=== PATIENT | male | born 1995 | race Caucasian/White ===

== ENCOUNTER 2020-06-24 20:15 | Inpatient (IN) | payer MEDICARE, MEDICAID, SELFPAY ==
[2020-06-24 20:15] VITALS: BP 133/91; PULSE 88; RESP 16; TEMP 36.6; O2SAT 98; BMI 28.1
--- NOTE | 2020-06-24 20:23 | ED_ITS ---
HPI - Psych General: Chief Complaint: Psychiatric Symptoms Stated Complaint: MHE Time Seen by Provider: 06/24/20 20:15 Source: patient and EMS Mode of arrival: EMS Limitations: no limitations History of Present Illness: HPI Narrative: 25-year-old male who is here by EMS stating he has had violent outbursts and difficulty controlling his emotions. He states he has been depressed as well. He states he has had previous suicidal thoughts and thoughts of harming other people but has no active thoughts at this time. He denies any previous treatments does not take any medicines. MD complaint: suicidal ideation and feels depressed Associated symptoms: Reports depression Review of Systems Const: Denies: fever(s), chills, body aches or change in appetite Eyes: Denies: blurry vision or eye discomfort ENMT: Denies: throat pain or dental pain Card: Denies: chest pain Resp: Denies: dyspnea GI: Denies: abdominal pain, nausea, vomiting or diarrhea : Denies: dysuria Musc: Denies: neck pain or back pain Skin/Breast: Denies: rash Neuro: Denies: headache(s) Psych: Reports: depression and irritability Reyes/Lymph: Denies: easy bruising All/Imm: Denies: urticaria Physical Exam Const: COMMON NORMALS: no acute distress, patient oriented x3 and healthy appearing HENMT: COMMON NORMALS: normocephalic and atraumatic HEAD & SCALP: normocephalic and atraumatic Eye: COMMON NORMALS: Equal, round and reactive pupils present and EOMs intact bilaterally PUPIL: Yes Equal, round and reactive pupils present Neck/C-Spine: COMMON NORMALS: full ROM and supple Chest: COMMONS NORMALS: normal inspection of the chest and normal palpation of entire chest wall Resp: COMMON NORMALS: normal respiratory effort, No retractions, No use of accessory muscles and clear to auscultation bilaterally AUSCULTATION: clear to auscultation bilaterally Cardio: COMMON NORMALS: regular rate, regular rhythm and No murmurs present (Cardio) RATE: regular rate RHYTHM: regular rhythm GI: COMMON NORMALS: Normal to inspection, nondistended, normoactive bowel sounds present, Soft to palpation, non-tender and no masses PALPATION: Yes Soft to palpation Extremity: COMMON NORMALS: normal to inspection and full ROM Neuro: COMMON NORMALS: patient oriented x3, moves all extremities and no focal motor deficits Psych: COMMON NORMALS: mental status grossly normal, Normal thought process present and cooperative THOUGHT PROCESS: Normal thought process present Skin: COMMON NORMALS: no rashes or lesions noted and no wounds GENERAL SKIN EXAM: no rashes or lesions noted MDM - Psych MDM Narrative: Medical decision making narrative: Srinivasa presents here with depression along with anger issues. Patient is voluntarily wanting to be admitted as he has had suicidal ideations in the past. I spoke to Dr. Bruno and will admit. Patient is medically cleared. Lab Data: Labs: Lab Results 06/24/20 06/24/20 06/24/20 Range/Units 20:39 20:42 20:42 WBC 7.2 (4.0-10.0) 10^3/ uL RBC 4.93 (4.1-5.3) 10^6/u L Hgb 15.2 (11.7-16.6) g/dL Hct 48.4 (42.0-52.0) % MCV 98.2 H (80-94) fL MCH 30.8 (28.0-34.0) pg MCHC 31.4 (30.0-36.0) g/dL RDW 12.7 (12.1-15.1) % Plt Count 335 (130-400) 10^3/c mm MPV 9.2 (7.4-10.4) fL Neut % (Auto) 57.0 % Lymph % (Auto) 32.2 % Island % (Auto) 8.8 % Eos % (Auto) 0.6 % Baso % (Auto) 1.1 % Neut # (Auto) 4.08 (1.8-7.7) 10^3/u L Lymph # (Auto) 2.3 (0.8-4.8) 10^3/u L Island # (Auto) 0.6 (0.2-0.9) 10^3/u L Eos # (Auto) 0.0 (0.0-0.8) 10^3/u L Baso # (Auto) 0.1 (0.0-0.1) 10^3/u L Nucleated RBC % (a uto) 0 % Nucleated RBCs # 0.0 /100WBC Sodium 141 (136-145) mmol/L Potassium 4.4 (3.5-5.1) mmol/L Chloride 103 (98-107) mmol/L Carbon Dioxide 28 (22-29) mmol/L Anion Gap 14.4 (5-19) BUN 6 (6-20) mg/dL Creatinine 0.8 (0.7-1.2) mg/dL GFR Calculation 116.9 (90-130) mL/min Glucose 98 (65-115) mg/dL Calculated Osmolal ity 288 (285-295) mOsm/k g Calcium 10.2 (8.5-10.5) mg/dL Total Bilirubin 0.4 (0.15-1.2) mg/dL AST 18 (0-40) U/L ALT 18 (0-41) U/L Alkaline Phosphata se 60 (40-130) IU/L Total Protein 7.8 (6.6-8.7) g/dL Albumin 5.1 (3.5-5.2) g/dL Globulin 2.7 (1.3-4.6) g/dL Salicylates < 0.3 L (3-10) mg/dL Urine Opiates Scre en Positive H (Negative) ng/mL Acetaminophen < 5.0 L (10-30) ug/mL Ur Barbiturates Sc reen Negative (Negative) ng/mL Ur Phencyclidine S crn Negative (Negative) ng/mL Ur Amphetamines Sc reen Negative (Negative) ng/mL U Benzodiazepines Scrn Negative (Negative) ng/mL Urine Cocaine Scre en Negative (Negative) ng/mL U Marijuana (THC) Screen Positive H (Negative) ng/mL Ethyl Alcohol < 10 (0-10) mg/dL Discharge Plan Discharge Patient Disposition: Admitted As Inpatient Admit Provider: Octavio Bruno Clinical Impression: Excessive anger Depression Qualifiers: Depression Type: unspecified Qualified Code(s): F32.9 - Major depressive disorder, single episode, unspecified Condition: Stable Coding Level of Care Code ED Geriatric Personal Care Aide for Panchito Fwannalisa Exam Comprehensive
[2020-06-24 20:48] VITALS: RESP 16
[2020-06-24 20:52] LABS: Basophils # 0.1 10^3/uL (0.0-0.1); Basophils % 1.1 %; Eosinophils % 0.6 %; Hematocrit 48.4 % (42.0-52.0); Hemoglobin 15.2 g/dL (11.7-16.6); Lymphocytes # 2.3 10^3/uL (0.8-4.8); Lymphocytes % 32.2 %; Mean Corpuscular HGB Conc 31.4 g/dL (30.0-36.0); Mean Corpuscular Hemoglobin 30.8 pg (28.0-34.0); Mean Corpuscular Volume 98.2 fL (80-94); Mean Platelet Volume 9.2 fL (7.4-10.4); Monocytes # 0.6 10^3/uL (0.2-0.9); Monocytes % 8.8 %; Neutrophils # 4.08 10^3/uL (1.8-7.7); Nucleated Red Blood Cells % 0 %; Platelet Count 335 10^3/cmm (130-400); Red Blood Count 4.93 10^6/uL (4.1-5.3); Red Cell Distribution Width 12.7 % (12.1-15.1); White Blood Count 7.2 10^3/uL (4.0-10.0)
[2020-06-24 20:57] LABS: Amphetamines Screen Urine Negative (Negative); Barbiturates Screen Urine Negative (Negative); Benzodiazepines Screen Urine Negative (Negative); Cocaine Screen Urine Negative (Negative); Opiate Screen Urine Positive (Negative); PCP Screen Urine Negative (Negative); THC Screen Urine Positive (Negative)
[2020-06-24 21:05] LABS: Alanine Aminotransferase 18 U/L (0-41); Albumin Level 5.1 g/dL (3.5-5.2); Alkaline Phosphatase 60 IU/L (40-130); Anion Gap 14.4 (5-19); Aspartate Amino Transferase 18 U/L (0-40); Blood Urea Nitrogen 6 mg/dL (6-20); Calcium 10.2 mg/dL (8.5-10.5); Carbon Dioxide 28 mmol/L (22-29); Chloride 103 mmol/L (98-107); Globulin 2.7 g/dL (1.3-4.6); Glomerular Filtration Rate 116.9 mL/min (90-130); Glucose 98 mg/dL (65-115); Osmolality Calculated 288 mOsm/kg (285-295); Potassium 4.4 mmol/L (3.5-5.1); Sodium 141 mmol/L (136-145); Total Bilirubin 0.4 mg/dL (0.15-1.2); Total Protein 7.8 g/dL (6.6-8.7)
[2020-06-24 21:11] LABS: Acetaminophen < 5.0 ug/mL (10-30); Alcohol Level < 10 mg/dL (0-10); Salicylate < 0.3 mg/dL (3-10)
[2020-06-24 21:31] VITALS: BP 126/85; PULSE 76; RESP 15; O2SAT 99
[2020-06-24 22:07] VITALS: BP 133/87; PULSE 71; RESP 18; TEMP 37.1; O2SAT 96
[2020-06-24] MEDS: hyDROXYzine 25 mg Capsule 50 MG PO (22:13)
[2020-06-24] MEDS: trazodone 50 mg Tablet PO (22:14)
--- NOTE | 2020-06-24 23:49 | PC.NURSE ---
pt given prn vistaril and trazodone per request.
[2020-06-25 06:00] VITALS: BP 124/72; PULSE 78; RESP 14; TEMP 36.7; O2SAT 98
[2020-06-25] MEDS: nicotine 2 mg Gum BUCCAL ×3 (13:12→20:00)
[2020-06-25 14:00] VITALS: BP 120/75; PULSE 69; RESP 20; TEMP 36.4; O2SAT 99
--- NOTE | 2020-06-25 14:57 | P.HP_ITS ---
Providers/Chief Complaint Admitting Physician: Octavio Bruno MD Chief Complaint: MHE HPI NPU History of Present Illness Srinivasa Greene is a 25 year old male Srinivasa today having presented to the emergency room yesterday evening at the behest of his fianc?, he reports. EMS brought him in reporting that he has had violent outbursts and difficulty controlling his emotions. He had been reporting depression and previous suicidal thoughts as well as thoughts of harming other people, denying active thoughts at the time of admission, but not being on medication and having previous treatment, endorsing some concern about if things get worse he might act on something towards himself and he wanted to get treatment before that happened. He was admitted to the neuropsychiatric unit for definitive treatment of those issues. He presents today reporting that he has significant problems with controlling his anger and emotions, and that his fianc? has gotten fed up. He reports that it has gotten so bad that he has gun charges because he might grab a gun and be irrational. He reports he is very impulsive, and he does not think about things until sometimes it can be too late. He reports that he has never tried to kill himself but that he does have a history of anger and impulsive behavior. He reports that he started smoking cigarettes when he was about 13. He smoked somewhere between a half pack and a pack a day now. He drinks alcohol sometimes. He reports having marijuana occasionally. He reports that he does not use cocaine or opiates, but he has had issues with methamphetamines, but denies recent methamphetamine use maybe for a couple months he reports. His drug screen was positive for marijuana and opiates. He reports that he has been pretty depressed and anxious recently. He is frustrated because he gets mad and then he almost gets mad when he gets mad, so it gets out of control he reports. He reports he has a court date on Monday and though he wants to be discharged, he knows that he needs help and he just reports needing to be out of the hospital before then. We discussed the risks, benefits, and alternatives of initiating Clonidine for his impulsivity and Lamictal for his aggression, and we discussed the risks, benefits, and alternatives of these medications including the risk of Howell-Dashawn syndrome usually with increasing doses of Lamictal, and he understood and agreed to proceed as is documented in this note. PSYCHIATRIC HISTORY: He denies inpatient hospitalization before this one, and denies significant treatment before now, though he does endorse that he was treated by someone in the past for attention deficit hyperactivity disorder, and outpatient records suggest that he was seen at [facility] for similar complaints. That evaluation is included below in part, which concluded with a diagnosis of bipolar disorder and intermittent explosive disorder. He reports that the document referenced was a reasonable and accurate depiction of what was going on at that time. He also had an evaluation by a psychiatrist which demonstrated a past history of Lamictal being utilized effectively, and in that document, there is a diagnosis of bipolar disorder as well as cannabis abuse. He identified that being accurate as well. SUBSTANCE ABUSE HISTORY: As above. FAMILY HISTORY: He endorses mental health on mother?s side, addiction on dad?s side and reports that his dad committed suicide in 2017. DEVELOPMENTAL HISTORY: He denies issues with his mother?s or delivery of him. He met all developmental milestones on time. He does report that once he went to school, he did need speech therapy and special education services. PSYCHOSOCIAL HISTORY: He endorses that he is the only child of his parents, who were off and on together until his father . He endorses his mother had an older daughter prior to her relationship with his father and that his father had in the neighborhood of six total children. He reports his childhood was pretty good. He denies emotional, physical, or sexual abuse. 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 He reports that he is a heterosexual with his longest relationship being three years. He denies ever being , but he reports that he is engaged. He denies having biological children, ever being in the , or having any mormonism belief system. He reports his longest employment was at a [email or web address]. 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 He reports he currently lives in a trailer with his mother and sometimes lives with his girlfriend. LEGAL HISTORY: He says he has been in intermediate about four or five times. MEDICAL HISTORY: He denies any significant medical issues though he does struggle at times with his weight. In the papers it shows history of hypertension and asthma. Meds NPU Home Medications Medication Instructions Recorded Confirmed Last Taken Type clonidine HCl 0.1 mg PO DAILY 30 Days #60 tab 06/27/20 Unknown Rx hydroxyzine pamoate 50 mg PO Q6H PRN 30 Days #120 cap 06/27/20 Unknown Rx lamotrigine 25 mg PO DAILY 18 Days #39 tab 06/27/20 Unknown Rx lamotrigine 100 mg PO DAILY #30 tab 06/27/20 Unknown Rx trazodone 50 mg PO BEDTIME PRN 30 Days #30 06/27/20 Unknown Rx tab Allergies Allergy/AdvReac Type Severity Reaction Status Date / Time Sulfa (Sulfonamide Allergy Unknown Verified 06/24/20 21:16 Antibiotics) PFSH NPU PFSH: Medical History (Updated 06/28/20 @ 00:00 by ) Excessive anger Social History Smoking and tobacco status: current every day smoker Mental Status Exam 2 MSE Comments: This is an overweight, white male, with adequate dress, grooming, and eye contact with slightly dysmorphic facies. No abnormal movements except for psychomotor retardation. Cooperative with exam in mild distress. Speech was decreased rate and volume and dysarthric. Mood described as depressed and anxious; affect congruent. Thought process, organized. Thought content: patient denied any suicidal or homicidal ideation, there were no delusions reported or noted, patient denied any auditory or visual hallucinations. Attention, concentration, and memory appear intact but were not formally tested. He is alert and oriented times three. Insight and judgment are limited. Impulse control limited and intellectual ability appears limited. Vitals/I&O/Wt Last Vital Signs Temp 97.8 F 06/25/20 22:00 Pulse 68 06/25/20 22:00 Resp 19 H 06/25/20 22:00 BP 123/78 06/25/20 22:00 Pulse Ox 99 06/25/20 22:00 Weight last 48 hrs Weight 83.915 kg Data NPU : 06/24/20 20:42 06/24/20 20:42 A&P Assessment and plan (1) Intermittent explosive disorder: This is a 25 year old, white male, with history of bipolar disorder diagnosis, intermittent explosive diagnosis, as well as cannabis abuse, who presents with continued issues with impulsivity and intermittent aggression at a level inconsistent with the stimulus for the response, who presents open to restarting some medications at this time. Continue current medication except: Start Clonidine 0.1 mg po qhs with a likely plan to increase, and Lamictal 25 mg po qam with a plan to discharge on a titration schedule after discussion of risks, benefits, and alternatives including Howell-Dashawn syndrome, but he understood and agreed to proceed as documented in this note. Recommend sober living treatment at the highest level of care to which the patient is willing to commit. Encourage individual, group, and milieu therapy. Continue q-15 minute checks for safety. Status: Acute (2) Depression: Status: Acute Qualifiers: Depression Type: unspecified Qualified Code(s): F32.9 - Major depressive disorder, single episode, unspecified Involuntary Hold Information 96 Hour Hold: 96 Hour Involuntary Admission: No Attestations NPU Medical Necessity Statement*: Inpatient hospitalization is medically necessary, and the clinically appropriate intervention at this time. He will be in the hospital for over two midnights. We will initiate medications and make changes as indicated. Likely length of stay two to four days. Coding Level of Care Code Acute [facility] for Panchito Manzano Diagnoses Intermittent explosive disorder F63.81 Depression F32.9 Depression Type: unspecified
[2020-06-25] MEDS: lamoTRIgine 25 mg Tablet PO (17:15)
[2020-06-25 21:25] VITALS: BP 123/78
[2020-06-25] MEDS: cloNIDine 0.1 mg Tablet PO (21:25)
[2020-06-25] MEDS: hyDROXYzine 25 mg Capsule 50 MG PO (21:26)
[2020-06-25] MEDS: trazodone 50 mg Tablet PO (21:26)
--- NOTE | 2020-06-25 21:26 | PC.NURSE ---
PRN VISTARIL & TRAZODONE PT REQUESTING SLEEP AID AND ANXIETY MEDICATION. ADMINISTERED TRAZODONE 50 MG PO & VISTARIL 50 MG PO. WILL MONITOR FOR MEDICATION EFFECTIVENESS.
[2020-06-25 22:00] VITALS: BP 123/78; PULSE 68; RESP 19; TEMP 36.6; O2SAT 99
[2020-06-26 06:00] VITALS: BP 120/71; PULSE 83; RESP 15; TEMP 36.8; O2SAT 96
[2020-06-26] MEDS: lamoTRIgine 25 mg Tablet PO (08:04)
--- NOTE | 2020-06-26 11:04 | PM.NPN ---
Subjective NPU Subjective: Interval history: Srinivasa presents today eager for discharge and reporting that he is feeling better, but mostly feeling cooped up. He reports he is just not an inside person, that every day he goes outside and tries to work his energy out, and that it is hard to be in the hospital. We continued to agree that we would try to have him out of the hospital by Monday evening or so, because he has a significant court case he wants to manage on Monday. He states he would not have come in if he thought he would miss that, because he really wants to get back to work and he is fearful that if he misses that, that the felony charges might have more merit somehow. We discussed the risks, benefits, and alternatives of making an increase to the Clonidine and reviewed the Lamictal again including Howell-Dashawn syndrome given that most of the titration of medication will happen after discharge, and he understood and agreed to proceed as is documented in this note. He reports he is eating alright and sleeping fine. Mental Status Exam MSE Comments: This is an overweight, white male, with adequate dress, grooming, and eye contact with slightly dysmorphic facies. No abnormal movements except for psychomotor retardation. Cooperative with exam in mild distress. Speech was decreased rate and volume and dysarthric. Mood described as better; affect congruent. Thought process, organized. Thought content: patient denied any suicidal or homicidal ideation, there were no delusions reported or noted, patient denied any auditory or visual hallucinations. Attention, concentration, and memory appear intact but were not formally tested. He is alert and oriented times three. Insight and judgment are limited. Impulse control limited and intellectual ability appears limited. Vitals/I&O/Wt Last Vital Signs Temp 97.6 F 06/26/20 21:54 Pulse 62 06/26/20 21:54 Resp 18 06/26/20 21:54 BP 99/62 06/26/20 21:54 Pulse Ox 98 06/26/20 21:54 Data NPU : 06/24/20 20:42 06/24/20 20:42 A&P Assessment and plan (1) Intermittent explosive disorder: This is a 25 year old, white male, with history of bipolar disorder diagnosis, intermittent explosive diagnosis, as well as cannabis abuse, who presents with continued issues with impulsivity and intermittent aggression at a level inconsistent with the stimulus for the response, who presents open to restarting some medications at this time. Continue current medication except: increase Clonidine 0.1 mg po bid Recommend sober living treatment at the highest level of care to which the patient is willing to commit. Encourage individual, group, and milieu therapy. Continue q-15 minute checks for safety. Status: Acute (2) Depression: Status: Acute Qualifiers: Depression Type: unspecified Qualified Code(s): F32.9 - Major depressive disorder, single episode, unspecified Involuntary Hold Information 96 Hour Hold: 96 Hour Involuntary Admission: No Attestations NPU Medical Necessity Statement*: Inpatient hospitalization is medically necessary, and the clinically appropriate intervention at this time. We will initiate medications and make changes as indicated. Likely length of stay 1-3 days. Coding Level of Care Code Acute [facility] [employer] [facility] for [facility] Fwd Diagnoses Intermittent explosive disorder F63.81 Depression F32.9 Depression Type: unspecified
[2020-06-26] MEDS: nicotine 2 mg Gum BUCCAL ×3 (11:40→19:44)
[2020-06-26 14:00] VITALS: BP 131/76; PULSE 77; RESP 18; TEMP 36.7; O2SAT 100
--- NOTE | 2020-06-26 14:17 | PC.RESP ---
Smoking Cessation information sent to patient.
[2020-06-26] MEDS: cloNIDine 0.1 mg Tablet PO (16:59)
--- NOTE | 2020-06-26 18:30 | PC.NURSE ---
wHEN HE IS DISCHARGED THIS PATIENT NEEDS TO USE LOGISTIC CARE.
[2020-06-26] MEDS: hyDROXYzine 25 mg Capsule 50 MG PO (20:30)
[2020-06-26] MEDS: trazodone 50 mg Tablet PO (20:30)
--- NOTE | 2020-06-26 20:51 | PC.NURSE ---
PRN VISTARIL & TRAZODONE PT REQUESTING SLEEP AID AND ANXIETY MEDICATION. ADMINISTERED TRAZODONE 50 MG PO & VISTARIL 50 MG PO. WILL MONITOR FOR MEDICATION EFFECTIVENESS.
[2020-06-26 21:54] VITALS: BP 99/62; PULSE 62; RESP 18; TEMP 36.4; O2SAT 98
[2020-06-27 06:00] VITALS: BP 106/71; PULSE 83; RESP 20; TEMP 36.4; O2SAT 99
[2020-06-27] MEDS: lamoTRIgine 25 mg Tablet PO (09:03)
[2020-06-27] MEDS: nicotine 2 mg Gum BUCCAL ×2 (09:03→12:10)
--- NOTE | 2020-06-27 11:10 | P.DS_ITS ---
Diagnoses at Discharge Discharge Diagnosis (1) Intermittent explosive disorder: Status: Acute (2) Depression: Status: Acute Qualifiers: Depression Type: unspecified Qualified Code(s): F32.9 - Major depressive disorder, single episode, unspecified Reason for Visit Reason for Visit: MHE Brief History: History of Present Illness Srinivasa Greene is a 25 year old male Srinivasa today having presented to the emergency room yesterday evening at the behest of his fianc?, he reports. EMS brought him in reporting that he has had violent outbursts and difficulty controlling his emotions. He had been reporting depression and previous suicidal thoughts as well as thoughts of harming other people, denying active thoughts at the time of admission, but not being on medication and having previous treatment, endorsing some concern about if things get worse he might act on something towards himself and he wanted to get treatment before that happened. He was admitted to the neuropsychiatric unit for definitive treatment of those issues. He presents today reporting that he has significant problems with controlling his anger and emotions, and that his fianc? has gotten fed up. He reports that it has gotten so bad that he has gun charges because he might grab a gun and be irrational. He reports he is very impulsive, and he does not think about things until sometimes it can be too late. He reports that he has never tried to kill himself but that he does have a history of anger and impulsive behavior. He reports that he started smoking cigarettes when he was about 13. He smoked somewhere between a half pack and a pack a day now. He drinks alcohol sometimes. He reports having marijuana occasionally. He reports that he does not use cocaine or opiates, but he has had issues with methamphetamines, but denies recent methamphetamine use maybe for a couple months he reports. His drug screen was positive for marijuana and opiates. He reports that he has been pretty depressed and anxious recently. He is frustrated because he gets mad and then he almost gets mad when he gets mad, so it gets out of control he reports. He reports he has a court date on Monday and though he wants to be discharged, he knows that he needs help and he just reports needing to be out of the hospital before then. We discussed the risks, benefits, and alternatives of initiating Clonidine for his impulsivity and Lamictal for his aggression, and we discussed the risks, benefits, and alternatives of these medications including the risk of Howell-Dashawn syndrome usually with increasing doses of Lamictal, and he understood and agreed to proceed as is documented in this note. PSYCHIATRIC HISTORY: He denies inpatient hospitalization before this one, and denies significant treatment before now, though he does endorse that he was treated by someone in the past for attention deficit hyperactivity disorder, and outpatient records suggest that he was seen at [facility] for similar complaints. That evaluation is included below in part, which concluded with a diagnosis of bipolar disorder and intermittent explosive disorder. He reports that the document referenced was a reasonable and accurate depiction of what was going on at that time. He also had an evaluation by a psychiatrist which demonstrated a past history of Lamictal being utilized effectively, and in that document, there is a diagnosis of bipolar disorder as well as cannabis abuse. He identified that being accurate as well. SUBSTANCE ABUSE HISTORY: As above. FAMILY HISTORY: He endorses mental health on mother?s side, addiction on dad?s side and reports that his dad committed suicide in 2017. DEVELOPMENTAL HISTORY: He denies issues with his mother?s or delivery of him. He met all developmental milestones on time. He does report that once he went to school, he did need speech therapy and special education services. PSYCHOSOCIAL HISTORY: He endorses that he is the only child of his parents, who were off and on together until his father . He endorses his mother had an older daughter prior to her relationship with his father and that his father had in the neighborhood of six total children. He reports his childhood was pretty good. He denies emotional, physical, or sexual abuse. 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 He reports that he is a heterosexual with his longest relationship being three years. He denies ever being , but he reports that he is engaged. He denies having biological children, ever being in the , or having any yazidism belief system. He reports his longest employment was at a [employer]. 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 He reports he currently lives in a trailer with his mother and sometimes lives with his girlfriend. LEGAL HISTORY: He says he has been in care home about four or five times. MEDICAL HISTORY: He denies any significant medical issues though he does struggle at times with his weight. In the papers it shows history of hypertension and asthma. Involuntary Hold Information 96 Hour Hold: 96 Hour Involuntary Admission: No Mental Status Exam MSE Comments: This is an overweight, white male, with adequate dress, grooming, and eye contact with slightly dysmorphic facies. No abnormal movements except for psychomotor retardation. Cooperative with exam in mild distress. Speech was decreased rate and volume and dysarthric. Mood described as pretty good; affect congruent. Thought process, organized. Thought content: patient denied any suicidal or homicidal ideation, there were no delusions reported or noted, patient denied any auditory or visual hallucinations. Attention, concentration, and memory appear intact but were not formally tested. He is alert and oriented times three. Insight and judgment are improving. Impulse control improving, and intellectual ability appears limited. Discharge Data Vitals: Last Vital Signs Temp 97.6 F 06/27/20 11:44 Pulse 83 06/27/20 11:44 Resp 20 H 06/27/20 11:44 BP 106/71 06/27/20 11:44 Pulse Ox 99 06/27/20 11:44 Discharge Plan Discharge Patient Disposition: Home Condition: Stable Prescriptions: New trazodone 50 mg Tablet 50 mg PO BEDTIME PRN (Reason: Sleep) 30 Days Qty: 30 RF: 1 lamotrigine 25 mg Tablet 25 mg PO DAILY 18 Days Qty: 39 RF: 0 clonidine HCl 0.1 mg Tablet 0.1 mg PO DAILY 30 Days Qty: 60 RF: 1 hydroxyzine pamoate 25 mg Capsule 50 mg PO Q6H PRN (Reason: Anxiety) 30 Days Qty: 120 RF: 1 lamotrigine 100 mg tablet 100 mg PO DAILY Qty: 30 RF: 1 Discharge Orders: Discharge Order (Routine); Ordered 06/27/20 Ordered By: Octavio Bruno Referrals: [facility] [Outside] (Follow up for a walk in assessment after discharge. This can be done Monday-Monday from 7:30am-2:00pm. Once done you will be linked to appropriate services.) [facility] [Outside] (Resource for substance abuse treatment, they offer both inpatient and outpatient services.) Discharge Diet: Regular Discharge Activity: Resume usual activity Discharge Date/Time: 06/27/20 13:07 Discharge Attestations NPU Time Spent in Discharge Care*: less than 30 min Specific Discharge Activities: Specific discharge activities: educating patient, discussing with case resolution specialist/social workers/dc planners, documenting/other paperwork and evaluating patient/reviewing data Coding Level of Care Code Acute Pediatric Psychologist for g Fwd Diagnoses Intermittent explosive disorder F63.81 Depression F32.9 Depression Type: unspecified
[2020-06-27 11:44] VITALS: BP 106/71; PULSE 83; RESP 20; TEMP 36.4; O2SAT 99
[2020-06-27] MEDS: cloNIDine 0.1 mg Tablet PO (13:02)
== END 2020-06-27 13:07 | disposition home or self-care (01) | DRG 883 ==
LOC: ER 20:43 → NP 21:20
PROVIDERS: Emergency Medicine; Admitting Provider Psychiatry & Neurology Psychiatry; Visit Provider Psychiatry & Neurology Psychiatry
DX: F63.81 Intermittent explosive disorder (principal); F32.9 Major depressive disorder, single episode, unspecified; F17.210 Nicotine dependence, cigarettes, uncomplicated
CPT/HCPCS: 12345; 36415; 80053; 80306; 80307; 85025; 99284

== ENCOUNTER 2021-04-26 20:12 | Inpatient (IN) | payer MEDICARE, MEDICAID, SELFPAY ==
[2021-04-26 20:14] VITALS: BP 144/98; PULSE 110; RESP 18; TEMP 36.7; O2SAT 98; BMI 25.1
[2021-04-26 20:35] LABS: Add Urine Microscopic? NO; Charge for UA Resulting for Rev
[2021-04-26 20:36] LABS: Bilirubin Urine Neg (Negative); Blood Urine Neg (Negative); Glucose Urine UA Norm (Normal); Ketones Urine Negative (Negative); Leukocyte Esterase Urine Negative (Negative); Nitrate Urine Negative (Negative); Protein Urine Neg (Negative); Specific Gravity, Urine 1.005 (1.005-1.030); Urine Appearance Clear (CLEAR); Urine Color Yellow (Yellow); Urobilinogen Urine Norm (Negative); pH Urine 7 (5-7)
[2021-04-26 20:46] LABS: Amphetamines Screen Urine Positive (Negative); Barbiturates Screen Urine Negative (Negative); Benzodiazepines Screen Urine Negative (Negative); Cocaine Screen Urine Negative (Negative); Opiate Screen Urine Positive (Negative); PCP Screen Urine Negative (Negative); THC Screen Urine Negative (Negative)
--- NOTE | 2021-04-26 21:02 | W.ED.PSYCH ---
HPI - Psych General: Chief Complaint: Psychiatric Symptoms Stated Complaint: si and meth use Time Seen by Provider: 04/26/21 20:14 Source: patient Mode of arrival: EMS Limitations: altered mental status History of Present Illness: HPI Narrative: Patient is a 26-year-old male who was brought in by EMS with complaint of suicidal ideation. Patient admits to using methamphetamines and opiates. It is difficult to understand the patient most likely due to intoxication and the fact that his speech is rapid and unclear. But from what I can gather the patient was in an argument with his girlfriend and she reported him to his boss that he had been abusing Xanax. The patient states that he was using the Xanax to help him calm down from using methamphetamines. Because of this his boss fired him today which made him even more upset. He states that he got home and his mother had been searching his room and found methamphetamines in his room. This upset him even more and he was enraged and said he was tired of it all and wanted to kill himself. They called the police and he also admitted to them that he was suicidal. He was therefore brought in for evaluation. He states that he has used methamphetamines, opiates, and acid . complaint: suicidal ideation History of same: No Relieving factors: none Exacerbating factors: drug use Context: recent drug abuse Associated psychiatric symptoms: suicidal ideation, racing thoughts and delusions Associated symptoms: Reports delusions, suicidal ideation and racing thoughts Treatments prior to arrival: none If self harm: admits thoughts of self harm and has plan Details of plan: he states that he can jump off a bridge or drive his car into a wall Review of Systems General: Reports: 10 or more systems reviewed and unremarkable except in HPI and below Psych: Reports: suicidal ideation [facility] ED PFSH: Medical History (Reviewed 04/26/21 @ 21:51 by Moose Pelletier MD, [facility] [place]) Excessive anger Social History (Reviewed 04/26/21 @ 21:51 by Moose Pelletier MD, [facility] [place]) Smoking and tobacco status: current every day smoker Physical Exam Const: COMMON NORMALS: no acute distress, average body habitus, patient oriented x3, no limitations, healthy appearing, alert and well nourished HENMT: COMMON NORMALS: normocephalic, atraumatic and moist oral mucous membranes HEAD & SCALP: normocephalic and atraumatic Neck/C-Spine: COMMON NORMALS: no meningeal signs and no JVD Resp: COMMON NORMALS: normal respiratory effort, No retractions, No use of accessory muscles, clear to auscultation bilaterally and percussion normal AUSCULTATION: clear to auscultation bilaterally PERCUSSION: percussion normal Cardio: COMMON NORMALS: no JVD, regular rate, regular rhythm, S1 normal heart sound present, S2 normal heart sound present, No gallops present (Cardio), No clicks present (Cardio), No murmurs present (Cardio), No rub (Cardio) and Peripheral pulses 2+ throughout RATE: regular rate RHYTHM: regular rhythm HEART SOUNDS: S1 normal heart sound present and S2 normal heart sound present PERIPHERAL PULSES: Peripheral pulses 2+ throughout GI: COMMON NORMALS: Normal to inspection, nondistended, normoactive bowel sounds present, Soft to palpation, non-tender, No hepatosplenomegaly present, no masses and no bruits PALPATION: Yes Soft to palpation and Yes No hepatosplenomegaly present Extremity: COMMON NORMALS: normal to inspection, full ROM, capillary refill normal, no calf tenderness and no pedal edema Neuro: COMMON NORMALS: patient oriented x3 SENSORIUM/ORIENTATION: Yes alert MENINGEAL SIGNS: Yes no meningeal signs Psych: APPEARANCE: Yes disheveled ATTITUDE: Yes paranoid and Yes agitated ACTIVITY/MOTOR BEHAVIOR: Yes psychomotor agitation SPEECH: Yes excessive and Yes rapid MOOD & AFFECT: Yes irritable and Yes Labile affect present THOUGHT PROCESS: disorganized THOUGHT CONTENT: Yes Suicidality present and Yes delusions Delusional thought content details: paranoid Skin: COMMON NORMALS: no rashes or lesions noted, no wounds, turgor normal, no jaundice, no petechiae and no mottling GENERAL SKIN EXAM: no rashes or lesions noted and turgor normal Course Consultations: Consultation #1: Discussed the patient with Dr. Bruno, psychiatrist and he kindly accepted the patient to his service. Time: 21:37 Vital Signs: Vital signs: Vital Signs Temperature 98.0 F 04/26/21 20:14 Pulse Rate 110 H 04/26/21 20:14 Respiratory Rate 18 04/26/21 20:14 Blood Pressure 144/98 04/26/21 20:14 Pulse Oximetry 98 04/26/21 20:14 MDM - Psych MDM Narrative: Medical decision making narrative: 26-year-old male who was brought into the emergency department with suicidal ideation. The patient seems to have lots of social issues going on, admits to substance abuse, and admits to having suicidal thoughts. He also has quite a bit of paranoia. He is medically cleared and admitted to the neuropsychiatric unit for further evaluation and management. Medical Records: Attestation: I reviewed the patient's medical records. Lab Data: Attestation: I reviewed the patient's lab results. Labs: Lab Results 04/26/21 04/26/21 04/26/21 Range/Units 20:25 20:25 20:46 WBC 11.1 H (4.0-10.0) 10^3/ uL RBC 4.86 (4.1-5.3) 10^6/u L Hgb 15.1 (11.7-16.6) g/dL Hct 45.3 (42.0-52.0) % MCV 93.2 (80-94) fL MCH 31.1 (28.0-34.0) pg MCHC 33.3 (30.0-36.0) g/dL RDW 12.7 (12.1-15.1) % Plt Count 379 (130-400) 10^3/c mm MPV 8.6 (7.4-10.4) fL Neut % (Auto) 74.9 % Lymph % (Auto) 15.8 % [place] % (Auto) 7.9 % Eos % (Auto) 0.4 % Baso % (Auto) 0.7 % Neut # (Auto) 8.30 H (1.8-7.7) 10^3/u L Lymph # (Auto) 1.8 (0.8-4.8) 10^3/u L [place] # (Auto) 0.9 (0.2-0.9) 10^3/u L Eos # (Auto) 0.0 (0.0-0.8) 10^3/u L Baso # (Auto) 0.1 (0.0-0.1) 10^3/u L Nucleated RBC % (a uto) 0 % Nucleated RBCs # 0.0 /100WBC Sodium (136-145) mmol/L Potassium (3.5-5.1) mmol/L Chloride (98-107) mmol/L Carbon Dioxide (22-29) mmol/L Anion Gap (5-19) BUN (6-20) mg/dL Creatinine (0.7-1.2) mg/dL GFR Calculation (90-130) mL/min Glucose (65-115) mg/dL Calculated Osmolal ity (285-295) mOsm/k g Calcium (8.5-10.5) mg/dL Total Bilirubin (0.15-1.2) mg/dL AST (0-40) U/L ALT (0-41) U/L Alkaline Phosphata se (40-130) IU/L Total Protein (6.6-8.7) g/dL Albumin (3.5-5.2) g/dL Globulin (1.3-4.6) g/dL Urine Color Yellow (Yellow) Urine Appearance Clear (CLEAR) Urine pH 7 (5-7) Ur Specific Gravit y 1.005 (1.005-1.030) Urine Protein Neg (Negative) Urine Glucose (UA) Norm (Normal) Urine Ketones Negative (Negative) Urine Blood Neg (Negative) Urine Nitrate Negative (Negative) Urine Bilirubin Neg (Negative) Urine Urobilinogen Norm (Negative) mg/dL Ur Leukocyte Cathy ase Negative (Negative) Salicylates (3-10) mg/dL Urine Opiates Scre en Positive H (Negative) ng/mL Acetaminophen (10-30) ug/mL Ur Barbiturates Sc reen Negative (Negative) ng/mL Ur Phencyclidine S crn Negative (Negative) ng/mL Ur Amphetamines Sc reen Positive H (Negative) ng/mL U Benzodiazepines Scrn Negative (Negative) ng/mL Urine Cocaine Scre en Negative (Negative) ng/mL U Marijuana (THC) Screen Negative (Negative) ng/mL Ethyl Alcohol (0-10) mg/dL 04/26/21 Range/Units 20:46 WBC (4.0-10.0) 10^3/ uL RBC (4.1-5.3) 10^6/u L Hgb (11.7-16.6) g/dL Hct (42.0-52.0) % MCV (80-94) fL MCH (28.0-34.0) pg MCHC (30.0-36.0) g/dL RDW (12.1-15.1) % Plt Count (130-400) 10^3/c mm MPV (7.4-10.4) fL Neut % (Auto) % Lymph % (Auto) % [place] % (Auto) % Eos % (Auto) % Baso % (Auto) % Neut # (Auto) (1.8-7.7) 10^3/u L Lymph # (Auto) (0.8-4.8) 10^3/u L [place] # (Auto) (0.2-0.9) 10^3/u L Eos # (Auto) (0.0-0.8) 10^3/u L Baso # (Auto) (0.0-0.1) 10^3/u L Nucleated RBC % (a uto) % Nucleated RBCs # /100WBC Sodium 140 (136-145) mmol/L Potassium 3.9 (3.5-5.1) mmol/L Chloride 100 (98-107) mmol/L Carbon Dioxide 29 (22-29) mmol/L Anion Gap 14.9 (5-19) BUN 12 (6-20) mg/dL Creatinine 0.8 (0.7-1.2) mg/dL GFR Calculation 116.0 (90-130) mL/min Glucose 90 (65-115) mg/dL Calculated Osmolal ity 289 (285-295) mOsm/k g Calcium 9.9 (8.5-10.5) mg/dL Total Bilirubin 0.5 (0.15-1.2) mg/dL AST 25 (0-40) U/L ALT 24 (0-41) U/L Alkaline Phosphata se 81 (40-130) IU/L Total Protein 7.2 (6.6-8.7) g/dL Albumin 5.0 (3.5-5.2) g/dL Globulin 2.2 (1.3-4.6) g/dL Urine Color (Yellow) Urine Appearance (CLEAR) Urine pH (5-7) Ur Specific Gravit y (1.005-1.030) Urine Protein (Negative) Urine Glucose (UA) (Normal) Urine Ketones (Negative) Urine Blood (Negative) Urine Nitrate (Negative) Urine Bilirubin (Negative) Urine Urobilinogen (Negative) mg/dL Ur Leukocyte Cathy ase (Negative) Salicylates < 0.3 L (3-10) mg/dL Urine Opiates Scre en (Negative) ng/mL Acetaminophen < 5.0 L (10-30) ug/mL Ur Barbiturates Sc reen (Negative) ng/mL Ur Phencyclidine S crn (Negative) ng/mL Ur Amphetamines Sc reen (Negative) ng/mL U Benzodiazepines Scrn (Negative) ng/mL Urine Cocaine Scre en (Negative) ng/mL U Marijuana (THC) Screen (Negative) ng/mL Ethyl Alcohol < 10 (0-10) mg/dL Discharge Plan Discharge Patient Disposition: Admitted As Inpatient Clinical Impression: Suicidal ideation, Polysubstance abuse Drug-induced psychotic disorder Qualifiers: Complication of substance-induced condition: with delusions Qualified Code(s): F19.950 - Other psychoactive substance use, unspecified with psychoactive substance-induced psychotic disorder with delusions Condition: Stable Coding Level of Care Code ED Photographic Equipment Inspector for Panchito Manzano
[2021-04-26] MEDS: OLANZapine 10 mg TABLET PO (21:06)
[2021-04-26 21:08] LABS: Basophils # 0.1 10^3/uL (0.0-0.1); Basophils % 0.7 %; Eosinophils % 0.4 %; Hematocrit 45.3 % (42.0-52.0); Hemoglobin 15.1 g/dL (11.7-16.6); Lymphocytes # 1.8 10^3/uL (0.8-4.8); Lymphocytes % 15.8 %; Mean Corpuscular HGB Conc 33.3 g/dL (30.0-36.0); Mean Corpuscular Hemoglobin 31.1 pg (28.0-34.0); Mean Corpuscular Volume 93.2 fL (80-94); Mean Platelet Volume 8.6 fL (7.4-10.4); Monocytes # 0.9 10^3/uL (0.2-0.9); Monocytes % 7.9 %; Neutrophils % 74.9 %; Nucleated Red Blood Cells % 0 %; Platelet Count 379 10^3/cmm (130-400); Red Blood Count 4.86 10^6/uL (4.1-5.3); Red Cell Distribution Width 12.7 % (12.1-15.1); White Blood Count 11.1 10^3/uL (4.0-10.0)
[2021-04-26 21:22] LABS: Acetaminophen < 5.0 ug/mL (10-30); Alanine Aminotransferase 24 U/L (0-41); Alcohol Level < 10 mg/dL (0-10); Alkaline Phosphatase 81 IU/L (40-130); Anion Gap 14.9 (5-19); Aspartate Amino Transferase 25 U/L (0-40); Blood Urea Nitrogen 12 mg/dL (6-20); Calcium 9.9 mg/dL (8.5-10.5); Carbon Dioxide 29 mmol/L (22-29); Chloride 100 mmol/L (98-107); Globulin 2.2 g/dL (1.3-4.6); Glucose 90 mg/dL (65-115); Osmolality Calculated 289 mOsm/kg (285-295); Potassium 3.9 mmol/L (3.5-5.1); Salicylate < 0.3 mg/dL (3-10); Sodium 140 mmol/L (136-145); Total Bilirubin 0.5 mg/dL (0.15-1.2); Total Protein 7.2 g/dL (6.6-8.7)
[2021-04-26 22:02] VITALS: BP 114/64; PULSE 88; RESP 15; O2SAT 99
[2021-04-26 22:22] VITALS: BP 121/80; PULSE 91; RESP 21; TEMP 37.2; O2SAT 97
[2021-04-26 22:29] VITALS: BP 114/64; PULSE 88; RESP 15; O2SAT 99
[2021-04-27 06:00] VITALS: BP 95/64; PULSE 74; RESP 19; TEMP 36.9; O2SAT 99
--- NOTE | 2021-04-27 06:26 | P.HP_ITS ---
Providers/Chief Complaint Admitting Physician: Octavio Bruno MD Chief Complaint: si and meth use HPI NPU History of Present Illness Srinivasa Greene is a 26 year old male who presented to the emergency department with the following report: Chief Complaint: Psychiatric Symptoms Stated Complaint: si and meth use Time Seen by Provider: 04/26/21 20:14 Source: patient Mode of arrival: EMS Limitations: altered mental status History of Present Illness: HPI Narrative: Patient is a 26-year-old male who was brought in by EMS with complaint of suicidal ideation. Patient admits to using methamphetamines and opiates. It is difficult to understand the patient most likely due to intoxication and the fact that his speech is rapid and unclear. But from what I can gather the patient was in an argument with his girlfriend and she reported him to his boss that he had been abusing Xanax. The patient states that he was using the Xanax to help him calm down from using methamphetamines. Because of this his boss fired him today which made him even more upset. He states that he got home and his mother had been searching his room and found methamphetamines in his room. This upset him even more and he was enraged and said he was tired of it all and wanted to kill himself. They called the police and he also admitted to them that he was suicidal. He was therefore brought in for evaluation. He states that he has used methamphetamines, opiates, and acid . complaint: suicidal ideation History of same: No Relieving factors: none Exacerbating factors: drug use Context: recent drug abuse Associated psychiatric symptoms: suicidal ideation, racing thoughts and delusions Associated symptoms: Reports delusions, suicidal ideation and racing thoughts Treatments prior to arrival: none If self harm: admits thoughts of self harm and has plan Details of plan: he states that he can jump off a bridge or drive his car into a wall. He was admitted to the neuropsychiatric unit for definitive treatment of those issues. He presents today reporting that this is his third psychiatric hospitalization the first 1 was with this engineering technical writer in May last year. He denies having follow-up with [facility] but reports he tried really hard to connect with them calling from time to time but with Covid he never got connected and ultimately ran out of his medication. He reports that he had a bad run of days. He reports he had had an argument with his fianc?e and she threw the rain out in the mud he then went to work and his boss asked him about why he had not been there the past week and he admitted to her that he got arrested and she fired him after his shift and then later he was pulled over by the sustainability analyst and got his first DWI. He reports he smokes a half a pack cigarettes a day, denies alcohol marijuana or any other illicit drugs that he has struggled with methamphetamine and reports he relapsed. He began discussing plans for treatment but he reports that the first thing he needs to do is get discharge because currently he is homeless with his girlfriend and now she stuck sleeping in the car alone. We discussed him getting into treatment with his mother and significant other wanting him to get help, but he was focused on getting out as soon as he can. We discussed restarting his medication and the risk-benefit and alternatives of that and he understood and agreed to proceed as is documented in this note. He denied substantive changes since the last hospitalization so an excerpt of his last evaluation is included below. He displayed limited insight into the impact of his use on his psychosocial circumstances. Per his 06/15/2020 [facility] inpatient evaluation: History of Present Illness Srinivasa Greene is a 25 year old male Srinivasa today having presented to the emergency room yesterday evening at the behest of his fianc?, he reports. EMS brought him in reporting that he has had violent outbursts and difficulty controlling his emotions. He had been reporting depression and previous suicidal thoughts as well as thoughts of harming other people, denying active thoughts at the time of admission, but not being on medication and having previous treatment, endorsing some concern about if things get worse he might act on something towards himself and he wanted to get treatment before that happened. He was admitted to the neuropsychiatric unit for definitive treatment of those issues. He presents today reporting that he has significant problems with controlling his anger and emotions, and that his fianc? has gotten fed up. He reports that it has gotten so bad that he has gun charges because he might grab a gun and be irrational. He reports he is very impulsive, and he does not think about things until sometimes it can be too late. He reports that he has never tried to kill himself but that he does have a history of anger and impulsive behavior. He reports that he started smoking cigarettes when he was about 13. He smoked somewhere between a half pack and a pack a day now. He drinks alcohol sometimes. He reports having marijuana occasionally. He reports that he does not use cocaine or opiates, but he has had issues with methamphetamines, but denies recent methamphetamine use maybe for a couple months he reports. His drug screen was positive for marijuana and opiates. He reports that he has been pretty depressed and anxious recently. He is frustrated because he gets mad and then he almost gets mad when he gets mad, so it gets out of control he reports. He reports he has a court date on Monday and though he wants to be discharged, he knows that he needs help and he just reports needing to be out of the hospital before then. We discussed the risks, benefits, and alternatives of initiating Clonidine for his impulsivity and Lamictal for his aggression, and we discussed the risks, benefits, and alternatives of these medications including the risk of Howell-Dashawn syndrome usually with increasing doses of Lamictal, and he understood and agreed to proceed as is documented in this note. PSYCHIATRIC HISTORY: He denies inpatient hospitalization before this one, and denies significant treatment before now, though he does endorse that he was treated by someone in the past for attention deficit hyperactivity disorder, and outpatient records suggest that he was seen at [facility] for similar complaints. That evaluation is included below in part, which concluded with a diagnosis of bipolar disorder and intermittent explosive disorder. He reports that the document referenced was a reasonable and accurate depiction of what was going on at that time. He also had an evaluation by a psychiatrist which demonstrated a past history of Lamictal being utilized effectively, and in that document, there is a diagnosis of bipolar disorder as well as cannabis abuse. He identified that being accurate as well. SUBSTANCE ABUSE HISTORY: As above. FAMILY HISTORY: He endorses mental health on mother?s side, addiction on dad?s side and reports that his dad committed suicide in 2017. DEVELOPMENTAL HISTORY: He denies issues with his mother?s or delivery of him. He met all developmental milestones on time. He does report that once he went to school, he did need speech therapy and special education services. PSYCHOSOCIAL HISTORY: He endorses that he is the only child of his parents, who were off and on together until his father . He endorses his mother had an older daughter prior to her relationship with his father and that his father had in the neighborhood of six total children. He reports his childhood was pretty good. He denies emotional, physical, or sexual abuse. 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 He reports that he is a heterosexual with his longest relationship being three years. He denies ever being , but he reports that he is engaged. He denies having biological children, ever being in the , or having any pentecostalism belief system. He reports his longest employment was at a [employer]. 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 He reports he currently lives in a trailer w ith his mother and sometimes lives with his girlfriend. LEGAL HISTORY: He says he has been in longterm about four or five times. MEDICAL HISTORY: He denies any significant medical issues though he does struggle at times with his weight. In the papers it shows history of hypertension and asthma. Meds NPU Home Medications Medication Instructions Recorded Confirmed Last Taken Type trazodone 50 mg PO BEDTIME PRN 30 Days #30 06/27/20 04/26/21 Unknown Rx tab Allergies Allergy/AdvReac Type Severity Reaction Status Date / Time Sulfa (Sulfonamide Allergy Unknown Verified 06/24/20 21:16 Antibiotics) PFS NPU PFSH: Medical History Excessive anger Social History Smoking and tobacco status: current every day smoker Mental Status Exam MSE Comments: This is a well-nourished, well-developed, white male, with scrubs on with adequate, grooming, and eye contact with slightly dysmorphic facies. No abnormal movements except for psychomotor agitation, mild. Cooperative with exam in mild distress. Speech was decreased rate and volume and dysarthric. Mood described as better; affect anxious. Thought process, organized. Thought content: patient denied any suicidal or homicidal ideation, there were no delusions reported or noted, patient denied any auditory or visual hallucinations. Attention, concentration, and memory appear intact but were not formally tested. He is alert and oriented times three. Insight and judgment are limited. Impulse control impaired, and intellectual ability appears limited. Vitals/I&O/Wt Last Vital Signs Temp 98.5 F 04/27/21 06:00 Pulse 74 04/27/21 06:00 Resp 19 H 04/27/21 06:00 BP 95/64 04/27/21 06:00 Pulse Ox 99 04/27/21 06:00 Weight last 48 hrs Weight 79.379 kg Data NPU : 04/26/21 20:46 04/26/21 20:46 A&P Assessment and plan (1) Suicidal ideation: Status: Acute (2) Polysubstance abuse: Status: Acute (3) Borderline intellectual functioning: Status: Acute (4) Cluster B personality disorder: Status: Acute (5) Intermittent explosive disorder: Status: Acute (6) Depression: Status: Acute Qualifiers: Depression Type: unspecified Qualified Code(s): F32.9 - Major depressive disorder, single episode, unspecified (7) Drug-induced psychotic disorder: Status: Acute Qualifiers: Complication of substance-induced condition: with delusions Qualified Code(s): F19.950 - Other psychoactive substance use, unspecified with psychoactive substance-induced psychotic disorder with delusions Additional A&P Information This is a 26-year-old white male with a long history of impulse control disorders, intellectual disability and addiction who presents with active addiction, off of his medication with recent erratic behavior at work and home. 1. Continue current medication. We will restart wellbutrin in the morning. And consider other medications as well as safety for discharge. 2. Continue every 15 minute checks for safety. 3. Encourage individual, group and milieu therapies. 4. Encourage sober living treatment after discharge at the highest level of care to which he is willing to commit. Involuntary Hold Information 96 Hour Hold: 96 Hour Involuntary Admission: No Attestations NPU Medical Necessity Statement*: Inpatient hospitalization is medically necessary and the clinically appropriate intervention at this time. We will monitor medications and make changes as indicated. Patient will be in the hospital for over two midnights. Likely length of stay 2-4 days. 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
[2021-04-27] MEDS: nicotine 21 mg Patch 1 PATCH TRANSDERMA (13:15)
[2021-04-27 13:20] VITALS: BP 118/79; PULSE 87; RESP 17; TEMP 36.8; O2SAT 97
[2021-04-27 20:11] VITALS: BP 116/75; PULSE 105; RESP 16; TEMP 37; O2SAT 96
[2021-04-28 06:00] VITALS: BP 106/72; PULSE 72; RESP 18; TEMP 36.3; O2SAT 99
[2021-04-28] MEDS: nicotine 21 mg Patch 1 PATCH TRANSDERMA (09:53)
[2021-04-28 10:56] VITALS: BP 106/72; PULSE 72; RESP 18; TEMP 36.3; O2SAT 99
--- NOTE | 2021-04-28 12:56 | PM.NDC ---
Diagnoses at Discharge Discharge Diagnosis (1) Suicidal ideation: Status: Resolved (2) Polysubstance abuse: Status: Acute (3) Borderline intellectual functioning: Status: Acute (4) Cluster B personality disorder: Status: Acute (5) Intermittent explosive disorder: Status: Acute (6) Depression: Status: Acute Qualifiers: Depression Type: unspecified Qualified Code(s): F32.9 - Major depressive disorder, single episode, unspecified (7) Drug-induced psychotic disorder: Status: Acute Qualifiers: Complication of substance-induced condition: with delusions Qualified Code(s): F19.950 - Other psychoactive substance use, unspecified with psychoactive substance-induced psychotic disorder with delusions Reason for Visit Reason for Visit: si and meth use Brief History: History of Present Illness Srinivasa Greene is a 26 year old male who presented to the emergency department with the following report: Chief Complaint: Psychiatric Symptoms Stated Complaint: si and meth use Time Seen by Provider: 04/26/21 20:14 Source: patient Mode of arrival: EMS Limitations: altered mental status History of Present Illness: HPI Narrative: Patient is a 26-year-old male who was brought in by EMS with complaint of suicidal ideation. Patient admits to using methamphetamines and opiates. It is difficult to understand the patient most likely due to intoxication and the fact that his speech is rapid and unclear. But from what I can gather the patient was in an argument with his girlfriend and she reported him to his boss that he had been abusing Xanax. The patient states that he was using the Xanax to help him calm down from using methamphetamines. Because of this his boss fired him today which made him even more upset. He states that he got home and his mother had been searching his room and found methamphetamines in his room. This upset him even more and he was enraged and said he was tired of it all and wanted to kill himself. They called the police and he also admitted to them that he was suicidal. He was therefore brought in for evaluation. He states that he has used methamphetamines, opiates, and acid . MD complaint: suicidal ideation History of same: No Relieving factors: none Exacerbating factors: drug use Context: recent drug abuse Associated psychiatric symptoms: suicidal ideation, racing thoughts and delusions Associated symptoms: Reports delusions, suicidal ideation and racing thoughts Treatments prior to arrival: none If self harm: admits thoughts of self harm and has plan Details of plan: he states that he can jump off a bridge or drive his car into a wall. He was admitted to the neuropsychiatric unit for definitive treatment of those issues. He presents today reporting that this is his third psychiatric hospitalization the first 1 was with this copywriter in May last year. He denies having follow-up with [facility] but reports he tried really hard to connect with them calling from time to time but with Covid he never got connected and ultimately ran out of his medication. He reports that he had a bad run of days. He reports he had had an argument with his fianc?e and she threw the rain out in the mud he then went to work and his boss asked him about why he had not been there the past week and he admitted to her that he got arrested and she fired him after his shift and then later he was pulled over by the real estate agent and got his first DWI. He reports he smokes a half a pack cigarettes a day, denies alcohol marijuana or any other illicit drugs that he has struggled with methamphetamine and reports he relapsed. He began discussing plans for treatment but he reports that the first thing he needs to do is get discharge because currently he is homeless with his girlfriend and now she stuck sleeping in the car alone. We discussed him getting into treatment with his mother and significant other wanting him to get help, but he was focused on getting out as soon as he can. We discussed restarting his medication and the risk-benefit and alternatives of that and he understood and agreed to proceed as is documented in this note. He denied substantive changes since the last hospitalization so an excerpt of his last evaluation is included below. He displayed limited insight into the impact of his use on his psychosocial circumstances. Per his 06/15/[address] [facility] inpatient evaluation: History of Present Illness Srinivasa Greene is a 25 year old male Srinivasa today having presented to the emergency room yesterday evening at the behest of his fianc?, he reports. EMS brought him in reporting that he has had violent outbursts and difficulty controlling his emotions. He had been reporting depression and previous suicidal thoughts as well as thoughts of harming other people, denying active thoughts at the time of admission, but not being on medication and having previous treatment, endorsing some concern about if things get worse he might act on something towards himself and he wanted to get treatment before that happened. He was admitted to the neuropsychiatric unit for definitive treatment of those issues. He presents today reporting that he has significant problems with controlling his anger and emotions, and that his fianc? has gotten fed up. He reports that it has gotten so bad that he has gun charges because he might grab a gun and be irrational. He reports he is very impulsive, and he does not think about things until sometimes it can be too late. He reports that he has never tried to kill himself but that he does have a history of anger and impulsive behavior. He reports that he started smoking cigarettes when he was about 13. He smoked somewhere between a half pack and a pack a day now. He drinks alcohol sometimes. He reports having marijuana occasionally. He reports that he does not use cocaine or opiates, but he has had issues with methamphetamines, but denies recent methamphetamine use maybe for a couple months he reports. His drug screen was positive for marijuana and opiates. He reports that he has been pretty depressed and anxious recently. He is frustrated because he gets mad and then he almost gets mad when he gets mad, so it gets out of control he reports. He reports he has a court date on Monday and though he wants to be discharged, he knows that he needs help and he just reports needing to be out of the hospital before then. We discussed the risks, benefits, and alternatives of initiating Clonidine for his impulsivity and Lamictal for his aggression, and we discussed the risks, benefits, and alternatives of these medications including the risk of Howell-Dashawn syndrome usually with increasing doses of Lamictal, and he understood and agreed to proceed as is documented in this note. PSYCHIATRIC HISTORY: He denies inpatient hospitalization before this one, and denies significant treatment before now, though he does endorse that he was treated by someone in the past for attention deficit hyperactivity disorder, and outpatient records suggest that he was seen at [facility] for similar complaints. That evaluation is included below in part, which concluded with a diagnosis of bipolar disorder and intermittent explosive disorder. He reports that the document referenced was a reasonable and accurate depiction of what was going on at that time. He also had an evaluation by a psychiatrist which demonstrated a past history of Lamictal being utilized effectively, and in that document, there is a diagnosis of bipolar disorder as well as cannabis abuse. He identified that being accurate as well. SUBSTANCE ABUSE HISTORY: As above. FAMILY HISTORY: He endorses mental health on mother?s side, addiction on dad?s side and reports that his dad committed suicide in 2017. DEVELOPMENTAL HISTORY: He denies issues with his mother?s or delivery of him. He met all developmental milestones on time. He does report that once he went to school, he did need speech therapy and special education services. PSYCHOSOCIAL HISTORY: He endorses that he is the only child of his parents, who were off and on together until his father . He endorses his mother had an older daughter prior to her relationship with his father and that his father had in the neighborhood of six total children. He reports his childhood was pretty good. He denies emotional, physical, or sexual abuse. 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 He reports that he is a heterosexual with his longest relationship being three years. He denies ever being , but he reports that he is engaged. He denies having biological children, ever being in the , or having any mormon belief system. He reports his longest employment was at a [employer]. 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 He reports he currently lives in a trailer with his mother and sometimes lives with his girlfriend. LEGAL HISTORY: He says he has been in correction about four or five times. MEDICAL HISTORY: He denies any significant medical issues though he does struggle at times with his weight. In the papers it shows history of hypertension and asthma. Hospital Course Hospital Course Srinivasa presented to the emergency department with concerns about lethality, addiction and issues with anger management. He was admitted to the neuropsychiatric unit for definitive treatment of those issues. On the unit he slowly acclimated to the individual, group milieu therapies provided. We we discussed multiple possibilities for interventions but ultimately he finally decided that he wanted to go to his own physician and explore the possible treatments not wanting to stay in the hospital because he had a critical appointment with reports that he had to attend. Ultimately he only started trazodone to assist with sleep and he was able to contract for safety so he was discharged. During the hospitalization, patient had routine laboratory studies which were within normal limits except for few outliers. Additionally there was a general medical evaluation which was also within normal limits and revealed no new acute processes. Discharge Summary: At the time of discharge, he denied lethality or psychosis. Mood and anxiety were well managed. Patient endorsed a plan to avoid all drugs of abuse and follow-up with the aftercare recommendations of the treatment team. Patient was evaluated and deemed to be absent credible lethality, and had benefit from an inpatient hospitalization, but he was on a hold and did not want continued inpatient services reported a plan to follow-up outpatient, so was discharged. Involuntary Hold Information 96 Hour Hold: 96 Hour Involuntary Admission: No Mental Status Exam MSE Comments: This is a well-nourished, well-developed, white male, with scrubs on with adequate, grooming, and eye contact with slightly dysmorphic facies. No abnormal movements except for psychomotor agitation, mild. Cooperative with exam in no acute distress. Speech was more normal rate and volume and dysarthric. Mood described as better; affect brighter. Thought process, organized. Thought content: patient denied any suicidal or homicidal ideation, there were no delusions reported or noted, patient denied any auditory or visual hallucinations. Attention, concentration, and memory appear intact but were not formally tested. He is alert and oriented times three. Insight and judgment are limited. Impulse control improving, and intellectual ability appears limited. Discharge Data Vitals: Last Vital Signs Temp 97.4 F L 04/28/21 10:56 Pulse 72 04/28/21 10:56 Resp 18 04/28/21 10:56 BP 106/72 04/28/21 10:56 Pulse Ox 99 04/28/21 10:56 Discharge Plan Discharge Patient Disposition: Home Condition: Stable Prescriptions: Continued trazodone 50 mg Tablet 50 mg PO BEDTIME PRN (Reason: Sleep) 30 Days Qty: 30 RF: 1 Discharge Orders: Discharge Order (Routine); Ordered 04/28/21 Ordered By: Octavio Bruno Referrals: [facility] [Other] (Complete SUDS application provided and provide to [facility] staff. They will set you up with needed services.) Discharge Diet: Regular Discharge Activity: Resume usual activity Patient Instructions: Trazodone (By mouth), Opioid Safety Discharge Attestations NPU Time Spent in Discharge Care*: less than 30 min Specific Discharge Activities: Specific discharge activities: educating patient, discussing with case manager/social workers/dc planners, documenting/other paperwork and evaluating patient/reviewing data Coding Level of Care Code Acute Chg FW DC note Diagnoses Suicidal ideation R45.851 Polysubstance abuse F19.10 Borderline intellectual functioning R41.83 Cluster B personality disorder F60.89 Intermittent explosive disorder F63.81 Depression F32.9 Depression Type: unspecified Drug-induced psychotic disorder F19.950 Complication of substance-induced condition: with delusions
[2021-04-28 14:00] VITALS: BP 117/78; PULSE 80; RESP 18; TEMP 36; O2SAT 97
--- NOTE | 2021-04-28 16:34 | PC.RESP ---
Smoking Cessation information sent to patient.
== END 2021-04-28 16:58 | disposition home or self-care (01) | DRG 897 ==
LOC: ER 22:03 → NP 22:07
PROVIDERS: Admitting Provider Psychiatry & Neurology Psychiatry; Emergency Provider Family Medicine; Visit Provider Psychiatry & Neurology Psychiatry
DX: F15.250 Other stimulant dependence with stimulant-induced psychotic disorder with delusions (principal); R45.851 Suicidal ideations; F63.9 Impulse disorder, unspecified; R41.83 Borderline intellectual functioning; F60.89 Other specific personality disorders; F63.81 Intermittent explosive disorder; F17.210 Nicotine dependence, cigarettes, uncomplicated; F32.9 Major depressive disorder, single episode, unspecified; I10 Essential (primary) hypertension; J45.909 Unspecified asthma, uncomplicated; Z81.8 Family history of other mental and behavioral disorders
CPT/HCPCS: 80053; 80306; 80307; 81003; 85025; 99285

== ENCOUNTER 2021-10-13 09:17 | Emergency (ER) | payer MEDICARE, MEDICAID, SELFPAY ==
[2021-10-13 09:47] VITALS: BP 127/75; PULSE 100; RESP 20; TEMP 36.6; O2SAT 99; BMI 24.7
--- NOTE | 2021-10-13 10:10 | ED_ITS ---
Documented by User: DARON Juan 10/13/21 10:34 HPI - Anxiety General: Chief Complaint: Anxiety Stated Complaint: ANXIETY Time Seen by Provider: 10/13/21 09:53 Source: patient Mode of arrival: ambulatory Limitations: no limitations History of Present Illness: HPI narrative: Patient is a 26-year-old male with an extensive psychiatric history here for concerns of anxiety. Patient tells me he has suffered from anxiety for a very long time. Patient states he had a panic attack a few days ago while at work that made him want to get back on his anxiety medication. Patient states he was admitted to N[facility] earlier this year and discharged home with a medication for anxiety (does not remember name) that he states helped. Patient has a history of previous drug abuse. He tells me other than occasional marijuana use he has not used any other drugs in the last month. He is not suicidal or homicidal. He has an appointment at [facility] at the beginning of November for further evaluation. He states he is also on a cancellation list for a sooner appointment. complaint: anxiety Onset (ago): day(s) Quality: intermittent History of similar episodes: Yes Relieving factors: medication Associated symptoms: Reports no associated symptoms; Deny fever(s) or headache(s) Review of Systems Const: Denies: fever(s) Eyes: Denies: change in vision Skin/Breast: Denies: rash Neuro: Denies: headache(s) Psych: Reports: anxiety and panic attacks; Denies: hopelessness, loss of interest, paranoia, visual hallucinations, auditory hallucinations, suicidal ideation or homicidal ideation [facility] ED PFSH: Medical History (Updated 10/13/21 @ 10:21 by DARON Juan) Excessive anger Psychiatric care Social History Smoking and tobacco status: current every day smoker Physical Exam Const: COMMON NORMALS: no acute distress, average body habitus, patient o riented x3, no limitations and alert GENERAL APPEARANCE: cooperative Neuro: COMMON NORMALS: patient oriented x3 SENSORIUM/ORIENTATION: Yes alert Psych: COMMON NORMALS: mental status grossly normal, Normal thought process present, cooperative, normal affect, speech normal, activity/motor behavior normal, denies hallucinations, denies homicidal ideation and denies suicidal ideation APPEARANCE: Yes grossly normal ATTITUDE: Yes calm ACTIVITY/MOTOR BEHAVIOR: Yes appropriate eye contact SPEECH: Yes normal speech MOOD & AFFECT: Yes euthymic mood THOUGHT PROCESS: Normal thought process present THOUGHT CONTENT: Yes Normal thought content present ATTENTION/CONCENTRATION: Yes attention grossly intact and Yes concentration grossly intact MEMORY/COGNITION: Yes memory grossly intact INSIGHT: Fair insight present (Psych) JUDGEMENT: Fair judgement present (Psych) Course Vital Signs: Vital signs: Vital Signs Temperature 97.8 F 10/13/21 09:47 Pulse Rate 100 10/13/21 09:47 Respiratory Rate 20 H 10/13/21 09:47 Blood Pressure 127/75 10/13/21 09:47 Pulse Oximetry 99 10/13/21 09:47 MDM - Anxiety MDM Narrative: Medical decision making narrative: Patient here for concerns of anxiety. NPU visit documentation was reviewed and it looks like patient was placed on Vistaril for his anxiety. After speaking to patient again he confirms that this was the medication he was taking that was working well (pill pictures also reviewed/identified/confirmed). Patient is not suicidal or homicidal. At this time I think it is reasonable to place patient back on the Vistaril and recommend close follow-up with [facility]. Instructions to keep his current appo intment but continue to contact them for any sooner availability. Strict return to ED precautions given. Discharge Plan Discharge Patient Disposition: Home Clinical Impression: Anxiety Condition: Stable Prescriptions: New hydroxyzine pamoate 50 mg capsule 50 mg PO Q6H PRN (Reason: anxiety) Qty: 30 RF: 0 No Action trazodone 50 mg Tablet 50 mg PO BEDTIME PRN (Reason: Sleep) 30 Days Qty: 30 RF: 1 Discharge Orders: Discharge ED (Routine); Ordered 10/13/21 Ordered By: Fanny Mary Patient Instructions: Anxiety (ED) Activity Restrictions/Additional Instructions: As we discussed please keep your appointment at behavioral health care as scheduled for further evaluation. You may continue to contact them to see if they can move your appointment sooner. We will place you back on the Vistaril for anxiety as you stated you have had good results with this previously. As we discussed you need to return to the emergency department immediately or contact 911 for any thoughts of self-harm or harming others. Coding Level of Care Code ED Robotic Technician for Chg Fwd Exam Expanded Problem Focused Documented by User: Ward Juan DO 10/13/21 15:16 HPI - Anxiety General: Chief Complaint: Anxiety Stated Complaint: ANXIETY Time Seen by Provider: 10/13/21 09:53 PFSH ED PFSH: Medical History (Updated 10/13/21 @ 10:21 by DARON Juan) Excessive anger Psychiatric care Social History Smoking and tobacco status: current every day smoker Course Vital Signs: Vital signs: Vital Signs Temperature 97.8 F 10/13/21 09:47 Pulse Rate 100 10/13/21 09:47 Respiratory Rate 20 H 10/13/21 09:47 Blood Pressure 127/75 10/13/21 09:47 Pulse Oximetry 99 10/13/21 09:47 MDM - Anxiety MDM Narrative: Medical decision making narrative: Chart reviewed and patient discussed with midlevel. Agree with assessment and plan. Discharge Plan Discharge Patient Disposition: Home Clinical Impression: Anxiety Condition: Stable Prescriptions: New hydroxyzine pamoate 50 mg capsule 50 mg PO Q6H PRN (Reason: anxiety) Qty: 30 RF: 0 No Action trazodone 50 mg Tablet 50 mg PO BEDTIME PRN (Reason: Sleep) 30 Days Qty: 30 RF: 1 Discharge Orders: Discharge ED (Routine); Ordered 10/13/21 Ordered By: Fanny Mary Patient Instructions: Anxiety (ED) Activity Restrictions/Additional Instructions: As we discussed please keep your appointment at [facility] as scheduled for further evaluation. You may continue to contact them to see if they can move your appointment sooner. We will place you back on the Vistaril for anxiety as you stated you have had good results with this previously. As we discussed you need to return to the emergency department immediately or contact 911 for any thoughts of self-harm or harming others. Coding Level of Care Code ED Robotic Technician for Chg Fwd Exam Expanded Problem Focused
== END 2021-10-13 10:31 | disposition home or self-care (01) ==
PROVIDERS: Emergency Provider Physician Assistant
DX: F41.9 Anxiety disorder, unspecified (principal); F17.210 Nicotine dependence, cigarettes, uncomplicated
CPT/HCPCS: 99281

== ENCOUNTER 2021-11-08 12:53 | Inpatient (IN) | payer MEDICARE, MEDICAID, SELFPAY ==
[2021-11-08 12:58] VITALS: BP 125/73; PULSE 98; RESP 18; TEMP 36.6; O2SAT 98; BMI 22.8
[2021-11-08 13:10] VITALS: BP 125/73; PULSE 98; RESP 18; O2SAT 98
--- NOTE | 2021-11-08 13:26 | ED_ITS ---
HPI - General Adult General: Chief complaint: Psychiatric Symptoms Stated complaint: SI/HI Time Seen by Provider: 11/08/21 13:17 History of Present Illness: HPI narrative: HPI: [26]yo patient w/ hx of depression BIBA for suicidal ideation and homicidal ideation. On arrival, the patient is AAOx3 and cooperative with my evaluation. No focal complaints of chest pain, shortness of breath, palpitations, N/V, focal GI/ complaints. No complaints of hallucinations. Onset: acute Duration: ongoing Location: home Severity: severe Review of Systems Narrative: Constitutional: No fever, no chills. HEENT: No vision changes CV: No chest pain, no palpitations PULM: No productive cough, no dyspnea. GI: No abdominal pain, no N/V/D. : No dysuria MSKEL: No muscle pain SKIN: No new rashes, no lesions. NEURO: No headache, no focal weakness. HEME: No visible bruises PSYCH: Normal mood, +SI/HI PFSH ED PFSH: Medical History (Updated 11/08/21 @ 13:25 by Kelin Baker MD) Excessive anger Psychiatric care Social History Smoking and tobacco status: current every day smoker Physical Exam Narrative: EXAM NARRATIVE: Head: Atraumatic Eyes: PERRL, conjunctiva without injection, eyes tracking ENT: Mucous membrane moist NECK: Supple without lymphadenopathy LUNGS: LCTAB CV: RRR ABDOMEN: Soft, nontender EXTREMITY: Normal ROM SKIN: No rash or erythema NEURO: Awake and alert. No focal weakness PSYCH: Cooperative mood and affect. Course Vital Signs: Vital signs: Vital Signs Temperature 97.8 F 11/08/21 12:58 Pulse Rate 98 11/08/21 13:10 Respiratory Rate 18 11/08/21 13:10 Blood Pressure 125/73 11/08/21 13:10 Pulse Oximetry 98 11/08/21 13:10 MDM - General Adult MDM Narrative: Medical decision making narrative: [26]yo patient w/ hx of depression presenting for SI/HI. HDS, exam within normal limit Thoughts are linear and organized, and the patient has no AH/VH. Clinically the patient displays no overt toxidrome; they are well appearing, with low suspicion for toxic ingestion given history and exam. Symptoms unlikely 2/2 anemia, hypothyroidism, infection, or ICH. Workup: CBC, CMP, Lipase, salicylate/tylenol, UDS Lab findings: wnl, +marijuana/amphetamine/benzos [2:30pm] On reassessment, labs and workup wnl. Patient is hemodynamically stable with no acute medical complaints. Case discussed with psychiatric provider Dr. Bruno at [facility] psych inpatient with recommendation for admission Disposition: Psych Lab Data: Labs: Lab Results 11/08/21 11/08/21 11/08/21 13:03 13:03 13:03 WBC 5.6 10^3/uL 10^3/ uL (4.0-10.0) RBC 5.05 10^6/uL 10^6 /uL (4.1-5.3) Hgb 15.3 g/dL g/dL (11.7-16.6) Hct 46.6 % % (42.0-52.0) MCV 92.3 fl fl (80-94) MCH 30.3 pg pg (28.0-34.0) MCHC 32.8 g/dL g/dL (30.0-36.0) RDW 12.8 % % (12.1-15.1) Plt Count 349 10^3/cmm 10^3 /cmm (130-400) MPV 8.4 fL fL (7.4-10.4) Neut % (Auto) 54.5 % % Lymph % (Auto) 32.2 % % [place] % (Auto) 10.0 % % Eos % (Auto) 2.0 % % Baso % (Auto) 1.1 % % Neut # (Auto) 3.07 10^3/uL 10^3 /uL (1.8-7.7) Lymph # (Auto) 1.8 10^3/uL 10^3/ uL (0.8-4.8) [place] # (Auto) 0.6 10^3/uL 10^3/ uL (0.2-0.9) Eos # (Auto) 0.1 10^3/uL 10^3/ uL (0.0-0.8) Baso # (Auto) 0.1 10^3/uL 10^3/ uL (0.0-0.1) Nucleated RBC % (a uto) 0 % % Nucleated RBCs # 0.0 /100WBC /100W BC Sodium 138 mmol/L mmol/L (136-145) Potassium 4.1 mmol/L mmol/L (3.5-5.1) Chloride 100 mmol/L mmol/L (98-107) Carbon Dioxide 25 mmol/L mmol/L (22-29) Anion Gap 17.1 (5-19) BUN 8 mg/dL mg/dL (6-20) Creatinine 0.8 mg/dL mg/dL (0.7-1.2) GFR Calculation 116.0 mL/min mL/m in (90-130) Glucose 82 mg/dL mg/dL (65-115) Calculated Osmolal ity 283 mOsm/kg L mOs m/kg (285-295) Calcium 9.3 mg/dL mg/dL (8.5-10.5) Salicylates < 0.3 mg/dL L mg/ dL (3-10) Urine Opiates Scre en Negative ng/mL ng /mL (Negative) Acetaminophen < 5.0 ug/mL L ug/ mL (10-30) Ur Barbiturates Sc reen Negative ng/mL ng /mL (Negative) Ur Phencyclidine S crn Negative ng/mL ng /mL (Negative) Ur Amphetamines Sc reen Positive ng/mL H ng/mL (Negative) U Benzodiazepines Scrn Positive ng/mL H ng/mL (Negative) Urine Cocaine Scre en Negative ng/mL ng /mL (Negative) U Marijuana (THC) Screen Positive ng/mL H ng/mL (Negative) Discharge Plan Discharge Patient Disposition: Admitted As Inpatient Clinical Impression: Suicidal ideations, Homicidal ideation Condition: Stable Coding Level of Care Code ED Tobacco Dipper for Panchito Manzano
[2021-11-08 13:28] LABS: Basophils # 0.1 10^3/uL (0.0-0.1); Basophils % 1.1 %; Eosinophils # 0.1 10^3/uL (0.0-0.8); Hematocrit 46.6 % (42.0-52.0); Hemoglobin 15.3 g/dL (11.7-16.6); Lymphocytes # 1.8 10^3/uL (0.8-4.8); Lymphocytes % 32.2 %; Mean Corpuscular HGB Conc 32.8 g/dL (30.0-36.0); Mean Corpuscular Hemoglobin 30.3 pg (28.0-34.0); Mean Corpuscular Volume 92.3 fl (80-94); Mean Platelet Volume 8.4 fL (7.4-10.4); Monocytes # 0.6 10^3/uL (0.2-0.9); Neutrophils # 3.07 10^3/uL (1.8-7.7); Neutrophils % 54.5 %; Nucleated Red Blood Cells % 0 %; Platelet Count 349 10^3/cmm (130-400); Red Blood Count 5.05 10^6/uL (4.1-5.3); Red Cell Distribution Width 12.8 % (12.1-15.1); White Blood Count 5.6 10^3/uL (4.0-10.0)
[2021-11-08 13:46] LABS: Acetaminophen < 5.0 ug/mL (10-30); Anion Gap 17.1 (5-19); Blood Urea Nitrogen 8 mg/dL (6-20); Calcium 9.3 mg/dL (8.5-10.5); Carbon Dioxide 25 mmol/L (22-29); Chloride 100 mmol/L (98-107); Glucose 82 mg/dL (65-115); Osmolality Calculated 283 mOsm/kg (285-295); Potassium 4.1 mmol/L (3.5-5.1); Salicylate < 0.3 mg/dL (3-10); Sodium 138 mmol/L (136-145)
[2021-11-08 13:50] LABS: Amphetamines Screen Urine Positive (Negative); Barbiturates Screen Urine Negative (Negative); Benzodiazepines Screen Urine Positive (Negative); Cocaine Screen Urine Negative (Negative); Opiate Screen Urine Negative (Negative); PCP Screen Urine Negative (Negative); THC Screen Urine Positive (Negative)
--- NOTE | 2021-11-08 16:51 | PC.NURSE ---
PATIENT SLEEPING IN ROOM. FOOD AND DRINK GIVEN TO SITTER TO PROVIDE WHEN AWAKE.
--- NOTE | 2021-11-08 19:12 | PC.ADMIT ---
[address] [facility] Unit 5 Admission Note: The patient,Srinivasa Greene,26 y/o, was given written information regarding hospital policies, unit procedures and contact persons. Patient's smoking status: current every day smoker. Vital Signs - 8 hr 11/08/21 12:58 11/08/21 13:10 Temperature 97.8 F Pulse Rate 98 98 Respiratory Rate 18 18 Blood Pressure 125/73 125/73 Pulse Oximetry 98 98
--- NOTE | 2021-11-08 19:13 | PC.NURSE ---
Srinivasa, [26]yo patient w/ hx of depression BIBA for suicidal ideation and homicidal ideation. On arrival, the patient is AAOx3 and cooperative with my evaluation. No focal complaints of chest pain, shortness of breath, palpitations, N/V, focal GI/ complaints. No complaints of hallucinations. Upon arrival to NPU, Pt reports anxiety 5/10, depression 5/10, and denies any AVH. Pt denies any current SI/HI. Pt states he came in voluntarily for SI/HI. Pt states his roommate spent their rent money on heroin and he had HI towards him. Pt also stated that he was thinking about walking in front of a train. Pt reports he is Bipolar and has chemical depression. Pt reports he has been sober and off Meth for four months. Pt reports that he has attempted to overdose multiple times in the past. Pt positive for THC and AMP
[2021-11-08] MEDS: nicotine 2 mg Gum BUCCAL (20:23)
[2021-11-08] MEDS: trazodone 50 mg Tablet PO (21:26)
--- NOTE | 2021-11-08 21:30 | PC.NURSE ---
pt requested sleep med, trazodone 50mg po given.
[2021-11-08 21:37] VITALS: BP 134/94; PULSE 80; RESP 16; TEMP 36.9; O2SAT 94
--- NOTE | 2021-11-08 23:45 | PC.NURSE ---
pt resting quietly with both eyes closed.
[2021-11-09 06:07] VITALS: BP 99/64; PULSE 71; RESP 18; TEMP 36.7; O2SAT 97
[2021-11-09] MEDS: nicotine 2 mg Gum BUCCAL (12:56)
--- NOTE | 2021-11-09 13:21 | NPU.GN ---
[facility] Topic: Jorge Fong General Mood of Group:Srinivasa did not attend group today.
[2021-11-09 14:00] VITALS: BP 124/76; PULSE 76; RESP 18; TEMP 36.7; O2SAT 96
--- NOTE | 2021-11-09 14:17 | P.NPUHP_ITS ---
Providers/Chief Complaint Admitting Physician: Octavio Bruno MD Chief Complaint: SI/HI HPI NPU History of Present Illness Srinivasa Greene is a 26 year old male who presented to the emergency department the following report: Chief complaint: Psychiatric Symptoms Stated complaint: SI/HI Time Seen by Provider: 11/08/21 13:17 History of Present Illness: HPI narrative: HPI: [26]yo patient w/ hx of depression BIBA for suicidal ideation and homicidal ideation. On arrival, the patient is AAOx3 and cooperative with my evaluation. No focal complaints of chest pain, shortness of breath, palpitations, N/V, focal GI/ complaints. No complaints of hallucinations. Onset: acute Duration: ongoing Location: home Severity: severe. He was admitted to the neuropsychiatric unit for definitive treatment of those issues. He is known to this unit from previous hospitalizations. While in May 2020 and 1 in April of this year. He reports that he has outpatient services through [facility] and those notes can be seen in the system. He reports that he has been doing okay but was not taking his medication and evaluation of this identified that he had not picked that medication since April or May. He reports that he had been doing well as far as his addiction and recovery however reports that he relapsed just recently. He was very ambiguous about when and how the relapse occurred but reports that just recently he had taken some methamphetamine and had admitted to smoking marijuana from time to time. His UDS was positive for both those drugs as well as benzodiazepines. He reports he started having suicidal thinking as well as homicidal thoughts. He also endorsed that he started hearing some voices. He continues to struggle with his cognitive limitations and there was affidavits in the chart but he was not on a 96-hour hold. We discussed the risk benefits and alternatives may be restarting some of his medications and he understood and agreed proceed as is documented in this note. Per his 04/28/2021 [facility] inpatient psychiatric discharge summary: Discharge Diagnosis (1) Suicidal ideation: Status: Resolved (2) Polysubstance abuse: Status: Acute (3) Borderline intellectual functioning: Status: Acute (4) Cluster B personality disorder: Status: Acute (5) Intermittent explosive disorder: Status: Acute (6) Depression: Status: Acute Qualifiers: Depression Type: unspecified Qualified Code(s): F32.9 - Major depres sive disorder, single episode, unspecified (7) Drug-induced psychotic disorder: Status: Acute Qualifiers: Complication of substance-induced condition: with delusions Qualified Code(s): F19.950 - Other psychoactive substance use, unspecified with psychoactive substance-induced psychotic disorder with delusions Reason for Visit Reason for Visit: si and meth use Brief History: History of Present Illness Srinivasa Greene is a 26 year old male who presented to the emergency department with the following report: Chief Complaint: Psychiatric Symptoms Stated Complaint: si and meth use Time Seen by Provider: 04/26/21 20:14 Source: patient Mode of arrival: EMS Limitations: altered mental status History of Present Illness: HPI Narrative: Patient is a 26-year-old male who was brought in by EMS with complaint of suicidal ideation. Patient admits to using methamphetamines and opiates. It is difficult to understand the patient most likely due to intoxication and the fact that his speech is rapid and unclear. But from what I can gather the patient was in an argument with his girlfriend and she reported him to his boss that he had been abusing Xanax. The patient states that he was using the Xanax to help him calm down from using methamphetamines. Because of this his boss fired him today which made him even more upset. He states that he got home and his mother had been searching his room and found methamphetamines in his room. This upset him even more and he was enraged and said he was tired of it all and wanted to kill himself. They called the police and he also admitted to them that he was suicidal. He was therefore brought in for evaluation. He states that he has used methamphetamines, opiates, and acid . MD complaint: suicidal ideation History of same: No Relieving factors: none Exacerbating factors: drug use Context: recent drug abuse Associated psychiatric symptoms: suicidal ideation, racing thoughts and delusions Associated symptoms: Reports delusions, suicidal ideation and racing thoughts Treatments prior to arrival: none If self harm: admits thoughts of self harm and has plan Details of plan: he states that he can jump off a bridge or drive his car into a wall. He was admitted to the neuropsychiatric unit for definitive treatment of those issues. He presents today reporting that this is his third psychiatric hospitalization the first 1 was with this development writer in May last year. He denies having follow-up with [facility] but reports he tried really hard to connect with them calling from time to time but with Covid he never got connected and ultimately ran out of his medication. He reports that he had a bad run of days. He reports he had had an argument with his fianc?e and she threw the rain out in the mud he then went to work and his boss asked him about why he had not been there the past week and he admitted to her that he got arrested and she fired him after his shift and then later he was pulled over by the auctioneer tobacco and got his first DWI. He reports he smokes a half a pack cigarettes a day, denies alcohol marijuana or any other illicit drugs that he has struggled with methamphetamine and reports he relapsed. He began discussing plans for treatment but he reports that the first thing he needs to do is get discharge because currently he is homeless with his girlfriend and now she stuck sleeping in the car alone. We di scussed him getting into treatment with his mother and significant other wanting him to get help, but he was focused on getting out as soon as he can. We discussed restarting his medication and the risk-benefit and alternatives of that and he understood and agreed to proceed as is documented in this note. He denied substantive changes since the last hospitalization so an excerpt of his last evaluation is included below. He displayed limited insight into the impact of his use on his psychosocial circumstances. Per his 06/15/2020 [facility] inpatient evaluation: History of Present Illness Srinivasa Gerene is a 25 year old male Srinivasa today having presented to the emergency room yesterday evening at the behest of his fianc?, he reports. EMS brought him in reporting that he has had violent outbursts and difficulty controlling his emotions. He had been reporting depression and previous suicidal thoughts as well as thoughts of harming other people, denying active thoughts at the time of admission, but not being on medication and having previous treatment, endorsing some concern about if things get worse he might act on something towards himself and he wanted to get treatment before that happened. He was admitted to the neuropsychiatric unit for definitive treatment of those issues. He presents today reporting that he has significant problems with controlling his anger and emotions, and that his fianc? has gotten fed up. He reports that it has gotten so bad that he has gun charges because he might grab a gun and be irrational. He reports he is very impulsive, and he does not think about things until sometimes it can be too late. He reports that he has never tried to kill himself but that he does have a history of anger and impulsive behavior. He reports that he started smoking cigarettes when he was about 13. He smoked somewhere between a half pack and a pack a day now. He drinks alcohol sometimes. He reports having marijuana occasionally. He reports that he does not use cocaine or opiates, but he has had issues with methamphetamines, but denies recent methamphetamine use maybe for a couple months he reports. His drug screen was positive for marijuana and opiates. He reports that he has been pretty depressed and anxious recently. He is frustrated because he gets mad and then he almost gets mad when he gets mad, so it gets out of control he reports. He reports he has a court date on Monday and though he wants to be discharged, he knows that he needs help and he just reports needing to be out of the hospital before then. We discussed the risks, benefits, and alternatives of initiating Clonidine for his impulsivity and Lamictal for his aggression, and we discussed the risks, benefits, and alternatives of these medications including the risk of Howell-Dashawn syndrome usually with increasing doses of Lamictal, and he understood and agreed to proceed as is documented in this note. PSYCHIATRIC HISTORY: He denies inpatient hospitalization before this one, and denies significant treatment before now, though he does endorse that he was treated by someone in the past for attention deficit hyperactivity disorder, and outpatient records suggest that he was seen at [facility] for similar complaints. That evaluation is included below in part, which concluded with a diagnosis of bipolar disorder and intermittent explosive disorder. He reports that the document referenced was a reasonable and accurate depiction of what was going on at that time. He also had an evaluation by a psychiatrist which demonstrated a past history of Lamictal being utilized effectively, and in that document, there is a diagnosis of bipolar disorder as well as cannabis abuse. He identified that being accurate as well. SUBSTANCE ABUSE HISTORY: As above. FAMILY HISTORY: He endorses mental health on mother?s side, addiction on dad?s side and reports that his dad committed suicide in 2017. DEVELOPMENTAL HISTORY: He denies issues with his mother?s or delivery of him. He met all developmental milestones on time. He does report that once he went to school, he did need speech therapy and special education services. PSYCHOSOCIAL HISTORY: He endorses that he is the only child of his parents, who were off and on together until his father . He endorses his mother had an older daughter prior to her relationship with his father and that his father had in the neighborhood of six total children. He reports his childhood was pretty good. He denies emotional, physical, or sexual abuse. 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 He reports that he is a heterosexual with his longest relationship being three years. He denies ever being , but he reports that he is engaged. He denies having biolog ical children, ever being in the , or having any buddhism belief system. He reports his longest employment was at a [employer]. 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 He reports he currently lives in a trailer with his mother and sometimes lives with his girlfriend. LEGAL HISTORY: He says he has been in prison about four or five times. MEDICAL HISTORY: He denies any significant medical issues though he does struggle at times with his weight. In the papers it shows history of hypertension and asthma. Hospital Course Hospital Course Srinivasa presented to the emergency department with concerns about lethality, addiction and issues with anger management. He was admitted to the neuropsychiatric unit for definitive treatment of those issues. On the unit he slowly acclimated to the individual, group milieu therapies provided. We we discussed multiple possibilities for interventions but ultimately he finally decided that he wanted to go to his own physician and explore the possible treatments not wanting to stay in the hospital because he had a critical appointment with reports that he had to attend. Ultimately he only started trazodone to assist with sleep and he was able to contract for safety so he was discharged. During the hospitalization, patient had routine laboratory studies which were within normal limits except for few outliers. Additionally there was a general medical evaluation which was also within normal limits and revealed no new acute processes. Discharge Summary: At the time of discharge, he denied lethality or psychosis. Mood and anxiety were well managed. Patient endorsed a plan to avoid all drugs of abuse and follow-up with the aftercare recommendations of the treatment team. Patient was evaluated and deemed to be absent credible lethality, and had benefit from an inpatient hospitalization, but he was on a hold and did not want continued inpatient services reported a plan to follow-up outpatient, so was discharged. Meds NPU Home Medications Medication Instructions Recorded Confirmed Last Taken Type No Known Home Medications 11/08/21 11/08/21 Unknown History Allergies Allergy/AdvReac Type Severity Reaction Status Date / Time Sulfa (Sulfonamide Allergy Unknown Verified 11/08/21 13:41 Antibiotics) PFSH NPU PFSH: Medical History (Updated 11/08/21 @ 13:25 by Kelin Baker MD) Excessive anger Psychiatric care Social History Smoking and tobacco status: current every day smoker Mental Status Exam MSE Comments: This is a well-nourished, well-developed, white male, with scrubs on with adequate, grooming, and eye contact with slightly dysmorphic facies. No abnormal movements except for psychomotor agitation, mild. Cooperative with exam in no acute distress. Speech was decreased rate and volume and dysarthric. Mood described as angry; affect congruent. Thought process, organized. Thought content: patient denied any suicidal or homicidal ideation, there were no delusions reported or noted, patient denied any auditory or visual hallucinations. Attention, concentration, and memory appear intact but were not formally tested. He is alert and oriented times three. Insight and judgment are limited. Impulse control impaired, and intellectual ability appears limited versus impaired. Vitals/I&O/Wt Last Vital Signs Temp 98.1 F 11/09/21 14:00 Pulse 76 11/09/21 14:00 Resp 18 11/09/21 14:00 BP 124/76 11/09/21 14:00 Pulse Ox 96 11/09/21 14:00 Weight last 48 hrs Weight 76.43 kg Data NPU : 11/08/21 13:03 11/08/21 13:03 A&P Assessment and plan (1) Suicidal ideations: Status: Acute (2) Homicidal ideation: Status: Acute (3) Drug-induced psychotic disorder: Status: Acute Qualifiers: Complication of substance-induced condition: with delusions Qualified Code(s): F19.950 - Other psychoactive substance use, unspecified with psychoactive substance-induced psychotic disorder with delusions (4) Polysubstance abuse: Status: Acute (5) Borderline intellectual functioning: Status: Acute (6) Cluster B personality disorder: Status: Acute (7) Bipolar 1 disorder: Status: Acute (8) Impulse control disorder: Status: Acute (9) Intermittent explosive disorder: Status: Acute (10) Depression: Status: Acute Qualifiers: Depression Type: unspecified Qualified Code(s): F32.9 - Major depressive disorder, single episode, unspecified Additional A&P Information (1) Suicidal ideation: (2) Polysubstance abuse: (3) Borderline intellectual functioning: (4) Cluster B personality disorder: (5) Intermittent explosive disorder: (6) Depression: (7) Drug-induced psychotic disorder: Additional A&P Information This is a 26-year-old white male with a long history of impulse control disorders, intellectual disability and addiction who presents with active addiction, off of his medication with recent erratic behavior at work and home. 1. Continue current medication. We will restart wellbutrin in the morning. And consider other medications as well as safety for discharge. 2. Continue every 15 minute checks for safety. 3. Encourage individual, group and milieu therapies. 4. Encourage sober living treatment after discharge at the highest level of care to which he is willing to commit. Involuntary Hold Information 96 Hour Hold: 96 Hour Involuntary Admission: No Attestations U Medical Necessity Statement*: Inpatient hospitalization is medically necessary and the clinically appropriate intervention at this time. We will monitor medications and make changes as indicated. Patient will be in the hospital for over two midnights. Likely length of stay 2-4 days. Coding Level of Care Code Acute Solids Control Technician for [facility] Fwd Diagnoses Suicidal ideations R45.851 Homicidal ideation R45.850 Drug-induced psychotic disorder F19.950 Complication of substance-induced condition: with delusions Polysubstance abuse F19.10 Borderline intellectual functioning R41.83 Cluster B personality disorder F60.89 Bipolar 1 disorder F31.9 Impulse control disorder F63.9 Intermittent explosive disorder F63.81 Depression F32.9 Depression Type: unspecified
[2021-11-09] MEDS: OLANZapine 5 mg ODT PO (15:25)
--- NOTE | 2021-11-09 15:25 | PC.NURSE ---
Pt was on the phone and started screaming and pacing. Pt visibly shaking and turning red. Pt screaming about his girlfriend being a bitch and I'm going to intermediate because I'm missing court and that bitch won't let court know I am here. Staff was able to verbally redirect pt and staff informed pt that they would fax paperwork to the court informing them that pt was in the hospital. Pt also agreed to take medication for anxiety/agitation. Pt was given Zydis 5mg PO without complication.
[2021-11-09 19:52] VITALS: BP 129/90; PULSE 84; RESP 18; O2SAT 98
[2021-11-10 06:00] VITALS: BP 134/86; PULSE 78; RESP 15; O2SAT 97
[2021-11-10] MEDS: nicotine 2 mg Gum BUCCAL ×2 (10:57→15:13)
--- NOTE | 2021-11-10 11:35 | NPU.GN ---
[facility] Group Topic:Checkers General Mood of Group: Srinivasa did not attend group today. He was sleeping.
--- NOTE | 2021-11-10 15:27 | W.PM.NPUPNS ---
Subjective NPU Subjective: Interval history: Patient was slightly more engaged on the unit today. He reports he tolerated the initiation of Wellbutrin again without incident. He had no recommendation for why discontinued the medication after discharge last time after continuing the prescription for 1 refill. He reports that he is going to go back to Monday and did not need to have any clear commitment to drug and alcohol treatment began about ability to discharge. Reports that he felt better and not having negative thoughts that brought him to the hospital. We discussed in talking with the treatment team about any issues that might happen with his rent to be proactive. We discussed that Dr. Devine is coming tomorrow and he could discuss the possibility of discharge after treatment team. Mental Status Exam MSE Comments: This is a well-nourished, well-developed, white male, with scrubs on with adequate, grooming, and eye contact with slightly dysmorphic facies. No abnormal movements except for psychomotor agitation, mild. Cooperative with exam in no acute distress. Speech was decreased rate and volume and dysarthric. Mood described as better; affect less irritable. Thought process, mostly organized. Thought content: patient denied any suicidal or homicidal ideation, there were no delusions reported or noted, patient denied any auditory or visual hallucinations. Attention, concentration, and memory appear intact but were not formally tested. He is alert and oriented times three. Insight and judgment are limited. Impulse control impaired, and intellectual ability appears limited versus impaired. Vitals/I&O/Wt Last Vital Signs Temp 98.1 F 11/09/21 14:00 Pulse 78 11/10/21 06:00 Resp 15 11/10/21 06:00 BP 134/86 11/10/21 06:00 Pulse Ox 97 11/10/21 06:00 Data NPU : 11/08/21 13:03 11/08/21 13:03 A&P Additional A&P Information (1) Suicidal ideations: (2) Homicidal ideation: (3) Drug-induced psychotic disorder: (4) Polysubstance abuse: (5) Borderline intellectual functioning: (6) Cluster B personality disorder: (7) Bipolar 1 disorder: (8) Impulse control disorder: (9) Intermittent explosive disorder: (10) Depression: Additional A&P Information (1) Suicidal ideation: (2) Polysubstance abuse: (3) Borderline intellectual functioning: (4) Cluster B personality disorder: (5) Intermittent explosive disorder: (6) Depression: (7) Drug-induced psychotic disorder: Additional A&P Information This is a 26-year-old white male with a long history of impulse control disorders, intellectual disability and addiction who presents with active addiction, off of his medication with recent erratic behavior at work and home. 1. Continue current medication. Wellbutrin XL 150 mg started. And consider other medications as well as safety for discharge. 2. Continue every 15 minute checks for safety. 3. Encourage individual, group and milieu therapies. 4. Encourage sober living treatment after discharge at the highest level of care to which he is willing to commit. 5. Patient is not going to do any sober living treatment, discharge in the next 48 hours would be reasonable. Involuntary Hold Information 96 Hour Hold: 96 Hour Involuntary Admission: No Attestations NPU Medical Necessity Statement*: Inpatient hospitalization is medically necessary and the clinically appropriate intervention at this time. We will monitor medications and make changes as indicated. Likely length of stay 1-3 days. Coding Level of Care Code Acute Phonograph Cartridge Assembler for [facility]
[2021-11-10] MEDS: buPROPion XL (24 HR) 150 mg Tablet PO (15:57)
[2021-11-10 19:42] VITALS: BP 130/84; PULSE 85; RESP 18; O2SAT 98
[2021-11-10] MEDS: risperiDONE 1 mg Tablet PO (20:41)
[2021-11-10] MEDS: OLANZapine 5 mg ODT PO (20:41)
[2021-11-10] MEDS: trazodone 50 mg Tablet PO (20:41)
[2021-11-11 06:00] VITALS: BP 136/89; PULSE 90; RESP 18; O2SAT 98
[2021-11-11] MEDS: buPROPion XL (24 HR) 150 mg Tablet PO (08:42)
[2021-11-11] MEDS: nicotine 2 mg Gum BUCCAL ×4 (08:42→19:30)
--- NOTE | 2021-11-11 12:51 | PC.SOCIAL ---
IMM Update Discussed Medicare rights with patient, verbalized understanding. Provided patient with a copy and placed initialed, timed, dated copy in chart.
[2021-11-11 13:42] VITALS: BP 112/67; PULSE 93; RESP 17; TEMP 37.1; O2SAT 98
--- NOTE | 2021-11-11 14:42 | P.NPUPN_ITS ---
Subjective NPU Subjective: Interval history: He was quite anxious to talk to me but I was not able to talk with him until the mid afternoon. He is very anxious to go home. He says his fianc?e made him calm down because he was having thoughts of hurting himself. He denies having thoughts of hurting himself since he has been here. He is afraid that he is going to lose his job. He does admit that he continues to be depressed and not much is changed in the last 3 days. He has evidently been sleeping well. He is adamant that he will be safe when he goes home. When told initially that he would not be able to go home until at least tomorrow he said that he would stop taking his medication but then quickly recanted. Mental Status Exam MSE Comments: This is a well-nourished, well-developed, white male, with scrubs on with adequate, grooming, and eye contact with slightly dysmorphic facies. No abnormal movements except for mild psychomotor agitation. Cooperative with exam in no acute distress. Speech was normal rate and volume and mildly dysarthric. Mood described as better; affect less irritable. Thought process, mostly organized. Thought content: patient denied any suicidal or homicidal ideation, there were no delusions reported or noted, patient denied any auditory or visual hallucinations. Attention, concentration, and memory appear intact but were not formally tested. He is alert and oriented times three. Insight and judgment are limited. Impulse control impaired, and intellectual ability appears limited versus impaired. Cognition: Patient Appearance: Disheveled/Poor Hygiene Level of Consciousness: Alert and Appropriate Patient Cognition Impaired: Yes Ability to Follow Directions: Excellent Patient Orientation (long list): Person, Place, Time and Name Comprehension Ability: No Impairment Hallucination Type: None Delusion Description: Not Present Thought Process: Appropriate Affect: Affect Description: Appropriate Behavior: Patient Behavior: Appropriate Speech Pattern: Appropriate Vitals/I&O/Wt Last Vital Signs Temp 98.7 F 11/11/21 13:42 Pulse 93 11/11/21 13:42 Resp 17 11/11/21 13:42 BP 112/67 11/11/21 13:42 Pulse Ox 98 11/11/21 13:42 Data NPU : 11/08/21 13:03 11/08/21 13:03 A&P Assessment and plan (1) Suicidal ideations: Status: Acute (2) Homicidal ideation: Status: Acute (3) Drug-induced psychotic disorder: Status: Acute Qualifiers: Complication of substance-induced condition: with delusions Qualified Code(s): F19.950 - Other psychoactive substance use, unspecified with psychoactive substance-induced psychotic disorder with delusions (4) Polysubstance abuse: Status: Acute (5) Borderline intellectual functioning: Status: Acute (6) Cluster B personality disorder: Status: Acute (7) Bipolar 1 disorder: Status: Acute (8) Impulse control disorder: Status: Acute (9) Intermittent explosive disorder: Status: Acute (10) Depression: Status: Acute Qualifiers: Depression Type: unspecified Qualified Code(s): F32.9 - Major depressive disorder, single episode, unspecified Additional A&P Information (1) Suicidal ideations: (2) Homicidal ideation: (3) Drug-induced psychotic disorder: (4) Polysubstance abuse: (5) Borderline intellectual functioning: (6) Cluster B personality disorder: (7) Bipolar 1 disorder: (8) Impulse control disorder: (9) Intermittent explosive disorder: (10) Depression: Additional A&P Information (1) Suicidal ideation: (2) Polysubstance abuse: (3) Borderline intellectual functioning: (4) Cluster B personality disorder: (5) Intermittent explosive disorder: (6) Depression: (7) Drug-induced psychotic disorder: Additional A&P Information This is a 26-year-old white male with a long history of impulse control disorders, intellectual disability and addiction who presents with active addiction, off of his medication with recent erratic behavior at work and home. 1. Continue current medication. increase Wellbutrin XL 300 mg started. Continue risperidone 1 mg daily. 2. Continue every 15 minute checks for safety. 3. Encourage individual, group and milieu therapies. 4. Encourage sober living treatment after discharge at the highest level of care to which he is willing to commit. 5. Patient is not going to do any sober living treatment, discharge in the next 48 hours would be reasonable. Involuntary Hold Information 96 Hour Hold: 96 Hour Involuntary Admission: No Attestations NPU Medical Necessity Statement*: Inpatient hospitalization is medically necessary and the clinically appropriate intervention at this time. We will initiate medications and make changes as indicated. Coding Level of Care Code Acute Workgroup Leader for Chg Fwd Diagnoses Suicidal ideations R45.851 Homicidal ideation R45.850 Drug-induced psychotic disorder F19.950 Complication of substance-induced condition: with delusions Polysubstance abuse F19.10 Borderline intellectual functioning R41.83 Cluster B personality disorder F60.89 Bipolar 1 disorder F31.9 Impulse control disorder F63.9 Intermittent explosive disorder F63.81 Depression F32.9 Depression Type: unspecified
[2021-11-11 20:28] VITALS: BP 117/75; PULSE 75; RESP 16; O2SAT 100
[2021-11-11] MEDS: risperiDONE 1 mg Tablet PO (20:29)
[2021-11-11] MEDS: hyDROXYzine 25 mg Capsule 50 MG PO (20:36)
[2021-11-11] MEDS: trazodone 50 mg Tablet PO (20:37)
[2021-11-12 06:00] VITALS: BP 131/84; PULSE 85; RESP 18; O2SAT 98
--- NOTE | 2021-11-12 09:17 | P.NPUDS_ITS ---
Diagnoses at Discharge Discharge Diagnosis (1) Suicidal ideations: Status: Acute (2) Homicidal ideation: Status: Acute (3) Drug-induced psychotic disorder: Status: Acute Qualifiers: Complication of substance-induced condition: with delusions Qualified Code(s): F19.950 - Other psychoactive substance use, unspecified with psychoactive substance-induced psychotic disorder with delusions (4) Polysubstance abuse: Status: Acute (5) Borderline intellectual functioning: Status: Acute (6) Cluster B personality disorder: Status: Acute (7) Bipolar 1 disorder: Status: Acute (8) Impulse control disorder: Status: Acute (9) Intermittent explosive disorder: Status: Acute (10) Depression: Status: Acute Qualifiers: Depression Type: unspecified Qualified Code(s): F32.9 - Major depressive disorder, single episode, unspecified Reason for Visit Reason for Visit: SI/HI Brief History: History of Present Illness Srinivasa Greene is a 26 year old male who presented to the emergency department the following report: Chief complaint: Psychiatric Symptoms Stated complaint: SI/HI Time Seen by Provider: 11/08/21 13:17 History of Present Illness: HPI narrative: HPI: [26]yo patient w/ hx of depression BIBA for suicidal ideation and homicidal ideation. On arrival, the patient is AAOx3 and cooperative with my evaluation. No focal complaints of chest pain, shortness of breath, palpitations, N/V, focal GI/ complaints. No complaints of hallucinations. Onset: acute Duration: ongoing Location: home Severity: severe. He was admitted to the neuropsychiatric unit for definitive treatment of those issues. He is known to this unit from previous hospitalizations. While in May 2020 and 1 in April of this year. He reports that he has outpatient services through [facility] and those notes can be seen in the system. He reports that he has been doing okay but was not taking his medication and evaluation of this identified that he had not picked that medication since April or May. He reports that he had been doing well as far as his addiction and recovery however reports that he relapsed just recently. He was very ambiguous about when and how the relapse occurred but reports that just recently he had taken some methamphetamine and had admitted to smoking marijuana from time to time. His UDS was positive for both those drugs as well as benzodiazepines. He reports he started having suicidal thinking as well as homicidal thoughts. He also endorsed that he started hearing some voices. He continues to struggle with his cognitive limitations and there was affidavits in the chart but he was not on a 96-hour hold. We discussed the risk benefits and alternatives may be restarting some of his medications and he understood and agreed proceed as is documented in this note. Per his 04/28/2021 [facility] inpatient psychiatric discharge summary: Discharge Diagnosis (1) Suicidal ideation: Status: Resolved (2) Polysubstance abuse: Status: Acute (3) Borderline intellectual functioning: Status: Acute (4) Cluster B personality disorder: Status: Acute (5) Intermittent explosive disorder: Status: Acute (6) Depression: Status: Acute Qualifiers: Depression Type: unspecified Qualified Code(s): F32.9 - Major depressive disorder, single episode, unspecified (7) Drug-induced psychotic disorder: Status: Acute Qualifiers: Complication of substance-induced condition: with delusions Qualified Code(s): F19.950 - Other psychoactive substance use, unspecified with psychoactive substance-induced psychotic disorder with delusions Reason for Visit Reason for Visit: si and meth use Brief History: History of Present Illness Srinivasa Greene is a 26 year old male who presented to the emergency department with the following report: Chief Complaint: Psychiatric Symptoms Stated Complaint: si and meth use Time Seen by Provider: 04/26/21 20:14 Source: patient Mode of arrival: EMS Limitations: altered mental status History of Present Illness: HPI Narrative: Patient is a 26-year-old male who was brought in by EMS with complaint of suicidal ideation. Patient admits to using methamphetamines and opiates. It is difficult to understand the patient most likely due to intoxication and the fact that his speech is rapid and unclear. But from what I can gather the patient was in an argument with his girlfriend and she reported him to his boss that he had been abusing Xanax. The patient states that he was using the Xanax to help him calm down from using methamphetamines. Because of this his boss fired him today which made him even more upset. He states that he got home and his mother had been searching his room and found methamphetamines in his room. This upset him even more and he was enraged and said he was tired of it all and wanted to kill himself. They called the police and he also admitted to them that he was suicidal. He was therefore brought in for evaluation. He states that he has used methamphetamines, opiates, and acid . complaint: suicidal ideation History of same: No Relieving factors: none Exacerbating factors: drug use Context: recent drug abuse Associated psychiatric symptoms: suicidal ideation, racing thoughts and delusions Associated symptoms: Reports delusions, suicidal ideation and racing thoughts Treatments prior to arrival: none If self harm: admits thoughts of self harm and has plan Details of plan: he states that he can jump off a bridge or drive his car into a wall. He was admitted to the neuropsychiatric unit for definitive treatment of those issues. He presents today reporting that this is his third psychiatric hospitalization the first 1 was with this insurance writer in May last year. He denies having follow-up with [facility] but reports he tried really hard to connect with them calling from time to time but with Covid he never got connected and ultimately ran out of his medication. He reports that he had a bad run of days. 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 He reports he smokes a half a pack cigarettes a day, denies alcohol marijuana or any other illicit drugs that he has struggled with methamphetamine and reports he relapsed. He began discussing plans for treatment but he reports that the first thing he needs to do is get discharge because currently he is ho meless with his girlfriend and now she stuck sleeping in the car alone. We discussed him getting into treatment with his mother and significant other wanting him to get help, but he was focused on getting out as soon as he can. We discussed restarting his medication and the risk-benefit and alternatives of that and he understood and agreed to proceed as is documented in this note. He denied substantive changes since the last hospitalization so an excerpt of his last evaluation is included below. He displayed limited insight into the impact of his use on his psychosocial circumstances. Per his 06/15/2020 [facility] inpatient evaluation: History of Present Illness Srinivasa Greene is a 25 year old male Srinivasa today having presented to the emergency room yesterday evening at the behest of his fianc?, he reports. EMS brought him in reporting that he has had violent outbursts and difficulty controlling his emotions. He had been reporting depression and previous suicidal thoughts as well as thoughts of harming other people, denying active thoughts at the time of admission, but not being on medication and having previous treatment, endorsing some concern about if things get worse he might act on something towards himself and he wanted to get treatment before that happened. He was admitted to the neuropsychiatric unit for definitive treatment of those issues. He presents today reporting that he has significant problems with controlling his anger and emotions, and that his fianc? has gotten fed up. He reports that it has gotten so bad that he has gun charges because he might grab a gun and be irrational. He reports he is very impulsive, and he does not think about things until sometimes it can be too late. He reports that he has never tried to kill himself but that he does have a history of anger and impulsive behavior. He reports that he started smoking cigarettes when he was about 13. He smoked somewhere between a half pack and a pack a day now. He drinks alcohol sometimes. He reports having marijuana occasionally. He reports that he does not use cocaine or opiates, but he has had issues with methamphetamines, but denies recent methamphetamine use maybe for a couple months he reports. His drug screen was positive for marijuana and opiates. He reports that he has been pretty depressed and anxious recently. He is frustrated because he gets mad and then he almost gets mad when he gets mad, so it gets out of control he reports. He reports he has a court date on Monday and though he wants to be discharged, he knows that he needs help and he just reports needing to be out of the hospital before then. We discussed the risks, benefits, and alternatives of initiating Clonidine for his impulsivity and Lamictal for his aggression, and we discussed the risks, benefits, and alternatives of these medications including the risk of Howell-Dashawn syndrome usually with increasing doses of Lamictal, and he understood and agreed to proceed as is documented in this note. PSYCHIATRIC HISTORY: He denies inpatient hospitalization before this one, and denies significant treatment before now, though he does endorse that he was treated by someone in the past for attention deficit hyperactivity disorder, and outpatient records suggest that he was seen at [facility] for similar complaints. That evaluation is included below in part, which concluded with a diagnosis of bipolar disorder and intermittent explosive disorder. He reports that the document referenced was a reasonable and accurate depiction of what was going on at that time. He also had an evaluation by a psychiatrist which demonstrated a past history of Lamictal being utilized effectively, and in that document, there is a diagnosis of bipolar disorder as well as cannabis abuse. He identified that being accurate as well. SUBSTANCE ABUSE HISTORY: As above. FAMILY HISTORY: He endorses mental health on mother?s side, addiction on dad?s side and reports that his dad committed suicide in 2017. DEVELOPMENTAL HISTORY: He denies issues with his mother?s or delivery of him. He met all developmental milestones on time. He does report that once he went to school, he did need speech therapy and special education services. PSYCHOSOCIAL HISTORY: He endorses that he is the only child of his parents, who were off and on together until his father . He endorses his mother had an older daughter prior to her relationship with his father and that his father had in the neighborhood of six total children. He reports his childhood was pretty good. He denies emotional, physical, or sexual abuse. 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 He reports that he is a heterosexual with his longest relationship being three years. He denies ever being , but he reports that he is engaged. He denies having biological children, ever being in the , or having any rastafarian belief system. He reports his longest employment was at a [employer]. 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 He reports he currently lives in a trailer with his mother and sometimes lives with his girlfriend. LEGAL HISTORY: He says he has been in prison about four or five times. Hospital Course Hospital Course He slowly acclimated to the individual, group and milieu therapies provided. He was started on Wellbutrin and increased to 300 mg daily. He was also started on Risperdal 1 mg daily. He slept well. He tolerated these doses and showed steady improvement during his stay. He was able to contract for safety outside hospital prior to discharge. During the hospitalization, patient had routine laboratory studies which were within normal limits except for few outliers. Additionally there was a general medical evaluation which was also within normal limits and revealed no new acute processes. Discharge Summary: At the time of discharge, lethality was denied and psychosis was resolved. Mood and anxiety were well managed. Patient endorsed a plan to follow-up with the aftercare recommendations of the treatment team. Patient was evaluated and deemed to be absent credible lethality, and had achieved the maximum benefit from an inpatient hospitalization, so was discharged. Involuntary Hold Information 96 Hour Hold: 96 Hour Involuntary Admission: No Mental Status Exam MSE Comments: This is a well-nourished, well-developed, white male, with scrubs on with adequate, grooming, and eye contact with slightly dysmorphic facies. No abnormal movements. Psychomotor activity is normal. Cooperative with exam in no acute distress. Speech was normal rate and volume and mildly dysarthric. Mood described as better; affect less irritable. Thought process, mostly organized. Thought content: patient denied any suicidal or homicidal ideation, there were no delusions reported or noted, patient denied any auditory or visual hallucinations. Attention, concentration, and memory appear intact but were not formally tested. He is alert and oriented times three. Insight and judgment are limited. Impulse control impaired, and intellectual ability appears limited versus impaired. Cognition: Patient Appearance: Disheveled/Poor Hygiene Level of Consciousness: Alert and Appropriate Patient Cognition Impaired: Yes Ability to Follow Directions: Excellent Patient Orientation (long list): Person, Place, Time and Name Comprehension Ability: No Impairment Hallucination Type: None Delusion Description: Not Present Thought Process: Appropriate Affect: Affect Description: Appropriate Behavior: Patient Behavior: Appropriate Speech Pattern: Appropriate and Clear Discharge Data Vitals: Last Vital Signs Temp 98.7 F 11/11/21 13:42 Pulse 85 11/12/21 06:00 Resp 18 11/12/21 06:00 BP 131/84 11/12/21 06:00 Pulse Ox 98 11/12/21 06:00 Discharge Plan Discharge Patient Disposition: Home Condition: Stable Prescriptions: New risperidone 1 mg Tablet 1 mg PO BEDTIME 30 Days Qty: 30 RF: 0 bupropion HCl 150 mg Tablet Extended Release 24 Hr 300 mg PO DAILY 30 Days Qty: 60 RF: 0 No Action No Known Home Medications RF: 0 Discharge Orders: Discharge Order (Routine); Ordered 11/12/21 Ordered By: Robby Devine Referrals: Debra Whitfield [facility] [Therapist] - 11/16/21 9:00 am (Therapy appointment on 11/16/21 @ 9:00am. ) Laron Patino MD [Physician] - 12/06/21 1:45 am ([facility] with Dr. Patino on 12/06/21 @ 2:00pm with a 1:30pm check in. ) Discharge Diet: Regular Discharge Activity: Resume usual activity Patient Instructions: Opioid Safety Discharge Attestations NPU Time Spent in Discharge Care*: less than 30 min Specific Discharge Activities: Specific discharge activities: educating patient, discussing with case management rn/social workers/dc planners, documenting/other paperwork and evaluating patient/reviewing data Coding Level of Care Code Acute g FW DC note Diagnoses Suicidal ideations R45.851 Homicidal ideation R45.850 Drug-induced psychotic disorder F19.950 Complication of substance-induced condition: with delusions Polysubstance abuse F19.10 Borderline intellectual functioning R41.83 Cluster B personality disorder F60.89 Bipolar 1 disorder F31.9 Impulse control disorder F63.9 Intermittent explosive disorder F63.81 Depression F32.9 Depression Type: unspecified
[2021-11-12 09:21] VITALS: BP 131/84; PULSE 85; RESP 18; O2SAT 98
[2021-11-12] MEDS: buPROPion XL (24 HR) 150 mg Tablet 300 MG PO (09:39)
[2021-11-12] MEDS: nicotine 2 mg Gum BUCCAL (09:39)
== END 2021-11-12 11:30 | disposition home or self-care (01) | DRG 885 ==
LOC: ER 14:22 → NP 11-09 08:08
PROVIDERS: Admitting Provider Psychiatry & Neurology Psychiatry; Emergency Provider Emergency Medicine; Visit Provider Psychiatry & Neurology Psychiatry
DX: F31.9 Bipolar disorder, unspecified (principal); F19.250 Other psychoactive substance dependence with psychoactive substance-induced psychotic disorder with delusions; R45.851 Suicidal ideations; R45.850 Homicidal ideations; R41.83 Borderline intellectual functioning; F60.89 Other specific personality disorders; F63.9 Impulse disorder, unspecified; F63.81 Intermittent explosive disorder; F17.210 Nicotine dependence, cigarettes, uncomplicated; Z63.0 Problems in relationship with spouse or partner
CPT/HCPCS: 80048; 80306; 80307; 85025; 97150; 97165; 99285

== ENCOUNTER 2021-11-23 02:53 | Emergency (ER) | payer MEDICARE, MEDICAID, SELFPAY ==
[2021-11-23 02:57] VITALS: BP 146/90; PULSE 104; RESP 20; TEMP 36.6; O2SAT 95; BMI 25.8
--- NOTE | 2021-11-23 03:06 | XRR_ITS ---
PROCEDURE INFORMATION: Exam: XR Chest Exam date and time: 11/23/2021 3:06 AM Age: 26 years old Clinical indication: Pain; On breathing; Additional info: Cp TECHNIQUE: Imaging protocol: XR of the chest. Views: 2 views. COMPARISON: No relevant prior studies available. FINDINGS: Lungs: Unremarkable. No consolidation. Pleural spaces: Unremarkable. No pleural effusion. No pneumothorax. Heart/Mediastinum: Unremarkable. No cardiomegaly. Bones/joints: Unremarkable. XR/XR chest 2V* [id number] IMPRESSION: No acute findings.
--- NOTE | 2021-11-23 03:06 | ECG_ITS ---
[facility] Test Date: 2021-11-23 Pat Name: Srinivasa Greene Department: Room: Gender: Male Release Manager: : 1995 Requested By: Aniya Bang Order Number: [id number] Sally MD: Tony Burkett M.D. Measurements Intervals [place] Rate: 97 P: 81 PA: 111 QRS: 86 QRSD: 110 T: 33 QT: 329 QTc: 419 Interpretive Statements SINUS RHYTHM WITH SHORT PA INTERVAL No previous ECG available for comparison Electronically Signed On 11-23-2021 23:57:59 [employer] EXECUTIVE DIRECTOR by Tony Burkett M.D. [email or web address]
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
[2021-11-23] MEDS: ketorolac 30 mg/mL INJ IM (03:29)
[2021-11-23 03:57] VITALS: RESP 17
== END 2021-11-23 04:04 | disposition home or self-care (01) ==
PROVIDERS: Emergency Provider Emergency Medicine
DX: R07.9 Chest pain, unspecified (principal); F17.210 Nicotine dependence, cigarettes, uncomplicated
CPT/HCPCS: 71046; 93005; 96372; 99283; J1885

== ENCOUNTER → 2021-12-06 12:41 | Outpatient (BNVA) | payer MEDICARE, MEDICAID, SELFPAY | PROVIDERS: Visit Provider Psychiatry & Neurology Psychiatry | DX: F63.81 Intermittent explosive disorder (principal); R41.83 Borderline intellectual functioning; F19.10 Other psychoactive substance abuse, uncomplicated; F15.20 Other stimulant dependence, uncomplicated; F17.210 Nicotine dependence, cigarettes, uncomplicated; F60.3 Borderline personality disorder | CPT/HCPCS: 99204 ==

== ENCOUNTER → 2022-01-17 12:57 | Outpatient (BNVA) | payer MEDICARE, MEDICAID, OTHER, SELFPAY | PROVIDERS: PCP Family Medicine; Visit Provider Psychiatry & Neurology Psychiatry | DX: F60.3 Borderline personality disorder (principal); F63.81 Intermittent explosive disorder; F17.210 Nicotine dependence, cigarettes, uncomplicated; F15.20 Other stimulant dependence, uncomplicated; F19.950 Other psychoactive substance use, unspecified with psychoactive substance-induced psychotic disorder with delusions | CPT/HCPCS: 99214 ==

== ENCOUNTER 2022-02-15 01:25 | Emergency (ER) | payer MEDICARE, MEDICAID, SELFPAY ==
[2022-02-15 01:34] VITALS: BP 137/89; PULSE 100; RESP 18; TEMP 36.8; O2SAT 100; BMI 26.6
[2022-02-15 01:57] LABS: SARS Covid-2 Antigen Negative (Negative)
[2022-02-15 01:59] VITALS: O2SAT 98
--- NOTE | 2022-02-15 02:02 | ED_ITS ---
HPI - COVID General: Chief Complaint: COVID symptoms Stated Complaint: Fever-Covid exposure Time Seen by Provider: 02/15/22 01:52 Triage information: Has fever, cough or shortness of breath . Exposure to COVID + person last 14 days History of Present Illness: Patient is a 26-year-old male comes to the ED with fever and diarrhea. Patient significant other just tested positive for COVID-19 and she has similar symptoms. Patient symptoms of fever started yesterday. Today he started developing abdominal cramping and diarrhea. He has had multiple episodes of diarrhea today. He has no other symptoms. Denies any upper respiratory symptoms, cough, chest pain, shortness of breath, nausea/vomiting, dysuria or hematuria. COVID 19 common symptoms: positive fever(s) and diarrhea; negative chills, non- productive cough, productive cough, dyspnea, fatigue, headache(s), throat pain, nasal congestion, nausea or vomiting COVID 19 other sytmptoms: negative chest pain COVID Results: SARS-CoV-2 Antigen (Rapid) Negative (Negative) 02/15/22 01:34 02/15/22 Review of Systems Const: Reports: fever(s); Denies: chills or fatigue Eyes: Denies: change in vision or eye discomfort ENMT: Denies: throat pain, odynophagia, nasal discharge or nasal congestion Card: Denies: chest pain, palpitations, edema, swelling of feet/ankles, dyspnea on exertion or orthopnea Resp: Denies: dyspnea, productive cough or non-productive cough GI: Reports: diarrhea; Denies: abdominal pain, nausea, vomiting, constipation or hematochezia : Denies: flank pain, difficulty urinating, dysuria or hematuria Musc: Denies: neck pain, back pain or extremity swelling Skin/Breast: Denies: rash or new lesions Neuro: Denies: headache(s) PFSH ED PFSH: Medical History Excessive anger No pertinent family history Psychiatric care Social History Smoking and tobacco status: current every day smoker cigarettes Packs smoked per day: 0.5 Years cigarettes smoked: 14 and smokeless tobacco Smokeless tobacco user: snuff Smokeless tobacco details: 1 can/2 days Quit status (tobacco): has tried quititng Number of times tried to quit tobacco: 6 Second hand smoke exposure: Yes Physical Exam Const: COMMON NORMALS: no acute distress, patient oriented x3 and alert GENERAL APPEARANCE: cooperative and comfortable HENMT: COMMON NORMALS: normocephalic HEAD & SCALP: normocephalic MOUTH: Normal oral and palatal mucosa present THROAT: posterior oropharynx normal and uvula midline Neck/C-Spine: COMMON NORMALS: supple GENERAL: Yes normal visual inspection Resp: COMMON NORMALS: normal respiratory effort, No retractions, No use of accessory muscles and clear to auscultation bilaterally AUSCULTATION: clear to auscultation bilaterally Cardio: COMMON NORMALS: regular rate, regular rhythm, S1 normal heart sound pr esent, S2 normal heart sound present, No gallops present (Cardio), No clicks present (Cardio), No murmurs present (Cardio) and Peripheral pulses 2+ throughout RATE: regular rate RHYTHM: regular rhythm HEART SOUNDS: S1 normal heart sound present and S2 normal heart sound present PERIPHERAL PULSES: Peripheral pulses 2+ throughout GI: COMMON NORMALS: Normal to inspection, nondistended, normoactive bowel sounds present, Soft to palpation, non-tender and no masses PALPATION: Yes Soft to palpation : COMMON NORMALS: Yes no CVA tenderness BLADDER/KIDNEY EXAM: Yes no CVA tenderness Back/Pelvis: COMMON NORMALS: no CVA tenderness Extremity: COMMON NORMALS: normal to inspection Neuro: COMMON NORMALS: patient oriented x3 and moves all extremities SENSORIUM/ORIENTATION: Yes alert Skin: GENERAL SKIN EXAM: dry skin Course Vital Signs: Vital signs: Vital Signs Temperature 98.3 F 02/15/22 02:15 Pulse Rate 100 02/15/22 02:15 Respiratory Rate 18 02/15/22 02:15 Blood Pressure 135/81 02/15/22 02:15 Pulse Oximetry 98 02/15/22 02:15 MDM - COVID Medical Decision Making Patient is a 26-year-old male comes to the ED with fever and some diarrhea. Symptoms started yesterday. His significant other has similar symptoms and just tested positive for COVID-19. Denies any other symptoms such as shortness of breath, cough, nausea/vomiting. Patient appears in no acute distress or pain. Exam is benign. Vitals are stable. Rapid Covid was negative and influenza negative. Patient was stable for discharge home. He was diagnosed with viral syndrome and sent home with a prescription for dicyclomine for the abdominal cramping and diarrhea. He was told to follow-up with his PCP in the next 7 to 10 days reevaluation. Return to ED precautions given. Patient stood agree with plan. Lab Data Laboratory Results Influenza Type A Ag Negative (Negative) 02/15/22 02:00 Influenza Type B Ag Negative (Negative) 02/15/22 02:00 SARS-CoV-2 Ag (Rapid) Negative (Negative) 02/15/22 01:34 SARS-CoV-2 Antigen (Rapid) Negative (Negative) 02/15/22 01:34 02/15/22 Discharge Plan Discharge Patient Disposition: Home Clinical Impression: Viral syndrome Condition: Stable Prescriptions: New dicyclomine 20 mg tablet 20 mg PO TID PRN (Reason: abdominal cramping and diarrhea) Qty: 15 0RF No Action bupropion HCl [Wellbutrin XL] 300 mg tablet extended release 24 hr 300 mg PO QAM Qty: 30 2RF risperidone [Risperdal] 2 mg tablet 2 mg PO .HS Qty: 30 2RF naltrexone 50 mg tablet 50 mg PO DAILY Qty: 30 2RF Discharge Orders: Discharge ED (Routine); Ordered 02/15/22 Ordered By: Luis Antonio Andrade Referrals: Raj Burks MD [Primary Care Provider] - Discharge Diet: Regular Discharge Activity: Increase activity as tolerated Patient Instructions: Viral Syndrome (ED) Activity Restrictions/Additional Instructions: Follow-up with medical provider as directed in the next 7 to 10 days for reevaluation. Your COVID-19 test was negative and influenza test is pending. Call [facility] tomorrow morning to get influenza test results. Take medications as prescribed. Drink plenty of fluids and stay hydrated. Take [id number] Tylenol or Motrin per bottle instruction for fevers. Return to the ER or your medical provider if condition worsens. Please read and understand discharge instructions. Thank you for choosing [facility] for your healthcare needs today. Please realize this is an emergency room and that we are providing you with a medical screening exam and this may not be complete and all inclusive of all the testing and or work up that you may need to determine your ailment or severity of your illness. It is very important that you follow up as instructed or that you return to the Emergency Department should you have concerns or if your condition changes or worsens in any way. Coding Level of Care Code ED Civil Preparedness Officer for Panchito Manzano Exam Comprehensive
[2022-02-15 02:09] VITALS: BP 135/81; PULSE 100; RESP 18; TEMP 36.8; O2SAT 98
[2022-02-15 02:15] VITALS: BP 135/81; PULSE 100; RESP 18; TEMP 36.8; O2SAT 98
[2022-02-15 02:19] LABS: Influenza A by IFA Negative (Negative); Influenza B by IFA Negative (Negative)
== END 2022-02-15 02:16 | disposition home or self-care (01) ==
PROVIDERS: Emergency Medicine; Emergency Provider Physician Assistant; PCP Family Medicine
DX: B34.9 Viral infection, unspecified (principal); F17.210 Nicotine dependence, cigarettes, uncomplicated; Z20.822 Contact with and (suspected) exposure to COVID-19
CPT/HCPCS: 87426; 87804; 99282

== ENCOUNTER → 2022-02-25 13:55 | Outpatient (BNVA) | payer MEDICARE, MEDICAID, OTHER, SELFPAY | PROVIDERS: PCP Family Medicine; Visit Provider Psychiatry & Neurology Psychiatry | DX: F60.3 Borderline personality disorder (principal); F17.210 Nicotine dependence, cigarettes, uncomplicated; F15.20 Other stimulant dependence, uncomplicated; F19.950 Other psychoactive substance use, unspecified with psychoactive substance-induced psychotic disorder with delusions; F19.10 Other psychoactive substance abuse, uncomplicated; R41.83 Borderline intellectual functioning; F63.81 Intermittent explosive disorder | CPT/HCPCS: 99213 ==

== ENCOUNTER 2022-05-06 15:56 | Emergency (ER) | payer MEDICARE, MEDICAID, SELFPAY ==
[2022-05-06 16:00] VITALS: BP 137/89; PULSE 91; RESP 18; TEMP 37.2; O2SAT 98; BMI 24.3
--- NOTE | 2022-05-06 16:04 | ED_ITS ---
HPI - General Adult General: Chief complaint: General Medical Stated complaint: dehydration Time Seen by Provider: 05/06/22 16:00 History of Present Illness: 27-year-old male patient comes in today for complaints of dehydration. Patient reports that his car was broken down and he had worked last night so he had used some speed in order to push through the day to work on his car. Patient was able to get his car working had walked home then received a call from his girlfriend stating need to come over to her place. Patient then walked over to her place and by the time he got to her place he reported that his urine was really dark and he was not feeling well. Girlfriend then called the EMS and they brought him to the ER. Patient had 1 L of IV fluids in route to the ER with some improvement of symptoms. Patient responds appropriately to questions. Patient is alert. Patient denies any falls or injury. Associated symptoms: Deny chest pain, dyspnea, nausea or vomiting Review of Systems 2 General: Reports: 10 or more systems reviewed and unremarkable except in HPI and below Card: Denies: chest pain Resp: Denies: dyspnea GI: Denies: nausea or vomiting : Reports: oliguria (Dark urine) [facility] ED PFSH: Medical History Excessive anger No pertinent family history Psychiatric care Social History Smoking and tobacco status: current every day smoker cigarettes Packs smoked per day: 0.5 Years cigarettes smoked: 14 and smokeless tobacco Smokeless tobacco user: snuff Smokeless tobacco details: 1 can/2 days Quit status (tobacco): has tried quititng Number of times tried to quit tobacco: 6 Second hand smoke exposure: Yes Physical Exam Const: COMMON NORMALS: alert HENMT: COMMON NORMALS: TM's normal bilaterally and Normal external nose p resent HEAD & SCALP: normal to inspection NOSE: Normal external nose present TYMPANIC MEMBRANE: TM's normal bilaterally MOUTH: Abnormal oral and palatal mucosa present (Dry) Neck/C-Spine: COMMON NORMALS: full ROM Resp: COMMON NORMALS: normal respiratory effort Cardio: COMMON NORMALS: regular rate and regular rhythm RATE: regular rate RHYTHM: regular rhythm GI: COMMON NORMALS: non-tender : COMMON NORMALS: Yes no CVA tenderness BLADDER/KIDNEY EXAM: Yes no CVA tenderness Back/Pelvis: COMMON NORMALS: no CVA tenderness Extremity: COMMON NORMALS: normal to inspection Neuro: SENSORIUM/ORIENTATION: Yes alert Psych: MOOD & AFFECT: Yes anxious Skin: TRAUMA: other (Superficial scratch to the right forehead) Course Vital Signs: Vital signs: Vital Signs Temperature 98.9 F 05/06/22 16:00 Pulse Rate 91 05/06/22 16:00 Respiratory Rate 18 05/06/22 16:00 Blood Pressure 137/89 05/06/22 16:00 Pulse Oximetry 98 05/06/22 16:00 MDM - General Adult Medical Decision Making 27-year-old male patient comes in today with changes in urine and fatigue. Pat ient reports he had walked a lot outside and had been using methamphetamines. On exam lungs were clear to auscultation. Abdomen soft nontender. No CVA tenderness. Differential diagnosis includes dehydration, rhabdomyolysis, substance abuse. Patient was infused with 1 L of IV fluids and had much improvement after the first liter. Patient was given a second liter in the ER. For CPK was 1300 seconds CPK did show a decline after the second liter. Patient reports significant improvement in symptoms. Patient was able to hold down fluids. Feel the patient probably will do well as long as he can drink plenty of fluids and avoid further methamphetamines. Patient was given a dose of potassium due to his potassium level being 3.3. I explained to patient that he needs to avoid the methamphetamines and that he did have some cell breakdown due to the use of methamphetamines and dehydration. Patient reported understanding and agreed to plan. Lab Data : 05/06/22 16:10 05/06/22 16:10 Laboratory Results WBC 9.0 10^3/uL (4.0-10.0) 05/06/22 16:10 RBC 4.01 10^6/uL (4.1-5.3) L 05/06/22 16:10 Hgb 12.4 g/dL (11.7-16.6) 05/06/22 16:10 Hct 35.2 % (42.0-52.0) L 05/06/22 16:10 MCV 87.8 fl (80-94) 05/06/22 16:10 MCH 30.9 pg (28.0-34.0) 05/06/22 16:10 MCHC 35.2 g/dL (30.0-36.0) 05/06/22 16:10 RDW 12.0 % (12.1-15.1) L 05/06/22 16:10 Plt Count 306 10^3/cmm (130-400) 05/06/22 16:10 MPV 8.8 fL (7.4-10.4) 05/06/22 16:10 Neut % (Auto) 69.2 % 05/06/22 16:10 Lymph % (Auto) 21.1 % 05/06/22 16:10 Harvey % (Auto) 8.6 % 05/06/22 16:10 Eos % (Auto) 0.3 % 05/06/22 16:10 Baso % (Auto) 0.6 % 05/06/22 16:10 Neut # (Auto) 6.22 10^3/uL (1.8-7.7) 05/06/22 16:10 Lymph # (Auto) 1.9 10^3/uL (0.8-4.8) 05/06/22 16:10 Harvey # (Auto) 0.8 10^3/uL (0.2-0.9) 05/06/22 16:10 Eos # (Auto) 0.0 10^3/uL (0.0-0.8) 05/06/22 16:10 Baso # (Auto) 0.1 10^3/uL (0.0-0.1) 05/06/22 16:10 Nucleated RBC % (auto) 0 % 05/06/22 16:10 Nucleated RBCs # 0.0 /100WBC 05/06/22 16:10 Sodium 136 mmol/L (136-145) 05/06/22 16:10 Potassium 3.3 mmol/L (3.5-5.1) L 05/06/22 16:10 Chloride 99 mmol/L (98-107) 05/06/22 16:10 Carbon Dioxide 28 mmol/L (22-29) 05/06/22 16:10 Anion Gap 12.3 (5-19) 05/06/22 16:10 BUN 12 mg/dL (6-20) 05/06/22 16:10 Creatinine 1.1 mg/dL (0.7-1.2) 05/06/22 16:10 GFR Calculation 79.7 mL/min (90-130) L 05/06/22 16:10 Glucose 99 mg/dL (65-115) 05/06/22 16:10 Calculated Osmolality 282 mOsm/kg (285-295) L 05/06/22 16:10 Calcium 8.6 mg/dL (8.5-10.5) 05/06/22 16:10 Total Bilirubin 0.4 mg/dL (0.15-1.2) 05/06/22 16:10 AST 58 U/L (0-40) H 05/06/22 16:10 ALT 40 U/L (0-41) 05/06/22 16:10 Alkaline Phosphatase 70 IU/L (40-130) 05/06/22 16:10 Creatine Kinase 1287 U/L (39-308) H* 05/06/22 17:06 Total Protein 6.6 g/dL (6.6-8.7) 05/06/22 16:10 Albumin 4.2 g/dL (3.5-5.2) 05/06/22 16:10 Globulin 2.4 g/dL (1.3-4.6) 05/06/22 16:10 Urine Color Yellow (Yellow) 05/06/22 16:10 Urine Appearance Clear (CLEAR) 05/06/22 16:10 Urine pH 7 (5-7) 05/06/22 16:10 Ur Specific Ione 1.015 (1.005-1.030) 05/06/22 16:10 Urine Protein Neg (Negative) 05/06/22 16:10 Urine Glucose (UA) Norm (Normal) 05/06/22 16:10 Urine Ketones Negative (Negative) 05/06/22 16:10 Urine Blood Neg (Negative) 05/06/22 16:10 Urine Nitrate Negative (Negative) 05/06/22 16:10 Urine Bilirubin Neg (Negative) 05/06/22 16:10 Urine Urobilinogen 1 mg/dL (Negative) H 05/06/22 16:10 Ur Leukocyte Esterase Negative (Negative) 05/06/22 16:10 Discharge Plan Discharge Patient Disposition: Home Clinical Impression: Dehydration, Methamphetamine use disorder, severe Rhabdomyolysis Qualifiers: Rhabdomyolysis type: non-traumatic Qualified Code(s): M62.82 - Rhabdomyolysis Condition: Stable Prescriptions: No Action bupropion HCl [Wellbutrin XL] 300 mg tablet extended release 24 hr 300 mg PO QAM Qty: 30 2RF naltrexone 50 mg tablet 50 mg PO DAILY Qty: 30 2RF risperidone [Risperdal] 2 mg tablet 2 mg PO .HS Qty: 30 2RF dicyclomine 20 mg tablet 20 mg PO TID PRN (Reason: abdominal cramping and diarrhea) Qty: 15 0RF Discharge Orders: Discharge ED (Routine); Ordered 05/06/22 Ordered By: Mendel Cortes Referrals: Raj Burks MD [Primary Care Provider] - Discharge Diet: Usual diet Discharge Activity: Increase activity as tolerated Patient Instructions: Rhabdomyolysis (ED) Activity Restrictions/Additional Instructions: You need to keep drinking plenty of fluids. Avoid methamphetamines until urine has returned to normal color and you are well-hydrated. Return to ER for persistent nausea vomiting, muscle pain, or new concerns. Coding Level of Care Code ED Mid Level Developer for Panchito Fwannalisa Exam Comprehensive
[2022-05-06 16:16] LABS: Basophils # 0.1 10^3/uL (0.0-0.1); Basophils % 0.6 %; Eosinophils % 0.3 %; Hematocrit 35.2 % (42.0-52.0); Hemoglobin 12.4 g/dL (11.7-16.6); Lymphocytes # 1.9 10^3/uL (0.8-4.8); Lymphocytes % 21.1 %; Mean Corpuscular HGB Conc 35.2 g/dL (30.0-36.0); Mean Corpuscular Hemoglobin 30.9 pg (28.0-34.0); Mean Corpuscular Volume 87.8 fl (80-94); Mean Platelet Volume 8.8 fL (7.4-10.4); Monocytes # 0.8 10^3/uL (0.2-0.9); Monocytes % 8.6 %; Neutrophils # 6.22 10^3/uL (1.8-7.7); Neutrophils % 69.2 %; Nucleated Red Blood Cells % 0 %; Platelet Count 306 10^3/cmm (130-400); Red Blood Count 4.01 10^6/uL (4.1-5.3)
[2022-05-06] MEDS: sodium chloride 0.9% 1,000 ML 999 ML IV (16:21)
[2022-05-06 16:27] LABS: Add Urine Microscopic? NO; Charge for UA Resulting for Rev
[2022-05-06 16:36] LABS: Alanine Aminotransferase 40 U/L (0-41); Albumin Level 4.2 g/dL (3.5-5.2); Alkaline Phosphatase 70 IU/L (40-130); Anion Gap 12.3 (5-19); Aspartate Amino Transferase 58 U/L (0-40); Blood Urea Nitrogen 12 mg/dL (6-20); Calcium 8.6 mg/dL (8.5-10.5); Carbon Dioxide 28 mmol/L (22-29); Chloride 99 mmol/L (98-107); Globulin 2.4 g/dL (1.3-4.6); Glomerular Filtration Rate 79.7 mL/min (90-130); Glucose 99 mg/dL (65-115); Osmolality Calculated 282 mOsm/kg (285-295); Potassium 3.3 mmol/L (3.5-5.1); Sodium 136 mmol/L (136-145); Total Bilirubin 0.4 mg/dL (0.15-1.2); Total Protein 6.6 g/dL (6.6-8.7)
[2022-05-06 16:40] LABS: Creatine Phosphokinase 1317 U/L (39-308)
--- NOTE | 2022-05-06 16:40 | PC.NURSE ---
Critical lab, CK 1,317 reported to Obdulio Cortes NP. No new orders received.
[2022-05-06 16:46] LABS: Bilirubin Urine Neg (Negative); Blood Urine Neg (Negative); Glucose Urine UA Norm (Normal); Ketones Urine Negative (Negative); Leukocyte Esterase Urine Negative (Negative); Nitrate Urine Negative (Negative); Protein Urine Neg (Negative); Specific Gravity, Urine 1.015 (1.005-1.030); Urine Appearance Clear (CLEAR); Urine Color Yellow (Yellow); Urobilinogen Urine 1 mg/dL (Negative); pH Urine 7 (5-7)
[2022-05-06] MEDS: potassium chloride ER 20 mEq Tablet PO (16:49)
[2022-05-06 17:41] LABS: Creatine Phosphokinase 1287 U/L (39-308)
== END 2022-05-06 18:02 | disposition home or self-care (01) ==
PROVIDERS: Emergency Provider Nurse Practitioner Family; PCP Family Medicine
DX: E86.0 Dehydration (principal); M62.82 Rhabdomyolysis; F15.10 Other stimulant abuse, uncomplicated; F17.200 Nicotine dependence, unspecified, uncomplicated
CPT/HCPCS: 80053; 81003; 82550; 85025; 99283; J7030

== ENCOUNTER 2022-06-13 15:54 | Inpatient (IN) | payer MEDICARE, MEDICAID, SELFPAY ==
[2022-06-13 15:56] VITALS: BP 157/89; PULSE 96; RESP 16; TEMP 36.4; O2SAT 95; BMI 25.0
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
--- NOTE | 2022-06-13 16:34 | PC.PHAR ---
pt states he takes care of his own medications-pt states he stop taking naltrexone 50mg daily about 2 weeks ago states it was making him sick ext med history shows last filled 05/19/22 30ds
[2022-06-13 16:37] LABS: Basophils # 0.1 10^3/uL (0.0-0.1); Basophils % 0.6 %; Eosinophils # 0.1 10^3/uL (0.0-0.8); Eosinophils % 0.7 %; Hematocrit 43.9 % (42.0-52.0); Hemoglobin 14.9 g/dL (11.7-16.6); Lymphocytes # 1.7 10^3/uL (0.8-4.8); Lymphocytes % 16.8 %; Mean Corpuscular HGB Conc 33.9 g/dL (30.0-36.0); Mean Corpuscular Hemoglobin 30.5 pg (28.0-34.0); Mean Platelet Volume 8.9 fL (7.4-10.4); Monocytes # 0.7 10^3/uL (0.2-0.9); Monocytes % 6.9 %; Neutrophils # 7.51 10^3/uL (1.8-7.7); Neutrophils % 74.7 %; Nucleated Red Blood Cells % 0 %; Platelet Count 355 10^3/cmm (130-400); Red Blood Count 4.88 10^6/uL (4.1-5.3); Red Cell Distribution Width 12.3 % (12.1-15.1); White Blood Count 10.1 10^3/uL (4.0-10.0)
[2022-06-13 17:09] LABS: Alanine Aminotransferase 11 U/L (0-41); Alkaline Phosphatase 77 IU/L (40-130); Aspartate Amino Transferase 13 U/L (0-40); Blood Urea Nitrogen 13 mg/dL (6-20); Calcium 10.1 mg/dL (8.5-10.5); Carbon Dioxide 24 mmol/L (22-29); Chloride 104 mmol/L (98-107); Free T4 Free Thyroxine 1.45 ng/dL (0.82-1.77); Globulin 2.5 g/dL (1.3-4.6); Glomerular Filtration Rate 115.1 mL/min (90-130); Glucose 86 mg/dL (65-115); Lipase 12 U/L (13-60); Osmolality Calculated 291 mOsm/kg (285-295); Sodium 141 mmol/L (136-145); Thyroid Stimulating Hormone 0.87 uIU/mL (0.27-4.20); Total Bilirubin 0.5 mg/dL (0.15-1.2); Total Protein 7.5 g/dL (6.6-8.7)
[2022-06-13 17:15] LABS: Acetaminophen < 5.0 ug/mL (10-30); Salicylate < 0.3 mg/dL (3-10)
[2022-06-13 18:05] VITALS: BP 129/85; PULSE 78; RESP 22; TEMP 36.7; O2SAT 97
[2022-06-13] MEDS: nicotine 2 mg Gum BUCCAL (18:24)
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
[2022-06-13 19:59] LABS: Amphetamines Screen Urine Positive (Negative); Barbiturates Screen Urine Negative (Negative); Benzodiazepines Screen Urine Negative (Negative); Cocaine Screen Urine Negative (Negative); Opiate Screen Urine Negative (Negative); PCP Screen Urine Negative (Negative); THC Screen Urine Positive (Negative)
[2022-06-13 20:08] VITALS: BP 115/72; PULSE 74; RESP 17; O2SAT 98
[2022-06-14 05:39] VITALS: BP 102/71; PULSE 85; RESP 17; TEMP 36.6; O2SAT 98
[2022-06-14] MEDS: nicotine 2 mg Gum BUCCAL ×3 (09:08→20:00)
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
[2022-06-14 13:09] VITALS: BP 123/74; PULSE 77; RESP 17; TEMP 36.8; O2SAT 98
[2022-06-14] MEDS: nicotine 4 mg lozenge MUCOUS MEM ×2 (14:45→17:04)
[2022-06-14] MEDS: clotrimazole 1% cream 30 gm 1 APPLIC TOPICAL (17:07)
[2022-06-14 19:56] VITALS: BP 125/79; PULSE 86; RESP 18; TEMP 36.5; O2SAT 96
[2022-06-14] MEDS: risperiDONE 1 mg Tablet PO (20:00)
[2022-06-15 06:00] VITALS: BP 102/62; PULSE 64; RESP 18; TEMP 36.5; O2SAT 97
[2022-06-15] MEDS: duloxetine 30 mg Capsule PO (09:41)
[2022-06-15] MEDS: nicotine 2 mg Gum BUCCAL (09:41)
[2022-06-15] MEDS: LORazepam 2 mg/mL INJ 1 mL IM (11:00)
[2022-06-15] MEDS: haloperidol inj 5 mg/mL INJ 1 mL IM (11:00)
[2022-06-15] MEDS: diphenhydrAMINE 50 mg/mL SDV 1mL IM (11:01)
[2022-06-15] MEDS: clotrimazole 1% cream 30 gm 1 APPLIC TOPICAL ×2 (11:18→18:48)
--- NOTE | 2022-06-15 11:20 | PC.NURSE ---
1100 Pt became agitated in room and was hitting the wall with closed fists and banging forehead on window and wall. Nurse spoke with Pt and redirected pt and calmed him down. Pt agreed to take medication to help keep him calm.
--- NOTE | 2022-06-15 11:24 | PC.NURSE ---
1101 Administered 5mg Haldol IM in right deltoid, 2mg Ativan IM in right Deltoid, 50mg Benadryl IM in left arm.
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
[2022-06-15 14:00] VITALS: BP 106/66; PULSE 65; RESP 18; TEMP 36.7; O2SAT 98
[2022-06-15 19:54] VITALS: RESP 16
--- NOTE | 2022-06-15 20:57 | NUR.SHIFT ---
PT LYING IN BED UPON SHIFT ASSESSMENT. CALM AND COOPERATIVE. DENIES SI/HI/AVH/ANXIETY AND DEPRESSION AT THIS TIME. EXPIRATORY WHEEZES IN BILATERAL LOWER LOBES. PT OFFERED AND DECLINED BEVERAGE AND FOOD AT THIS TIME. PT VERBALIZES UNDERSTANDING TO COME TO NURSING STATION WITH CONCERNS OR NEEDS TO BE MET.
[2022-06-15] MEDS: risperiDONE 1 mg Tablet 1.5 MG PO (21:30)
[2022-06-16 06:00] VITALS: RESP 16
[2022-06-16] MEDS: duloxetine 30 mg Capsule PO (09:37)
[2022-06-16] MEDS: nicotine 2 mg Gum BUCCAL ×4 (09:37→20:07)
[2022-06-16] MEDS: clotrimazole 1% cream 30 gm 1 APPLIC TOPICAL ×2 (09:38→17:37)
--- NOTE | 2022-06-16 13:19 | P.NPUPN_ITS ---
Subjective NPU Subjective: Patient is 27y.o. with ADHD, depression,? methamphetamine abuse with a hx of psychotic symptoms and depressed mood admitted with suicidal ideation attempting to run [place] trucks on highway.? He reports resolving things with his ex girlfriend. He reports that he again became angry and required additional antipsychotics for treating his anger despite taking his risperidal 1.5mg at night. He reports no feelings of hopelessness. He continues to report being easily frustrated and reports frequent boredom and hyperactivity Mental Status Exam MSE Comments: This is a slender white male in hospital scrubs with poor hygiene and? grooming and adequate eye contact. No abnormal movements. Cooperative with exam in mild distress. He was hyperactive and hypermotoric with impaired attention span. Speech was normal rate and volume. Mood described as up and down , affect is intense and labile. Thought process, linear but superficial.? Thought content: patient showed evidence of suicidal thoughts did and did not endorse homicidal ideation, no delusions reported or noted, and did not appear to be attending to internal stimuli. Attention and concentration are poor and memory appeared reliable though none were formally tested. He is alert and oriented three times. Insight and judgment are impaired. Impulse control is impaired. Vitals/I&O/Wt Last Vital Signs Temp 97.6 F 06/16/22 15:44 Pulse 71 06/16/22 15:44 Resp 16 06/16/22 15:44 BP 99/60 06/16/22 15:44 Pulse Ox 98 06/16/22 15:44 Data NPU : 06/13/22 16:12 06/13/22 16:12 A&P Assessment and plan (1) Depression with suicidal ideation: Status: Acute (2) ADHD: Status: Acute (3) Nicotine dependence, cigarettes, uncomplicated: Status: Acute (4) Impulse control disorder: Status: Acute Plan This is a 27 year old white male with a history of bipolar disorder along with poor impulse control and methamphetamine abuse who was admitted on a 96 hour hold secondary to attempting to jump in front of 18 wheelers multiple times in a suicide attempt. 1. Encourage individual milieu and group therapy 2. , increase risperidone to 2mg at night to target agitation, possible bipolar disorder. 3.?cymbalta 30mg in am targeting depression. 4. Individual/milieu and group therapy Involuntary Hold Information 96 Hour Hold: 96 Hour Involuntary Admission: No Attestations NPU Medical Necessity Statement*: Inpatient hospitalization is medically necessary and the clinically appropriate intervention at this time with? likely continued hospitalization for 2-3 days.? 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
[2022-06-16 13:23] VITALS: BP 106/66; PULSE 65; RESP 16; TEMP 36.7; O2SAT 98
[2022-06-16 15:44] VITALS: BP 99/60; PULSE 71; RESP 16; TEMP 36.4; O2SAT 98
[2022-06-16 20:07] VITALS: BP 104/64; PULSE 81; RESP 15; TEMP 36.7; O2SAT 97
[2022-06-16] MEDS: risperiDONE 1 mg Tablet 2 MG PO (20:07)
[2022-06-17 06:00] VITALS: BP 115/67; PULSE 71; RESP 14; TEMP 36.4; O2SAT 97
[2022-06-17] MEDS: nicotine 2 mg Gum BUCCAL ×4 (08:31→19:27)
[2022-06-17] MEDS: duloxetine 30 mg Capsule PO (08:31)
[2022-06-17] MEDS: clotrimazole 1% cream 30 gm 1 APPLIC TOPICAL ×2 (08:32→17:26)
[2022-06-17 14:00] VITALS: BP 118/74; PULSE 67; RESP 17; TEMP 36.6; O2SAT 97
--- NOTE | 2022-06-17 15:39 | P.NPUPN_ITS ---
Subjective NPU Subjective: Patient is 27y.o. with ADHD, depression,? methamphetamine abuse with a hx of psychotic symptoms and depressed mood? admitted with suicidal ideation attempting to run [place] trucks [place].? Patient reports that he has been feeling better. He reports no side effects from his medications. He minimized the consequence of his methamphetamine use. He continues to require prn medications for managing agitation at night. required additional antipsychotics for treating his anger despite taking his risperidal 2mg at night.? He reports no feelings of suicidal ideation. ADHD symptoms remain p rominent on the unit but untreated. Mental Status Exam MSE Comments: This is a slender white male in hospital scrubs with improved hygiene and? grooming and adequate eye contact. No abnormal movements. Cooperative with exam in mild distress. He was hyperactive and hypermotoric with impaired attention span.? Speech was normal rate and volume. Mood described as better , affect is intense and labile. Thought process, linear but superficial.? Thought content: patient showed evidence of suicidal thoughts did and did not endorse homicidal ideation, no delusions reported or noted, and did not appear to be attending to internal stimuli. Attention and concentration are poor and memory appeared reliable though none were formally tested. He is alert and oriented three times. Insight and judgment are impaired. Impulse control is poor. Vitals/I&O/Wt Last Vital Signs Temp 98 F 06/17/22 14:00 Pulse 67 06/17/22 14:00 Resp 17 06/17/22 14:00 BP 118/74 06/17/22 14:00 Pulse Ox 97 06/17/22 14:00 Data NPU : 06/13/22 16:12 06/13/22 16:12 A&P Assessment and plan (1) ADHD: Status: Acute (2) Depression with suicidal ideation: Status: Acute (3) Borderline personality disorder: Status: Acute (4) Nicotine dependence, cigarettes, uncomplicated: Status: Acute (5) Methamphetamine use disorder, severe: Status: Acute (6) Drug-induced psychotic disorder: Status: Acute Qualifiers: Complication of substance-induced condition: with delusions Qualified Code(s): F19.950 - Other psychoactive substance use, unspecified with psychoactive substance-induced psychotic disorder with delusions (7) Polysubstance abuse: Status: Acute (8) Borderline intellectual functioning: Status: Acute (9) Cluster B personality disorder: Status: Acute (10) Bipolar 1 disorder: Status: Acute (11) Impulse control disorder: Status: Acute (12) Intermittent explosive disorder: Status: Acute (13) Depression: Status: Acute Qualifiers: Depression Type: unspecified Qualified Code(s): F32.9 - Major depressive disorder, single episode, unspecified Plan This is a 27 year old white male with a history of bipolar disorder along with poor impulse control and methamphetamine abuse who was admitted on a 96 hour hold secondary to attempting to jump in front of 18 wheelers multiple times in a suicide attempt. 1. Encourage individual milieu and group therapy 2. , increase risperidone to 2.5 mg at night to target agitation, possible bipolar disorder.? 3.?increase cymbalta 60mg in am targeting depression. Involuntary Hold Information 96 Hour Hold: 96 Hour Involuntary Admission: No Attestations NPU Medical Necessity Statement*: Inpatient hospitalization is medically necessary and the clinically appropriate intervention at this time with? likely continued hospitalization for 2-3 days.? 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 [employer] Patient Type Established History Problem Focused Exam Problem Focused Medical Decision Making Straight Forward Diagnoses ADHD F90.9 Depression with suicidal ideation F32.A; R45.851 Borderline personality disorder F60.3 Nicotine dependence, cigarettes, uncomplicated F17.210 Methamphetamine use disorder, severe F15.20 Drug-induced psychotic disorder F19.950 Complication of substance-induced condition: with delusions Polysubstance abuse F19.10 Borderline intellectual functioning R41.83 Cluster B personality disorder F60.89 Bipolar 1 disorder F31.9 Impulse control disorder F63.9 Intermittent explosive disorder F63.81 Depression F32.9 Depression Type: unspecified
[2022-06-17 20:27] VITALS: BP 130/83; PULSE 67; RESP 18; TEMP 36.5; O2SAT 100
[2022-06-17] MEDS: trazodone 50 mg Tablet PO (20:44)
[2022-06-17] MEDS: risperiDONE 1 mg Tablet 2.5 MG PO (20:44)
[2022-06-18 06:00] VITALS: BP 109/62; PULSE 65; RESP 18; TEMP 36.6; O2SAT 96
[2022-06-18] MEDS: duloxetine 30 mg Capsule 60 MG PO (08:26)
[2022-06-18] MEDS: nicotine 2 mg Gum BUCCAL ×6 (08:27→19:51)
[2022-06-18] MEDS: clotrimazole 1% cream 30 gm 1 APPLIC TOPICAL ×2 (08:27→17:54)
--- NOTE | 2022-06-18 13:14 | P.NPUPN_ITS ---
Subjective NPU Subjective: Patient is 27y.o. with ADHD, depression,? methamphetamine abuse with a hx of psychotic symptoms and depressed mood? admitted with suicidal ideation attempting to run [place] trucks [place] highway.? Patient reports that he has been less angry and indicates that he has not been able to talk to his girl friend but will go to live on streets when he is able to. He reports no suicidal ideation. He reports no thoughts of hurting his girlfriend but still reports having temper problems. He reports continued use of meth, despite adverse consequences and reports having problems with mood swings. No side effects reported from medications. ? Mental Status Exam MSE Comments: MSE Comments This is a slender white male in hospital scrubs with improved hygiene and? grooming and adequate eye contact. No abnormal involuntary motor movements. Cooperative with exam in mild distress. He was hyperactive and hypermotoric with impaired attention span.? Speech was normal rate and volume. Mood described as better , affect is intense and labile. Thought process, linear but superficial.? Thought content: patient showed no evidence of suicidal thoughts did and did not endorse homicidal ideation, no delusions reported or noted, and did not appear to be attending to internal stimuli. Attention and c oncentration are poor and memory was poor. He is alert and oriented three times. Insight and judgment are were guarded at best. Impulse control is poor.? Vitals/I&O/Wt Last Vital Signs Temp 98 F 06/18/22 14:00 Pulse 78 06/18/22 14:00 Resp 17 06/18/22 14:00 BP 137/75 06/18/22 14:00 Pulse Ox 99 06/18/22 14:00 Data NPU : 06/13/22 16:12 06/13/22 16:12 A&P Assessment and plan (1) ADHD: Status: Acute (2) Depression with suicidal ideation: Status: Acute (3) Methamphetamine use disorder, severe: Status: Acute (4) Drug-induced psychotic disorder: Status: Acute Qualifiers: Complication of substance-induced condition: with delusions Qualified Code(s): F19.950 - Other psychoactive substance use, unspecified with psychoactive substance-induced psychotic disorder with delusions (5) Borderline intellectual functioning: Status: Acute (6) Impulse control disorder: Status: Acute Plan This is a 27 year old white male with a history of bipolar disorder along with poor impulse control and methamphetamine abuse who was admitted on a 96 hour hold secondary to attempting to jump in front of 18 wheelers multiple times in a suicide attempt. 1. Encourage individual milieu and group therapy 2. Continue risperidone at 2.5 mg at night to target agitation, possible bipolar disorder.? 3.?Continue cymbalta 60mg in am targeting depression. Involuntary Hold Information 96 Hour Hold: 96 Hour Involuntary Admission: No Attestations NPU Medical Necessity Statement*: Inpatient hospitalization is medically necessary and the clinically appropriate intervention at this time with? likely continued hospitalization for 2-3 days.? 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
[2022-06-18 14:00] VITALS: BP 137/75; PULSE 78; RESP 17; TEMP 36.6; O2SAT 99
[2022-06-18] MEDS: risperiDONE 1 mg Tablet 2.5 MG PO (19:49)
[2022-06-18] MEDS: trazodone 50 mg Tablet PO (20:05)
[2022-06-18 22:00] VITALS: BP 123/84; PULSE 88; RESP 17; O2SAT 97
[2022-06-19 06:00] VITALS: BP 110/65; PULSE 57; RESP 16; TEMP 36.6; O2SAT 92; BMI 24.6
[2022-06-19] MEDS: nicotine 2 mg Gum BUCCAL ×6 (08:20→19:43)
[2022-06-19] MEDS: duloxetine 30 mg Capsule 60 MG PO (08:35)
[2022-06-19] MEDS: clotrimazole 1% cream 30 gm 1 APPLIC TOPICAL ×2 (08:37→17:19)
[2022-06-19] MEDS: ondansetron 4 MG Tablet PO (10:23)
[2022-06-19] MEDS: acetaminophen 325 mg Tablet 650 MG PO ×2 (13:30→19:43)
[2022-06-19 14:00] VITALS: BP 151/94; PULSE 95; RESP 17; TEMP 36.6; O2SAT 94
--- NOTE | 2022-06-19 14:21 | W.PM.NPUPNS ---
Subjective NPU Subjective: Patient is 27y.o. with ADHD, depression,? methamphetamine abuse with a hx of psychotic symptoms and depressed mood? admitted with suicidal ideation attempting to run into trucks on highway.? He reports that he has been less angry. He reports that he continues to have difficulty with falling asleep despite asking for trazodone. Patient reports having better control of his mood swings with risperidal. Patient reports no suicidal thoughts. He reports improved energy. He continues to minimize the effects of methamphetamine on his mood and anger. He continues to endorse boredom, difficulty staying on task, distractibility and poor frustration tolerance. Mental Status Exam MSE Comments: This is a slender white male in hospital scrubs with improved hygiene and? grooming and adequate eye contact. No abnormal involuntary motor movements. Cooperative with exam in mild distress. He was hyperactive and hypermotoric with impaired attention span.? Speech was normal rate, rhythm and prosody. Mood described as better , affect appeared brighter. Thought process was linear but superficial.? Thought content: patient showed no evidence of suicidal thoughts did and did not endorse homicidal ideation, no delusions reported or noted, and did not appear to be responding to internal stimuli. Attention and concentration are poor..? He is alert and oriented three times. Insight and judgment are were guarded at best. Impulse control is limited. ? Vitals/I&O/Wt Last Vital Signs Temp 98 F 06/19/22 14:00 Pulse 95 06/19/22 14:00 Resp 17 06/19/22 14:00 BP 151/94 06/19/22 14:00 Pulse Ox 94 06/19/22 14:00 Weight last 48 hrs Weight 73.482 kg Data NPU : 06/13/22 16:12 06/13/22 16:12 A&P Assessment and plan (1) Depression with suicidal ideation: Status: Acute (2) ADHD: Status: Acute (3) Methamphetamine use disorder, severe: Status: Acute (4) Drug-induced psychotic disorder: Status: Acute Qualifiers: Complication of substance-induced condition: with delusions Qualified Code(s): F19.950 - Other psychoactive substance use, unspecified with psychoactive substance-induced psychotic disorder with delusions (5) Impulse control disorder: Status: Acute Plan This is a 27 year old white male with a history of bipolar disorder along with poor impulse control and methamphetamine abuse who was admitted on a 96 hour hold secondary to attempting to jump in front of 18 wheelers multiple times in a suicide attempt. 1. Encourage individual milieu and group therapy 2. Continue? risperidone at 3 mg at night to target agitation, possible bipolar disorder.? 3.?Continue cymbalta 60mg in am targeting depression. 4 Trial of routine trazodone 100mg at night to target insomnia. Involuntary Hold Information 96 Hour Hold: 96 Hour Involuntary Admission: No Attestations NPU Medical Necessity Statement*: Inpatient hospitalization is medically necessary and the clinically appropriate intervention at this time with? likely continued hospitalization for 2-3 days.? Coding Level of Care Code Established Pt Acute Drapery Head Former for [facility]g Fwd Patient Type Established History Problem Focused Exam Problem Focused Medical Decision Making Straight Forward Diagnoses Depression with suicidal ideation F32.A; R45.851 ADHD F90.9 Methamphetamine use disorder, severe F15.20 Drug-induced psychotic disorder F19.950 Complication of substance-induced condition: with delusions Impulse control disorder F63.9
[2022-06-19] MEDS: risperiDONE 1 mg Tablet 3 MG PO (19:43)
[2022-06-19] MEDS: trazodone 100 mg Tablet PO (19:45)
[2022-06-19 20:39] VITALS: BP 126/77; PULSE 62; RESP 17; TEMP 36.4; O2SAT 98
[2022-06-20 06:00] VITALS: BP 111/64; PULSE 65; RESP 17; TEMP 36.9; O2SAT 98
[2022-06-20] MEDS: nicotine 2 mg Gum BUCCAL ×2 (09:08→11:51)
[2022-06-20] MEDS: clotrimazole 1% cream 30 gm 1 APPLIC TOPICAL ×2 (09:08→19:31)
[2022-06-20] MEDS: duloxetine 30 mg Capsule 60 MG PO (09:08)
--- NOTE | 2022-06-20 13:26 | PC.NURSE ---
Increased agitation/anxiety Pt came up to nurses station pacing and swings arms back and forth, stating that he wanted to leave and that he can't take it here anymore . RN educated pt on discharge plan and notified case management. Med nurse notified. 5mg Zyprexa PO given.
[2022-06-20] MEDS: OLANZapine 5 mg ODT PO (13:30)
--- NOTE | 2022-06-20 13:30 | PC.NURSE ---
PRN ZYPREXA ZYDIS 5 MG GIVEN PO PER PT C/O AGITATION. SEARCH ENGINE MARKETING STRATEGIST TALKING TO PATIENT IN HALLWAY, PT BECAME UPSET ABOUT NOT BEING DISCHARGED, PT KICKED THE WOODEN EXIT DOOR BY NURSES STATION SEVERAL TIMES. STAFF, SECURITY, DOCTOR REAL IN [facility], REDIRECTED PATIENT, PT TOOK PRN MED WITH MUCH ENCOURAGEMENT. DOCTOR EXPLAINED TO PATIENT THAT WE HAVE TO HAVE A SAFE PLACE FOR PATIENT TO BE DISCHARGED TO, PATIENT CONT TO STATE HE DOES HAVE A HOUSE HIS DID LEFT FOR HIM IN [facility] BUT CAN NOT GIVE SEARCH ENGINE MARKETING STRATEGIST A PHYSICAL ADDRESS.
[2022-06-20 14:00] VITALS: BP 120/82; PULSE 70; RESP 17; TEMP 36.6; O2SAT 97
--- NOTE | 2022-06-20 18:02 | P.NPUPN_ITS ---
Subjective NPU Subjective: Patient presents today in frustration about being here. In the process of the interview he got agitated and required some additional staff presence. He ultimately was being dishonest about his discharge situation in an attempt to gain labor for discharge. Discussed about having an affidavit on the chart and that we may need to consider a 96-hour hold he is going to attempt to leave without any reasonable follow-up and possibly without taking any medication. Additionally his aggressive behavior does not suggest that he is ready for discharge. Mental Status Exam MSE Comments: This is a slender white male in hospital scrubs with adequate hygiene and?grooming and adequate eye contact. No abnormal involuntary motor movements, but some clear psychomotor agitation. Mostly uncooperative with exam in mild to moderate distress. He was hyperactive and hypermotoric with impaired attention span.? Speech was increased rate and volume.? Mood described as I am ready to go home, affect appeared annoyed and agitated. Thought process was?linear but superficial.? Thought content: patient showed no evidence of suicidal thoughts did and did not endorse homicidal ideation, no delusions reported or noted, and did not appear to be responding? to internal stimuli. Attention and concentration are poor and memory was unreliable but not formally tested. He is alert and oriented three times. Insight and judgment are limited. Impulse control is limited.? ? Vitals/I&O/Wt Last Vital Signs Temp 98 F 06/20/22 14:00 Pulse 70 06/20/22 14:00 Resp 17 06/20/22 14:00 BP 120/82 06/20/22 14:00 Pulse Ox 97 06/20/22 14:00 Weight last 48 hrs Weight 73.482 kg Data NPU : 06/13/22 16:12 06/13/22 16:12 A&P Assessment and plan (1) ADHD: Status: Acute (2) Depression with suicidal ideation: Status: Acute (3) Borderline personality disorder: Status: Acute (4) Nicotine dependence, cigarettes, uncomplicated: Status: Acute (5) Methamphetamine use disorder, severe: Status: Acute (6) Drug-induced psychotic disorder: Status: Acute Qualifiers: Complication of substance-induced condition: with delusions Qualified Code(s): F19.950 - Other psychoactive substance use, unspecified with psychoactive substance-induced psychotic disorder with delusions Plan This is a 27 year old white male with a history of bipolar disorder along with poor impulse control and methamphetamine abuse who was admitted on a 96 hour hold secondary to attempting to jump in front of 18 wheelers multiple times in a suicide attempt. 1. Continue current medication. Continue Risperdal 3 mg, Cymbalta 60 mg and trazodone 100 mg. 2. Continue every 15 minute checks for safety. 3. Encourage individual, group and milieu therapies. 4. Encourage sober living treatment after discharge at the highest level of care to which he is willing to commit. Involuntary Hold Information 96 Hour Hold: 96 Hour Involuntary Admission: No Attestations NPU Medical Necessity Statement*: Inpatient hospitalization is medically necessary and the clinically appropriate intervention at this time. We will monitor medication and make changes as indicated. Likely length of stay 2-3 days.? Coding Level of Care Code Acute Sliver Lap Machine Tender for [facility] Fwd Diagnoses ADHD F90.9 Depression with suicidal ideation F32.A; R45.851 Borderline personality disorder F60.3 Nicotine dependence, cigarettes, uncomplicated F17.210 Methamphetamine use disorder, severe F15.20 Drug-induced psychotic disorder F19.950 Complication of substance-induced condition: with delusions
[2022-06-20] MEDS: risperiDONE 1 mg Tablet 3 MG PO (19:31)
[2022-06-20] MEDS: trazodone 100 mg Tablet PO (19:32)
[2022-06-20 20:08] VITALS: BP 100/58; PULSE 64; RESP 16; TEMP 36.4; O2SAT 95
[2022-06-21 06:00] VITALS: BP 99/51; PULSE 58; RESP 17; TEMP 36.6; O2SAT 99
[2022-06-21] MEDS: duloxetine 30 mg Capsule 60 MG PO (09:36)
[2022-06-21] MEDS: nicotine 2 mg Gum BUCCAL ×6 (09:36→21:58)
[2022-06-21] MEDS: clotrimazole 1% cream 30 gm 1 APPLIC TOPICAL ×2 (09:37→17:26)
[2022-06-21] MEDS: simethicone 80 mg Chew PO ×2 (13:08→20:49)
[2022-06-21 13:56] VITALS: BP 125/75; PULSE 86; RESP 17; TEMP 36.7; O2SAT 98
--- NOTE | 2022-06-21 16:50 | P.NPUPN_ITS ---
Subjective NPU Subjective: Patient presents today reporting a more positive attitude and being more collaborative in the interactions. He was able to talk about discharge in the future without getting upset. He was able to discharge planners about safe discharge options versus previous requests to be discharged to a tent in these heat advisory conditions. Discussed a discharge timeline that was predicated on continued adherence to medication. Mental Status Exam MSE Comments: This is a slender white male in hospital scrubs with adequate hygiene and?grooming and adequate eye contact. No abnormal involuntary motor movements, and absent any psychomotor agitation. More cooperative with exam in mild to moderate distress. He was more calm with improved attention span.? Speech was more normal rate and volume.? Mood described as better, affect appeared congruent. Thought process was?linear and more organized.? Thought content: patient denied suicidal or homicidal ideation, no delusions reported or noted, and did not appear to be responding? to internal stimuli. Attention and concentration are improving and memory was more reliable but not formally tested. He is alert and oriented three times. Insight and judgment are limited, but improving. Impulse control is improving.? ? Vitals/I&O/Wt Last Vital Signs Temp 97.6 F 06/21/22 20:23 Pulse 82 06/21/22 20:23 Resp 18 06/21/22 20:23 BP 149/74 06/21/22 20:23 Pulse Ox 98 06/21/22 20:23 O2 Del Method 06/21/22 13:56 06/21/22 06/21/22 06/22/22 14:59 22:59 06:59 Intake Total 2400 / 2400 Balance 2400 / 2400 Data NPU : 06/13/22 16:12 06/13/22 16:12 A&P Assessment and plan (1) ADHD: Status: Acute (2) Depression with suicidal ideation: Status: Acute (3) Borderline personality disorder: Status: Acute (4) Nicotine dependence, cigarettes, uncomplicated: Status: Acute (5) Methamphetamine use disorder, severe: Status: Acute (6) Drug-induced psychotic disorder: Status: Acute Qualifiers: Complication of substance-induced condition: with delusions Qualified Code(s): F19.950 - Other psychoactive substance use, unspecified with psychoactive substance-induced psychotic disorder with delusions Plan This is a 27 year old white male with a history of bipolar disorder along with poor impulse control and methamphetamine abuse who was admitted on a 96 hour hold secondary to attempting to jump in front of 18 wheelers multiple times in a suicide attempt. 1. Continue current medication. Continued Risperdal 3 mg, Cymbalta 60 mg and trazodone 100 mg. 2. Continue every 15 minute checks for safety. 3. Encourage individual, group and milieu therapies. 4. Encourage sober living treatment after discharge at the highest level of care to which he is willing to commit. Involuntary Hold Information 96 Hour Hold: 96 Hour Involuntary Admission: No Attestations NPU Medical Necessity Statement*: Inpatient hospitalization is medically necessary and the clinically appropriate intervention at this time. We will monitor medication and make changes as indicated. Likely length of stay 2-3 days.? Coding Level of Care Code Acute Front Office Secretary for g Fwd Diagnoses ADHD F90.9 Depression with suicidal ideation F32.A; R45.851 Borderline personality disorder F60.3 Nicotine dependence, cigarettes, uncomplicated F17.210 Methamphetamine use disorder, severe F15.20 Drug-induced psychotic disorder F19.950 Complication of substance-induced condition: with delusions
[2022-06-21 20:23] VITALS: BP 149/74; PULSE 82; RESP 18; TEMP 36.4; O2SAT 98
[2022-06-21] MEDS: ibuprofen 800 mg tablet PO (20:48)
[2022-06-21] MEDS: risperiDONE 1 mg Tablet 3 MG PO (20:49)
[2022-06-21] MEDS: trazodone 100 mg Tablet PO (20:49)
[2022-06-21] MEDS: trazodone 50 mg Tablet PO (23:06)
[2022-06-22 06:00] VITALS: BP 91/52; PULSE 79; RESP 16; TEMP 36.7; O2SAT 96
[2022-06-22] MEDS: nicotine 2 mg Gum BUCCAL ×8 (07:41→22:04)
[2022-06-22] MEDS: duloxetine 30 mg Capsule 60 MG PO (08:00)
[2022-06-22] MEDS: acetaminophen 325 mg Tablet 650 MG PO ×2 (09:44→17:54)
--- NOTE | 2022-06-22 09:55 | PC.NURSE ---
UP IN HALLWAY MILD ANXIETY IS NOTED. PT REPORTS HE SLEPT WELL LAST NIGHT AND STATES HE IS GOING TO GET TOGETHER WITH HIS GIRLFRIEND WHEN HE LEAVES MONDAY. PT STATES HE FEELS HE ABLE TO CONTROL HIS ANGER BETTER NOW BUT WILL STAFF KNOW IF HE IS NEEDING ANXIEYT MEDS LATER TODAY IF HE BECOMES ANXIOUS. PT DENIES SI/HI AND AVH AT THIS TIME. PT DENIES PAIN. ALL QUESTIONS ANSWERED AND SUPPORT VOICED.
[2022-06-22 14:00] VITALS: BP 134/84; PULSE 80; RESP 16; TEMP 36.6; O2SAT 98
--- NOTE | 2022-06-22 16:01 | P.NPUPN_ITS ---
Subjective NPU Subjective: Patient presents today reporting that he is doing all that has been asked of him. He is less irritable by staff reports and first hand witnessing. He continues to work treatment team viable discharge plan but does not leave him in a tent. We continue to agree to have discharge organized by Monday. Eating and sleeping fine and taking his medication as prescribed. Mental Status Exam MSE Comments: This is a slender white male in hospital scrubs with adequate hygiene and?grooming and adequate eye contact. No abnormal involuntary motor movements, and absent any psychomotor agitation. More cooperative with exam in no acute distress. He was more calm with improved attention span.? Speech was more normal rate and volume.? Mood described as better, affect appeared congruent. Thought process was?linear and more organized.? Thought content: patient denied suicidal or homicidal ideation, no delusions reported or noted, and did not appear to be responding? to internal stimuli. Attention and concentration are improving and memory was more reliable but not formally tested. He is alert and oriented three times. Insight and judgment are limited, but improving. Impulse control is improving.? ? Vitals/I&O/Wt Last Vital Signs Temp 98.0 F 06/22/22 06:00 Pulse 79 06/22/22 06:00 Resp 16 06/22/22 06:00 BP 91/52 06/22/22 06:00 Pulse Ox 96 06/22/22 06:00 O2 Del Method 06/21/22 13:56 Data NPU : 06/13/22 16:12 06/13/22 16:12 A&P Assessment and plan (1) ADHD: Status: Acute (2) Depression with suicidal ideation: Status: Acute (3) Borderline personality disorder: Status: Acute (4) Nicotine dependence, cigarettes, uncomplicated: Status: Acute (5) Methamphetamine use disorder, severe: Status: Acute (6) Drug-induced psychotic disorder: Status: Acute Qualifiers: Complication of substance-induced condition: with delusions Qualified Code(s): F19.950 - Other psychoactive substance use, unspecified with psychoactive substance-induced psychotic disorder with delusions Plan This is a 27 year old white male with a history of bipolar disorder along with poor impulse control and methamphetamine abuse who was admitted on a 96 hour hold secondary to attempting to jump in front of 18 wheelers multiple times in a suicide attempt. 1. Continue current medication. Continued Risperdal 3 mg, Cymbalta 60 mg and trazodone 100 mg. 2. Continue every 15 minute checks for safety. 3. Encourage individual, group and milieu therapies. 4. Encourage sober living treatment after discharge at the highest level of care to which he is willing to commit. Involuntary Hold Information 96 Hour Hold: 96 Hour Involuntary Admission: No Attestations NPU Medical Necessity Statement*: Inpatient hospitalization is medically necessary and the clinically appropriate intervention at this time. We will monitor medication and make changes as indicated. Likely length of stay 1-3 days.? Coding Level of Care Code Acute Private Tutor for g Fwd Diagnoses ADHD F90.9 Depression with suicidal ideation F32.A; R45.851 Borderline personality disorder F60.3 Nicotine dependence, cigarettes, uncomplicated F17.210 Methamphetamine use disorder, severe F15.20 Drug-induced psychotic disorder F19.950 Complication of substance-induced condition: with delusions
[2022-06-22 19:48] VITALS: BP 140/77; PULSE 77; RESP 17; TEMP 36.6; O2SAT 98
[2022-06-22] MEDS: trazodone 100 mg Tablet PO (20:11)
[2022-06-22] MEDS: risperiDONE 1 mg Tablet 3 MG PO (20:11)
[2022-06-22] MEDS: hyDROXYzine 25 mg Capsule 50 MG PO (21:57)
[2022-06-23 06:00] VITALS: BP 113/64; PULSE 68; RESP 15; TEMP 36.8; O2SAT 99
--- NOTE | 2022-06-23 06:32 | PC.NURSE ---
Patient was given Vistaril 50 mg po last night with a good effect.
[2022-06-23] MEDS: duloxetine 30 mg Capsule 60 MG PO (09:33)
[2022-06-23] MEDS: nicotine 2 mg Gum BUCCAL ×6 (09:33→20:27)
--- NOTE | 2022-06-23 09:33 | PC.NURSE ---
refused scheduled Clotrimazole cream this morning
[2022-06-23 14:00] VITALS: BP 120/72; PULSE 99; RESP 18; TEMP 36.7; O2SAT 98
--- NOTE | 2022-06-23 16:06 | P.NPUPN_ITS ---
Subjective NPU Subjective: Patient presents today reporting that he has continued difficulty reaching his girlfriend and now they had a little bit of a dispute but he still feels that she is going to allow him to come Monday. We agreed that he would continue to work with the treatment team for appropriate logistics and discharge planning. He continues to be compliant with his medication. Mental Status Exam MSE Comments: This is a slender white male in hospital scrubs with adequate hygiene and?grooming and adequate eye contact. No abnormal involuntary motor movements, and absent any psychomotor agitation. More cooperative with exam in no acute distress. He was mostly calm with improved attention span.? Speech was more normal rate and volume.? Mood described as better, affect appeared congruent. Thought process was?linear and more organized.? Thought content: patient denied suicidal or homicidal ideation, no delusions reported or noted, and did not appear to be responding? to internal stimuli. Attention and concentration are improving and memory was more reliable but not formally tested. He is alert and oriented three times. Insight and judgment are limited, but improving. Impulse control is improving.? ? Vitals/I&O/Wt Last Vital Signs Temp 98.2 F 06/23/22 19:44 Pulse 92 06/23/22 19:44 Resp 19 H 06/23/22 19:44 BP 144/86 06/23/22 19:44 Pulse Ox 97 06/23/22 19:44 O2 Del Method 06/21/22 13:56 Data NPU : 06/13/22 16:12 06/13/22 16:12 A&P Assessment and plan (1) ADHD: Status: Acute (2) Depression with suicidal ideation: Status: Acute (3) Borderline personality disorder: Status: Acute (4) Nicotine dependence, cigarettes, uncomplicated: Status: Acute (5) Methamphetamine use disorder, severe: Status: Acute (6) Drug-induced psychotic disorder: Status: Acute Qualifiers: Complication of substance-induced condition: with delusions Qualified Code(s): F19.950 - Other psychoactive substance use, unspecified with psychoactive substance-induced psychotic disorder with delusions Plan This is a 27 year old white male with a history of bipolar disorder along with poor impulse control and methamphetamine abuse who was admitted on a 96 hour hold secondary to attempting to jump in front of 18 wheelers multiple times in a suicide attempt. 1. Continue current medication. Continued Risperdal 3 mg, Cymbalta 60 mg and trazodone 100 mg. 2. Continue every 15 minute checks for safety. 3. Encourage individual, group and milieu therapies. 4. Encourage sober living treatment after discharge at the highest level of care to which he is willing to commit. Involuntary Hold Information 96 Hour Hold: 96 Hour Involuntary Admission: No Attestations NPU Medical Necessity Statement*: Inpatient hospitalization is medically necessary and the clinically appropriate intervention at this time. We will monitor medication and make changes as indicated. Likely length of stay 1-2 days.? Coding Level of Care Code Acute Customer Support Professional for [facility] Fwd Diagnoses ADHD F90.9 Depression with suicidal ideation F32.A; R45.851 Borderline personality disorder F60.3 Nicotine dependence, cigarettes, uncomplicated F17.210 Methamphetamine use disorder, severe F15.20 Drug-induced psychotic disorder F19.950 Complication of substance-induced condition: with delusions
[2022-06-23 19:44] VITALS: BP 144/86; PULSE 92; RESP 19; TEMP 36.8; O2SAT 97
[2022-06-23] MEDS: trazodone 100 mg Tablet PO (20:09)
[2022-06-23] MEDS: risperiDONE 1 mg Tablet 3 MG PO (20:09)
[2022-06-23] MEDS: trazodone 50 mg Tablet PO (21:27)
[2022-06-24 06:00] VITALS: BP 101/59; PULSE 77; RESP 19; TEMP 36.7; O2SAT 98
[2022-06-24] MEDS: nicotine 2 mg Gum BUCCAL ×4 (08:25→18:23)
[2022-06-24] MEDS: duloxetine 30 mg Capsule 60 MG PO (08:25)
--- NOTE | 2022-06-24 11:59 | DCPLANNER ---
IMM completed on 06/24/22 @ 1155am. Pt was deyvine a copy of rights.
[2022-06-24] MEDS: nicotine 4 mg lozenge MUCOUS MEM ×2 (12:28→20:34)
[2022-06-24 13:47] VITALS: BP 165/77; PULSE 104; RESP 20; TEMP 36.6; O2SAT 98
[2022-06-24] MEDS: hyDROXYzine 25 mg Capsule 50 MG PO ×2 (15:49→21:41)
--- NOTE | 2022-06-24 17:43 | P.NPUPN_ITS ---
Subjective NPU Subjective: Patient presented today a bit frustrated as we had waited the entire day hoping the gentleman from [facility] was coming by to evaluate him for possible bed availability. Unfortunately he did not come in so that oxygen is off of the table. He continues to take his medication and follow all guidelines on the unit. We discussed that we would prefer him going to some kind of identified safe environment however we agreed we would assist him in discharging tomorrow or before we find a preferred place given he is voluntary and demonstrating control. Mental Status Exam MSE Comments: This is a slender white male in hospital scrubs with adequate hygiene and?grooming and adequate eye contact. No abnormal involuntary motor movements, and absent any psychomotor agitation. More cooperative with exam in no acute distress. He was calm with improved attention span.? Speech was more normal rate and volume.? Mood described as fine I am good to go, affect appeared congruent. Thought process was?linear and more organized.? Thought content: patient denied suicidal or homicidal ideation, no delusions reported or noted, and did not appear to be responding? to internal stimuli. Attention and concentration are improving and memory was more reliable but not formally tested. He is alert and oriented three times. Insight and judgment are limited, but improving. Impulse control is improving.? ? Vitals/I&O/Wt Last Vital Signs Temp 97.8 F 06/24/22 19:52 Pulse 104 H 06/24/22 19:52 Resp 20 H 06/24/22 19:52 BP 165/77 06/24/22 19:52 Pulse Ox 98 06/24/22 19:52 O2 Del Method 06/21/22 13:56 Data NPU : 06/13/22 16:12 06/13/22 16:12 A&P Assessment and plan (1) ADHD: Status: Acute (2) Depression with suicidal ideation: Status: Acute (3) Borderline personality disorder: Status: Acute (4) Nicotine dependence, cigarettes, uncomplicated: Status: Acute (5) Methamphetamine use disorder, severe: Status: Acute (6) Drug-induced psychotic disorder: Status: Acute Qualifiers: Complication of substance-induced condition: with delusions Qualified Code(s): F19.950 - Other psychoactive substance use, unspecified with psychoactive substance-induced psychotic disorder with delusions Plan This is a 27 year old white male with a history of bipolar disorder along with poor impulse control and methamphetamine abuse who was admitted on a 96 hour hold secondary to attempting to jump in front of 18 wheelers multiple times in a suicide attempt. 1. Continue current medication. Continued Risperdal 3 mg, Cymbalta 60 mg and trazodone 100 mg. 2. Continue every 15 minute checks for safety. 3. Encourage individual, group and milieu therapies. 4. Encourage sober living treatment after discharge at the highest level of care to which he is willing to commit. Involuntary Hold Information 96 Hour Hold: 96 Hour Involuntary Admission: No Attestations NPU Medical Necessity Statement*: Inpatient hospitalization is medically necessary and the clinically appropriate intervention at this time. We will monitor medication and make changes as indicated. Likely discharge tomorrow. Coding Level of Care Code Acute Supply Chain Planner for [facility] Fwd Diagnoses ADHD F90.9 Depression with suicidal ideation F32.A; R45.851 Borderline personality disorder F60.3 Nicotine dependence, cigarettes, uncomplicated F17.210 Methamphetamine use disorder, severe F15.20 Drug-induced psychotic disorder F19.950 Complication of substance-induced condition: with delusions
[2022-06-24 19:52] VITALS: BP 128/75; PULSE 90; RESP 16; TEMP 36.6; O2SAT 97
[2022-06-24] MEDS: risperiDONE 2 mg Tablet 3 MG PO (21:40)
[2022-06-24] MEDS: trazodone 100 mg Tablet PO (21:41)
[2022-06-25 06:00] VITALS: BP 105/65; PULSE 67; RESP 14; TEMP 36.6; O2SAT 98
[2022-06-25] MEDS: nicotine 2 mg Gum BUCCAL (09:30)
[2022-06-25] MEDS: duloxetine 30 mg Capsule 60 MG PO (09:30)
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
[2022-06-25 10:37] VITALS: BP 105/65; PULSE 67; RESP 14; TEMP 36.6; O2SAT 98
== END 2022-06-25 10:59 | disposition home or self-care (01) | DRG 897 ==
LOC: ER 16:28 → NP 16:44
PROVIDERS: Admitting Provider Psychiatry & Neurology Psychiatry; Emergency Provider Emergency Medicine; PCP Family Medicine; Visit Provider Psychiatry & Neurology Psychiatry
DX: F15.251 Other stimulant dependence with stimulant-induced psychotic disorder with hallucinations (principal); R45.851 Suicidal ideations; F15.20 Other stimulant dependence, uncomplicated; F31.9 Bipolar disorder, unspecified; Z63.0 Problems in relationship with spouse or partner; F17.210 Nicotine dependence, cigarettes, uncomplicated; F17.220 Nicotine dependence, chewing tobacco, uncomplicated; F12.20 Cannabis dependence, uncomplicated; Z81.8 Family history of other mental and behavioral disorders; Z88.2 Allergy status to sulfonamides; F60.3 Borderline personality disorder; F90.9 Attention-deficit hyperactivity disorder, unspecified type; F63.9 Impulse disorder, unspecified
CPT/HCPCS: 80053; 80306; 80307; 83690; 84439; 84443; 85025; 96372; 97150; 97165; 99285; J1200; J1630; J2060; Q0162

== ENCOUNTER 2022-07-15 20:52 | Inpatient (IN) | payer MEDICARE, MEDICAID, SELFPAY ==
[2022-07-15 21:03] VITALS: BP 138/88; PULSE 98; RESP 18; TEMP 36.7; O2SAT 98; BMI 25.0
[2022-07-15 22:02] LABS: Add Urine Microscopic? NO; Charge for UA Resulting for Rev
[2022-07-15 22:02] LABS: Basophils # 0.1 10^3/uL (0.0-0.1); Eosinophils # 0.1 10^3/uL (0.0-0.8); Eosinophils % 1.6 %; Hematocrit 39.4 % (42.0-52.0); Lymphocytes % 30.3 %; Mean Corpuscular Hemoglobin 30.9 pg (28.0-34.0); Mean Corpuscular Volume 93.6 fl (80-94); Mean Platelet Volume 8.6 fL (7.4-10.4); Monocytes # 0.5 10^3/uL (0.2-0.9); Monocytes % 7.6 %; Neutrophils # 3.96 10^3/uL (1.8-7.7); Neutrophils % 59.2 %; Nucleated Red Blood Cells % 0 %; Platelet Count 296 10^3/cmm (130-400); Red Blood Count 4.21 10^6/uL (4.1-5.3); Red Cell Distribution Width 12.4 % (12.1-15.1); White Blood Count 6.7 10^3/uL (4.0-10.0)
[2022-07-15 22:08] LABS: Bilirubin Urine Neg (Negative); Blood Urine Neg (Negative); Glucose Urine UA Norm (Normal); Ketones Urine Negative (Negative); Leukocyte Esterase Urine Negative (Negative); Nitrate Urine Negative (Negative); Protein Urine Neg (Negative); Specific Gravity, Urine 1.015 (1.005-1.030); Urine Appearance Cloudy (CLEAR); Urine Color Yellow (Yellow); Urobilinogen Urine Neg (Negative); pH Urine 7 (5-7)
[2022-07-15 22:15] LABS: Amphetamines Screen Urine Positive (Negative); Barbiturates Screen Urine Negative (Negative); Benzodiazepines Screen Urine Negative (Negative); Cocaine Screen Urine Negative (Negative); Opiate Screen Urine Negative (Negative); PCP Screen Urine Negative (Negative); THC Screen Urine Positive (Negative)
[2022-07-15] MEDS: OLANZapine 10 mg ODT 20 MG PO (22:18)
[2022-07-15 22:27] LABS: Alanine Aminotransferase 12 U/L (0-41); Albumin Level 4.2 g/dL (3.5-5.2); Alkaline Phosphatase 69 U/L (40-130); Anion Gap 10.2 (5-19); Aspartate Amino Transferase 15 U/L (0-40); Blood Urea Nitrogen 8 mg/dL (6-20); Calcium 9.2 mg/dL (8.5-10.5); Carbon Dioxide 28 mmol/L (22-29); Chloride 106 mmol/L (98-107); Globulin 2.5 g/dL (1.3-4.6); Glomerular Filtration Rate 134.3 mL/min (90-130); Glucose 96 mg/dL (65-115); Osmolality Calculated 288 mOsm/kg (285-295); Potassium 4.2 mmol/L (3.5-5.1); Salicylate 0.6 mg/dL (3-10); Sodium 140 mmol/L (136-145); Total Bilirubin 0.4 mg/dL (0.15-1.2); Total Protein 6.7 g/dL (6.6-8.7)
[2022-07-15 22:28] LABS: Acetaminophen < 5.0 ug/mL (10-30)
[2022-07-15] MEDS: nicotine 21 mg Patch 1 PATCH TRANSDERMA (22:40)
[2022-07-16 01:23] VITALS: BP 95/51; PULSE 61; RESP 16; O2SAT 97
[2022-07-16 06:00] VITALS: BP 101/67; PULSE 64; RESP 16; O2SAT 98
--- NOTE | 2022-07-16 06:03 | ED.C_ITS ---
HPI - Psych General: Chief Complaint: Psychiatric Symptoms Stated Complaint: SI Time Seen by Provider: 07/15/22 21:01 History of Present Illness: 27-year-old gentleman who has a history of methamphetamine abuse. He notes that he has been clean for the last month, with 1 relapse recently. He was getting multiple texts from his friends/dealer earlier in the evening, and became agitated. He made a suicidal statement to his , and is feeling homicidal towards these individuals. He notes that he did not feel safe at home, and wanted to come in for evaluation. MD complaint: other Onset (ago): hour(s) Duration: constant History of same: Yes Relieving factors: none Exacerbating factors: other Context: recent drug abuse Associated psychiatric symptoms: depression, suicidal ideation (made statement to his ) and homicidal ideation Associated symptoms: Reports racing thoughts; Deny auditory hallucinations or visual hallucinations If self harm: admits thoughts of self harm Review of Systems Const: Denies: fever(s) ENMT: Denies: throat pain Card: Denies: chest pain Resp: Denies: dyspnea, productive cough or non-productive cough GI: Denies: abdominal pain, nausea, vomiting or diarrhea Neuro: Denies: headache(s) or dizziness Psych: Denies: visual hallucinations or auditory hallucinations PFSH ED PFSH: Medical History Excessive anger No pertinent family history Psychiatric care Social History Smoking and tobacco status: current every day smoker cigarettes Packs smoked per day: 0.5 Years cigarettes smoked: 14 and smokeless tobacco Smokeless tobacco user: snuff Smokeless tobacco details: 1 can/2 days Quit status (tobacco): has tried quititng Number of times tried to quit tobacco: 6 Second hand smoke exposure: Yes Physical Exam Const: GENERAL APPEARANCE: cooperative, anxious and disheveled NUTRITIONAL APPEARANCE: thin ORIENTATION/CONSCIOUSNESS: Yes awake, Yes oriented to person, Yes oriented to place and Yes oriented to time HENMT: COMMON NORMALS: normocephalic, atraumatic and Normal external nose present HEAD & SCALP: normocephalic and atraumatic NOSE: Normal external nose present Eye: COMMON NORMALS: Equal, round and reactive pupils present and EOMs intact bilaterally PUPIL: Yes Equal, round and reactive pupils present Neck/C-Spine: GENERAL: Yes trachea midline Chest: CHEST: Yes Symmetrical chest wall rise Resp: COMMON NORMALS: normal respiratory effort, No retractions, No use of accessory muscles and clear to auscultation bilaterally AUSCULTATION: clear to auscultation bilaterally Cardio: COMMON NORMALS: regular rate and regular rhythm RATE: regular rate RHYTHM: regular rhythm GI: COMMON NORMALS: Normal to inspection, nondistended, normoactive bowel sounds present Extremity: COMMON NORMALS: no pedal edema Neuro: ELIS COMA SCALE: document GCS findings Elis coma scale eye opening: Spontaneous [place] coma scale verbal response: Orientated [place] coma scale motor response: Obey commands [place] coma scale total score: 15 SENSORIUM/ORIENTATION: Yes oriented to person, Yes oriented to place and Yes oriented to time Psych: APPEARANCE: Yes unkempt ATTITUDE: Yes agitated ACTIVITY/MOTOR BEHAVIOR: Yes appropriate eye contact and Yes psychomotor agitation SPEECH: Yes Pressured speech present MOOD & AFFECT: Yes expansive affect THOUGHT PROCESS: Circumstantial thought process present ATTENTION/CONCENTRATION: Yes attention grossly intact and Yes concentration grossly intact MEMORY/COGNIT ION: Yes memory grossly intact INSIGHT: Limited insight present (Psych) JUDGEMENT: Fair judgement present (Psych) Skin: COMMON NORMALS: no wounds Course Vital Signs: Vital signs: Vital Signs Temperature 97.3 F L 07/16/22 14:00 Pulse Rate 74 07/16/22 14:00 Respiratory Rate 16 07/16/22 14:00 Blood Pressure 103/62 07/16/22 14:00 Pulse Oximetry 93 07/16/22 14:00 Oxygen Delivery Me thod 07/16/22 14:00 [facility] - Psych Medical Decision Making Medically the patient is stable. He is somewhat agitated, pacing in the room. He is in no way combative, or belligerent. He has been respectful. He wishes something to help him calm down. He is given Zyprexa orally with good result. He is resting comfortably. Medically, he is stable. His CBC BMP liver enzymes are normal. He is not intoxicated with alcohol. His urine drug screen is positive for marijuana, amphetamines. He maintains that he is having homicidal ideations towards these individuals, and feels safer in the hospital. I spoke with psychiatry, and they are willing to admit. Lab Data : 07/15/22 21:50 07/15/22 21:50 Laboratory Results WBC 6.7 10^3/uL (4.0-10.0) 07/15/22 21:50 RBC 4.21 10^6/uL (4.1-5.3) 07/15/22 21:50 Hgb 13.0 g/dL (11.7-16.6) 07/15/22 21:50 Hct 39.4 % (42.0-52.0) L 07/15/22 21:50 MCV 93.6 fl (80-94) 07/15/22 21:50 MCH 30.9 pg (28.0-34.0) 07/15/22 21:50 MCHC 33.0 g/dL (30.0-36.0) 07/15/22 21:50 RDW 12.4 % (12.1-15.1) 07/15/22 21:50 Plt Count 296 10^3/cmm (130-400) 07/15/22 21:50 MPV 8.6 fL (7.4-10.4) 07/15/22 21:50 Neut % (Auto) 59.2 % 07/15/22 21:50 Lymph % (Auto) 30.3 % 07/15/22 21:50 [place] % (Auto) 7.6 % 07/15/22 21:50 Eos % (Auto) 1.6 % 07/15/22 21:50 Baso % (Auto) 1.0 % 07/15/22 21:50 Neut # (Auto) 3.96 10^3/uL (1.8-7.7) 07/15/22 21:50 Lymph # (Auto) 2.0 10^3/uL (0.8-4.8) 07/15/22 21:50 [place] # (Auto) 0.5 10^3/uL (0.2-0.9) 07/15/22 21:50 Eos # (Auto) 0.1 10^3/uL (0.0-0.8) 07/15/22 21:50 Baso # (Auto) 0.1 10^3/uL (0.0-0.1) 07/15/22 21:50 Nucleated RBC % (auto) 0 % 07/15/22 21:50 Nucleated RBCs # 0.0 /100WBC 07/15/22 21:50 Sodium 140 mmol/L (136-145) 07/15/22 21:50 Potassium 4.2 mmol/L (3.5-5.1) 07/15/22 21:50 Chloride 106 mmol/L (98-107) 07/15/22 21:50 Carbon Dioxide 28 mmol/L (22-29) 07/15/22 21:50 Anion Gap 10.2 (5-19) 07/15/22 21:50 BUN 8 mg/dL (6-20) 07/15/22 21:50 Creatinine 0.7 mg/dL (0.7-1.2) 07/15/22 21:50 GFR Calculation 134.3 mL/min (90-130) H 07/15/22 21:50 Glucose 96 mg/dL (65-115) 07/15/22 21:50 Calculated Osmolality 288 mOsm/kg (285-295) 07/15/22 21:50 Calcium 9.2 mg/dL (8.5-10.5) 07/15/22 21:50 Total Bilirubin 0.4 mg/dL (0.15-1.2) 07/15/22 21:50 AST 15 U/L (0-40) 07/15/22 21:50 ALT 12 U/L (0-41) 07/15/22 21:50 Alkaline Phosphatase 69 U/L (40-130) 07/15/22 21:50 Total Protein 6.7 g/dL (6.6-8.7) 07/15/22 21:50 Albumin 4.2 g/dL (3.5-5.2) 07/15/22 21:50 Globulin 2.5 g/dL (1.3-4.6) 07/15/22 21:50 Urine Color Yellow (Yellow) 07/15/22 21:55 Urine Appearance Cloudy (CLEAR) 07/15/22 21:55 Urine pH 7 (5-7) 07/15/22 21:55 Ur Specific [place] 1.015 (1.005-1.030) 07/15/22 21:55 Urine Protein Neg (Negative) 07/15/22 21:55 Urine Glucose (UA) Norm (Normal) 07/15/22 21:55 Urine Ketones Negative (Negative) 07/15/22 21:55 Urine Blood Neg (Negative) 07/15/22 21:55 Urine Nitrate Negative (Negative) 07/15/22 21:55 Urine Bilirubin Neg (Negative) 07/15/22 21:55 Urine Urobilinogen Neg mg/dL (Negative) 07/15/22 21:55 Ur Leukocyte Esterase Negative (Negative) 07/15/22 21:55 Salicylates 0.6 mg/dL (3-10) L 07/15/22 21:50 Urine Opiates Screen Negative ng/mL (Negative) 07/15/22 21:55 Acetaminophen < 5.0 ug/mL (10-30) L 07/15/22 21:50 Ur Barbiturates Screen Negative ng/mL (Negative) 07/15/22 21:55 Ur Phencyclidine Scrn Negative ng/mL (Negative) 07/15/22 21:55 Ur Amphetamines Screen Positive ng/mL (Negative) H 07/15/22 21:55 U Benzodiazepines Scrn Negative ng/mL (Negative) 07/15/22 21:55 Urine Cocaine Screen Negative ng/mL (Negative) 07/15/22 21:55 U Marijuana (THC) Screen Positive ng/mL (Negative) H 07/15/22 21:55 Discharge Plan Discharge Patient Disposition: Admitted As Inpatient Admit Provider: Octavio Bruno Clinical Impression: Homicidal ideation Condition: Stable Coding Level of Care Code ED [employer] Turb[employer] Operator for Panchito Manzano
[2022-07-16] MEDS: duloxetine 30 mg Capsule 60 MG PO (09:50)
[2022-07-16] MEDS: nicotine 2 mg Gum BUCCAL (09:50)
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
[2022-07-16 14:00] VITALS: BP 103/62; PULSE 74; RESP 16; TEMP 36.3; O2SAT 93
[2022-07-16 20:18] VITALS: RESP 18
[2022-07-16] MEDS: risperiDONE 2 mg Tablet 3 MG PO (20:30)
[2022-07-16] MEDS: trazodone 100 mg Tablet PO (20:31)
[2022-07-17 06:00] VITALS: RESP 18
[2022-07-17] MEDS: duloxetine 30 mg Capsule 60 MG PO (08:25)
[2022-07-17] MEDS: nicotine 2 mg Gum BUCCAL ×2 (12:50→19:22)
[2022-07-17 13:46] VITALS: BP 120/79; PULSE 80; RESP 18; TEMP 36.6; O2SAT 95
--- NOTE | 2022-07-17 17:32 | W.PM.NPUPNS ---
Subjective NPU Subjective: Patient presents today reporting that he is feeling a little better. Not much change in his reports from staff and his behavior. He continues to appear fairly tired and isolative. Up for meals but otherwise lying in bed. He denies any problem with his medications or any new or problematic symptoms. Mostly sleeping during the day. Mental Status Exam MSE Comments: This is a well-nourished, well-developed, white male, with scrubs on disheveled with poor eye contact with slightly dysmorphic facies. No abnormal movements except for significant psychomotor retardation. Cooperative with exam in no acute distress. Speech was decreased rate and volume and dysarthric. Mood described as tired but okay; affect congruent. Thought process, organized. Thought content: patient denied any suicidal but endorsed homicidal ideation, there were no delusions reported or noted, patient denied any auditory or visual hallucinations. Attention, concentration, and memory appear intact but were not formally tested. He is alert and oriented times three. Insight and judgment are impaired. Impulse control impaired, and intellectual ability appears limited versus impaired. Vitals/I&O/Wt Last Vital Signs Temp 97.5 F L 07/17/22 20:23 Pulse 66 07/17/22 20:23 Resp 18 07/17/22 20:23 BP 100/51 07/17/22 20:23 Pulse Ox 98 07/17/22 20:23 O2 Del Method 07/17/22 13:46 Weight last 48 hrs Weight 74.843 kg Data NPU : 07/15/22 21:50 07/15/22 21:50 A&P Assessment and plan (1) ADHD: Status: Acute (2) Depression with suicidal ideation: Status: Resolved (3) Borderline personality disorder: Status: Acute (4) Nicotine dependence, cigarettes, uncomplicated: Status: Acute (5) Methamphetamine use disorder, severe: Status: Acute (6) Drug-induced psychotic disorder: Status: Acute Qualifiers: Complication of substance-induced condition: with delusions Qualified Code(s): F19.950 - Other psychoactive substance use, unspecified with psychoactive substance-induced psychotic disorder with delusions Plan This is a 27 year old white male with a history of bipolar disorder along with poor impulse control and methamphetamine and cannabis use disorders who was admitted endorsing homicidal ideation with a positive UDS. 1. Continue current medication. Restart home medications. 2. Continue every 15 minute checks for safety. 3. Encourage individual, group and milieu therapies. 4. Encourage sober living treatment after discharge at the highest level of care to which he is willing to commit. Involuntary Hold Information 96 Hour Hold: 96 Hour Involuntary Admission: No Attestations NPU Medical Necessity Statement*: Inpatient hospitalization is medically necessary and the clinically appropriate intervention at this time. We will monitor medications and make changes as indicated. Likely length of stay 1-3 days. 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
[2022-07-17] MEDS: trazodone 100 mg Tablet PO (19:23)
[2022-07-17] MEDS: risperiDONE 2 mg Tablet 3 MG PO (19:23)
[2022-07-17 20:23] VITALS: BP 100/51; PULSE 66; RESP 18; TEMP 36.4; O2SAT 98
[2022-07-18 06:00] VITALS: BP 115/74; PULSE 53; RESP 18; TEMP 36.8; O2SAT 98
[2022-07-18] MEDS: duloxetine 30 mg Capsule 60 MG PO (08:30)
[2022-07-18] MEDS: nicotine 2 mg Gum BUCCAL ×4 (11:22→20:39)
[2022-07-18 13:58] VITALS: BP 123/69; PULSE 77; RESP 16; TEMP 36.6; O2SAT 99
--- NOTE | 2022-07-18 16:55 | W.PM.NPUPNS ---
Subjective NPU Subjective: Patient presents today for first day being really alert and engaged. He was very forthcoming today about the fact that he needs to avoid the addictive behavior if he must avoid being hospitalized. He reports that he has been engaging with his significant other and that she had noticed his behavior as well. He reports he is working with the social work team to engage in treatment we discussed the likelihood of discharge in the next 48 hours. Mental Status Exam MSE Comments: This is a well-nourished, well-developed, white male, with scrubs on disheveled with poor eye contact with slightly dysmorphic facies. No abnormal movements except for mild psychomotor retardation. Cooperative with exam in no acute distress. Speech was more normal rate and volume and dysarthric. Mood described as a little better today; affect congruent. Thought process, organized. Thought content: patient denied any suicidal but endorsed homicidal ideation, there were no delusions reported or noted, patient denied any auditory or visual hallucinations. Attention, concentration, and memory appear intact but were not formally tested. He is alert and oriented times three. Insight and judgment are improving. Impulse control limited, and intellectual ability appears limited versus impaired. Vitals/I&O/Wt Last Vital Signs Temp 98 F 07/18/22 13:58 Pulse 77 07/18/22 13:58 Resp 16 07/18/22 13:58 BP 123/69 07/18/22 13:58 Pulse Ox 99 07/18/22 13:58 O2 Del Method 07/18/22 13:58 Weight last 48 hrs Weight 74.843 kg Data NPU : 07/15/22 21:50 07/15/22 21:50 A&P Assessment and plan (1) ADHD: Status: Acute (2) Depression with suicidal ideation: Status: Resolved (3) Borderline personality disorder: Status: Acute (4) Nicotine dependence, cigarettes, uncomplicated: Status: Acute (5) Methamphetamine use disorder, severe: Status: Acute (6) Drug-induced psychotic disorder: Status: Acute Qualifiers: Complication of substance-induced condition: with delusions Qualified Code(s): F19.950 - Other psychoactive substance use, unspecified with psychoactive substance-induced psychotic disorder with delusions Plan This is a 27 year old white male with a history of bipolar disorder along with poor impulse control and methamphetamine and cannabis use disorders who was admitted endorsing homicidal ideation with a positive UDS. 1. Continue current medication. Restart home medications. 2. Continue every 15 minute checks for safety. 3. Encourage individual, group and milieu therapies. 4. Encourage sober living treatment after discharge at the highest level of care to which he is willing to commit. Involuntary Hold Information 96 Hour Hold: 96 Hour Involuntary Admission: No Attestations NPU Medical Necessity Statement*: Inpatient hospitalization is medically necessary and the clinically appropriate intervention at this time. We will monitor medications and make changes as indicated. Likely length of stay 1-2 days. 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
[2022-07-18] MEDS: hyDROXYzine 25 mg Capsule 50 MG PO (20:40)
[2022-07-18] MEDS: trazodone 50 mg Tablet PO (20:40)
[2022-07-18 20:41] VITALS: BP 123/83; PULSE 84; RESP 18; TEMP 36.5; O2SAT 97
[2022-07-18] MEDS: risperiDONE 2 mg Tablet 3 MG PO (20:56)
[2022-07-19 05:59] VITALS: BP 110/65; PULSE 63; RESP 16; TEMP 36.6; O2SAT 97
[2022-07-19] MEDS: duloxetine 30 mg Capsule 60 MG PO (09:05)
[2022-07-19] MEDS: nicotine 2 mg Gum BUCCAL ×4 (12:05→20:36)
[2022-07-19 13:58] VITALS: BP 120/73; PULSE 96; RESP 18; TEMP 36.6; O2SAT 96
--- NOTE | 2022-07-19 16:31 | P.NPUPN_ITS ---
Subjective NPU Subjective: Srinivasa presents today reporting that there was some conflict with girlfriend. He reports that his plan at this point is to return to his previous living situation but we and the treatment team after working with [facility] and try to get him reconnected with the [facility] program. Derealization he has had connection with him in the past however he was discontinued secondary to nonadherence to treatment. He endorses acceptance of his need for treatment but has some clear ambivalence. We discussed the likelihood of discharge in the morning. Mental Status Exam MSE Comments: This is a well-nourished, well-developed, white male, with scrubs on with better hygiene and eye contact with slightly dysmorphic facies. No abnormal movements except for resolving mild psychomotor retardation. Cooperative with exam in no acute distress. Speech was more normal rate and volume and dysarthric. Mood described as getting better; affect congruent. Thought process, organized. Thought content: patient denied any suicidal or homicidal ideation, there were no delusions reported or noted, patient denied any auditory or visual hallucinations. Attention, concentration, and memory appear intact but were not formally tested. He is alert and oriented times three. Insight and judgment are improving. Impulse control limited, and intellectual ability appears limited versus impaired. Vitals/I&O/Wt Last Vital Signs Temp 98.0 F 07/19/22 19:58 Pulse 79 07/19/22 19:58 Resp 18 07/19/22 19:58 BP 146/82 07/19/22 19:58 Pulse Ox 99 07/19/22 19:58 O2 Del Method 07/19/22 13:58 Data NPU : 07/15/22 21:50 07/15/22 21:50 A&P Assessment and plan (1) ADHD: Status: Acute (2) Depression with suicidal ideation: Status: Resolved (3) Borderline personality disorder: Status: Acute (4) Nicotine dependence, cigarettes, uncomplicated: Status: Acute (5) Methamphetamine use disorder, severe: Status: Acute (6) Drug-induced psychotic disorder: Status: Acute Qualifiers: Complication of substance-induced condition: with delusions Qualified Code(s): F19.950 - Other psychoactive substance use, unspecified with psychoactive substance-induced psychotic disorder with delusions Plan This is a 27 year old white male with a history of bipolar disorder along with poor impulse control and methamphetamine and cannabis use disorders who was admitted endorsing homicidal ideation with a positive UDS. 1. Continue current medication. Restarted home medications. 2. Continue every 15 minute checks for safety. 3. Encourage individual, group and milieu therapies. 4. Encourage sober living treatment after discharge at the highest level of care to which he is willing to commit. Involuntary Hold Information 96 Hour Hold: 96 Hour Involuntary Admission: No Attestations NPU Medical Necessity Statement*: Inpatient hospitalization is medically necessary and the clinically appropriate intervention at this time. We will monitor medications and make changes as indicated. Likely length of stay 1-2 days. 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
[2022-07-19 19:58] VITALS: BP 146/82; PULSE 79; RESP 18; TEMP 36.7; O2SAT 99
[2022-07-19] MEDS: trazodone 100 mg Tablet PO (20:21)
[2022-07-19] MEDS: risperiDONE 2 mg Tablet 3 MG PO (20:21)
[2022-07-20 06:00] VITALS: BP 109/61; PULSE 80; RESP 18; TEMP 36.5; O2SAT 99
--- NOTE | 2022-07-20 08:38 | DCPLANNER ---
Pt was given a copy of the IMM and his rights were explained.
[2022-07-20] MEDS: nicotine 2 mg Gum BUCCAL ×2 (09:01→10:37)
[2022-07-20] MEDS: duloxetine 30 mg Capsule 60 MG PO (09:01)
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
[2022-07-20 12:04] VITALS: BP 109/61; PULSE 80; RESP 18; TEMP 36.5; O2SAT 99
== END 2022-07-20 12:00 | disposition home or self-care (01) | DRG 897 ==
LOC: ER 07-16 00:20 → NP 07-16 00:48
PROVIDERS: Admitting Provider Psychiatry & Neurology Psychiatry; Emergency Provider Emergency Medicine; PCP Family Medicine; Visit Provider Psychiatry & Neurology Psychiatry
DX: F15.259 Other stimulant dependence with stimulant-induced psychotic disorder, unspecified (principal); F15.20 Other stimulant dependence, uncomplicated; R45.851 Suicidal ideations; F32.A Depression, unspecified; R45.850 Homicidal ideations; F12.90 Cannabis use, unspecified, uncomplicated; Z88.2 Allergy status to sulfonamides; F17.210 Nicotine dependence, cigarettes, uncomplicated; F17.220 Nicotine dependence, chewing tobacco, uncomplicated; F90.9 Attention-deficit hyperactivity disorder, unspecified type; F60.3 Borderline personality disorder; Z79.891 Long term (current) use of opiate analgesic
CPT/HCPCS: 80053; 80306; 80307; 81003; 85025; 97150; 97165; 99285

== ENCOUNTER 2022-08-16 18:41 | Inpatient (IN) | payer MEDICARE, MEDICAID, SELFPAY ==
[2022-08-16 18:44] VITALS: BMI 26.6
[2022-08-16 19:09] LABS: Basophils # 0.1 10^3/uL (0.0-0.1); Basophils % 0.5 %; Eosinophils # 0.1 10^3/uL (0.0-0.8); Eosinophils % 0.8 %; Hematocrit 40.3 % (42.0-52.0); Hemoglobin 13.1 g/dL (11.7-16.6); Lymphocytes # 1.6 10^3/uL (0.8-4.8); Lymphocytes % 14.6 %; Mean Corpuscular HGB Conc 32.5 g/dL (30.0-36.0); Mean Corpuscular Hemoglobin 30.4 pg (28.0-34.0); Mean Corpuscular Volume 93.5 fl (80-94); Mean Platelet Volume 8.5 fL (7.4-10.4); Monocytes # 0.7 10^3/uL (0.2-0.9); Monocytes % 6.9 %; Neutrophils # 8.32 10^3/uL (1.8-7.7); Nucleated Red Blood Cells % 0 %; Platelet Count 372 10^3/cmm (130-400); Red Blood Count 4.31 10^6/uL (4.1-5.3); Red Cell Distribution Width 12.7 % (12.1-15.1); White Blood Count 10.8 10^3/uL (4.0-10.0)
[2022-08-16 19:25] LABS: Acetaminophen < 5.0 ug/mL (10-30); Alanine Aminotransferase 17 U/L (0-41); Albumin Level 4.1 g/dL (3.5-5.2); Alkaline Phosphatase 79 U/L (40-130); Anion Gap 15.5 (5-19); Aspartate Amino Transferase 21 U/L (0-40); Blood Urea Nitrogen 21 mg/dL (6-20); Calcium 9.5 mg/dL (8.5-10.5); Carbon Dioxide 26 mmol/L (22-29); Chloride 99 mmol/L (98-107); Globulin 3.1 g/dL (1.3-4.6); Glomerular Filtration Rate 115.1 mL/min (90-130); Glucose 84 mg/dL (65-115); Osmolality Calculated 286 mOsm/kg (285-295); Potassium 3.5 mmol/L (3.5-5.1); Salicylate < 0.3 mg/dL (3-10); Sodium 137 mmol/L (136-145); Total Bilirubin 0.3 mg/dL (0.15-1.2); Total Protein 7.2 g/dL (6.6-8.7)
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
[2022-08-16 19:35] LABS: Amphetamines Screen Urine Positive (Negative); Barbiturates Screen Urine Negative (Negative); Benzodiazepines Screen Urine Negative (Negative); Cocaine Screen Urine Negative (Negative); Opiate Screen Urine Negative (Negative); PCP Screen Urine Negative (Negative); THC Screen Urine Positive (Negative)
[2022-08-16 19:47] LABS: SARS Covid-2 Antigen Negative (Negative)
--- NOTE | 2022-08-16 20:33 | PC.NURSE ---
Pt was in [facility] bed 4. Charge nurse requested I move pt to room 8. This was done. Pt cooperative at this time. This RN took over care at this time.
[2022-08-16] MEDS: lidocaine 1% INJ 20 mL MDV (mL) INJECTION (22:27)
[2022-08-16 23:43] VITALS: BP 116/63; PULSE 63; RESP 16; O2SAT 100
--- NOTE | 2022-08-17 05:10 | PC.NURSE ---
Pt continues to rest quietly. No needs.
[2022-08-17 07:27] VITALS: BP 96/64; PULSE 79; RESP 14; O2SAT 98
[2022-08-17 10:03] VITALS: BP 96/64; PULSE 79; RESP 14; O2SAT 98
[2022-08-17 10:44] VITALS: BP 125/74; PULSE 91; RESP 18; TEMP 36.4; O2SAT 96
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
[2022-08-17 14:00] VITALS: BP 99/54; PULSE 73; RESP 17; TEMP 36.8; O2SAT 99
[2022-08-17] MEDS: nicotine 2 mg Gum BUCCAL ×3 (14:56→20:55)
[2022-08-17] MEDS: ondansetron 4 MG Tablet PO (19:30)
[2022-08-17 20:18] VITALS: BP 102/56; PULSE 90; RESP 16; TEMP 36.7; O2SAT 98
[2022-08-17] MEDS: trazodone 50 mg Tablet PO (20:55)
[2022-08-18 06:00] VITALS: BP 104/64; PULSE 67; RESP 16; TEMP 36.7; O2SAT 98
--- NOTE | 2022-08-18 11:16 | W.PM.NPUPNS ---
Subjective NPU Subjective: Patient presents today having reported that he had been taking medication but verification through the pharmacy suggest that that is less than accurate with his medications. We discussed reports adherence to medication and discussed the risk that his alternatives of restarting some of his medications with appropriate doses and he understood and agreed to proceed as documented in this note Mental Status Exam MSE Comments: This is a well-nourished, well-developed, white male, with scrubs on, disheveled with limited eye contact with slightly dysmorphic facies. No abnormal movements. Cooperative with exam in mild distress. Speech was normal rate and volume and dysarthric. Mood described as frustrated; affect congruent. Thought process, organized. Thought content: patient denied any suicidal or homicidal ideation, there were no delusions reported or noted, patient denied any auditory or visual hallucinations. Attention, concentration, and memory appear intact but were not formally tested. He is alert and oriented times three. Insight and judgment are impaired. Impulse control impaired, and intellectual ability appears limited versus impaired. Vitals/I&O/Wt Last Vital Signs Temp 98.1 F 08/18/22 06:00 Pulse 67 08/18/22 06:00 Resp 16 08/18/22 06:00 BP 104/64 08/18/22 06:00 Pulse Ox 98 08/18/22 06:00 O2 Del Method 08/17/22 10:54 Weight last 48 hrs Weight 79.379 kg Data NPU : 08/16/22 19:01 08/16/22 19:01 A&P Assessment and plan (1) ADHD: Status: Inactive (2) Depression with suicidal ideation: Status: Resolved (3) Borderline personality disorder: Status: Acute (4) Nicotine dependence, cigarettes, uncomplicated: Status: Acute (5) Methamphetamine use disorder, severe: Status: Acute (6) Drug-induced psychotic disorder: Status: Acute Qualifiers: Complication of substance-induced condition: with delusions Qualified Code(s): F19.950 - Other psychoactive substance use, unspecified with psychoactive substance-induced psychotic disorder with delusions Plan This is a 27 year old white male with a history of bipolar disorder along with poor impulse control and methamphetamine and cannabis use disorders who was admitted endorsing suicidal ideation with a positive UDS. 1. Continue current medication. Restart Cymbalta 30 mg p.o. every morning, trazodone 100 mg p.o. nightly and Risperdal 2 mg p.o. nightly. 2. Continue every 15 minute checks for safety. 3. Encourage individual, group and milieu therapies. 4. Encourage sober living treatment after discharge at the highest level of care to which he is willing to commit. Involuntary Hold Information 96 Hour Hold: 96 Hour Involuntary Admission: No Attestations NPU Medical Necessity Statement*: Inpatient hospitalization is medically necessary and the clinically appropriate intervention at this time. We will monitor medications and make changes as indicated. Likely length of stay 2-4 days. Coding Level of Care Code Acute Cyber Intelligence Analyst for g Fwd Diagnoses ADHD F90.9 Depression with suicidal ideation F32.A; R45.851 Borderline personality disorder F60.3 Nicotine dependence, cigarettes, uncomplicated F17.210 Methamphetamine use disorder, severe F15.20 Drug-induced psychotic disorder F19.950 Complication of substance-induced condition: with delusions
[2022-08-18] MEDS: hyDROXYzine 25 mg Capsule 50 MG PO (12:28)
[2022-08-18] MEDS: nicotine 2 mg Gum BUCCAL ×3 (12:28→20:37)
--- NOTE | 2022-08-18 12:29 | PC.NURSE ---
PT CAME TO [facility]URSES STATION REQUESTING MEDICATION FOR ANXIETY AND NICOTINE GUM. PT WAS GIVEN VISTERIL
[2022-08-18 14:00] VITALS: BP 124/67; PULSE 87; RESP 18; TEMP 36.4; O2SAT 99
[2022-08-18] MEDS: risperiDONE 2 mg Tablet PO (20:35)
[2022-08-18] MEDS: trazodone 100 mg Tablet PO (20:35)
[2022-08-18 20:37] VITALS: BP 124/86; PULSE 75; RESP 18; O2SAT 100
[2022-08-19 06:00] VITALS: BP 111/73; PULSE 55; RESP 12; TEMP 36.6; O2SAT 99
[2022-08-19] MEDS: duloxetine 30 mg Capsule PO (09:15)
[2022-08-19] MEDS: nicotine 2 mg Gum BUCCAL ×4 (09:15→20:33)
[2022-08-19] MEDS: hyDROXYzine 25 mg Capsule 50 MG PO (09:15)
[2022-08-19 14:00] VITALS: BP 123/75; PULSE 90; RESP 18; TEMP 36.6; O2SAT 97
--- NOTE | 2022-08-19 18:20 | P.NPUPN_ITS ---
Subjective NPU Subjective: Patient presents today reporting that he feels things are doing better. He reports that the patient was to be restarting medication is fine. He reports at this point that he is essentially understanding that he needs to avoid his girlfriend because bad things happen. He needed my input to identify that methamphetamine was also bad about. He reports that he is working treatment team to find places for rehab at this point reports that is his plan to actually go. Mental Status Exam MSE Comments: This is a well-nourished, well-developed, white male, with scrubs on, disheveled with limited eye contact with slightly dysmorphic facies. No abnormal movements. Cooperative with exam in mild distress. Speech was normal rate and volume and dysarthric. Mood described as a little better; affect con gruent. Thought process, organized. Thought content: patient denied any suicidal or homicidal ideation, there were no delusions reported or noted, patient denied any auditory or visual hallucinations. Attention, concentration, and memory appear intact but were not formally tested. He is alert and oriented times three. Insight and judgment are impaired. Impulse control impaired, and intellectual ability appears limited versus impaired. Vitals/I&O/Wt Last Vital Signs Temp 98 F 08/19/22 14:00 Pulse 90 08/19/22 14:00 Resp 18 08/19/22 14:00 BP 123/75 08/19/22 14:00 Pulse Ox 97 08/19/22 14:00 O2 Del Method 08/19/22 14:00 Data NPU : 08/16/22 19:01 08/16/22 19:01 A&P Assessment and plan (1) ADHD: (2) Depression with suicidal ideation: (3) Borderline personality disorder: (4) Nicotine dependence, cigarettes, uncomplicated: (5) Methamphetamine use disorder, severe: (6) Drug-induced psychotic disorder: Qualifiers: Complication of substance-induced condition: with delusions Qualified Code(s): F19.950 - Other psychoactive substance use, unspecified with psychoactive substance-induced psychotic disorder with delusions Plan This is a 27 year old white male with a history of bipolar disorder along with poor impulse control and methamphetamine and cannabis use disorders who was admitted endorsing suicidal ideation with a positive UDS. 1. Continue current medication. Restart Cymbalta 30 mg p.o. every morning, trazodone 100 mg p.o. nightly and Risperdal 2 mg p.o. nightly. 2. Continue every 15 minute checks for safety. 3. Encourage individual, group and milieu therapies. 4. Encourage sober living treatment after discharge at the highest level of care to which he is willing to commit. Involuntary Hold Information 96 Hour Hold: 96 Hour Involuntary Admission: No Attestations NPU Medical Necessity Statement*: Inpatient hospitalization is medically necessary and the clinically appropriate intervention at this time. We will monitor medications and make changes as indicated. Likely length of stay 3-4 days. Coding Level of Care Code Acute Telemetry Registered Nurse for [facility] Fwd Diagnoses ADHD F90.9 Depression with suicidal ideation F32.A; R45.851 Borderline personality disorder F60.3 Nicotine dependence, cigarettes, uncomplicated F17.210 Methamphetamine use disorder, severe F15.20 Drug-induced psychotic disorder F19.950 Complication of substance-induced condition: with delusions
[2022-08-19 19:38] VITALS: BP 111/68; PULSE 82; RESP 18; TEMP 36.8; O2SAT 91
[2022-08-19] MEDS: trazodone 100 mg Tablet PO (19:58)
[2022-08-19] MEDS: risperiDONE 2 mg Tablet PO (19:59)
[2022-08-20 06:00] VITALS: BP 106/64; PULSE 57; RESP 18; TEMP 36.9; O2SAT 97
[2022-08-20] MEDS: duloxetine 30 mg Capsule PO (09:20)
[2022-08-20] MEDS: nicotine 2 mg Gum BUCCAL ×3 (13:09→19:24)
[2022-08-20 14:00] VITALS: BP 127/74; PULSE 79; RESP 18; TEMP 36.5; O2SAT 98
--- NOTE | 2022-08-20 18:03 | W.PM.NPUPNS ---
Subjective NPU Subjective: Patient returns today reporting that he is doing okay. He reports that he is been trying to contact someone to make sure that his dog is okay. We discussed the fact that on Monday the treatment team could help him get some confirmation on that situation. He continues to endorse commitment to a plan to engage in an active sober living treatment after discharge and likely on a residential basis. He was eating sleeping fine. Mental Status Exam MSE Comments: This is a well-nourished, well-developed, white male, with scrubs on, disheveled with limited eye contact with slightly dysmorphic facies. No abnormal movements. Cooperative with exam in mild distress. Speech was normal rate and volume and dysarthric. Mood described as a little better; affect congruent. Thought process, organized. Thought content: patient denied any suicidal or homicidal ideation, there were no delusions reported or noted, patient denied any auditory or visual hallucinations. Attention, concentration, and memory appear intact but were not formally tested. He is alert and oriented times three. Insight and judgment are impaired. Impulse control impaired, and intellectual ability appears limited versus impaired. Vitals/I&O/Wt Last Vital Signs Temp 97.7 F 08/20/22 14:00 Pulse 79 08/20/22 14:00 Resp 18 08/20/22 14:00 BP 127/74 08/20/22 14:00 Pulse Ox 98 08/20/22 14:00 O2 Del Method 08/19/22 14:00 Data NPU : 08/16/22 19:01 08/16/22 19:01 A&P Assessment and plan (1) ADHD: (2) Depression with suicidal ideation: (3) Borderline personality disorder: (4) Nicotine dependence, cigarettes, uncomplicated: (5) Methamphetamine use disorder, severe: (6) Drug-induced psychotic disorder: Qualifiers: Complication of substance-induced condition: with delusions Qualified Code(s): F19.950 - Other psychoactive substance use, unspecified with psychoactive substance-induced psychotic disorder with delusions Plan This is a 27 year old white male with a history of bipolar disorder along with poor impulse control and methamphetamine and cannabis use disorders who was admitted endorsing suicidal ideation with a positive UDS. 1. Continue current medication. Restart Cymbalta 30 mg p.o. every morning, trazodone 100 mg p.o. nightly and Risperdal 2 mg p.o. nightly. 2. Continue every 15 minute checks for safety. 3. Encourage individual, group and milieu therapies. 4. Encourage sober living treatment after discharge at the highest level of care to which he is willing to commit. Involuntary Hold Information 96 Hour Hold: 96 Hour Involuntary Admission: No Attestations NPU Medical Necessity Statement*: Inpatient hospitalization is medically necessary and the clinically appropriate intervention at this time. We will monitor medications and make changes as indicated. Likely length of stay 3-4 days. Coding Level of Care Code Acute System Administration Advisor for g Fwd Diagnoses ADHD F90.9 Depression with suicidal ideation F32.A; R45.851 Borderline personality disorder F60.3 Nicotine dependence, cigarettes, uncomplicated F17.210 Methamphetamine use disorder, severe F15.20 Drug-induced psychotic disorder F19.950 Complication of substance-induced condition: with delusions
[2022-08-20] MEDS: hyDROXYzine 25 mg Capsule 50 MG PO (18:24)
[2022-08-20] MEDS: risperiDONE 2 mg Tablet PO (19:24)
[2022-08-20] MEDS: trazodone 100 mg Tablet PO (19:24)
[2022-08-20 20:09] VITALS: BP 128/75; PULSE 81; RESP 16; TEMP 36.8; O2SAT 99
[2022-08-21 06:00] VITALS: BP 102/59; PULSE 52; RESP 16; TEMP 36.3; O2SAT 98; BMI 26.6
--- NOTE | 2022-08-21 07:06 | W.PM.NPUPNS ---
Subjective NPU Subjective: Patient presented today reporting that he is doing fine. He reports that his medication is seeming to work and we discussed the possibility of making increases as indicated in the next few days. Additionally he reports he continues to have a plan to move forward with rehab and will continue working with the treatment team on that tomorrow. Mental Status Exam MSE Comments: This is a well-nourished, well-developed, white male, with scrubs on, disheveled with limited eye contact with slightly dysmorphic facies. No abnormal movements. Cooperative with exam in mild distress. Speech was normal rate and volume and dysarthric. Mood described as a little better; affect congruent. Thought process, organized. Thought content: patient denied any suicidal or homicidal ideation, there were no delusions reported or noted, patient denied any auditory or visual hallucinations. Attention, concentration, and memory appear intact but were not formally tested. He is alert and oriented times three. Insight and judgment are impaired. Impulse control impaired, and intellectual ability appears limited versus impaired. Vitals/I&O/Wt Last Vital Signs Temp 97.3 F L 08/21/22 06:00 Pulse 52 L 08/21/22 06:00 Resp 16 08/21/22 06:00 BP 102/59 08/21/22 06:00 Pulse Ox 98 08/21/22 06:00 O2 Del Method 08/19/22 14:00 Data NPU : 08/16/22 19:01 08/16/22 19:01 A&P Assessment and plan (1) ADHD: (2) Depression with suicidal ideation: (3) Borderline personality disorder: (4) Nicotine dependence, cigarettes, uncomplicated: (5) Methamphetamine use disorder, severe: (6) Drug-induced psychotic disorder: Qualifiers: Complication of substance-induced condition: with delusions Qualified Code(s): F19.950 - Other psychoactive substance use, unspecified with psychoactive substance-induced psychotic disorder with delusions Plan This is a 27 year old white male with a history of bipolar disorder along with poor impulse control and methamphetamine and cannabis use disorders who was admitted endorsing suicidal ideation with a positive UDS. 1. Continue current medication. Restart Cymbalta 30 mg p.o. every morning, trazodone 100 mg p.o. nightly and Risperdal 2 mg p.o. nightly. 2. Continue every 15 minute checks for safety. 3. Encourage individual, group and milieu therapies. 4. Encourage sober living treatment after discharge at the highest level of care to which he is willing to commit. Involuntary Hold Information 96 Hour Hold: 96 Hour Involuntary Admission: No Attestations NPU Medical Necessity Statement*: Inpatient hospitalization is medically necessary and the clinically appropriate intervention at this time. We will monitor medications and make changes as indicated. Likely length of stay 2-3 days. Coding Level of Care Code Acute Software Validation Engineer for [facility] Fwd Diagnoses ADHD F90.9 Depression with suicidal ideation F32.A; R45.851 Borderline personality disorder F60.3 Nicotine dependence, cigarettes, uncomplicated F17.210 Methamphetamine use disorder, severe F15.20 Drug-induced psychotic disorder F19.950 Complication of substance-induced condition: with delusions
[2022-08-21] MEDS: duloxetine 30 mg Capsule PO (09:16)
[2022-08-21] MEDS: nicotine 2 mg Gum BUCCAL ×3 (11:25→20:08)
[2022-08-21 14:00] VITALS: BP 114/64; PULSE 88; RESP 18; TEMP 36.6; O2SAT 98
[2022-08-21 19:55] VITALS: BP 125/81; PULSE 82; RESP 14; TEMP 36.7; O2SAT 98
[2022-08-21] MEDS: risperiDONE 2 mg Tablet PO (20:08)
[2022-08-21] MEDS: trazodone 100 mg Tablet PO (20:08)
--- NOTE | 2022-08-21 20:31 | PC.NURSE ---
handheld scanner would not scan meds, entered per manual barcode.
[2022-08-22 06:00] VITALS: BP 93/52; PULSE 65; RESP 14; TEMP 36.9; O2SAT 96
[2022-08-22] MEDS: duloxetine 30 mg Capsule PO (08:52)
[2022-08-22] MEDS: nicotine 2 mg Gum BUCCAL ×5 (08:56→21:02)
--- NOTE | 2022-08-22 11:57 | P.NPUPN_ITS ---
Subjective NPU Subjective: Patient is a 27-year-old white male admitted with suicidal ideation with a history of multiple inpatient hospitalizations with a history of poor impulse control, depressed mood, and ADHD. Patient continued to report depressed mood. He had admitted to smoking methamphetamine and reported that it has a tendency to make his mood more unstable. He had reported a history of increased paranoia after the use of methamphetamine. He had reported that he wished to receive treatment for his mood problems as well as for his addiction. He reports that he had attempted to cut his neck after something of sentimental value was sold by his roommates. He reports chronic problems with disorganizati on and difficulties with completing routine daily tasks without distraction. He reports having chronic problems with boredom. Mental Status Exam 2 MSE Comments: This is a well-nourished, well-developed, white male, with scrubs on, disheveled with limited eye contact with slightly dysmorphic facies. No abnormal movements. Cooperative with exam in mild distress. Speech was normal rate and volume and dysarthric. Mood described as depressed; affect was mood congruent and restricted. Thought process: linear and organized. Thought content: patient denied any suicidal or homicidal ideation, There were no d elusions reported or noted, patient denied any auditory or visual hallucinations. Attention was poor. Patient's concentration, and memory appear intact but were not formally tested. He is alert and oriented times three. Insight and judgment are impaired. Impulse control remained feeble, and intell ectual ability appears limited versus impaired. Vitals/I&O/Wt Last Vital Signs Temp 98.4 F 08/22/22 06:00 Pulse 65 08/22/22 06:00 Resp 14 08/22/22 06:00 BP 93/52 08/22/22 06:00 Pulse Ox 96 08/22/22 06:00 O2 Del Method 08/19/22 14:00 Weight last 48 hrs Weight 79.379 kg Data NPU : 08/16/22 19:01 08/16/22 19:01 A&P Assessment and plan (1) ADHD: (2) Depression with suicidal ideation: (3) Borderline personality disorder: (4) Nicotine dependence, cigarettes, uncomplicated: (5) Methamphetamine use disorder, severe: (6) Drug-induced psychotic disorder: Qualifiers: Complication of substance-induced condition: with delusions Qualified Code(s): F19.950 - Other psychoactive substance use, unspecified with psychoactive substance-induced psychotic disorder with delusions Plan This is a 27 year old white male with a history of bipolar disorder along with poor impulse control and methamphetamine and cannabis use disorders who was admitted endorsing suicidal ideation with a positive UDS. 1. Continue current medication. Increase Cymbalta 60 mg p.o. every morning, trazodone 100 mg p.o. nightly and Risperdal 3 mg p.o. nightly. 2. Continue every 15 minute checks for safety. 3. Encourage individual, group and milieu therapies. 4. Encourage sober living treatment after discharge at the highest level of care to which he is willing to commit. Involuntary Hold Information 96 Hour Hold: 96 Hour Involuntary Admission: No Attestations NPU Medical Necessity Statement*: Inpatient hospitalization is medically necessary and the clinically appropriate intervention at this time. We will monitor medications and make changes as indicated. Likely length of stay 2-3 days. Coding Level of Care Code Established Pt Acute Underwriting Account Representative for g [facility] Patient Type Established History Problem Focused Exam Problem Focused Medical Decision Making Straight Forward Diagnoses ADHD F90.9 Depression with suicidal ideation F32.A; R45.851 Borderline personality disorder F60.3 Nicotine dependence, cigarettes, uncomplicated F17.210 Methamphetamine use disorder, severe F15.20 Drug-induced psychotic disorder F19.950 Complication of substance-induced condition: with delusions
[2022-08-22 14:00] VITALS: BP 102/68; PULSE 79; RESP 18; TEMP 36.6; O2SAT 98
[2022-08-22 20:29] VITALS: BP 136/80; PULSE 81; RESP 18; TEMP 36.8; O2SAT 100
[2022-08-22] MEDS: trazodone 100 mg Tablet PO (21:00)
[2022-08-22] MEDS: risperiDONE 2 mg Tablet 3 MG PO (21:01)
[2022-08-23 06:00] VITALS: BP 103/52; PULSE 65; RESP 18; TEMP 36.8; O2SAT 99
[2022-08-23] MEDS: nicotine 2 mg Gum BUCCAL ×4 (08:30→20:27)
[2022-08-23] MEDS: duloxetine 60 mg Capsule PO (08:30)
[2022-08-23 14:00] VITALS: BP 124/74; PULSE 93; RESP 18; TEMP 36.8; O2SAT 95
--- NOTE | 2022-08-23 17:59 | W.PM.NPUPNS ---
Subjective NPU Subjective: Patient is a 27-year-old white male admitted with suicidal ideation with a history of multiple inpatient hospitalizations with a history of poor impulse control, depressed mood, and ADHD. Patient reported improved mood today. He reported significant use of methamphetamine and reported that the methamphetamine had caused increased paranoia. He had requested that his stitches from his neck cut be examined and reported that he wished to have his stitches removed. Patient has an extensive history of poor impulse control and reported that he frequently makes bad decisions at home. He had endorsed having intermittent thoughts of cutting himself in the past and reports having received no psychotherapy in the past. He had reported a history of noncompliance with intensive treatment. He had reported improved sleep. Mental Status Exam MSE Comments: This is a well-nourished, well-developed, white male, with scrubs on, disheveled with limited eye contact with slightly dysmorphic facies. No abnormal movements. Cooperative with exam in mild distress. Speech was normal rate and volume and dysarthric. Mood described as okay; affect was mood congruent and restricted in range. Thought process: linear and organized. Thought content: patient denied any suicidal or homicidal ideation, There were no delusions reported or noted, patient denied any auditory or visual hallucinations. Attention was poor. Patient's concentration, and memory appear intact but were not formally tested. He is alert and oriented times three. Insight and judgment are impaired. Impulse control remained feeble. His intellectual ability appeared to be low average, Vitals/I&O/Wt Last Vital Signs Temp 98.2 F 08/23/22 14:00 Pulse 93 08/23/22 14:00 Resp 18 08/23/22 14:00 BP 124/74 08/23/22 14:00 Pulse Ox 95 08/23/22 14:00 O2 Del Method 08/22/22 14:00 Data NPU : 08/16/22 19:01 08/16/22 19:01 A&P Assessment and plan (1) ADHD: (2) Depression with suicidal ideation: (3) Borderline personality disorder: (4) Nicotine dependence, cigarettes, uncomplicated: (5) Methamphetamine use disorder, severe: (6) Drug-induced psychotic disorder: Qualifiers: Complication of substance-induced condition: with delusions Qualified Code(s): F19.950 - Other psychoactive substance use, unspecified with psychoactive substance-induced psychotic disorder with delusions Plan This is a 27 year old white male with a history of bipolar disorder along with poor impulse control and methamphetamine and cannabis use disorders who was admitted endorsing suicidal ideation with a positive UDS. 1. Continue current medication. Continue Cymbalta 60 mg p.o. every morning, continue trazodone 100 mg p.o. nightly and Risperdal 3 mg p.o. nightly. 2. Continue every 15 minute checks for safety. 3. Encourage individual, group and milieu therapies. 4. Encourage sober living treatment after discharge at the highest level of care to which he is willing to commit.-Referral for inpatient drug rehabilitation Involuntary Hold Information 96 Hour Hold: 96 Hour Involuntary Admission: No Attestations NPU Medical Necessity Statement*: Inpatient hospitalization is medically necessary and the clinically appropriate intervention at this time. We will monitor medications and make changes as indicated. Likely length of stay 2-3 days. 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
[2022-08-23] MEDS: risperiDONE 2 mg Tablet 3 MG PO (20:25)
[2022-08-23] MEDS: trazodone 100 mg Tablet PO (20:25)
[2022-08-23 22:00] VITALS: BP 127/76; PULSE 77; RESP 18; TEMP 36.4; O2SAT 99
[2022-08-24 06:00] VITALS: BP 92/54; PULSE 66; RESP 16; TEMP 36.5; O2SAT 96
[2022-08-24] MEDS: duloxetine 60 mg Capsule PO (08:09)
[2022-08-24] MEDS: nicotine 2 mg Gum BUCCAL ×3 (08:17→13:58)
[2022-08-24 14:00] VITALS: BP 126/71; PULSE 90; RESP 18; TEMP 36.7; O2SAT 98
[2022-08-24] MEDS: LORazepam 2 mg/mL INJ 1 mL IM (16:00)
[2022-08-24] MEDS: diphenhydrAMINE 50 mg/mL SDV 1mL IM (16:00)
[2022-08-24] MEDS: haloperidol inj 5 mg/mL INJ 1 mL IM (16:00)
--- NOTE | 2022-08-24 16:59 | PC.NURSE ---
PRN meds Administered 2mg IM Ativan, 50mg IM Benadryl, 5mg IM Haldol, for pt having anxiety and behaviors, ordered for the pt to have the shots to help calm him down. Pt tolerated the injections well. Pt was willing and asked for the injections.
--- NOTE | 2022-08-24 17:03 | W.PM.NPUPNS ---
Subjective NPU Subjective: Patient is a 27-year-old white male admitted with suicidal ideation with a history of multiple inpatient hospitalizations with a history of poor impulse control, depressed mood, and ADHD. Patient reported improved being more irritable today. He reported no side effects from his medication. He reports that he would consider inpatient drug treatment and if it was not possible then he would consider outpatient substance abuse treatment. He had continued to show evidence of poor impulse control and stated that he needed to leave here because he was getting tired of following rules. He had reported inadequate sleep with a few awakenings last night. He had reported difficulties with concentration but reported feeling Mental Status Exam MSE Comments: This is a well-nourished, well-developed, white male, with scrubs on, adequate hygiene with limited eye contact with slightly dysmorphic facies. No abnormal movements. She was cooperative with exam in mild distress. Speech was normal rate and volume and dysarthric. Mood described as pissed ; affect was mood congruent and irritable. Thought process: linear and organized. Thought content: patient denied any suicidal or homicidal ideation, There were no delusions reported or noted, patient denied any auditory or visual hallucinations. Attention was poor. Patient's concentration, and memory appear intact but were not formally tested. He is alert and oriented times three. Insight and judgment are impaired. Impulse control to remain feeble. His intellectual ability appeared to be low average. Vitals/I&O/Wt Last Vital Signs Temp 98.1 F 08/24/22 14:00 Pulse 90 08/24/22 14:00 Resp 18 08/24/22 14:00 BP 126/71 08/24/22 14:00 Pulse Ox 98 08/24/22 14:00 O2 Del Method 08/24/22 06:00 Data NPU : 08/16/22 19:01 08/16/22 19:01 A&P Assessment and plan (1) ADHD: (2) Depression with suicidal ideation: (3) Borderline personality disorder: (4) Nicotine dependence, cigarettes, uncomplicated: (5) Methamphetamine use disorder, severe: (6) Drug-induced psychotic disorder: Qualifiers: Complication of substance-induced condition: with delusions Qualified Code(s): F19.950 - Other psychoactive substance use, unspecified with psychoactive substance-induced psychotic disorder with delusions Plan This is a 27 year old white male with a history of bipolar disorder along with poor impulse control and methamphetamine and cannabis use disorders who was admitted endorsing suicidal ideation with a positive UDS. 1. Continue current medication. Continue Cymbalta 60 mg p.o. every morning, continue trazodone 100 mg p.o. nightly and Risperdal 3 mg p.o. nightly. 2. Continue every 15 minute checks for safety. 3. Encourage individual, group and milieu therapies. 4. Encourage sober living treatment after discharge at the highest level of care to which he is willing to commit.-Referral for inpatient drug rehabilitation Involuntary Hold Information 96 Hour Hold: 96 Hour Involuntary Admission: No Attestations NPU Medical Necessity Statement*: Inpatient hospitalization is medically necessary and the clinically appropriate intervention at this time. We will monitor medications and make changes as indicated. Likely length of stay 1-2 days. Coding Level of Care Code Established Pt Acute Strip Machine Tender for [facility] Patient Type Established History Problem Focused Exam Problem Focused Medical Decision Making Straight Forward Diagnoses ADHD F90.9 Depression with suicidal ideation F32.A; R45.851 Borderline personality disorder F60.3 Nicotine dependence, cigarettes, uncomplicated F17.210 Methamphetamine use disorder, severe F15.20 Drug-induced psychotic disorder F19.950 Complication of substance-induced condition: with delusions
[2022-08-24 20:32] VITALS: BP 121/70; PULSE 76; RESP 16; TEMP 36.6; O2SAT 98
[2022-08-24] MEDS: risperiDONE 2 mg Tablet 3 MG PO (20:52)
[2022-08-24] MEDS: trazodone 100 mg Tablet PO (20:53)
[2022-08-25 06:00] VITALS: BP 127/77; PULSE 61; RESP 17; TEMP 36.4; O2SAT 99
--- NOTE | 2022-08-25 08:26 | PC.NURSE ---
SHIFT ASSESSMENT UPON ROUNDING PT WAS ASLEEP IN BED IN ROOM, WHEN BREAKFAST ARRIVED TO UNIT PT WAS WOKEN UP BY STAFF. ASSESSMENT PERFORMED AT THIS TIME, PT MAKES NO EYE CONTACT, APPEARS WITHDRAWN, BUT DENIES SI/HI/HALLUCINATIONS CURRENTLY
[2022-08-25] MEDS: duloxetine 60 mg Capsule PO (09:00)
[2022-08-25] MEDS: nicotine 2 mg Gum BUCCAL ×3 (09:00→14:24)
--- NOTE | 2022-08-25 09:55 | DCPLANNER ---
IMM WAS PRINTED AND GIVEN TO PT AND RIGHTS EXPLAINED. COPY PLACED IN CHART.
[2022-08-25 14:00] VITALS: BP 128/62; PULSE 78; RESP 18; TEMP 36.6; O2SAT 99
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
[2022-08-25 15:30] VITALS: BP 128/62; PULSE 78; RESP 18; TEMP 36.6; O2SAT 99
--- NOTE | 2022-08-25 15:51 | PC.NURSE ---
4 STITCHES REMOVED FROM LEFT SIDE OF NECK. STERI STRIPS APPLIED. PT TOLERATED WELL. PT DISCHARGED FROM UNIT, AMBULATED OFF UNIT WITH ALL PERSONAL BELONGINGS, PT VERBALIZED TO STAFF THAT HE WOULD GO TO [facility] TO GET DISCHARGE MEDICATIONS. STAFF WISHED WELL
== END 2022-08-25 15:52 | disposition home or self-care (01) | DRG 885 ==
LOC: ER 08-17 08:13 → NP 08-17 15:44
PROVIDERS: Emergency Medicine; Admitting Provider Psychiatry & Neurology Psychiatry; Emergency Provider Family Medicine; PCP Family Medicine; Visit Provider Psychiatry & Neurology Psychiatry
DX: F31.9 Bipolar disorder, unspecified (principal); R45.851 Suicidal ideations; F19.250 Other psychoactive substance dependence with psychoactive substance-induced psychotic disorder with delusions; F90.9 Attention-deficit hyperactivity disorder, unspecified type; F60.3 Borderline personality disorder; S11.81XA Laceration without foreign body of other specified part of neck, initial encounter; X78.9XXA Intentional self-harm by unspecified sharp object, initial encounter; F17.210 Nicotine dependence, cigarettes, uncomplicated; F12.99 Cannabis use, unspecified with unspecified cannabis-induced disorder
CPT/HCPCS: 36415; 80053; 80306; 80307; 85025; 87426; 96372; 97150; 97165; 99285; J1200; J1630; J2060; Q0162

== ENCOUNTER 2023-01-05 00:24 | Inpatient (IN) | payer MEDICARE, MEDICAID, SELFPAY ==
[2023-01-05 00:25] VITALS: BP 130/84; PULSE 99; RESP 18; TEMP 36.7; O2SAT 98; BMI 24.3
--- NOTE | 2023-01-05 00:37 | ED.C_ITS ---
Documented by User: ABE Marks 01/05/23 17:14 HPI - Psych General: Chief Complaint: ER Hold Stated Complaint: SI Time Seen by Provider: 01/05/23 00:34 History of Present Illness: 27-year-old male patient comes in today with complaints of anxiety and suicidal thoughts. Patient had been treated for his bipolar disorder and suicidal intent in the end of July 2022. After discharge patient was then arrested and placed in longterm for the last 90 days. Patient was recently released yesterday but did not have any medication to control his mood or impulse control. Patient reports that he comes in tonight due to his stressors of being released from longterm, his anxiety of having to be on probation, and increasing suicidal thoughts. Patient denies a set plan but has attempted cutting his neck in the past. Associated symptoms: Reports suicidal ideation Review of Systems Psych: Reports: anxiety, panic attacks and suicidal ideation [facility] ED PFSH: Medical History ADHD Depression Excessive anger No pertinent family history Psychiatric care Social History Smoking and tobacco status: current every day smoker cigarettes Packs smoked per day: 0.5 Years cigarettes smoked: 14 and smokeless tobacco Smokeless tobacco user: snuff Smokeless tobacco details: 1 can/2.5 days Quit status (tobacco): has tried quititng Number of times tried to quit tobacco: 6 Second hand smoke exposure: Yes Smoking risk assessment/counseling performed?: No Alcohol intake: current Alcohol type: beer and hard liquor Desire information about alcohol rehabilitation?: No Counseling given: No Desire information about substance/drug rehabilitation?: No Counseling given: No Physical Exam Const: COMMON NORMALS: alert HENMT: COMMON NORMALS: normocephalic HEAD & SCALP: normocephalic NOSE: Normal nares present MOUTH: other (Poor dentition) Neck/C-Spine: COMMON NORMALS: full ROM Resp: COMMON NORMALS: normal respiratory effort and clear to auscultation bilaterally AUSCULTATION: clear to auscultation bilaterally Cardio: COMMON NORMALS: regular rate and regular rhythm RATE: regular rate RHYTHM: regular rhythm Back/Pelvis: COMMON NORMALS: thoracic and lumbar spine normal to inspection Extremity: COMMON NORMALS: full ROM Neuro: SENSORIUM/ORIENTATION: Yes alert Psych: COMMON NORMALS: speech normal APPEARANCE: Yes unkempt ATTITUDE: Yes engaged ACTIVITY/MOTOR BEHAVIOR: Yes appropriate eye contact and Yes fidgeting SPEECH: Yes normal speech THOUGHT PROCESS: Circumstantial thought process present THOUGHT CONTENT: Yes Suicidality present MEMORY/COGNITION: Yes memory grossly intact INSIGHT: Fair insight present (Psych) JUDGEMENT: Fair judgement present (Psych) Skin: COMMON NORMALS: turgor normal GENERAL SKIN EXAM: turgor normal Course Vital Signs: Vital signs: Vital Signs Temperature 98.2 F 01/05/23 14:00 Pulse Rate 88 01/05/23 14:00 Respiratory Rate 16 01/05/23 14:00 Blood Pressure 133/73 01/05/23 14:00 Pulse Oximetry 98 01/05/23 14:00 Oxygen Delivery Me thod 01/05/23 14:00 Oxygen Flow Rate 2 01/05/23 10:05 [facility] - Psych Medical Decision Making 27-year-old male patient comes in today for concerns of suicidal ideation and increasing anxiety and panic attacks. Patient was recently released from longterm and is seeking assistance to get restarted on his medication for his bipolar disorder. Patient has attempted to hurt himself by cutting his throat in the end of July and was admitted last at that time. Patient then was placed in longterm on a domestic assault charge for 90 days and was just released today. Patient reports no medication at home to start to help control his mood swings it is anxiety. Patient appears nontoxic. Patient is restless and has poor eye contact. Patient is wanting admission into the stress unit due to his suicidal thoughts and his anxiety. Differential diagnosis includes bipolar disorder, suicidal ideation, anxiety disorder, borderline intellectual functioning. Lab Data 01/05/23 01:04 01/05/23 01:04 Laboratory Results WBC 14.5 10^3/uL (4.0-10.0) H 01/05/23 01:04 RBC 4.10 10^6/uL (4.1-5.3) 01/05/23 01:04 Hgb 12.4 g/dL (11.7-16.6) 01/05/23 01:04 Hct 38.3 % (42.0-52.0) L 01/05/23 01:04 MCV 93.4 fl (80-94) 01/05/23 01:04 MCH 30.2 pg (28.0-34.0) 01/05/23 01:04 MCHC 32.4 g/dL (30.0-36.0) 01/05/23 01:04 RDW 12.2 % (12.1-15.1) 01/05/23 01:04 Plt Count 304 10^3/cmm (130-400) 01/05/23 01:04 MPV 8.6 fL (7.4-10.4) 01/05/23 01:04 Neut % (Auto) 75.6 % 01/05/23 01:04 Lymph % (Auto) 16.4 % 01/05/23 01:04 [place] % (Auto) 6.8 % 01/05/23 01:04 Eos % (Auto) 0.3 % 01/05/23 01:04 Baso % (Auto) 0.5 % 01/05/23 01:04 Neut # (Auto) 10.99 10^3/uL (1.8-7.7) H 01/05/23 01:04 Lymph # (Auto) 2.4 10^3/uL (0.8-4.8) 01/05/23 01:04 [place] # (Auto) 1.0 10^3/uL (0.2-0.9) H 01/05/23 01:04 Eos # (Auto) 0.0 10^3/uL (0.0-0.8) 01/05/23 01:04 Baso # (Auto) 0.1 10^3/uL (0.0-0.1) 01/05/23 01:04 Nucleated RBC % (auto) 0 % 01/05/23 01:04 Nucleated RBCs # 0.0 /100WBC 01/05/23 01:04 Sodium 139 mmol/L (136-145) 01/05/23 01:04 Potassium 3.8 mmol/L (3.5-5.1) 01/05/23 01:04 Chloride 101 mmol/L (98-107) 01/05/23 01:04 Carbon Dioxide 28 mmol/L (22-29) 01/05/23 01:04 Anion Gap 13.8 (5-19) 01/05/23 01:04 BUN 17 mg/dL (6-20) 01/05/23 01:04 Creatinine 0.8 mg/dL (0.7-1.2) 01/05/23 01:04 GFR Calculation 115.1 mL/min (90-130) 01/05/23 01:04 Glucose 95 mg/dL (65-115) 01/05/23 01:04 Calculated Osmolality 289 mOsm/kg (285-295) 01/05/23 01:04 Calcium 9.5 mg/dL (8.5-10.5) 01/05/23 01:04 Total Bilirubin 0.2 mg/dL (0.15-1.2) 01/05/23 01:04 AST 20 U/L (0-40) 01/05/23 01:04 ALT 23 U/L (0-41) 01/05/23 01:04 Alkaline Phosphatase 85 U/L (40-130) 01/05/23 01:04 Total Protein 7.2 g/dL (6.6-8.7) 01/05/23 01:04 Albumin 4.8 g/dL (3.5-5.2) 01/05/23 01:04 Globulin 2.4 g/dL (1.3-4.6) 01/05/23 01:04 TSH 2.97 uIU/mL (0.27-4.20) 01/05/23 01:04 Urine Color Colorless (Yellow) 01/05/23 00:57 Urine Appearance Clear (CLEAR) 01/05/23 00:57 Urine pH 8 (5-7) H 01/05/23 00:57 Ur Specific [place] 1.015 (1.005-1.030) 01/05/23 00:57 Urine Protein Neg (Negative) 01/05/23 00:57 Urine Glucose (UA) Norm (Normal) 01/05/23 00:57 Urine Ketones Negative (Negative) 01/05/23 00:57 Urine Blood Neg (Negative) 01/05/23 00:57 Urine Nitrate Negative (Negative) 01/05/23 00:57 Urine Bilirubin Neg (Negative) 01/05/23 00:57 Prot Sulfosalicylic Acd Negative (Negative) 01/05/23 00:57 Urine Urobilinogen Norm mg/dL (Negative) 01/05/23 00:57 Ur Leukocyte Esterase Negative (Negative) 01/05/23 00:57 Salicylates < 0.3 mg/dL (3-10) L 01/05/23 01:04 Urine Opiates Screen Negative ng/mL (Negative) 01/05/23 00:57 Acetaminophen < 5.0 ug/mL (10-30) L 01/05/23 01:04 Ur Barbiturates Screen Negative ng/mL (Negative) 01/05/23 00:57 Ur Phencyclidine Scrn Negative ng/mL (Negative) 01/05/23 00:57 Ur Amphetamines Screen Negative ng/mL (Negative) 01/05/23 00:57 U Benzodiazepines Scrn Negative ng/mL (Negative) 01/05/23 00:57 Urine Cocaine Screen Negative ng/mL (Negative) 01/05/23 00:57 U Marijuana (THC) Screen Negative ng/mL (Negative) 01/05/23 00:57 Ethyl Alcohol < 10 mg/dL (0-10) 01/05/23 01:04 SARS-CoV-2 Ag (Rapid) negative (Negative) 01/05/23 01:30 EKG Data EKG 1: EKG interpretation date: 01/05/23 EKG interpretation time: 01:09 Prior EKG tracings: not available for review Interpretation: EKG shows a sinus arrhythmia with a irregular rate in the 80s. No ST elevation or ectopy is noted. No prior exam was available for comparison. Discharge Plan Discharge Patient Disposition: Admitted As Inpatient Admit Provider: Octavio Bruno Clinical Impression: Suicidal ideation Condition: Stable Coding Level of Care Code ED [employer] for Chg Fwd Documented by User: Ward Juan DO 01/05/23 11:48 HPI - Psych General: Chief Complaint: ER Hold Stated Complaint: SI Time Seen by Provider: 01/05/23 00:34 PFSH ED PFSH: Medical History ADHD Depression Excessive anger No pertinent family history Psychiatric care Social History Smoking and tobacco status: current every day smoker cigarettes Packs smoked per day: 0.5 Years cigarettes smoked: 14 and smokeless tobacco Smokeless tobacco user: snuff Smokeless tobacco details: 1 can/2.5 days Quit status (tobacco): has tried quititng Number of times tried to quit tobacco: 6 Second hand smoke exposure: Yes Smoking risk assessment/counseling performed?: No Alcohol intake: current Alcohol type: beer and hard liquor Desire information about alcohol rehabilitation?: No Counseling given: No Desire information about substance/drug rehabilitation?: No Counseling given: No Course Vital Signs: Vital signs: Vital Signs Temperature 98.2 F 01/05/23 14:00 Pulse Rate 88 01/05/23 14:00 Respiratory Rate 16 01/05/23 14:00 Blood Pressure 133/73 01/05/23 14:00 Pulse Oximetry 98 01/05/23 14:00 Oxygen Delivery Me thod 01/05/23 14:00 Oxygen Flow Rate 2 01/05/23 10:05 [facility] - Psych Medical Decision Making 27-year-old male patient comes in today for concerns of suicidal ideation and increasing anxiety and panic attacks. Patient was recently released from longterm and is seeking assistance to get restarted on his medication for his bipolar disorder. Patient has attempted to hurt himself by cutting his throat in the end of July and was admitted last at that time. Patient then was placed in longterm on a domestic assault charge for 90 days and was just released today. Patient reports no medication at home to start to help control his mood swings it is anxiety. Patient appears nontoxic. Patient is restless and has poor eye contact. Patient is wanting admission into the stress unit due to his suicidal thoughts and his anxiety. Differential diagnosis includes bipolar disorder, suicidal ideation, anxiety disorder, borderline intellectual functioning. Patient care handoff received from [] continuation of ED evaluation. I personally saw and evaluated patient and reperformed larson portions of E/M. Patient was requesting to go home reviewed the chart, seen and evaluated patient. He is still quite anxious fidgety unable to make eye contact. Admits to suicidal ideation but has no specific plan. He has poor social support. We will place him on a 96-hour hold we will have a bed available at our facility admission orders Medical Records I reviewed the patient's medical records. Lab Data I reviewed the patient's lab results. 01/05/23 01:04 01/05/23 01:04 Laboratory Results WBC 14.5 10^3/uL (4.0-10.0) H 01/05/23 01:04 RBC 4.10 10^6/uL (4.1-5.3) 01/05/23 01:04 Hgb 12.4 g/dL (11.7-16.6) 01/05/23 01:04 Hct 38.3 % (42.0-52.0) L 01/05/23 01:04 MCV 93.4 fl (80-94) 01/05/23 01:04 MCH 30.2 pg (28.0-34.0) 01/05/23 01:04 MCHC 32.4 g/dL (30.0-36.0) 01/05/23 01:04 RDW 12.2 % (12.1-15.1) 01/05/23 01:04 Plt Count 304 10^3/cmm (130-400) 01/05/23 01:04 MPV 8.6 fL (7.4-10.4) 01/05/23 01:04 Neut % (Auto) 75.6 % 01/05/23 01:04 Lymph % (Auto) 16.4 % 01/05/23 01:04 [place] % (Auto) 6.8 % 01/05/23 01:04 Eos % (Auto) 0.3 % 01/05/23 01:04 Baso % (Auto) 0.5 % 01/05/23 01:04 Neut # (Auto) 10.99 10^3/uL (1.8-7.7) H 01/05/23 01:04 Lymph # (Auto) 2.4 10^3/uL (0.8-4.8) 01/05/23 01:04 [place] # (Auto) 1.0 10^3/uL (0.2-0.9) H 01/05/23 01:04 Eos # (Auto) 0.0 10^3/uL (0.0-0.8) 01/05/23 01:04 Baso # (Auto) 0.1 10^3/uL (0.0-0.1) 01/05/23 01:04 Nucleated RBC % (auto) 0 % 01/05/23 01:04 Nucleated RBCs # 0.0 /100WBC 01/05/23 01:04 Sodium 139 mmol/L (136-145) 01/05/23 01:04 Potassium 3.8 mmol/L (3.5-5.1) 01/05/23 01:04 Chloride 101 mmol/L (98-107) 01/05/23 01:04 Carbon Dioxide 28 mmol/L (22-29) 01/05/23 01:04 Anion Gap 13.8 (5-19) 01/05/23 01:04 BUN 17 mg/dL (6-20) 01/05/23 01:04 Creatinine 0.8 mg/dL (0.7-1.2) 01/05/23 01:04 GFR Calculation 115.1 mL/min (90-130) 01/05/23 01:04 Glucose 95 mg/dL (65-115) 01/05/23 01:04 Calculated Osmolality 289 mOsm/kg (285-295) 01/05/23 01:04 Calcium 9.5 mg/dL (8.5-10.5) 01/05/23 01:04 Total Bilirubin 0.2 mg/dL (0.15-1.2) 01/05/23 01:04 AST 20 U/L (0-40) 01/05/23 01:04 ALT 23 U/L (0-41) 01/05/23 01:04 Alkaline Phosphatase 85 U/L (40-130) 01/05/23 01:04 Total Protein 7.2 g/dL (6.6-8.7) 01/05/23 01:04 Albumin 4.8 g/dL (3.5-5.2) 01/05/23 01:04 Globulin 2.4 g/dL (1.3-4.6) 01/05/23 01:04 TSH 2.97 uIU/mL (0.27-4.20) 01/05/23 01:04 Urine Color Colorless (Yellow) 01/05/23 00:57 Urine Appearance Clear (CLEAR) 01/05/23 00:57 Urine pH 8 (5-7) H 01/05/23 00:57 Ur Specific [place] 1.015 (1.005-1.030) 01/05/23 00:57 Urine Protein Neg (Negative) 01/05/23 00:57 Urine Glucose (UA) Norm (Normal) 01/05/23 00:57 Urine Ketones Negative (Negative) 01/05/23 00:57 Urine Blood Neg (Negative) 01/05/23 00:57 Urine Nitrate Negative (Negative) 01/05/23 00:57 Urine Bilirubin Neg (Negative) 01/05/23 00:57 Prot Sulfosalicylic Acd Negative (Negative) 01/05/23 00:57 Urine Urobilinogen Norm mg/dL (Negative) 01/05/23 00:57 Ur Leukocyte Esterase Negative (Negative) 01/05/23 00:57 Salicylates < 0.3 mg/dL (3-10) L 01/05/23 01:04 Urine Opiates Screen Negative ng/mL (Negative) 01/05/23 00:57 Acetaminophen < 5.0 ug/mL (10-30) L 01/05/23 01:04 Ur Barbiturates Screen Negative ng/mL (Negative) 01/05/23 00:57 Ur Phencyclidine Scrn Negative ng/mL (Negative) 01/05/23 00:57 Ur Amphetamines Screen Negative ng/mL (Negative) 01/05/23 00:57 U Benzodiazepines Scrn Negative ng/mL (Negative) 01/05/23 00:57 Urine Cocaine Screen Negative ng/mL (Negative) 01/05/23 00:57 U Marijuana (THC) Screen Negative ng/mL (Negative) 01/05/23 00:57 Ethyl Alcohol < 10 mg/dL (0-10) 01/05/23 01:04 SARS-CoV-2 Ag (Rapid) negative (Negative) 01/05/23 01:30 Discharge Plan Discharge Patient Disposition: Admitted As Inpatient Admit Provider: Octavio Bruno Clinical Impression: Suicidal ideation Condition: Stable Coding Level of Care Code ED [employer] for Chg Fwd Documented by User: Aniya Bang MD 01/05/23 18:54 HPI - Psych General: Chief Complaint: ER Hold Stated Complaint: SI Time Seen by Provider: 01/05/23 00:34 [facility] ED PFS: Medical History ADHD Depression Excessive anger No pertinent family history Psychiatric care Social History Smoking and tobacco status: current every day smoker cigarettes Packs smoked per day: 0.5 Years cigarettes smoked: 14 and smokeless tobacco Smokeless tobacco user: snuff Smokeless tobacco details: 1 can/2.5 days Quit status (tobacco): has tried quititng Number of times tried to quit tobacco: 6 Second hand smoke exposure: Yes Smoking risk assessment/counseling performed?: No Alcohol intake: current Alcohol type: beer and hard liquor Desire information about alcohol rehabilitation?: No Counseling given: No Desire information about substance/drug rehabilitation?: No Counseling given: No Course Vital Signs: Vital signs: Vital Signs Temperature 98.2 F 01/05/23 14:00 Pulse Rate 88 01/05/23 14:00 Respiratory Rate 16 01/05/23 14:00 Blood Pressure 133/73 01/05/23 14:00 Pulse Oximetry 98 01/05/23 14:00 Oxygen Delivery Me thod 01/05/23 14:00 Oxygen Flow Rate 2 01/05/23 10:05 MDM - Psych Medical Decision Making 27-year-old male patient comes in today for concerns of suicidal ideation and increasing anxiety and panic attacks. Patient was recently released from longterm and is seeking assistance to get restarted on his medication for his bipolar disorder. Patient has attempted to hurt himself by cutting his throat in the end of July and was admitted last at that time. Patient then was placed in longterm on a domestic assault charge for 90 days and was just released today. Pat sheryl reports no medication at home to start to help control his mood swings it is anxiety. Patient appears nontoxic. Patient is restless and has poor eye contact. Patient is wanting admission into the stress unit due to his suicidal thoughts and his anxiety. Differential diagnosis includes bipolar disorder, suicidal ideation, anxiety disorder, borderline intellectual functioning. Patient care handoff received from [] continuation of ED evaluation. I personally saw and evaluated patient and reperformed larson portions of E/M. Patient was requesting to go home reviewed the chart, seen and evaluated patient. He is still quite anxious fidgety unable to make eye contact. Admits to suicidal ideation but has no specific plan. He has poor social support. We will place him on a 96-hour hold we will have a bed available at our facility admission orders I spoke to Dr. Bruno he is going to have discharged today I will admit him to the MPU here as we were not able to find any beds to transfer. Lab Data 01/05/23 01:04 01/05/23 01:04 Laboratory Results WBC 14.5 10^3/uL (4.0-10.0) H 01/05/23 01:04 RBC 4.10 10^6/uL (4.1-5.3) 01/05/23 01:04 Hgb 12.4 g/dL (11.7-16.6) 01/05/23 01:04 Hct 38.3 % (42.0-52.0) L 01/05/23 01:04 MCV 93.4 fl (80-94) 01/05/23 01:04 MCH 30.2 pg (28.0-34.0) 01/05/23 01:04 MCHC 32.4 g/dL (30.0-36.0) 01/05/23 01:04 RDW 12.2 % (12.1-15.1) 01/05/23 01:04 Plt Count 304 10^3/cmm (130-400) 01/05/23 01:04 MPV 8.6 fL (7.4-10.4) 01/05/23 01:04 Neut % (Auto) 75.6 % 01/05/23 01:04 Lymph % (Auto) 16.4 % 01/05/23 01:04 [place] % (Auto) 6.8 % 01/05/23 01:04 Eos % (Auto) 0.3 % 01/05/23 01:04 Baso % (Auto) 0.5 % 01/05/23 01:04 Neut # (Auto) 10.99 10^3/uL (1.8-7.7) H 01/05/23 01:04 Lymph # (Auto) 2.4 10^3/uL (0.8-4.8) 01/05/23 01:04 [place] # (Auto) 1.0 10^3/uL (0.2-0.9) H 01/05/23 01:04 Eos # (Auto) 0.0 10^3/uL (0.0-0.8) 01/05/23 01:04 Baso # (Auto) 0.1 10^3/uL (0.0-0.1) 01/05/23 01:04 Nucleated RBC % (auto) 0 % 01/05/23 01:04 Nucleated RBCs # 0.0 /100WBC 01/05/23 01:04 Sodium 139 mmol/L (136-145) 01/05/23 01:04 Potassium 3.8 mmol/L (3.5-5.1) 01/05/23 01:04 Chloride 101 mmol/L (98-107) 01/05/23 01:04 Carbon Dioxide 28 mmol/L (22-29) 01/05/23 01:04 Anion Gap 13.8 (5-19) 01/05/23 01:04 BUN 17 mg/dL (6-20) 01/05/23 01:04 Creatinine 0.8 mg/dL (0.7-1.2) 01/05/23 01:04 GFR Calculation 115.1 mL/min (90-130) 01/05/23 01:04 Glucose 95 mg/dL (65-115) 01/05/23 01:04 Calculated Osmolality 289 mOsm/kg (285-295) 01/05/23 01:04 Calcium 9.5 mg/dL (8.5-10.5) 01/05/23 01:04 Total Bilirubin 0.2 mg/dL (0.15-1.2) 01/05/23 01:04 AST 20 U/L (0-40) 01/05/23 01:04 ALT 23 U/L (0-41) 01/05/23 01:04 Alkaline Phosphatase 85 U/L (40-130) 01/05/23 01:04 Total Protein 7.2 g/dL (6.6-8.7) 01/05/23 01:04 Albumin 4.8 g/dL (3.5-5.2) 01/05/23 01:04 Globulin 2.4 g/dL (1.3-4.6) 01/05/23 01:04 TSH 2.97 uIU/mL (0.27-4.20) 01/05/23 01:04 Urine Color Colorless (Yellow) 01/05/23 00:57 Urine Appearance Clear (CLEAR) 01/05/23 00:57 Urine pH 8 (5-7) H 01/05/23 00:57 Ur Specific [place] 1.015 (1.005-1.030) 01/05/23 00:57 Urine Protein Neg (Negative) 01/05/23 00:57 Urine Glucose (UA) Norm (Normal) 01/05/23 00:57 Urine Ketones Negative (Negative) 01/05/23 00:57 Urine Blood Neg (Negative) 01/05/23 00:57 Urine Nitrate Negative (Negative) 01/05/23 00:57 Urine Bilirubin Neg (Negative) 01/05/23 00:57 Prot Sulfosalicylic Acd Negative (Negative) 01/05/23 00:57 Urine Urobilinogen Norm mg/dL (Negative) 01/05/23 00:57 Ur Leukocyte Esterase Negative (Negative) 01/05/23 00:57 Salicylates < 0.3 mg/dL (3-10) L 01/05/23 01:04 Urine Opiates Screen Negative ng/mL (Negative) 01/05/23 00:57 Acetaminophen < 5.0 ug/mL (10-30) L 01/05/23 01:04 Ur Barbiturates Screen Negative ng/mL (Negative) 01/05/23 00:57 Ur Phencyclidine Scrn Negative ng/mL (Negative) 01/05/23 00:57 Ur Amphetamines Screen Negative ng/mL (Negative) 01/05/23 00:57 U Benzodiazepines Scrn Negative ng/mL (Negative) 01/05/23 00:57 Urine Cocaine Screen Negative ng/mL (Negative) 01/05/23 00:57 U Marijuana (THC) Screen Negative ng/mL (Negative) 01/05/23 00:57 Ethyl Alcohol < 10 mg/dL (0-10) 01/05/23 01:04 SARS-CoV-2 Ag (Rapid) negative (Negative) 01/05/23 01:30 Discharge Plan Discharge Patient Disposition: Admitted As Inpatient Admit Provider: Octavio Bruno Clinical Impression: Suicidal ideation Condition: Stable Coding Level of Care Code ED [employer] for Panchito Manzano
[2023-01-05 01:05] LABS: Add Urine Microscopic? NO; Charge for UA Resulting for Rev
--- NOTE | 2023-01-05 01:06 | ECG_ITS ---
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 Measurements Intervals [place] Rate: 80 P: 67 NC: 139 QRS: 91 QRSD: 97 T: 40 QT: 335 QTc: 388 Interpretive Statements SINUS RHYTHM WITH SINUS ARRHYTHMIA BORDERLINE RIGHT AXIS DEVIATION [QRS AXIS > 90] Compared to ECG 11/23/2021 03:12:34 Short NC interval no longer present Electronically Signed On 01-06-2023 8:10:46 WHIP SAWYER by Kaylah Alberto M.D. [id number]
[2023-01-05 01:08] LABS: Bilirubin Urine Neg (Negative); Blood Urine Neg (Negative); Glucose Urine UA Norm (Normal); Ketones Urine Negative (Negative); Leukocyte Esterase Urine Negative (Negative); Nitrate Urine Negative (Negative); Protein Urine Neg (Negative); Specific Gravity, Urine 1.015 (1.005-1.030); Sulfosalicylic Acid Urine Negative (Negative); Urine Appearance Clear (CLEAR); Urine Color Colorless (Yellow); Urobilinogen Urine Norm (Negative); pH Urine 8 (5-7)
[2023-01-05 01:09] LABS: Basophils # 0.1 10^3/uL (0.0-0.1); Basophils % 0.5 %; Eosinophils % 0.3 %; Hematocrit 38.3 % (42.0-52.0); Hemoglobin 12.4 g/dL (11.7-16.6); Lymphocytes # 2.4 10^3/uL (0.8-4.8); Lymphocytes % 16.4 %; Mean Corpuscular HGB Conc 32.4 g/dL (30.0-36.0); Mean Corpuscular Hemoglobin 30.2 pg (28.0-34.0); Mean Corpuscular Volume 93.4 fl (80-94); Mean Platelet Volume 8.6 fL (7.4-10.4); Monocytes % 6.8 %; Neutrophils # 10.99 10^3/uL (1.8-7.7); Neutrophils % 75.6 %; Nucleated Red Blood Cells % 0 %; Platelet Count 304 10^3/cmm (130-400); Red Cell Distribution Width 12.2 % (12.1-15.1); White Blood Count 14.5 10^3/uL (4.0-10.0)
[2023-01-05] MEDS: LORazepam 0.5 mg Tablet PO (01:18)
[2023-01-05] MEDS: risperiDONE 1 mg Tablet 3 MG PO (01:18)
[2023-01-05 01:33] LABS: Amphetamines Screen Urine Negative (Negative); Barbiturates Screen Urine Negative (Negative); Benzodiazepines Screen Urine Negative (Negative); Cocaine Screen Urine Negative (Negative); Opiate Screen Urine Negative (Negative); PCP Screen Urine Negative (Negative); THC Screen Urine Negative (Negative)
[2023-01-05 01:36] LABS: Alanine Aminotransferase 23 U/L (0-41); Albumin Level 4.8 g/dL (3.5-5.2); Alkaline Phosphatase 85 U/L (40-130); Anion Gap 13.8 (5-19); Aspartate Amino Transferase 20 U/L (0-40); Blood Urea Nitrogen 17 mg/dL (6-20); Calcium 9.5 mg/dL (8.5-10.5); Carbon Dioxide 28 mmol/L (22-29); Chloride 101 mmol/L (98-107); Globulin 2.4 g/dL (1.3-4.6); Glomerular Filtration Rate 115.1 mL/min (90-130); Glucose 95 mg/dL (65-115); Osmolality Calculated 289 mOsm/kg (285-295); Potassium 3.8 mmol/L (3.5-5.1); Sodium 139 mmol/L (136-145); Thyroid Stimulating Hormone 2.97 uIU/mL (0.27-4.20); Total Bilirubin 0.2 mg/dL (0.15-1.2); Total Protein 7.2 g/dL (6.6-8.7)
[2023-01-05 01:50] LABS: SARS Covid-2 Antigen negative (Negative)
[2023-01-05 02:19] LABS: Acetaminophen < 5.0 ug/mL (10-30); Alcohol Level < 10 mg/dL (0-10); Salicylate < 0.3 mg/dL (3-10)
[2023-01-05] MEDS: nicotine 21 mg Patch 1 PATCH TRANSDERMA (03:23)
--- NOTE | 2023-01-05 07:35 | PC.PHAR ---
pt states he has had no medications since [facility]-pt states he takes no otc medications-ext med history shows last filled cymbalta 60mg daily filled 08/25/22 30d/s,risperidone 3mg hs filled 08/25/22 30d/s and trazodone 100mg hs filled 08/25/22 30d/s
[2023-01-05 10:05] VITALS: BP 141/74; PULSE 70; RESP 16; TEMP 36.8; O2SAT 92
--- NOTE | 2023-01-05 12:09 | PC.NURSE ---
@1640 96 hour rights reviewed with patient. Copy placed at bedside with patient. Patient verbalizes understanding, and has no questions at this time.
[2023-01-05 13:55] VITALS: BP 133/73; PULSE 88; RESP 16; TEMP 36.8; O2SAT 98
[2023-01-05 14:00] VITALS: BP 133/73; PULSE 88; RESP 16; TEMP 36.8; O2SAT 98
[2023-01-05] MEDS: nicotine 2 mg Gum BUCCAL ×3 (14:31→20:12)
[2023-01-05] MEDS: trazodone 50 mg Tablet PO (20:37)
[2023-01-05 21:28] VITALS: BP 113/80; PULSE 100; RESP 16; TEMP 36.8; O2SAT 96
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
[2023-01-06] MEDS: nicotine 2 mg Gum BUCCAL ×4 (11:12→20:56)
[2023-01-06 14:00] VITALS: BP 112/73; PULSE 93; RESP 18; TEMP 36.6; O2SAT 97
[2023-01-06 20:24] VITALS: BP 125/75; PULSE 77; RESP 16; TEMP 36.5; O2SAT 100
[2023-01-07 06:00] VITALS: RESP 15
[2023-01-07] MEDS: nicotine 2 mg Gum BUCCAL ×5 (08:20→20:04)
[2023-01-07 14:00] VITALS: BP 129/62; PULSE 85; RESP 17; TEMP 36.4; O2SAT 97
--- NOTE | 2023-01-07 19:35 | W.PM.NPUPNS ---
Subjective NPU Subjective: Patient presented today reporting that he is doing fine. He reports that he is fine off of medication.. Additionally he reports he continues to have a desire to discharge. His plan to move back with GF for whom he had been in [facility] did not make sense. We discussed working with the treatment team on residential options Monday Mental Status Exam MSE Comments: This is a well-nourished, well-developed, white male, with scrubs on, with adequate grooming and eye contact with slightly dysmorphic facies. No abnormal movements. Cooperative with exam in no acute distress. Speech was normal rate and volume and slightly dysarthric. Mood described as I am fine; affect congruent. Thought process, organized. Thought content: patient denied any suicidal or homicidal ideation, there were no delusions reported or noted, patient denied any auditory or visual hallucinations. Attention, concentration, and memory appear intact but were not formally tested. He is alert and oriented times three. Insight and judgment are appear fair. Impulse control limited, and intellectual ability appears limited versus impaired. Vitals/I&O/Wt Last Vital Signs Temp 97.4 F L 01/07/23 20:55 Pulse 75 01/07/23 20:55 Resp 16 01/07/23 20:55 BP 112/72 01/07/23 20:55 Pulse Ox 100 01/07/23 20:55 O2 Del Method 01/07/23 20:55 O2 Flow Rate 0 01/07/23 20:00 Weight last 48 hrs Weight 74.049 kg Weight 74.049 kg Data NPU 01/05/23 01:04 01/05/23 01:04 A&P Assessment and plan (1) ADHD: (2) Depression with suicidal ideation: (3) Borderline personality disorder: (4) Nicotine dependence, cigarettes, uncomplicated: (5) Methamphetamine use disorder, severe: (6) Drug-induced psychotic disorder: Qualifiers: Complication of substance-induced condition: with delusions Qualified Code(s): F19.950 - Other psychoactive substance use, unspecified with psychoactive substance-induced psychotic disorder with delusions Plan This is a 27 year old white male with a history of bipolar disorder along with poor impulse control and methamphetamine and cannabis use disorders who was admitted secondary to reported suicidal threat to mother with a negative UDS which is new. 1. Continue without medications and monitor for need for medication. 2. Continue every 15 minute checks for safety. 3. Encourage individual, group and milieu therapies. 4. Encourage sober living treatment after discharge at the highest level of care to which he is willing to commit.-Referral for inpatient drug rehabilitation Involuntary Hold Information 96 Hour Hold: 96 Hour Involuntary Admission: Yes 96 Hour Hold Ending Date: 01/11/23 96 Hour Hold Ending Time: 11:20 Attestations NPU Medical Necessity Statement*: Inpatient hospitalization is medically necessary and the clinically appropriate intervention at this time. We will monitor medications and make changes as indicated. Likely length of stay 2-4 days. Coding Level of Care Code Acute Code for g Fwd Diagnoses ADHD F90.9 Depression with suicidal ideation F32.A; R45.851 Borderline personality disorder F60.3 Nicotine dependence, cigarettes, uncomplicated F17.210 Methamphetamine use disorder, severe F15.20 Drug-induced psychotic disorder F19.950 Complication of substance-induced condition: with delusions
[2023-01-07] MEDS: hyDROXYzine 25 mg Capsule 50 MG PO (20:03)
[2023-01-07] MEDS: trazodone 50 mg Tablet PO (20:52)
--- NOTE | 2023-01-07 20:54 | PC.NURSE ---
PT REQUESTED MEDICATION TO HELP SLEEP AND REDUCES ANXIETY. TRAZADONE AND VISTARIL GIVEN ORDERED. SEE MAR FOR DETAILS.
[2023-01-07 20:55] VITALS: BP 112/72; PULSE 75; RESP 16; TEMP 36.3; O2SAT 100
[2023-01-08 04:48] VITALS: BMI 24.0
[2023-01-08] MEDS: nicotine 2 mg Gum BUCCAL ×5 (11:47→20:59)
[2023-01-08 13:56] VITALS: BP 128/82; PULSE 69; RESP 18; TEMP 36.4; O2SAT 100
--- NOTE | 2023-01-08 15:30 | W.PM.NPUPNS ---
Subjective NPU Subjective: Patient is a 27-year-old white male admitted with suicidal ideation with a history of bipolar disorder and otherwise specified and borderline personality traits. He had reported that he continued to have some desire to return to live with his girlfriend despite the legal problems that ensued from him living with her including spending 4 months in assisted. He reported no problems with his mood in the absence of taking any medications here. He had been compliant on the milieu with no evidence of increased agitation or aggression noted. The patient reported no suicidal thoughts currently. Mental Status Exam MSE Comments: This is a well-nourished, well-developed, white male, with scrubs on, with adequate grooming and eye contact with slightly dysmorphic facies. No abnormal movements. Cooperative with exam in no acute distress. Speech was normal rate and volume and slightly dysarthric. Mood described as fine;His affect was mood congruent. Thought process was linear and organized. Thought content: patient denied any suicidal or homicidal ideation, there were no delusions reported or noted, patient denied any auditory or visual hallucinations. Attention, concentration, and memory appear intact but were not formally tested. He is alert and oriented times three. Insight and judgment are appear fair. Impulse control limited, and intellectual ability appeared commensurate with mild cognitive impairment. Vitals/I&O/Wt Last Vital Signs Temp 97.6 F 01/08/23 13:56 Pulse 69 01/08/23 13:56 Resp 18 01/08/23 13:56 BP 128/82 01/08/23 13:56 Pulse Ox 100 01/08/23 13:56 O2 Del Method 01/08/23 13:56 O2 Flow Rate 0 01/08/23 08:00 Weight last 48 hrs Weight 74.049 kg Weight 74.049 kg Data NPU 01/05/23 01:04 01/05/23 01:04 A&P Assessment and plan (1) ADHD: (2) Depression with suicidal ideation: (3) Borderline personality disorder: (4) Nicotine dependence, cigarettes, uncomplicated: (5) Methamphetamine use disorder, severe: (6) Drug-induced psychotic disorder: Qualifiers: Complication of substance-induced condition: with delusions Qualified Code(s): F19.950 - Other psychoactive substance use, unspecified with psychoactive substance-induced psychotic disorder with delusions Plan This is a 27 year old white male with a history of bipolar disorder along with poor impulse control and methamphetamine and cannabis use disorders who was admitted secondary to reported suicidal threat to mother with a negative UDS which is new. 1. Continue without medications and monitor for need for medication. 2. Continue every 15 minute checks for safety. 3. Encourage individual, group and milieu therapies. 4. Encourage sober living treatment after discharge at the highest level of care to which he is willing to commit.-Referral for inpatient drug rehabilitation. Involuntary Hold Information 96 Hour Hold: 96 Hour Involuntary Admission: Yes 96 Hour Hold Ending Date: 01/11/23 96 Hour Hold Ending Time: 11:20 Attestations NPU Medical Necessity Statement*: Inpatient hospitalization is medically necessary and the clinically appropriate intervention at this time. We will monitor medications and make changes as indicated. Likely length of stay 2-4 days. Coding Level of Care Code Acute Code for [facility] Fwd Diagnoses ADHD F90.9 Depression with suicidal ideation F32.A; R45.851 Borderline personality disorder F60.3 Nicotine dependence, cigarettes, uncomplicated F17.210 Methamphetamine use disorder, severe F15.20 Drug-induced psychotic disorder F19.950 Complication of substance-induced condition: with delusions
[2023-01-08] MEDS: trazodone 50 mg Tablet PO (20:48)
[2023-01-08 22:00] VITALS: BP 118/77; PULSE 75; RESP 18; TEMP 36.5; O2SAT 100
[2023-01-09 06:00] VITALS: BP 109/82; PULSE 72; RESP 17; TEMP 36.6; O2SAT 100
[2023-01-09] MEDS: nicotine 2 mg Gum BUCCAL ×3 (08:34→14:20)
--- NOTE | 2023-01-09 10:18 | DCPLANNER ---
Imm completed on 01/09/23 @ 1018. Pt was given a copy of rights and stated he understood rights.
[2023-01-09 13:22] VITALS: BP 120/75; PULSE 91; RESP 18; TEMP 36.6; O2SAT 100
[2023-01-09 13:30] VITALS: BP 120/75; PULSE 91; RESP 18; TEMP 36.6; O2SAT 100
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
== END 2023-01-09 15:05 | disposition home or self-care (01) | DRG 885 ==
LOC: ER 05:47 → ER IP 07:08 → NP 16:17
PROVIDERS: Nurse Practitioner Family; Admitting Provider Psychiatry & Neurology Psychiatry; Emergency Provider Family Medicine; PCP Family Medicine; Visit Provider Psychiatry & Neurology Psychiatry
DX: F31.9 Bipolar disorder, unspecified (principal); R45.851 Suicidal ideations; F41.9 Anxiety disorder, unspecified; F90.9 Attention-deficit hyperactivity disorder, unspecified type; F60.3 Borderline personality disorder; F17.210 Nicotine dependence, cigarettes, uncomplicated; F17.220 Nicotine dependence, chewing tobacco, uncomplicated; F15.90 Other stimulant use, unspecified, uncomplicated; F12.90 Cannabis use, unspecified, uncomplicated; Z88.2 Allergy status to sulfonamides; F63.9 Impulse disorder, unspecified
CPT/HCPCS: 80053; 80306; 80307; 81003; 84443; 85025; 87426; 93005; 97150; 97165; 99238; 99285

== ENCOUNTER 2023-07-22 13:18 | Inpatient (IN) | payer MEDICARE, MEDICAID, SELFPAY ==
[2023-07-22 13:20] VITALS: BP 117/72; PULSE 96; RESP 18; TEMP 36.8; O2SAT 97; BMI 25.8
[2023-07-22 13:22] VITALS: BP 117/72; PULSE 96; RESP 18; O2SAT 97
--- NOTE | 2023-07-22 13:22 | XRR_ITS ---
PROCEDURE INFORMATION: Exam: XR Chest Exam date and time: 07/22/2023 2:17 PM Age: 28 years old Clinical indication: Other: Suicidal ideation TECHNIQUE: Imaging protocol: Radiologic exam of the chest. Views: 1 view. COMPARISON: CR XR chest 2V* [id number] 11/23/2021 3:22 AM FINDINGS: Lungs: Unremarkable. No consolidation. Pleural spaces: Unremarkable. No pleural effusion. No pneumothorax. Heart/Mediastinum: Unremarkable. No cardiomegaly. Bones/joints: Unremarkable. XR/XR chest 1V portable [id number] IMPRESSION: No acute findings.
[2023-07-22 13:35] LABS: Basophils # 0.1 10^3/uL (0.0-0.1); Basophils % 1.3 %; Eosinophils # 0.1 10^3/uL (0.0-0.8); Eosinophils % 0.9 %; Hematocrit 44.3 % (37-53); Lymphocytes # 2.4 10^3/uL (0.8-4.8); Lymphocytes % 34.5 %; Mean Corpuscular HGB Conc 33.4 g/dL (30-55); Mean Corpuscular Hemoglobin 31.2 pg (27-33); Mean Corpuscular Volume 93.5 fl (82-101); Mean Platelet Volume 8.3 fL (7.4-10.4); Monocytes # 0.6 10^3/uL (0.2-0.9); Monocytes % 8.2 %; Neutrophils # 3.74 10^3/uL (1.8-7.7); Neutrophils % 54.8 %; Nucleated Red Blood Cells % 0 %; Platelet Count 289 10^3/cmm (157-399); Red Blood Count 4.74 10^6/uL (3.85-5.65); Red Cell Distribution Width 13.2 % (12.1-15.1); White Blood Count 6.82 10^3/uL (3.29-11.43)
--- NOTE | 2023-07-22 13:40 | ED.C_ITS ---
HPI - Psych General: Chief Complaint: Psychiatric Symptoms Stated Complaint: SI Time Seen by Provider: 07/22/23 13:22 History of Present Illness: Presents to the ER with for suicidal ideation. Patient admits to drinking 1/5 of alcohol this morning. Patient lost his debit card and cannot find it. Patient needs to get to [place] by Monday otherwise he has to go to skilled nursing for 7 years. Patient states he is not going to skilled nursing and he will kill himself before then. Patient states he will either walk out in front of traffic or take a knife and slit his own throat. Review of Systems General: Reports: 10 or more systems reviewed and unremarkable except in HPI and below PFSH ED PFSH: Medical History ADHD Depression Excessive anger Methamphetamine use disorder, moderate, in early remission, dependence No pertinent family history Psychiatric care Social History Smoking and tobacco status: current every day smoker cigarettes Packs smoked per day: 0.5 Years cigarettes smoked: 14 and smokeless tobacco Smokeless tobacco user: snuff Smokeless tobacco details: 1 can/2.5 days Quit status (tobacco): has tried quititng Number of times tried to quit tobacco: 6 Second hand smoke exposure: Yes Smoking risk assessment/counseling performed?: No Alcohol intake: current Alcohol type: beer and hard liquor Desire information about alcohol rehabilitation?: No Counseling given: No Substance/Drug Use: former Date of last use: Meth & Heroin - last used a few weeks ago. Desire information about substance/drug rehabilitation?: No Counseling given: No Physical Exam Const: COMMON NORMALS: no acute distress, average body habitus, patient oriented x3, healthy appearing, alert and well nourished EXAM LIMITATIONS: altered mental status (Patient appears intoxicated) HENMT: COMMON NORMALS: normocephalic, atraumatic, hearing grossly normal bilaterally, external ears normal, Normal external nose present and moist oral mucous membranes HEAD & SCALP: normocephalic and atraumatic NOSE: Normal external nose present EXTERNAL EAR: Yes external ears normal Eye: COMMON NORMALS: Equal, round and reactive pupils present, EOMs intact bilaterally, conjunctivae normal and no scleral icterus CONJUNCTIVA: Yes conjunctivae normal PUPIL: Yes Equal, round and reactive pupils present Neck/C-Spine: COMMON NORMALS: full ROM, no lymphadenopathy, supple, no meningeal signs, no JVD and Thyroid normal THYROID: Thyroid normal Lymph: LYMPHATIC: no lymphadenopathy noted Chest: COMMONS NORMALS: normal inspection of the chest and normal palpation of entire chest wall Resp: COMMON NORMALS: normal respiratory effort, No retractions, No use of accessory muscles and clear to auscultation bilaterally AUSCULTATION: clear to auscultation bilaterally Cardio: COMMON NORMALS: no JVD, regular rate, regular rhythm, S1 normal heart sound present, S2 normal heart sound present, No gallops present (Cardio), No clicks present (Cardio), No murmurs present (Cardio) and No rub (Cardio) RATE: regular rate RHYTHM: regular rhythm HEART SOUNDS: S1 normal heart sound present and S2 normal heart sound present GI: COMMON NORMALS: Normal to inspection, nondistended, normoactive bowel sounds present, Soft to palpation, non-tender, No hepatosplenomegaly present and no masses PALPATION: Yes Soft to palpation and Yes No hepatosplenomegaly present : COMMON NORMALS: Yes no CVA tenderness BLADDER/KIDNEY EXAM: Yes no CVA tenderness Back/Pelvis: COMMON NORMALS: no CVA tenderness Neuro: COMMON NORMALS: patient oriented x3 SENSORIUM/ORIENTATION: Yes alert MENINGEAL SIGNS: Yes no meningeal signs Course Vital Signs: Vital signs: Vital Signs Temperature 98.3 F 07/22/23 13:20 Pulse Rate 96 07/22/23 13:22 Respiratory Rate 18 07/22/23 13:22 Blood Pressure 117/72 07/22/23 13:22 Pulse Oximetry 97 07/22/23 13:22 Oxygen Delivery Me thod Room Air 07/22/23 13:22 MDM - Psych Medical Decision Making Presents to the ER with complaints of alcohol intoxication and suicidal ideation. Patient states if he does make in [place] by Monday he has to go to skilled nursing for 7 years and he just cannot make it there because he lost his debit card this morning and that set him off. Lab work was obtained which showed an alcohol level of 239. Dr. Bruno was consulted who agreed to admit the patient to [facility] for further evaluation and treatment. Differential Diagnosis Likely suicidal ideation; Unlikely acute psychosis, chronic schizophrenia, bipolar disorder, depression, drug-induced psychotic disorder or acute anxiety Medical Records I reviewed the patient's medical records. Lab Data I reviewed the patient's lab results. 07/22/23 13:30 07/22/23 13:30 Radiology Impressions Chest X-Ray 07/22/23 13: IMPRESSION: No acute findings. Laboratory Results WBC 6.82 10^3/uL (3.29-11.43) 07/22/23 13:30 RBC 4.74 10^6/uL (3.85-5.65) 07/22/23 13:30 Hgb 14.80 g/dL (11.27-16.99) 07/22/23 13:30 Hct 44.3 % (37-53) 07/22/23 13:30 MCV 93.5 fl (82-101) 07/22/23 13:30 MCH 31.2 pg (27-33) 07/22/23 13:30 MCHC 33.4 g/dL (30-55) 07/22/23 13:30 RDW 13.2 % (12.1-15.1) 07/22/23 13:30 Plt Count 289 10^3/cmm (157-399) 07/22/23 13:30 MPV 8.3 fL (7.4-10.4) 07/22/23 13:30 Neut % (Auto) 54.8 % 07/22/23 13:30 Lymph % (Auto) 34.5 % 07/22/23 13:30 [place] % (Auto) 8.2 % 07/22/23 13:30 Eos % (Auto) 0.9 % 07/22/23 13:30 Baso % (Auto) 1.3 % 07/22/23 13:30 Neut # (Auto) 3.74 10^3/uL (1.8-7.7) 07/22/23 13:30 Lymph # (Auto) 2.4 10^3/uL (0.8-4.8) 07/22/23 13:30 [place] # (Auto) 0.6 10^3/uL (0.2-0.9) 07/22/23 13:30 Eos # (Auto) 0.1 10^3/uL (0.0-0.8) 07/22/23 13:30 Baso # (Auto) 0.1 10^3/uL (0.0-0.1) 07/22/23 13:30 Nucleated RBC % (auto) 0 % 07/22/23 13:30 Nucleated RBCs # 0.0 /100WBC 07/22/23 13:30 Sodium 138 mmol/L (136-145) 07/22/23 13:30 Potassium 3.5 mmol/L (3.5-5.1) 07/22/23 13:30 Chloride 104 mmol/L (98-107) 07/22/23 13:30 Carbon Dioxide 24 mmol/L (22-29) 07/22/23 13:30 Anion Gap 13.5 (5-19) 07/22/23 13:30 BUN 7 mg/dL (6-20) 07/22/23 13:30 Creatinine 0.7 mg/dL (0.7-1.2) 07/22/23 13:30 GFR Calculation 133.3 mL/min (90-130) H 07/22/23 13:30 Glucose 100 mg/dL (65-115) 07/22/23 13:30 Calculated Osmolality 284 mOsm/kg (285-295) L 07/22/23 13:30 Calcium 8.8 mg/dL (8.5-10.5) 07/22/23 13:30 Total Bilirubin 0.3 mg/dL (0.15-1.2) 07/22/23 13:30 AST 16 U/L (0-40) 07/22/23 13:30 ALT 14 U/L (0-41) 07/22/23 13:30 Alkaline Phosphatase 64 U/L (40-130) 07/22/23 13:30 Total Protein 7.3 g/dL (6.6-8.7) 07/22/23 13:30 Albumin 4.5 g/dL (3.5-5.2) 07/22/23 13:30 Globulin 2.8 g/dL (1.3-4.6) 07/22/23 13:30 Urine Color Straw (Yellow) 07/22/23 13:37 Urine Appearance Clear (CLEAR) 07/22/23 13:37 Urine pH 7 (5-7) 07/22/23 13:37 Ur Specific [place] 1.005 (1.005-1.030) 07/22/23 13:37 Urine Protein Neg (Negative) 07/22/23 13:37 Urine Glucose (UA) Norm (Normal) 07/22/23 13:37 Urine Ketones Negative (Negative) 07/22/23 13:37 Urine Blood Neg (Negative) 07/22/23 13:37 Urine Nitrate Negative (Negative) 07/22/23 13:37 Urine Bilirubin Neg (Negative) 07/22/23 13:37 Urine Urobilinogen Norm mg/dL (Negative) 07/22/23 13:37 Ur Leukocyte Esterase Negative (Negative) 07/22/23 13:37 Salicylates < 0.3 mg/dL (3-10) L 07/22/23 13:30 Urine Opiates Screen Negative ng/mL (Negative) 07/22/23 13:37 Acetaminophen < 5.0 ug/mL (10-30) L 07/22/23 13:30 Ur Barbiturates Screen Negative ng/mL (Negative) 07/22/23 13:37 Ur Phencyclidine Scrn Negative ng/mL (Negative) 07/22/23 13:37 Ur Amphetamines Screen Negative ng/mL (Negative) 07/22/23 13:37 U Benzodiazepines Scrn Negative ng/mL (Negative) 07/22/23 13:37 Urine Cocaine Screen Negative ng/mL (Negative) 07/22/23 13:37 U Marijuana (THC) Screen Positive ng/mL (Negative) H 07/22/23 13:37 Ethyl Alcohol 239 mg/dL (0-10) H 07/22/23 13:30 SARS-CoV-2 Ag (Rapid) negative (Negative) 07/22/23 13:59 EKG Data EKG 1: I personally reviewed and interpreted this EKG as follows: EKG interpretation date: 07/22/23 EKG interpretation time: 14:05 Prior EKG tracings: not available for review Interpretation: EKG showed ventricular rate 82 beats a minute, ND interval 129, QRS duration 102, QTc of 399, sinus rhythm, no ST-T wave changes Discharge Plan Discharge Patient Disposition: Admitted As Inpatient Clinical Impression: Suicidal ideation, Alcohol intoxication Condition: Stable Referrals: Raj Burks MD [Physician] - Coding Level of Care Code ED Swatch Folder for Chg Natacha
[2023-07-22 13:54] LABS: Alanine Aminotransferase 14 U/L (0-41); Albumin Level 4.5 g/dL (3.5-5.2); Alcohol Level 239 mg/dL (0-10); Alkaline Phosphatase 64 U/L (40-130); Anion Gap 13.5 (5-19); Aspartate Amino Transferase 16 U/L (0-40); Blood Urea Nitrogen 7 mg/dL (6-20); Calcium 8.8 mg/dL (8.5-10.5); Carbon Dioxide 24 mmol/L (22-29); Chloride 104 mmol/L (98-107); Globulin 2.8 g/dL (1.3-4.6); Glomerular Filtration Rate 133.3 mL/min (90-130); Glucose 100 mg/dL (65-115); Osmolality Calculated 284 mOsm/kg (285-295); Potassium 3.5 mmol/L (3.5-5.1); Sodium 138 mmol/L (136-145); Total Bilirubin 0.3 mg/dL (0.15-1.2); Total Protein 7.3 g/dL (6.6-8.7)
[2023-07-22 14:01] LABS: Acetaminophen < 5.0 ug/mL (10-30); Salicylate < 0.3 mg/dL (3-10)
[2023-07-22 14:07] LABS: Add Urine Microscopic? NO; Charge for UA Resulting for Rev
[2023-07-22 14:14] LABS: Bilirubin Urine Neg (Negative); Blood Urine Neg (Negative); Glucose Urine UA Norm (Normal); Ketones Urine Negative (Negative); Leukocyte Esterase Urine Negative (Negative); Nitrate Urine Negative (Negative); Protein Urine Neg (Negative); Specific Gravity, Urine 1.005 (1.005-1.030); Urine Appearance Clear (CLEAR); Urine Color Straw (Yellow); Urobilinogen Urine Norm (Negative); pH Urine 7 (5-7)
[2023-07-22 14:23] LABS: Amphetamines Screen Urine Negative (Negative); Barbiturates Screen Urine Negative (Negative); Benzodiazepines Screen Urine Negative (Negative); Cocaine Screen Urine Negative (Negative); Opiate Screen Urine Negative (Negative); PCP Screen Urine Negative (Negative); THC Screen Urine Positive (Negative)
[2023-07-22 14:27] LABS: SARS Covid-2 Antigen negative (Negative)
[2023-07-22 18:08] VITALS: PULSE 101; RESP 18; O2SAT 98
[2023-07-22 18:14] VITALS: BP 117/77; PULSE 81; RESP 17; TEMP 36.7; O2SAT 96
[2023-07-22] MEDS: nicotine 2 mg Gum BUCCAL ×2 (18:42→20:37)
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
[2023-07-22 20:44] VITALS: BP 120/80; PULSE 78; RESP 18; TEMP 36.6; O2SAT 96
[2023-07-22] MEDS: trazodone 100 mg Tablet PO (21:04)
[2023-07-23 06:00] VITALS: BP 118/77; PULSE 75; RESP 16; TEMP 36.6; O2SAT 95
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
--- NOTE | 2023-07-23 08:38 | PC.NURSE ---
During morning assessment, patient denies all. Patient states that he wishes he was having AVH. Patient states that he is eager to leave. Patient was cooperative, but ansy during assesment.
[2023-07-23] MEDS: thiamine 100 mg Tablet PO (09:20)
[2023-07-23] MEDS: folic acid 1 mg Tablet PO (09:20)
[2023-07-23] MEDS: multivitamin therapeutic Tablet 1 TAB PO (09:20)
[2023-07-23] MEDS: risperiDONE 1 mg Tablet PO (09:20)
[2023-07-23] MEDS: nicotine 2 mg Gum BUCCAL ×4 (11:38→18:56)
[2023-07-23 14:00] VITALS: BP 125/79; PULSE 82; RESP 18; O2SAT 98
[2023-07-23] MEDS: acetaminophen 325 mg Tablet 650 MG PO (17:07)
[2023-07-23] MEDS: ibuprofen 600 mg Tablet PO (18:27)
[2023-07-23] MEDS: trazodone 100 mg Tablet PO (19:58)
[2023-07-23 21:56] VITALS: BP 99/61; PULSE 72; RESP 18; O2SAT 95
--- NOTE | 2023-07-24 05:16 | PC.NURSE ---
Patient denies SI/HI/AVH, depression and anxiety. Patient verbalized a goal to stay sober. He is requesting resources for sober living on discharge. Patient interacted apprproately with other peers on the unit. Patient was meal and medication compliant.
[2023-07-24 06:00] VITALS: BP 93/58; PULSE 72; RESP 18; O2SAT 97
[2023-07-24] MEDS: nicotine 2 mg Gum BUCCAL ×4 (08:48→15:04)
[2023-07-24] MEDS: thiamine 100 mg Tablet PO (08:48)
[2023-07-24] MEDS: risperiDONE 1 mg Tablet PO (08:49)
[2023-07-24] MEDS: folic acid 1 mg Tablet PO (08:49)
[2023-07-24] MEDS: multivitamin therapeutic Tablet 1 TAB PO (08:49)
[2023-07-24] MEDS: hyDROXYzine 25 mg Capsule 50 MG PO (12:50)
[2023-07-24 14:00] VITALS: BP 124/74; PULSE 70; RESP 17; TEMP 36.6; O2SAT 99
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
[2023-07-24 15:36] VITALS: BP 124/74; PULSE 70; RESP 17; TEMP 36.6; O2SAT 99
== END 2023-07-24 16:43 | disposition home or self-care (01) | DRG 897 ==
LOC: ER 17:50 → NP 18:06
PROVIDERS: Admitting Provider Psychiatry & Neurology Psychiatry; Emergency Provider Emergency Medicine; Visit Provider Psychiatry & Neurology Psychiatry
DX: F10.129 Alcohol abuse with intoxication, unspecified (principal); R45.851 Suicidal ideations; Y90.7 Blood alcohol level of 200-239 mg/100 ml; F31.9 Bipolar disorder, unspecified; F15.21 Other stimulant dependence, in remission; Z62.811 Personal history of psychological abuse in childhood; F41.9 Anxiety disorder, unspecified; F17.210 Nicotine dependence, cigarettes, uncomplicated
CPT/HCPCS: 36415; 71045; 80053; 80306; 80307; 81003; 85025; 87426; 97150; 97165; 99238; 99285

== ENCOUNTER 2023-10-04 22:15 | Emergency (ER) | payer MEDICARE, MEDICAID, SELFPAY ==
[2023-10-04 22:16] VITALS: BP 146/85; PULSE 98; RESP 16; TEMP 36.8; O2SAT 98; BMI 25.0
--- NOTE | 2023-10-04 22:28 | W.ED.PSYCHS ---
HPI - Psych General: Chief Complaint: Psychiatric Symptoms Stated Complaint: Si Time Seen by Provider: 10/04/23 22:27 History of Present Illness: patient presents to the ER with complaints of suicidal ideation. Patient reports has been arguing with his significant other and his feeling suicidal and has plans to harm himself by laying down on a train tracks waiting for a train to run him over. Patient does have a history of being bipolar and Having depression. Review of Systems General: Reports: 10 or more systems reviewed and unremarkable except in HPI and below PFSH ED PFSH: Medical History ADHD Depression Excessive anger Methamphetamine use disorder, moderate, in early remission, dependence No pertinent family history Psychiatric care Social History Smoking and tobacco/nicotine status: current every day tobacco/nicotine user cigarettes Packs smoked per day: 0.5 Years cigarettes smoked: 14 and smokeless tobacco Smokeless tobacco user: snuff Smokeless tobacco details: 1 can/2.5 days Quit status (tobacco/nicotine): has tried quititng Number of times tried to quit tobacco: 6 Second hand smoke exposure: Yes Alcohol intake: current Alcohol type: beer and hard liquor Substance/Drug Use: former Date of last use: Meth & Heroin - last used a few weeks ago. Physical Exam Const: COMMON NORMALS: no acute distress, average body habitus, patient oriented x3, no limitations, healthy appearing, alert and well nourished Neck/C-Spine: COMMON NORMALS: no JVD Chest: COMMONS NORMALS: normal inspection of the chest and normal palpation of entire chest wall Resp: COMMON NORMALS: normal respiratory effort, No retractions, No use of accessory muscles and clear to auscultation bilaterally AUSCULTATION: clear to auscultation bilaterally Cardio: COMMON NORMALS: no JVD, regular rate, regular rhythm, S1 normal heart sound present, S2 normal heart sound present, No gallops present (Cardio), No clicks present (Cardio), No murmurs present (Cardio) and No rub (Cardio) RATE: regular rate RHYTHM: regular rhythm HEART SOUNDS: S1 normal heart sound present and S2 normal heart sound present GI: COMMON NORMALS: Normal to inspection, nondistended, normoactive bowel sounds present, Soft to palpation, non-tender, No hepatosplenomegaly present and no masses PALPATION: Yes Soft to palpation and Yes No hepatosplenomegaly present Neuro: COMMON NORMALS: patient oriented x3 SENSORIUM/ORIENTATION: Yes alert Course Vital Signs: Vital signs: Vital Signs Temperature 98.3 F 10/04/23 22:16 Pulse Rate 98 10/04/23 22:16 Respiratory Rate 16 10/04/23 22:16 Blood Pressure 146/85 10/04/23 22:16 Pulse Oximetry 98 10/04/23 22:16 Oxygen Delivery Me thod Room Air 10/04/23 22:16 MDM - Psych Medical Decision Making Patient presents with suicidal ideation. Patient be worked up in normal psychiatric fashion with lab work chest x-ray EKG etc. once medically cleared patient will be transferred to the appropriate psychiatric facility. Harriett Blackburn NP at [place] excepted patient be transferred there by EMS. Differential Diagnosis Likely suicidal ideation; Unlikely acute psychosis, chronic schizophrenia, bipolar disorder, depression, drug-induced psychotic disorder or acute anxiety Medical Records I reviewed the patient's medical records. Lab Data I reviewed the patient's lab results. 10/04/23 10:35 10/04/23 10:35 Radiology Impressions Chest X-Ray 10/04/23 22:34 IMPRESSION: No acute findings. Laboratory Results WBC 6.56 10^3/uL (3.29-11.43) 10/04/23 10:35 RBC 4.78 10^6/uL (3.85-5.65) 10/04/23 10:35 Hgb 15.00 g/dL (11.27-16.99) 10/04/23 10:35 Hct 45.5 % (37-53) 10/04/23 10:35 MCV 95.2 fl (82-101) 10/04/23 10:35 MCH 31.4 pg (27-33) 10/04/23 10:35 MCHC 33.0 g/dL (30-55) 10/04/23 10:35 RDW 13.1 % (12.1-15.1) 10/04/23 10:35 Plt Count 347 10^3/cmm (157-399) 10/04/23 10:35 MPV 8.5 fL (7.4-10.4) 10/04/23 10:35 Neut % (Auto) 63.0 % 10/04/23 10:35 Lymph % (Auto) 27.9 % 10/04/23 10:35 Lynn % (Auto) 6.9 % 10/04/23 10:35 Eos % (Auto) 1.1 % 10/04/23 10:35 Baso % (Auto) 0.8 % 10/04/23 10:35 Neut # (Auto) 4.14 10^3/uL (1.8-7.7) 10/04/23 10:35 Lymph # (Auto) 1.8 10^3/uL (0.8-4.8) 10/04/23 10:35 Lynn # (Auto) 0.5 10^3/uL (0.2-0.9) 10/04/23 10:35 Eos # (Auto) 0.1 10^3/uL (0.0-0.8) 10/04/23 10:35 Baso # (Auto) 0.1 10^3/uL (0.0-0.1) 10/04/23 10:35 Nucleated RBC % (auto) 0 % 10/04/23 10:35 Nucleated RBCs # 0.0 /100WBC 10/04/23 10:35 Sodium 144 mmol/L (136-145) 10/04/23 10:35 Potassium 3.9 mmol/L (3.5-5.1) 10/04/23 10:35 Chloride 105 mmol/L (98-107) 10/04/23 10:35 Carbon Dioxide 28 mmol/L (22-29) 10/04/23 10:35 Anion Gap 14.9 (5-19) 10/04/23 10:35 BUN 9 mg/dL (6-20) 10/04/23 10:35 Creatinine 0.7 mg/dL (0.7-1.2) 10/04/23 10:35 GFR Calculation 133.3 mL/min (90-130) H 10/04/23 10:35 Glucose 83 mg/dL (65-115) 10/04/23 10:35 Calculated Osmolality 296 mOsm/kg (285-295) H 10/04/23 10:35 Calcium 9.2 mg/dL (8.5-10.5) 10/04/23 10:35 Total Bilirubin 0.2 mg/dL (0.15-1.2) 10/04/23 10:35 AST 27 U/L (0-40) 10/04/23 10:35 ALT 22 U/L (0-41) 10/04/23 10:35 Alkaline Phosphatase 82 U/L (40-130) 10/04/23 10:35 Total Protein 7.8 g/dL (6.6-8.7) 10/04/23 10:35 Albumin 4.6 g/dL (3.5-5.2) 10/04/23 10:35 Globulin 3.2 g/dL (1.3-4.6) 10/04/23 10:35 TSH 0.89 uIU/mL (0.27-4.20) 10/04/23 10:35 Urine Color Yellow (Yellow) 10/04/23 23:50 Urine Appearance Clear (CLEAR) 10/04/23 23:50 Urine pH 5 (5-7) 10/04/23 23:50 Ur Specific [place] 1.025 (1.005-1.030) 10/04/23 23:50 Urine Protein Neg (Negative) 10/04/23 23:50 Urine Glucose (UA) Norm (Normal) 10/04/23 23:50 Urine Ketones Negative (Negative) 10/04/23 23:50 Urine Blood Neg (Negative) 10/04/23 23:50 Urine Nitrate Negative (Negative) 10/04/23 23:50 Urine Bilirubin Neg (Negative) 10/04/23 23:50 Urine Urobilinogen Norm mg/dL (Negative) 10/04/23 23:50 Ur Leukocyte Esterase Negative (Negative) 10/04/23 23:50 Salicylates 0.5 mg/dL (3-10) L 10/04/23 10:35 Urine Opiates Screen Negative ng/mL (Negative) 10/04/23 23:50 Acetaminophen < 5.0 ug/mL (10-30) L 10/04/23 10:35 Ur Barbiturates Screen Negative ng/mL (Negative) 10/04/23 23:50 Ur Phencyclidine Scrn Negative ng/mL (Negative) 10/04/23 23:50 Ur Amphetamines Screen Positive ng/mL (Negative) H 10/04/23 23:50 U Benzodiazepines Scrn Negative ng/mL (Negative) 10/04/23 23:50 Urine Cocaine Screen Negative ng/mL (Negative) 10/04/23 23:50 U Marijuana (THC) Screen Positive ng/mL (Negative) H 10/04/23 23:50 Ethyl Alcohol 75 mg/dL (0-10) H 10/04/23 10:35 SARS-CoV-2 Ag (Rapid) negative (Negative) 10/04/23 22:51 All radiology interpretation(s) finalized by discharge EKG Data EKG 1: I personally reviewed and interpreted this EKG as follows: EKG interpretation date: 10/04/23 EKG interpretation time: 22:54 Prior EKG tracings: not available for review Interpretation: EKG showed ventricular rate of 82 bpm, ID interval 125, QRS duration 98, QTc 381, sinus rhythm no ST-T wave changes Discharge Plan Discharge Patient Disposition: Xfer Psychiatric Hosp Clinical Impression: Suicidal ideation Condition: Stable Coding Level of Care Code ED Conductor/Engineer for Panchito Manzano
--- NOTE | 2023-10-04 22:33 | ECG_ITS ---
[facility] Test Date: 2023-10-04 Pat Name: Srinivasa Greene Department: Room: Gender: Male Hand Trucker: : 1995 Requested By: Jerrod Carias Order Number: [id number] Sally MD: Tony Burkett M.D. Measurements Intervals Dixon Rate: 82 P: 63 OR: 125 QRS: 81 QRSD: 98 T: 66 QT: 343 QTc: 401 Interpretive Statements SINUS RHYTHM Compared to ECG 01/05/2023 01:06:09 Sinus arrhythmia no longer present Electronically Signed On 10-05-2023 0:45:44 DE ICER by Tony Burkett M.D. [email or web address] [email or web address] [id number]
--- NOTE | 2023-10-04 22:34 | XRR_ITS ---
PROCEDURE INFORMATION: Exam: XR Chest Exam date and time: 10/04/2023 10:38 PM Age: 28 years old Clinical indication: Other: Hypertension; Additional info: HTN TECHNIQUE: Imaging protocol: Radiologic exam of the chest. Views: 1 view. COMPARISON: CR XR chest 1V portable [id number] 07/22/2023 2:17 PM FINDINGS: Lungs: Unremarkable. No consolidation. Pleural spaces: Unremarkable. No pleural effusion. No pneumothorax. Heart/Mediastinum: Unremarkable. No cardiomegaly. Bones/joints: Unremarkable. XR/XR chest 1V portable [id number] IMPRESSION: No acute findings.
[2023-10-04 22:50] LABS: Basophils # 0.1 10^3/uL (0.0-0.1); Basophils % 0.8 %; Eosinophils # 0.1 10^3/uL (0.0-0.8); Eosinophils % 1.1 %; Hematocrit 45.5 % (37-53); Lymphocytes # 1.8 10^3/uL (0.8-4.8); Lymphocytes % 27.9 %; Mean Corpuscular Hemoglobin 31.4 pg (27-33); Mean Corpuscular Volume 95.2 fl (82-101); Mean Platelet Volume 8.5 fL (7.4-10.4); Monocytes # 0.5 10^3/uL (0.2-0.9); Monocytes % 6.9 %; Neutrophils # 4.14 10^3/uL (1.8-7.7); Nucleated Red Blood Cells % 0 %; Platelet Count 347 10^3/cmm (157-399); Red Blood Count 4.78 10^6/uL (3.85-5.65); Red Cell Distribution Width 13.1 % (12.1-15.1); White Blood Count 6.56 10^3/uL (3.29-11.43)
[2023-10-04 23:13] LABS: SARS Covid-2 Antigen negative (Negative)
[2023-10-04 23:14] LABS: Alanine Aminotransferase 22 U/L (0-41); Albumin Level 4.6 g/dL (3.5-5.2); Alcohol Level 75 mg/dL (0-10); Alkaline Phosphatase 82 U/L (40-130); Anion Gap 14.9 (5-19); Aspartate Amino Transferase 27 U/L (0-40); Blood Urea Nitrogen 9 mg/dL (6-20); Calcium 9.2 mg/dL (8.5-10.5); Carbon Dioxide 28 mmol/L (22-29); Chloride 105 mmol/L (98-107); Globulin 3.2 g/dL (1.3-4.6); Glomerular Filtration Rate 133.3 mL/min (90-130); Glucose 83 mg/dL (65-115); Osmolality Calculated 296 mOsm/kg (285-295); Potassium 3.9 mmol/L (3.5-5.1); Salicylate 0.5 mg/dL (3-10); Sodium 144 mmol/L (136-145); Thyroid Stimulating Hormone 0.89 uIU/mL (0.27-4.20); Total Bilirubin 0.2 mg/dL (0.15-1.2); Total Protein 7.8 g/dL (6.6-8.7)
[2023-10-04 23:21] LABS: Acetaminophen < 5.0 ug/mL (10-30)
[2023-10-04 23:52] LABS: Add Urine Microscopic? NO; Charge for UA Resulting for Rev
[2023-10-04 23:57] LABS: Bilirubin Urine Neg (Negative); Blood Urine Neg (Negative); Glucose Urine UA Norm (Normal); Ketones Urine Negative (Negative); Leukocyte Esterase Urine Negative (Negative); Nitrate Urine Negative (Negative); Protein Urine Neg (Negative); Specific Gravity, Urine 1.025 (1.005-1.030); Urine Appearance Clear (CLEAR); Urine Color Yellow (Yellow); Urobilinogen Urine Norm (Negative); pH Urine 5 (5-7)
[2023-10-05 00:05] LABS: Amphetamines Screen Urine Positive (Negative); Barbiturates Screen Urine Negative (Negative); Benzodiazepines Screen Urine Negative (Negative); Cocaine Screen Urine Negative (Negative); Opiate Screen Urine Negative (Negative); PCP Screen Urine Negative (Negative); THC Screen Urine Positive (Negative)
[2023-10-05 02:00] VITALS: BP 117/69; PULSE 88; RESP 16; O2SAT 95
== END 2023-10-05 02:02 ==
PROVIDERS: Emergency Provider Emergency Medicine
DX: R45.851 Suicidal ideations (principal); Z11.52 Encounter for screening for COVID-19; F17.210 Nicotine dependence, cigarettes, uncomplicated; F17.220 Nicotine dependence, chewing tobacco, uncomplicated
CPT/HCPCS: 36415; 71045; 80053; 80306; 80307; 81003; 84443; 85025; 87426; 93005; 99285

== ENCOUNTER 2023-10-07 15:19 | Emergency (ER) | payer MEDICARE, MEDICAID, SELFPAY ==
[2023-10-07 15:22] VITALS: BP 126/81; PULSE 77; RESP 16; TEMP 37; O2SAT 100; BMI 25.7
--- NOTE | 2023-10-07 15:28 | XRR_ITS ---
PROCEDURE INFORMATION: Exam: XR Right Hand Exam date and time: 10/07/2023 3:34 PM Age: 28 years old Clinical indication: Right; Patient HX: RT hand pain/swelling after punching wall last week; Curvature deformity to RT middle finger TECHNIQUE: Imaging protocol: Radiologic exam of the right hand. Views: 3 or more views. COMPARISON: No relevant prior studies available. FINDINGS: Bones/joints: Normal. Soft tissues: Normal. XR/XR hand RT min 3V* [id number] IMPRESSION: No acute findings.
--- NOTE | 2023-10-07 17:19 | W.ED.EXTPRO ---
HPI - Extremity Problem General: Chief complaint: Extremity Injury, Upper Stated complaint: hurt right hand Time Seen by Provider: 10/07/23 15:30 History of Present Illness: Srinivasa is a [id number] 28-year-old male that presents to the emergency department with right hand pain. Patient states that he was trying to impress a girl when he punched a wall. Unfortunately it was a solid brick wall. Patient reports he had immediate pain in the hand. It occurred approximately 3 days ago. He has been taking [id number]-[id number] remedies but without improvement. Patient is neurovascularly intact and has no wounds. Review of Systems General: Reports: 10 or more systems reviewed and unremarkable except in HPI and below PFSH ED PFSH: Medical History ADHD Depression Excessive anger Methamphetamine use disorder, moderate, in early remission, dependence No pertinent family history Psychiatric care Social History Smoking and tobacco/nicotine status: current every day tobacco/nicotine user cigarettes Packs smoked per day: 0.5 Years cigarettes smoked: 14 and smokeless tobacco Smokeless tobacco user: snuff Smokeless tobacco details: 1 can/2.5 days Quit status (tobacco/nicotine): has tried quititng Number of times tried to quit tobacco: 6 Second hand smoke exposure: Yes Alcohol intake: current Alcohol type: beer and hard liquor Substance/Drug Use: former Date of last use: Meth & Heroin - last used a few weeks ago. Physical Exam Narrative: EXAM NARRATIVE: Patient is alert and oriented x3 No acute distress Nonlabored breathing No extremity swelling Moving all extremities Nontender abdomen Right upper extremity: Skin is clean dry and intact He has full active range of motion of shoulder and elbow He is able to extend his wrist He is able to give a thumbs up, make an okay sign, cross fingers, abduct fingers and make a fist Sensation intact to light touch in axillary, radial, median, ulnar nerve distribution Radial pulses palpable and cap refills less than 3 seconds Course Vital Signs: Vital signs: Vital Signs Temperature 98.6 F 10/07/23 15:22 Pulse Rate 77 10/07/23 15:22 Respiratory Rate 16 10/07/23 15:22 Blood Pressure 126/81 10/07/23 15:22 Pulse Oximetry 100 10/07/23 15:22 Oxygen Delivery Me thod Room Air 10/07/23 15:22 MDM - Extremity (Nontraumatic) Medical Decision Making Patient was evaluated in the emergency department and underwent XR imaging of the right hand. Differential diagnosis includes contusion, sprain, fracture, fracture dislocation. There are no open wounds and is neurovascularly intact. X-ray reveals no acute fracture or dislocation. Patient diagnosed with contusions. He has been encouraged to use ice for comfort he can also take ibuprofen or Tylenol. He is weightbearing as tolerated has no restrictions. Patient is to return to the emergency department as needed for new concerning or worsening symptoms. All questions answered Lab Data Radiology Impressions Hand X-Ray 10/07/23 15:28 IMPRESSION: No acute findings. All radiology interpretation(s) finalized by discharge Discharge Plan Discharge Patient Disposition: Home Clinical Impression: Contusion of hand Condition: Stable Prescriptions: No Action hydroxyzine pamoate 25 mg capsule 25 mg PO TID PRN (Reason: anxiety) Qty: 90 0RF Rx Instructions: Take 1 capsule 3 times daily, if needed for anxiety, at least 4 hours apart risperidone 1 mg Tablet 1 mg PO DAILY 30 Days Qty: 30 1RF Discharge Orders: Discharge ED (Routine); Ordered 10/07/23 Ordered By: Nick Peralta Discharge Diet: Advance as tolerated Discharge Activity: Resume usual activity Patient Instructions: Pain Management Activity Restrictions/Additional Instructions: X-ray results provided. You have no fractures, breaks, cracks, dislocations. Is just a really bad bruise. You can lift push or pull what you want. You have no restrictions. For pain relief I advised ice and ibuprofen and Tylenol. Please return to the emergency department for new concerning or worsening symptoms Coding Level of Care Code ED Medical Writer for Panchito Manzano
== END 2023-10-07 17:54 | disposition home or self-care (01) ==
PROVIDERS: Emergency Provider Nurse Practitioner
DX: S60.221A Contusion of right hand, initial encounter (principal); F17.210 Nicotine dependence, cigarettes, uncomplicated; F17.220 Nicotine dependence, chewing tobacco, uncomplicated; W22.09XA Striking against other stationary object, initial encounter
CPT/HCPCS: 73130; 99283

== ENCOUNTER 2024-06-21 22:36 | Emergency (ER) | payer MEDICARE, MEDICAID, SELFPAY ==
[2024-06-21 22:39] VITALS: BP 127/81; PULSE 88; RESP 15; TEMP 36.7; O2SAT 98
[2024-06-21] MEDS: trazodone 100 mg Tablet PO (23:23)
[2024-06-21] MEDS: risperiDONE 1 mg Tablet 2 MG PO (23:23)
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
== END 2024-06-21 23:26 | disposition home or self-care (01) ==
PROVIDERS: Emergency Provider Emergency Medicine
DX: F31.63 Bipolar disorder, current episode mixed, severe, without psychotic features (principal); F17.210 Nicotine dependence, cigarettes, uncomplicated; F17.220 Nicotine dependence, chewing tobacco, uncomplicated
CPT/HCPCS: 99283

== ENCOUNTER 2024-07-02 15:07 | Emergency (ER) | payer MEDICARE, MEDICAID, SELFPAY ==
[2024-07-02 15:21] VITALS: BP 117/79; PULSE 77; RESP 20; TEMP 36.6; O2SAT 98
--- NOTE | 2024-07-02 15:54 | W.ED.SKABFB ---
HPI - Skin/Abscess/Foreign Bdy General: Chief complaint: Wound/Laceration Stated complaint: sores on left arm Time Seen by Provider: 07/02/24 15:54 Source: patient Mode of arrival: ambulatory Limitations: no limitations History of Present Illness: Patient is a 29-year-old male who presents to ED today with a complaint of multiple sores forming to the dorsum of his left forearm that he noticed over the past several days. He states he was at an attic moving things and believes he may have been bitten by a spider. Denies history of stapJeffry HO complaint: insect bite/sting and abscess/boil Onset (ago): day(s) Tetanus up to date: yes Location: LUE Severity: mild Pain Consistency: constant Relieving factors: none Exacerbating factors: none Associated symptoms: Reports no associated symptoms; Deny chills or fever(s) Treatments prior to arrival: none Review of Systems Const: Denies: fever(s), chills, body aches, fatigue or malaise Musc: Reports: extremity pain; Denies: extremity swelling, joint pain or joint swelling Skin/Breast: Reports: sores Neuro: Denies: numbness in extremities, weakness in extremities or sensory changes PFSH ED PFSH: Medical History Methamphetamine dependence, episodic Borderline personality disorder Nicotine dependence, cigarettes, uncomplicated Borderline intellectual functioning Bipolar I, most recent episode mixed, severe Intermittent explosive disorder Methamphetamine use disorder, moderate, in early remission, dependence Reported last use: September 2023 No pertinent family history Psychiatric care Social History Smoking and tobacco/nicotine status: current every day tobacco/nicotine user cigarettes Packs smoked per day: 0.5 Years cigarettes smoked: 14 and smokeless tobacco Smokeless tobacco user: snuff Smokeless tobacco details: 1 can/2.5 days Quit status (tobacco/nicotine): has tried quititng Number of times tried to quit tobacco: 6 Second hand smoke exposure: Yes Alcohol intake: current Alcohol type: beer and hard liquor Substance/Drug Use: former Date of last use: Meth & Heroin - last used a few weeks ago. Physical Exam Const: COMMON NORMALS: no acute distress, no limitations and alert GENERAL APPEARANCE: cooperative, disheveled and appears older than stated age Resp: COMMON NORMALS: normal respiratory effort Cardio: COMMON NORMALS: regular rate and regular rhythm RATE: regular rate RHYTHM: regular rhythm Extremity: COMMON NORMALS: no joint enlargement, no clubbing, cyanosis or edema and no calf tenderness GENERAL: Yes normal exam except as noted LEFT UPPER EXTREMITY: Yes lower arm (several early staph appearing abscesses to dorsal L forearm) Left lower arm: Yes neurovascular exam (normal) and Yes other (lesions do not appear like spider bites) Neuro: COMMON NORMALS: moves all extremities, no focal motor deficits and no sensory deficits noted SENSORIUM/ORIENTATION: Yes alert Skin: NARRATIVE SKIN EXAM: see above Course Vital Signs: Vital signs: Vital Signs Temperature 97.9 F 07/02/24 15:21 Pulse Rate 77 07/02/24 15:21 Respiratory Rate 20 H 07/02/24 15:21 Blood Pressure 117/79 07/02/24 15:21 Pulse Oximetry 98 07/02/24 15:21 MDM - Skin/Abscess/Foreign Bdy Medicial Decision Making Lesions appear like early staph abscesses. Patient has risk factors for MRSA. He has an allergy to sulfa drugs. Will place him on doxycycline. Return ED precautions given. Medical Records I reviewed the patient's medical records. No radiology studies performed this visit Discharge Plan Discharge Patient Disposition: Home Clinical Impression: Staph infection Condition: Stable Prescriptions: New doxycycline monohydrate 100 mg capsule 100 mg PO Q12H 7 Days Qty: 14 0RF No Action hydroxyzine HCl 25 mg tablet 25 mg PO TID PRN (Reason: anxiety) Qty: 90 6RF Rx Instructions: Take one tablet three times per day as needed for anxiety trazodone 100 mg tablet 100 mg PO DAILY PRN (Reason: insomnia) Qty: 30 0RF risperidone 1 mg tablet 2 mg PO BEDTIME 30 Days Qty: 60 0RF Rx Instructions: Take two tablets at bedtime Discharge Orders: Discharge ED (Routine); Ordered 07/02/24 Ordered By: Fanny Mary Patient Instructions: Staphylococcus Aureus Infection Coding Level of Care Code ED Toddler Caregiver for Panchito Manzano
== END 2024-07-02 16:02 | disposition home or self-care (01) ==
PROVIDERS: Emergency Provider Physician Assistant
DX: L08.89 Other specified local infections of the skin and subcutaneous tissue (principal); B95.8 Unspecified staphylococcus as the cause of diseases classified elsewhere; F17.210 Nicotine dependence, cigarettes, uncomplicated; F17.220 Nicotine dependence, chewing tobacco, uncomplicated
CPT/HCPCS: 99283

== ENCOUNTER 2024-07-22 23:33 | Inpatient (IN) | payer MEDICARE, MEDICAID, SELFPAY ==
[2024-07-22 23:43] VITALS: BP 125/79; PULSE 92; RESP 16; TEMP 36.8; O2SAT 98
[2024-07-23] VITALS (7 sets, daily range): BP systolic 104–121; BP diastolic 61–79; PULSE 78–88; RESP 15–20; TEMP 36.6–37.1; O2SAT 96–100
[2024-07-23 00:29] LABS: Charge for UA Resulting for Rev
[2024-07-23 00:40] LABS: Basophils # 0.1 10^3/uL (0.0-0.1); Basophils % 0.8 %; Eosinophils # 0.4 10^3/uL (0.0-0.8); Eosinophils % 3.5 %; Hematocrit 41.7 % (37-53); Lymphocytes # 2.3 10^3/uL (0.8-4.8); Lymphocytes % 21.2 %; Mean Corpuscular HGB Conc 32.4 g/dL (30-55); Mean Corpuscular Hemoglobin 29.7 pg (27-33); Mean Corpuscular Volume 91.9 fl (82-101); Mean Platelet Volume 8.6 fL (7.4-10.4); Monocytes # 0.9 10^3/uL (0.2-0.9); Monocytes % 8.8 %; Neutrophils % 65.5 %; Nucleated Red Blood Cells % 0 %; Platelet Count 333 10^3/cmm (157-399); Red Blood Count 4.54 10^6/uL (3.85-5.65); Red Cell Distribution Width 14.8 % (12.1-15.1); White Blood Count 10.68 10^3/uL (3.29-11.43)
[2024-07-23 00:51] LABS: Amphetamines Screen Urine Positive (Negative); Barbiturates Screen Urine Negative (Negative); Benzodiazepines Screen Urine Negative (Negative); Cocaine Screen Urine Negative (Negative); Opiate Screen Urine Negative (Negative); PCP Screen Urine Negative (Negative); THC Screen Urine Positive (Negative)
[2024-07-23 00:58] LABS: Bacteria Urine None Seen /hpf; Hyaline Casts Urine 0-4 /lpf; RBC Urine 0-2 /hpf (0-2); Squamous Epithelial Cell Urine 0-5 /hpf (0-5); WBC Urine 0-5 /hpf (0-5)
[2024-07-23 00:59] LABS: Alanine Aminotransferase 20 U/L (0-41); Albumin Level 4.1 g/dL (3.5-5.2); Alkaline Phosphatase 80 U/L (40-130); Anion Gap 15.9 (5-19); Aspartate Amino Transferase 20 U/L (0-40); Blood Urea Nitrogen 15 mg/dL (6-20); Calcium 9.4 mg/dL (8.5-10.5); Carbon Dioxide 22 mmol/L (22-29); Chloride 104 mmol/L (98-107); Creatinine Clr Calc Pharmacy 110.5457; Globulin 3.3 g/dL (1.3-4.6); Glomerular Filtration Rate 87.7 mL/min (90-130); Glucose 97 mg/dL (65-115); Osmolality Calculated 287 mOsm/kg (285-295); Potassium 3.9 mmol/L (3.5-5.1); Sodium 138 mmol/L (136-145); Total Bilirubin 0.5 mg/dL (0.15-1.2); Total Protein 7.4 g/dL (6.6-8.7)
[2024-07-23 01:00] LABS: Acetaminophen < 5.0 ug/mL (10-30); Alcohol Level < 10 mg/dL (0-10); Salicylate < 0.3 mg/dL (3-10)
[2024-07-23 01:01] LABS: Bilirubin Urine Negative (Negative); Blood Urine Negative (Negative); Glucose Urine UA Negative (Normal); Ketones Urine Negative (Negative); Leukocyte Esterase Urine Negative (Negative); Nitrate Urine Negative (Negative); Protein Urine Negative (Negative); Specific Gravity, Urine 1.025 (1.005-1.030); Urine Appearance Clear (CLEAR); Urine Color Yellow (Yellow)
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
--- NOTE | 2024-07-23 01:40 | PC.NURSE ---
abscess packed with 1/4 in wound packing per MD verbal order. dressing applied to L arm and wrapped in coband
[2024-07-23] MEDS: cephALEXin 500 mg Capsule PO (01:41)
[2024-07-23] MEDS: lidocaine 1% 10 ML INJ INJECTION (01:45)
--- NOTE | 2024-07-23 02:41 | PC.NURSE ---
96 [facility] Pt served with copy of 96 [facility] by this RN and Security. When asked why pt presented to the ER, pt stated I was being stupid . When asked if he was familiar with a 96 , pt stated yeah . No questions from pt at this time.
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
--- NOTE | 2024-07-23 10:11 | PC.OT ---
PER NURSING; HOLD OT EVALUATION THIS A.M.
[2024-07-23] MEDS: nicotine 2 mg Gum BUCCAL (12:21)
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
[2024-07-23] MEDS: risperiDONE 2 mg Tablet PO (20:00)
[2024-07-23] MEDS: trazodone 100 mg Tablet PO (20:00)
[2024-07-24 00:02] VITALS: BP 114/65; PULSE 62; RESP 16; TEMP 36.4; O2SAT 97
[2024-07-24 04:00] VITALS: BP 102/60; PULSE 71; RESP 16; TEMP 36.6; O2SAT 96
[2024-07-24 08:00] VITALS: BP 103/59; PULSE 80; RESP 18; TEMP 36.8; O2SAT 99
[2024-07-24] MEDS: nicotine 2 mg Gum BUCCAL ×3 (10:57→18:47)
[2024-07-24 12:00] VITALS: BP 128/64; PULSE 87; RESP 18; TEMP 36.3; O2SAT 97
[2024-07-24] MEDS: ibuprofen 600 mg Tablet PO (12:12)
--- NOTE | 2024-07-24 12:27 | W.PM.NPUPNS ---
Subjective NPU Subjective: Patient is a 29-year-old white male admitted with homicidal ideation with a history of IED and borderline personality traits and borderline intellectual functioning. The patient had reported that he was on probation for assault. He states that he had began the use of methamphetamine again. He reported that he continued to feel angry but minimized any homicidal thoughts towards those that had given him the methamphetamine at the [place] he [place] prior to admission. He had reported improved sleep with the reinitiation of trazodone and risperidone. Mental Status Exam MSE Comments: This is a well-nourished, well-developed, white male, with hospital scrubs on, disheveled with limited eye contact with slightly dysmorphic facies. No stereotypies noted. He was cooperative with exam in mild distress. Speech was decreased in rate and normal in volume and dysarthric. Mood described as allright. Affect was subdued. Thought process was linear and organized. Thought content: patient denied any suicidal ideation but endorsed vague homicidal thoughts still. There were no delusions reported or noted, patient denied any auditory or visual hallucinations and did not appear to be responding to internal stimuli. Attention, concentration, and memory appear intact but were not formally tested. He is alert and oriented times three. Insight and judgment are impaired. Impulse control impaired, and intellectual ability appears to be low average. Vitals/I&O/Wt Last Vital Signs Temp 97.4 F L 07/24/24 12:00 Pulse 87 07/24/24 12:00 Resp 18 07/24/24 12:00 BP 128/64 07/24/24 12:00 Pulse Ox 97 07/24/24 12:00 O2 Del Method Room Air 07/23/24 16:19 Weight last 48 hrs Weight 74.843 kg Data NPU 07/23/24 00:00 07/23/24 00:00 A&P Assessment and plan (1) Intermittent explosive disorder: (2) Methamphetamine use disorder, severe: (3) ADHD: (4) Depression with suicidal ideation: (5) Borderline personality disorder: (6) Nicotine dependence, cigarettes, uncomplicated: Plan This is a 29 year old white male with a history of intermittent explosive disorder, borderline intellectual functioning, polysubstance abuse, who presents with methamphetamine abuse and homicidal ideation currently noncompliant with treatment. 1. Recommend sober living treatment at the highest level of care to which the patient is willing to commit. 2. Continue every 15 minute checks for safety. 3. Encourage individual, group and milieu therapies. 4. Risperidal 2mg at night and Trazodone 100mg at night. 5. Referral for [facility] for treatment of alcohol and methamphetamine dependence. Involuntary Hold Information 96 Hour Hold: 96 Hour Involuntary Admission: Yes Attestations NPU Medical Necessity Statement*: Inpatient hospitalization is medically necessary and the clinically appropriate intervention at this time. We will monitor medications and make changes as indicated. His likely length of stay is 2-4 days. Coding Level of Care Code Acute Code for [facility] Fwd Diagnoses Intermittent explosive disorder F63.81 Methamphetamine use disorder, severe F15.20 ADHD F90.9 Depression with suicidal ideation F32.A; R45.851 Borderline personality disorder F60.3 Nicotine dependence, cigarettes, uncomplicated F17.210
[2024-07-24 16:00] VITALS: BP 135/75; PULSE 72; RESP 18; TEMP 36.3; O2SAT 98
[2024-07-24 20:00] VITALS: BP 120/67; PULSE 67; RESP 18; TEMP 36.6; O2SAT 99
[2024-07-24] MEDS: trazodone 100 mg Tablet PO (20:10)
[2024-07-24] MEDS: risperiDONE 2 mg Tablet PO (20:10)
[2024-07-25] VITALS: RESP 16
[2024-07-25 04:00] VITALS: BP 114/68; PULSE 67; RESP 16; TEMP 36.7; O2SAT 98
[2024-07-25 08:00] VITALS: BP 117/52; PULSE 66; RESP 18; TEMP 36.4; O2SAT 100
--- NOTE | 2024-07-25 11:23 | DCPLANNER ---
IMM completed 07/25/24 @ 1117. Pt was given a copy of his rights and he stated he understood his rights.
[2024-07-25] MEDS: nicotine 2 mg Gum BUCCAL ×2 (11:30→13:27)
[2024-07-25 12:00] VITALS: BP 115/71; PULSE 79; RESP 20; TEMP 36.8; O2SAT 99
[2024-07-25 13:37] VITALS: BP 115/71; PULSE 79; RESP 20; TEMP 36.8; O2SAT 99
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
== END 2024-07-25 14:10 | disposition home or self-care (01) | DRG 883 ==
LOC: ER 07-23 01:37 → NP 07-23 02:38
PROVIDERS: Admitting Provider Psychiatry & Neurology Psychiatry; Emergency Provider Emergency Medicine; Visit Provider Psychiatry & Neurology Psychiatry
DX: F63.81 Intermittent explosive disorder (principal); F15.20 Other stimulant dependence, uncomplicated; R45.850 Homicidal ideations; F60.3 Borderline personality disorder; R41.83 Borderline intellectual functioning; Z91.128 Patient's intentional underdosing of medication regimen for other reason; F17.210 Nicotine dependence, cigarettes, uncomplicated; F31.9 Bipolar disorder, unspecified; F90.9 Attention-deficit hyperactivity disorder, unspecified type
CPT/HCPCS: 10060; 80053; 80306; 80307; 81003; 81015; 84443; 85025; 97150; 97165; 99285

== ENCOUNTER 2024-11-18 18:44 | Inpatient (IN) | payer MEDICARE, MEDICAID, SELFPAY ==
[2024-11-18 18:57] VITALS: BP 133/76; PULSE 104; RESP 16; TEMP 36.6; O2SAT 95
[2024-11-18 19:03] VITALS: BP 106/60; PULSE 94; RESP 18; TEMP 36.7; O2SAT 96; BMI 24.3
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
[2024-11-18] MEDS: LORazepam 2 mg/mL INJ 1 mL IM (19:24)
[2024-11-18] MEDS: ziprasidone 20 mg/mL SDV IM (19:24)
[2024-11-18] MEDS: water for injection-sterile 10 ML 1.2 ML (19:25)
[2024-11-18 19:40] LABS: Bilirubin Urine Negative (Negative); Blood Urine Negative (Negative); Glucose Urine UA Negative (Normal); Ketones Urine Negative (Negative); Leukocyte Esterase Urine Negative (Negative); Nitrate Urine Negative (Negative); Protein Urine Negative (Negative); Urine Appearance Turbid (CLEAR); Urine Color Yellow (Yellow); pH Urine 6.5 (5-7)
[2024-11-18 19:45] LABS: Bacteria Urine None Seen /hpf; Hyaline Casts Urine 0-4 /lpf; RBC Urine 0-2 /hpf (0-2); Squamous Epithelial Cell Urine 0-5 /hpf (0-5); WBC Urine 0-5 /hpf (0-5)
[2024-11-18 19:49] LABS: Amphetamines Screen Urine Negative (Negative); Barbiturates Screen Urine Negative (Negative); Benzodiazepines Screen Urine Positive (Negative); Cocaine Screen Urine Negative (Negative); Opiate Screen Urine Negative (Negative); PCP Screen Urine Negative (Negative); THC Screen Urine Positive (Negative)
[2024-11-18 20:31] LABS: Basophils # 0.1 10^3/uL (0.0-0.1); Eosinophils # 0.2 10^3/uL (0.0-0.8); Eosinophils % 2.3 %; Hematocrit 43.7 % (37-53); Lymphocytes % 33.8 %; Mean Corpuscular HGB Conc 32.5 g/dL (30-55); Mean Corpuscular Hemoglobin 30.6 pg (27-33); Mean Corpuscular Volume 94.2 fl (82-101); Mean Platelet Volume 8.8 fL (7.4-10.4); Monocytes # 0.6 10^3/uL (0.2-0.9); Monocytes % 6.8 %; Neutrophils # 4.96 10^3/uL (1.8-7.7); Neutrophils % 55.8 %; Nucleated Red Blood Cells % 0 %; Platelet Count 324 10^3/cmm (157-399); Red Blood Count 4.64 10^6/uL (3.85-5.65); Red Cell Distribution Width 13.5 % (12.1-15.1); White Blood Count 8.88 10^3/uL (3.29-11.43)
[2024-11-18 21:06] LABS: Alanine Aminotransferase 18 U/L (0-41); Albumin Level 4.2 g/dL (3.5-5.2); Alkaline Phosphatase 79 U/L (40-130); Aspartate Amino Transferase 22 U/L (0-40); Blood Urea Nitrogen 13 mg/dL (6-20); Calcium 9.5 mg/dL (8.5-10.5); Carbon Dioxide 27 mmol/L (22-29); Chloride 104 mmol/L (98-107); Globulin 2.6 g/dL (1.3-4.6); Glomerular Filtration Rate 99.1 mL/min (90-130); Glucose 93 mg/dL (65-115); Osmolality Calculated 294 mOsm/kg (285-295); Sodium 142 mmol/L (136-145); Thyroid Stimulating Hormone 2.57 uIU/mL (0.27-4.20); Total Bilirubin 0.2 mg/dL (0.15-1.2); Total Protein 6.8 g/dL (6.6-8.7)
[2024-11-18 21:07] LABS: Acetaminophen < 5.0 ug/mL (10-30); Alcohol Level < 10 mg/dL (0-10); Salicylate < 0.3 mg/dL (3-10)
--- NOTE | 2024-11-18 21:19 | PC.NURSE ---
96 HH Pt served with copy of right by this RN and security. Pt fell asleep during reading of rights. Pt re-awoken and fell asleep again. Copy of rights left at bedside.
[2024-11-18 21:25] VITALS: BP 110/59; PULSE 99; RESP 20; TEMP 36.5; O2SAT 96
[2024-11-18 22:03] VITALS: BP 118/77; PULSE 95; RESP 16; TEMP 36.3; O2SAT 94
[2024-11-19 06:00] VITALS: BP 98/62; PULSE 80; RESP 15; TEMP 36.3; O2SAT 96
[2024-11-19] MEDS: nicotine 2 mg Gum BUCCAL ×3 (11:36→15:33)
[2024-11-19 14:00] VITALS: BP 129/63; PULSE 90; RESP 18; TEMP 36.9; O2SAT 98
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
[2024-11-19] MEDS: hyDROXYzine 25 mg Capsule 50 MG PO (15:33)
[2024-11-19 19:23] VITALS: BP 109/65; PULSE 61; RESP 18; O2SAT 99
[2024-11-19] MEDS: risperiDONE 1 mg Tablet 2 MG PO (22:01)
[2024-11-19] MEDS: nicotine 4 mg lozenge MUCOUS MEM (22:01)
[2024-11-19] MEDS: trazodone 100 mg Tablet PO (22:01)
[2024-11-20 06:00] VITALS: BP 112/70; PULSE 91; RESP 16; O2SAT 97
[2024-11-20] MEDS: nicotine 2 mg Gum BUCCAL ×5 (08:18→20:21)
[2024-11-20 14:00] VITALS: BP 118/82; PULSE 74; RESP 16; TEMP 36.3; O2SAT 100
--- NOTE | 2024-11-20 14:54 | W.PM.NPUPNS ---
Subjective NPU Subjective: Presented today being more if negative. He reports that he tried to go to [facility] to get things restarted. He reports that he did what he has done in the past which was he was sitting in his tent and taking his medication and feeling a lot better and started thinking that he was okay now. He reports that he needs to be back on his medication and that he is open to restarting medications at appropriate doses. Otherwise he reports that his significant other is more invested in the relationship that he is in so he is trying to have some level of freedom that does not come easily when he cohabitates with a person in a tent. Mental Status Exam MSE Comments: This is a well-nourished, well-developed, white male, with hospital scrubs on, disheveled with limited eye contact with slightly dysmorphic facies. No abnormal movements. Cooperative with exam in mild distress. Speech was normal rate and volume and dysarthric. Mood described as okay; affect congruent. Thought process, organized. Thought content: patient denied any suicidal or homicidal ideation, there were no delusions reported or noted, patient denied any auditory or visual hallucinations. Attention, concentration, and memory appear intact but were not formally tested. He is alert and oriented times three. Insight and judgment are impaired. Impulse control impaired, and intellectual ability appears limited versus impaired. Vitals/I&O/Wt Last Vital Signs Temp 97.3 F L 11/20/24 14:00 Pulse 74 11/20/24 14:00 Resp 16 11/20/24 14:00 BP 118/82 11/20/24 14:00 Pulse Ox 100 11/20/24 14:00 O2 Del Method Room Air 11/20/24 14:00 Weight last 48 hrs Weight 72.575 kg Weight 76.204 kg Data NPU 11/18/24 20:13 11/18/24 20:13 A&P Assessment and plan (1) Intermittent explosive disorder: (2) Methamphetamine use disorder, severe: (3) ADHD: (4) Depression with suicidal ideation: (5) Borderline personality disorder: (6) Nicotine dependence, cigarettes, uncomplicated: Plan This is a 29 year old white male with a history of intermittent explosive disorder, borderline intellectual functioning, polysubstance abuse, who opresents with h/ methamphetamine abuse and homicidal ideation currently noncompliant with treatment. 1. Recommend sober living treatment at the highest level of care to which the patient is willing to commit. 2. Continue every 15 minute checks for safety. 3. Encourage individual, group and milieu therapies. 4. Restart medication. Involuntary Hold Information 96 Hour Hold: 96 Hour Involuntary Admission: Yes 96 Hour Hold Ending Date: 11/25/24 96 Hour Hold Ending Time: 20:08 Other Hold: Hold End Date: 11/26/24 Attestations NPU Medical Necessity Statement*: Inpatient hospitalization is medically necessary and the clinically appropriate intervention at this time. We will monitor medications and make changes as indicated. His likely length of stay is 2-4 days. Coding Level of Care Code Acute Code for [facility] Fwd Diagnoses Intermittent explosive disorder F63.81 Methamphetamine use disorder, severe F15.20 ADHD F90.9 Depression with suicidal ideation F32.A; R45.851 Borderline personality disorder F60.3 Nicotine dependence, cigarettes, uncomplicated F17.210
[2024-11-20] MEDS: nicotine 4 mg lozenge MUCOUS MEM (18:20)
[2024-11-20 19:42] VITALS: BP 126/80; PULSE 94; RESP 18; TEMP 36.6; O2SAT 100
[2024-11-20] MEDS: risperiDONE 1 mg Tablet 2 MG PO (20:20)
[2024-11-20] MEDS: ibuprofen 600 mg Tablet PO (20:20)
[2024-11-20] MEDS: trazodone 100 mg Tablet PO (20:21)
[2024-11-21 06:00] VITALS: BP 111/75; PULSE 79; RESP 18; O2SAT 100
[2024-11-21] MEDS: nicotine 4 mg lozenge MUCOUS MEM ×4 (06:20→16:55)
[2024-11-21] MEDS: nicotine 2 mg Gum BUCCAL ×2 (11:35→20:13)
[2024-11-21] MEDS: hyDROXYzine 25 mg Capsule 50 MG PO ×2 (12:44→20:14)
[2024-11-21 14:00] VITALS: BP 115/68; PULSE 89; RESP 16; TEMP 36.4; O2SAT 100
--- NOTE | 2024-11-21 14:25 | P.NPUPN_ITS ---
Subjective NPU 2 Subjective: Patient presented today reporting that he was doing a little better and is adjusting to have his medication back. We discussed a plan to discharge inthe next 48 hours likely. Mental Status Exam 2 MSE Comments: This is a well-nourished, well-developed, white male, with hospital scrubs on, disheveled with limited eye contact with slightly dysmorphic facies. No abnormal movements. Cooperative with exam in mild distress. Speech was normal rate and volume and dysarthric. Mood described as better; affect congruent. Thought process, organized. Thought content: patient denied any suicidal or homicidal ideation, there were no delusions reported or noted, patient denied any auditory or visual hallucinations. Attention, concentration, and memory appear intact but were not formally tested. He is alert and oriented times three. Insight and judgment are impaired. Impulse control impaired, and intellectual ability appears limited versus impaired. Vitals/I&O/Wt Last Vital Signs Temp 97.5 F L 11/21/24 14:00 Pulse 89 11/21/24 14:00 Resp 16 11/21/24 14:00 BP 115/68 11/21/24 14:00 Pulse Ox 100 11/21/24 14:00 O2 Del Method Room Air 11/21/24 14:00 Data NPU 11/18/24 20:13 11/18/24 20:13 A&P Assessment and plan (1) Intermittent explosive disorder: (2) Methamphetamine use disorder, severe: (3) ADHD: (4) Depression with suicidal ideation: (5) Borderline personality disorder: (6) Nicotine dependence, cigarettes, uncomplicated: Plan This is a 29 year old white male with a history of intermittent explosive disorder, borderline intellectual functioning, polysubstance abuse, who presents with h/ methamphetamine abuse and homicidal ideation currently noncompliant with treatment. 1. Recommend sober living treatment at the highest level of care to which the patient is willing to commit. 2. Continue every 15 minute checks for safety. 3. Encourage individual, group and milieu therapies. 4. Restarted medication. Involuntary Hold Information 2 96 Hour Hold: 96 Hour Involuntary Admission: Yes 96 Hour Hold Ending Date: 11/25/24 96 Hour Hold Ending Time: 20:08 Other Hold: Hold End Date: 11/26/24 Attestations NPU 2 Medical Necessity Statement*: Inpatient hospitalization is medically necessary and the clinically appropriate intervention at this time. We will monitor medications and make changes as indicated. His likely length of stay is 1-4 days. Coding Level of Care Code Acute Code for [facility] Fwd Diagnoses Intermittent explosive disorder F63.81 Methamphetamine use disorder, severe F15.20 ADHD F90.9 Depression with suicidal ideation F32.A; R45.851 Borderline personality disorder F60.3 Nicotine dependence, cigarettes, uncomplicated F17.210
[2024-11-21 20:00] VITALS: BP 133/74; PULSE 71; RESP 18; TEMP 36.6; O2SAT 100
[2024-11-21] MEDS: ibuprofen 600 mg Tablet PO (20:13)
[2024-11-21] MEDS: risperiDONE 1 mg Tablet 2 MG PO (20:13)
[2024-11-21] MEDS: trazodone 100 mg Tablet PO (20:14)
[2024-11-21] MEDS: simethicone 80 mg Chew PO (21:14)
[2024-11-22 06:00] VITALS: BP 108/65; PULSE 77; RESP 16; O2SAT 99
[2024-11-22] MEDS: nicotine 4 mg lozenge MUCOUS MEM ×5 (09:30→22:19)
[2024-11-22 14:00] VITALS: BP 123/78; PULSE 69; RESP 16; TEMP 36.6; O2SAT 100
[2024-11-22] MEDS: nicotine 2 mg Gum BUCCAL (14:06)
--- NOTE | 2024-11-22 16:26 | DCPLANNER ---
IMM was given to pt and rights explained and copy placed in pts file
--- NOTE | 2024-11-22 16:50 | P.NPUPN_ITS ---
Subjective NPU 2 Subjective: Patient presented today reporting that he is doing okay. He has been somewhat ambivalent about what is going to do with this sober living program. He is dealing with the fact that he wants to discharge but is fully aware that discharging without treatment is not the best option for him. He tried to say that he lacked a protestant belief and so protestant program would be bad for him but it was noted that in his moments on the unit when there has been prior or things of that nature he is always participated for which she had a sort of smart. We discussed the plan to work with him to get him to Monday and hopefully a good decision and will manage things then. He denies any side effects to his medication Mental Status Exam 2 MSE Comments: This is a well-nourished, well-developed, white male, with hospital scrubs on, disheveled with limited eye contact with slightly dysmorphic facies. No abnormal movements. Cooperative with exam in mild distress. Speech was normal rate and volume and dysarthric. Mood described as better; affect congruent. Thought process, organized. Thought content: patient denied any suicidal or homicidal ideation, there were no delusions reported or noted, patient denied any auditory or visual hallucinations. Attention, concentration, and memory appear intact but were not formally tested. He is alert and oriented times three. Insight and judgment are impaired. Impulse control impaired, and intellectual ability appears limited versus impaired. Vitals/I&O/Wt Last Vital Signs Temp 98 F 11/22/24 14:00 Pulse 69 11/22/24 14:00 Resp 16 11/22/24 14:00 BP 123/78 11/22/24 14:00 Pulse Ox 100 11/22/24 14:00 O2 Del Method Room Air 11/22/24 14:00 Data NPU 11/18/24 20:13 11/18/24 20:13 A&P Assessment and plan (1) Intermittent explosive disorder: (2) Methamphetamine use disorder, severe: (3) ADHD: (4) Depression with suicidal ideation: (5) Borderline personality disorder: (6) Nicotine dependence, cigarettes, uncomplicated: Plan This is a 29 year old white male with a history of intermittent explosive disorder, borderline intellectual functioning, polysubstance abuse, who presents with h/ methamphetamine abuse and homicidal ideation currently noncompliant with treatment. 1. Recommend sober living treatment at the highest level of care to which the patient is willing to commit. 2. Continue every 15 minute checks for safety. 3. Encourage individual, group and milieu therapies. 4. Restarted medication. Involuntary Hold Information 2 96 Hour Hold: 96 Hour Involuntary Admission: Yes 96 Hour Hold Ending Date: 11/25/24 96 Hour Hold Ending Time: 20:08 Other Hold: Hold End Date: 11/26/24 Attestations NPU 2 Medical Necessity Statement*: Inpatient hospitalization is medically necessary and the clinically appropriate intervention at this time. We will monitor medications and make changes as indicated. His likely length of stay is 1-4 days. Coding Level of Care Code Acute Code for [facility] Fwd Diagnoses Intermittent explosive disorder F63.81 Methamphetamine use disorder, severe F15.20 ADHD F90.9 Depression with suicidal ideation F32.A; R45.851 Borderline personality disorder F60.3 Nicotine dependence, cigarettes, uncomplicated F17.210
[2024-11-22 20:53] VITALS: BP 119/73; PULSE 84; RESP 16; TEMP 36.8; O2SAT 99
[2024-11-22] MEDS: ibuprofen 600 mg Tablet PO (22:18)
[2024-11-22] MEDS: trazodone 100 mg Tablet PO (22:18)
[2024-11-22] MEDS: risperiDONE 1 mg Tablet 2 MG PO (22:18)
[2024-11-22] MEDS: simethicone 80 mg Chew PO (22:18)
[2024-11-22] MEDS: hyDROXYzine 25 mg Capsule 50 MG PO (22:19)
[2024-11-23 06:00] VITALS: BP 110/66; PULSE 86; RESP 12; TEMP 36.4; O2SAT 98
[2024-11-23] MEDS: nicotine 2 mg Gum BUCCAL ×3 (06:18→13:04)
[2024-11-23 14:00] VITALS: BP 127/67; PULSE 76; RESP 16; TEMP 36.3; O2SAT 99
[2024-11-23] MEDS: nicotine 4 mg lozenge MUCOUS MEM ×3 (15:06→20:58)
[2024-11-23] MEDS: hyDROXYzine 25 mg Capsule 50 MG PO (15:44)
--- NOTE | 2024-11-23 18:55 | P.NPUPN_ITS ---
Subjective NPU 2 Subjective: Patient presented today reporting that he is doing okay. He continues to be ambivalent about treatment reporting that he has been having good sobriety in recent years. He reports that he has really wanted to be back on his medication and we have accomplished that and so he is now focusing on wanting to be discharged. He reports that he is trying to do the things necessary to possibly get some better housing but right now he feels confident that he will be able to make it through the winter in a tent. We discussed the likelihood of discharge in 48 hours. He denies any side effects to his medication Mental Status Exam 2 MSE Comments: This is a well-nourished, well-developed, white male, with hospital scrubs on, disheveled with limited eye contact with slightly dysmorphic facies. No abnormal movements. Cooperative with exam in mild distress. Speech was normal rate and volume and dysarthric. Mood described as better; affect congruent. Thought process, organized. Thought content: patient denied any suicidal or homicidal ideation, there were no delusions reported or noted, patient denied any auditory or visual hallucinations. Attention, concentration, and memory appear intact but were not formally tested. He is alert and oriented times three. Insight and judgment are impaired. Impulse control impaired, and intellectual ability appears limited versus impaired. Vitals/I&O/Wt Last Vital Signs Temp 97.4 F L 11/23/24 14:00 Pulse 76 11/23/24 14:00 Resp 16 11/23/24 14:00 BP 127/67 11/23/24 14:00 Pulse Ox 99 11/23/24 14:00 O2 Del Method Room Air 11/23/24 14:00 Data NPU 11/18/24 20:13 11/18/24 20:13 A&P Assessment and plan (1) Intermittent explosive disorder: (2) Methamphetamine use disorder, severe: (3) ADHD: (4) Depression with suicidal ideation: (5) Borderline personality disorder: (6) Nicotine dependence, cigarettes, uncomplicated: Plan This is a 29 year old white male with a history of intermittent explosive disorder, borderline intellectual functioning, polysubstance abuse, who presents with h/ methamphetamine abuse and homicidal ideation currently noncompliant with treatment. 1. Recommend sober living treatment at the highest level of care to which the patient is willing to commit. 2. Continue every 15 minute checks for safety. 3. Encourage individual, group and milieu therapies. 4. Restarted medication. Involuntary Hold Information 2 96 Hour Hold: 96 Hour Involuntary Admission: Yes 96 Hour Hold Ending Date: 11/25/24 96 Hour Hold Ending Time: 20:08 Other Hold: Hold End Date: 11/26/24 Attestations NPU 2 Medical Necessity Statement*: Inpatient hospitalization is medically necessary and the clinically appropriate intervention at this time. We will monitor medications and make changes as indicated. His likely length of stay is 1-3 days. Coding Level of Care Code Acute Code for [facility] Fwd Diagnoses Intermittent explosive disorder F63.81 Methamphetamine use disorder, severe F15.20 ADHD F90.9 Depression with suicidal ideation F32.A; R45.851 Borderline personality disorder F60.3 Nicotine dependence, cigarettes, uncomplicated F17.210
[2024-11-23] MEDS: trazodone 100 mg Tablet PO (20:58)
[2024-11-23] MEDS: risperiDONE 1 mg Tablet 2 MG PO (20:58)
[2024-11-23 22:00] VITALS: BP 120/71; PULSE 74; RESP 12; TEMP 36.4; O2SAT 100
[2024-11-23] MEDS: OLANZapine 5 mg ODT PO (22:00)
[2024-11-24 06:00] VITALS: BP 115/73; PULSE 126; RESP 14; TEMP 36.6; O2SAT 97
[2024-11-24] MEDS: nicotine 4 mg lozenge MUCOUS MEM ×7 (06:12→21:01)
--- NOTE | 2024-11-24 10:54 | P.NPUPN_ITS ---
Subjective NPU 2 Subjective: Patient presented today reporting that he is doing fine. He is feeling optimistic about the likely discharge tomorrow. We discussed the importance of him connecting with the social work team and making sure that follow-up is arranged so he does not fall into the same situation he did this time. He denied any side effects of medication. Mental Status Exam 2 MSE Comments: This is a well-nourished, well-developed, white male, with hospital scrubs on, disheveled with limited eye contact with slightly dysmorphic facies. No abnormal movements. Cooperative with exam in mild distress. Speech was normal rate and volume and dysarthric. Mood described as better; affect congruent. Thought process, organized. Thought content: patient denied any suicidal or homicidal ideation, there were no delusions reported or noted, patient denied any auditory or visual hallucinations. Attention, concentration, and memory appear intact but were not formally tested. He is alert and oriented times three. Insight and judgment are impaired. Impulse control impaired, and intellectual ability appears limited versus impaired. Vitals/I&O/Wt Last Vital Signs Temp 97.8 F 11/24/24 06:00 Pulse 126 H 11/24/24 06:00 Resp 14 11/24/24 06:00 BP 115/73 11/24/24 06:00 Pulse Ox 97 11/24/24 06:00 O2 Del Method Room Air 11/24/24 06:00 Weight last 48 hrs Weight 72.575 kg Data NPU 11/18/24 20:13 11/18/24 20:13 A&P Assessment and plan (1) Intermittent explosive disorder: (2) Methamphetamine use disorder, severe: (3) ADHD: (4) Depression with suicidal ideation: (5) Borderline personality disorder: (6) Nicotine dependence, cigarettes, uncomplicated: Plan This is a 29 year old white male with a history of intermittent explosive disorder, borderline intellectual functioning, polysubstance abuse, who presents with h/ methamphetamine abuse and homicidal ideation currently noncompliant with treatment. 1. Recommend sober living treatment at the highest level of care to which the patient is willing to commit. 2. Continue every 15 minute checks for safety. 3. Encourage individual, group and milieu therapies. 4. Restarted medication. 5. Tentative plan for discharge tomorrow. Involuntary Hold Information 2 96 Hour Hold: 96 Hour Involuntary Admission: Yes 96 Hour Hold Ending Date: 11/25/24 96 Hour Hold Ending Time: 20:08 Other Hold: Hold End Date: 11/26/24 Attestations NPU 2 Medical Necessity Statement*: Inpatient hospitalization is medically necessary and the clinically appropriate intervention at this time. We will monitor medications and make changes as indicated. His likely length of stay is 1-2 days. Coding Level of Care Code Acute Code for g Fwd Diagnoses Intermittent explosive disorder F63.81 Methamphetamine use disorder, severe F15.20 ADHD F90.9 Depression with suicidal ideation F32.A; R45.851 Borderline personality disorder F60.3 Nicotine dependence, cigarettes, uncomplicated F17.210
[2024-11-24] MEDS: ibuprofen 600 mg Tablet PO (13:49)
[2024-11-24 14:00] VITALS: BP 151/79; PULSE 69; RESP 16; TEMP 36.6; O2SAT 97
[2024-11-24] MEDS: hyDROXYzine 25 mg Capsule 50 MG PO (14:43)
[2024-11-24] MEDS: trazodone 100 mg Tablet PO (20:07)
[2024-11-24] MEDS: risperiDONE 1 mg Tablet 2 MG PO (20:07)
[2024-11-24 20:53] VITALS: BP 119/76; PULSE 67; RESP 18; TEMP 36.7; O2SAT 99
[2024-11-24] MEDS: OLANZapine 5 mg ODT PO (21:20)
[2024-11-25 06:00] VITALS: BP 109/59; PULSE 67; RESP 18; TEMP 36.7; O2SAT 99
[2024-11-25] MEDS: nicotine 4 mg lozenge MUCOUS MEM ×4 (06:20→12:42)
--- NOTE | 2024-11-25 10:57 | DCPLANNER ---
IMM completed on 11/25/2024 @ 1046. Pt was given a copy of rights.
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
[2024-11-25 12:53] VITALS: BP 109/59; PULSE 67; RESP 18; TEMP 36.6; O2SAT 99
== END 2024-11-25 13:30 | disposition home or self-care (01) | DRG 883 ==
LOC: ER 20:26 → NP 21:25
PROVIDERS: Admitting Provider Psychiatry & Neurology Psychiatry; Emergency Provider Emergency Medicine; Visit Provider Psychiatry & Neurology Psychiatry
DX: F63.81 Intermittent explosive disorder (principal); F15.20 Other stimulant dependence, uncomplicated; R45.851 Suicidal ideations; Z59.00 Homelessness unspecified; F90.9 Attention-deficit hyperactivity disorder, unspecified type; F32.A Depression, unspecified; F60.3 Borderline personality disorder; F17.210 Nicotine dependence, cigarettes, uncomplicated; R45.850 Homicidal ideations; T50.906A Underdosing of unspecified drugs, medicaments and biological substances, initial encounter
CPT/HCPCS: 36415; 80053; 80306; 80307; 81001; 84443; 85025; 96372; 97150; 97165; 99285; J2060; J3486

== ENCOUNTER → 2025-03-06 10:04 | Outpatient (BNVA) | payer MEDICARE, MEDICAID, SELFPAY | PROVIDERS: Visit Provider Emergency Medicine | DX: Z20.2 Contact with and (suspected) exposure to infections with a predominantly sexual mode of transmission (principal); R30.0 Dysuria | CPT/HCPCS: 81000; 87086; 87491; 87591; 87661 ==

== ENCOUNTER 2025-03-20 16:30 | Inpatient (IN) | payer MEDICARE, MEDICAID, SELFPAY ==
[2025-03-20 16:33] VITALS: BP 144/78; PULSE 110; RESP 18; TEMP 36.7; O2SAT 97; BMI 24.3
--- NOTE | 2025-03-20 16:40 | ECG_ITS ---
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 Measurements Intervals Lena Rate: 96 P: 68 PA: 125 QRS: 67 QRSD: 99 T: 41 QT: 318 QTc: 403 Interpretive Statements SINUS RHYTHM Compared to ECG 10/04/2023 22:54:53 No significant changes Electronically Signed On 03-21-2025 10:35:43 CDT by Tony Burkett M.D. [email or web address]
--- NOTE | 2025-03-20 16:42 | ED.C_ITS ---
HPI - Psych 2 General: Chief Complaint: Psychiatric Symptoms Stated Complaint: SI Time Seen by Provider: 03/20/25 16:38 History of Present Illness: 30-year-old male with history of methamp hetamine dependence, borderline personality disorder, nicotine dependence borderline intellectual functioning and bipolar disorder who presents to the emergency room with worsening depression and suicidal thoughts. He says this has been going on for some time now and worsening. No specific inciting events. He says he has been taking his medications as prescribed. He says it has been about a year since he was last admitted. He says his plan is to walk in front of a train. Related Data Previous Rx's ?Medication ?Instructions ?Recorded hydroxyzine pamoate 50 mg capsule 50 mg PO BID PRN anx iety #60 caps 01/27/25 risperidone 2 mg tablet (Risperdal) 2 mg PO BEDTIME #3 0 tabs 01/27/25 Allergies Allergy/AdvReac Type Severity Reaction Status Date / Time Sulfa (Sulfonamide Allergy ALGY-Hives Verified 03/06/25 09:32 Antibiotics) Review of Systems 2 Narrative: Constitutional symptoms: Negative except as documented in HPI. Skin symptoms: Negative except as documented in HPI. Eye symptoms: Negative except as documented in HPI. ENMT symptoms: Negative except as documented in HPI. Respiratory symptoms: Negative except as documented in HPI. Cardiovascular symptoms: Negative except as documented in HPI. Gastrointestinal symptoms: Negative except as documented in HPI. Genitourinary symptoms: Negative except as documented in HPI. Musculoskeletal symptoms: Negative except as documented in HPI. Neurologic symptoms: Negative except as documented in HPI. Psychiatric symptoms: Negative except as documented in HPI. Endocrine symptoms: Negative except as documented in HPI. PFSH ED 2 PFSH: Medical History (Updated 03/20/25 @ 16:41 by Karuna Jack MD) Methamphetamine dependence, episodic Borderline personality disorder Nicotine dependence, cigarettes, uncomplicated Borderline intellectual functioning Bipolar I, most recent episode mixed, severe Intermittent explosive disorder No pertinent family history Psychiatric care Social History Smoking and tobacco/nicotine status: current every day tobacco/nicotine user cigarettes Packs smoked per day: 0.5 Years cigarettes smoked: 14 and smokeless tobacco Smokeless tobacco user: snuff Smokeless tobacco details: 1 can/2.5 days Quit status (tobacco/nicotine): has tried quititng Number of times tried to quit tobacco: 6 Second hand smoke exposure: Yes Alcohol intake: current Alcohol type: beer and hard liquor Substance/Drug Use: former Date of last use: Meth & Heroin - last used a few weeks ago. Physical Exam 2 Narrative: EXAM NARRATIVE: General: Alert. no acute distress Skin: Warm, dry Head: Normocephalic, atraumatic. Neck: Supple, trachea midline. Eye: Extraocular movements are intact. Ears, nose, mouth and throat: Oral mucosa moist. Cardiovascular: Regular rate and rhythm, Normal peripheral perfusion. Respiratory: Lungs are clear to auscultation, respirations are non-labored, breath sounds are equal, Symmetrical chest wall expansion. Gastrointestinal: Soft, Nontender, Non distended, Normal bowel sounds. Musculoskeletal: Normal ROM, no deformity. Neurological: Alert and oriented to person, place, time, and situation, No focal neurological deficit observed. Psychiatric: Cooperative, depressed, expresses suicidal ideation. Course 2 Vital Signs: Vital signs: Vital Signs Temperature 98.0 F 03/20/25 16:33 Pulse Rate 110 H 03/20/25 16:33 Respiratory Rate 18 03/20/25 16:33 Blood Pressure 144/78 03/20/25 16:33 Pulse Oximetry 97 03/20/25 16:33 Oxygen Delivery Me thod Room Air 03/20/25 16:33 MDM - Psych Medical Decision Making Differential diagnosis: Patient with reported depression and suicidal ideation. concerns for infection, alcohol intoxication, cardiac issues or other medical problems prior to psychiatric admission. Workup: labwork, ekg ordered to evaluate the pathologies and to clear the patient medically prior to psychiatric admission EKG: Time 1701. Rate 96. Normal sinus rhythm, No ST-T changes, no ectopy, normal NE & QRS intervals, This was reviewed and interpreted by myself the ER physician at 1706 Lab Review: Laboratory results were reviewed and interpreted by myself the emergency room physician. - Medically cleared. - EKG shows no ischemic changes. - Blood alcohol level is 14, -Tylenol and salicylate levels are negative. - Drug screen is positive for marijuana amphetamines - No signs of infection, urinalysis clear and white count is not elevated - No anemia. - BUN and creatinine are within normal limits. Consultation: I spoke with Dr. Bruno who agrees to admission. Assessment and plan: Depression Suicidal ideation ? 96-hour hold placed. -Admission to neuropsychiatric unit for continued evaluation and treatment. - All lab work was reviewed and interpreted personally by myself, the ER physician - Evaluation and treatment of this problem were appropriate in the emergency setting Lab Data 03/20/25 16:56 03/20/25 16:56 Laboratory Results WBC 7.34 10^3/uL (3.29-11.43) 03/20/25 16:56 RBC 4.78 10^6/uL (3.85-5.65) 03/20/25 16:56 Hgb 14.90 g/dL (11.27-16.99) 03/20/25 16:56 Hct 44.9 % (37-53) 03/20/25 16:56 MCV 93.9 fl (82-101) 03/20/25 16:56 MCH 31.2 pg (27-33) 03/20/25 16:56 MCHC 33.2 g/dL (30-55) 03/20/25 16:56 RDW 12.5 % (12.1-15.1) 03/20/25 16:56 Plt Count 372 10^3/cmm (157-399) 03/20/25 16:56 MPV 8.4 fL (7.4-10.4) 03/20/25 16:56 Neut % (Auto) 57.4 % 03/20/25 16:56 Lymph % (Auto) 31.5 % 03/20/25 16:56 [place] % (Auto) 8.0 % 03/20/25 16:56 Eos % (Auto) 1.6 % 03/20/25 16:56 Baso % (Auto) 1.1 % 03/20/25 16:56 Neut # (Auto) 4.21 10^3/uL (1.8-7.7) 03/20/25 16:56 Lymph # (Auto) 2.3 10^3/uL (0.8-4.8) 03/20/25 16:56 [place] # (Auto) 0.6 10^3/uL (0.2-0.9) 03/20/25 16:56 Eos # (Auto) 0.1 10^3/uL (0.0-0.8) 03/20/25 16:56 Baso # (Auto) 0.1 10^3/uL (0.0-0.1) 03/20/25 16:56 Nucleated RBC % (auto) 0 % 03/20/25 16:56 Nucleated RBCs # 0.0 /100WBC 03/20/25 16:56 Sodium 140 mmol/L (136-145) 03/20/25 16:56 Potassium 3.9 mmol/L (3.5-5.1) 03/20/25 16:56 Chloride 103 mmol/L (98-107) 03/20/25 16:56 Carbon Dioxide 22 mmol/L (22-29) 03/20/25 16:56 Anion Gap 18.9 (5-19) 03/20/25 16:56 BUN 7 mg/dL (6-20) 03/20/25 16:56 Creatinine 0.7 mg/dL (0.7-1.2) 03/20/25 16:56 GFR Calculation 131.5 mL/min (90-130) H 03/20/25 16:56 Glucose 100 mg/dL (65-115) 03/20/25 16:56 Calculated Osmolality 288 mOsm/kg (285-295) 03/20/25 16:56 Calcium 9.7 mg/dL (8.5-10.5) 03/20/25 16:56 Total Bilirubin 0.2 mg/dL (0.15-1.2) 03/20/25 16:56 AST 18 U/L (0-40) 03/20/25 16:56 ALT 17 U/L (0-41) 03/20/25 16:56 Alkaline Phosphatase 62 U/L (40-130) 03/20/25 16:56 Total Protein 7.1 g/dL (6.6-8.7) 03/20/25 16:56 Albumin 4.3 g/dL (3.5-5.2) 03/20/25 16:56 Globulin 2.8 g/dL (1.3-4.6) 03/20/25 16:56 TSH 1.66 uIU/mL (0.27-4.20) 03/20/25 16:56 Urine Color Yellow (Yellow) 03/20/25 17:01 Urine Appearance Clear (CLEAR) 03/20/25 17:01 Urine pH 5.5 (5-7) 03/20/25 17:01 Ur Specific [place] 1.006 (1.005-1.030) 03/20/25 17:01 Urine Protein Negative (Negative) 03/20/25 17:01 Urine Glucose (UA) Negative (Normal) 03/20/25 17:01 Urine Ketones Negative (Negative) 03/20/25 17:01 Urine Blood Negative (Negative) 03/20/25 17:01 Urine Nitrate Negative (Negative) 03/20/25 17:01 Urine Bilirubin Negative (Negative) 03/20/25 17:01 Urine Urobilinogen 0.2 mg/dL (Negative) 03/20/25 17:01 Ur Leukocyte Esterase Negative (Negative) 03/20/25 17:01 Urine RBC 0-2 /hpf (0-2) 03/20/25 17:01 Urine WBC 0-5 /hpf (0-5) 03/20/25 17:01 Ur Squamous Epith Cells 0-5 /hpf (0-5) 03/20/25 17:01 Amorphous Sediment Not Reportable 03/20/25 17:01 Urine Bacteria None seen /hpf (NONE) 03/20/25 17:01 Hyaline Casts 0-4 /lpf H 03/20/25 17:01 Salicylates 0.6 mg/dL (3-10) L 03/20/25 16:56 Urine Opiates Screen Negative ng/mL (Negative) 03/20/25 17:01 Acetaminophen < 5.0 ug/mL (10-30) L 03/20/25 16:56 Ur Barbiturates Screen Negative ng/mL (Negative) 03/20/25 17:01 Ur Phencyclidine Scrn Negative ng/mL (Negative) 03/20/25 17:01 Ur Amphetamines Screen Positive ng/mL (Negative) H 03/20/25 17:01 U Benzodiazepines Scrn Negative ng/mL (Negative) 03/20/25 17:01 Urine Cocaine Screen Negative ng/mL (Negative) 03/20/25 17:01 U Marijuana (THC) Screen Positive ng/mL (Negative) H 03/20/25 17:01 Ethyl Alcohol 14 mg/dL (0-10) H 03/20/25 16:56 No radiology studies performed this visit Discharge Plan Discharge Patient Disposition: Admitted As Inpatient Clinical Impression: Suicidal ideation, Depression Condition: Stable Coding Level of Care Code ED Thermoforming Machine Operator for Chg Fwd
[2025-03-20 17:12] LABS: Bilirubin Urine Negative (Negative); Blood Urine Negative (Negative); Glucose Urine UA Negative (Normal); Ketones Urine Negative (Negative); Leukocyte Esterase Urine Negative (Negative); Nitrate Urine Negative (Negative); Protein Urine Negative (Negative); Specific Gravity, Urine 1.006 (1.005-1.030); Urine Appearance Clear (CLEAR); Urine Color Yellow (Yellow); Urobilinogen Urine 0.2 mg/dL (Negative); pH Urine 5.5 (5-7)
[2025-03-20 17:14] LABS: Add Urine Microscopic? YES; Bacteria Urine None Seen /hpf; Hyaline Casts Urine 0-4 /lpf; RBC Urine 0-2 /hpf (0-2); Squamous Epithelial Cell Urine 0-5 /hpf (0-5); WBC Urine 0-5 /hpf (0-5)
[2025-03-20 17:16] LABS: Basophils # 0.1 10^3/uL (0.0-0.1); Basophils % 1.1 %; Eosinophils # 0.1 10^3/uL (0.0-0.8); Eosinophils % 1.6 %; Hematocrit 44.9 % (37-53); Lymphocytes # 2.3 10^3/uL (0.8-4.8); Lymphocytes % 31.5 %; Mean Corpuscular HGB Conc 33.2 g/dL (30-55); Mean Corpuscular Hemoglobin 31.2 pg (27-33); Mean Corpuscular Volume 93.9 fl (82-101); Mean Platelet Volume 8.4 fL (7.4-10.4); Monocytes # 0.6 10^3/uL (0.2-0.9); Neutrophils # 4.21 10^3/uL (1.8-7.7); Neutrophils % 57.4 %; Nucleated Red Blood Cells % 0 %; Platelet Count 372 10^3/cmm (157-399); Red Blood Count 4.78 10^6/uL (3.85-5.65); Red Cell Distribution Width 12.5 % (12.1-15.1); White Blood Count 7.34 10^3/uL (3.29-11.43)
[2025-03-20 17:19] LABS: Add Urine Culture? No
[2025-03-20 17:28] LABS: Amphetamines Screen Urine Positive (Negative); Barbiturates Screen Urine Negative (Negative); Benzodiazepines Screen Urine Negative (Negative); Cocaine Screen Urine Negative (Negative); Opiate Screen Urine Negative (Negative); PCP Screen Urine Negative (Negative); THC Screen Urine Positive (Negative)
--- NOTE | 2025-03-20 17:28 | PC.NURSE ---
96 hour hold rights read and reviewed with patient. Patient verbalized understandings and copy of rights given to patient.
[2025-03-20 17:47] LABS: Alanine Aminotransferase 17 U/L (0-41); Albumin Level 4.3 g/dL (3.5-5.2); Alcohol Level 14 mg/dL (0-10); Alkaline Phosphatase 62 U/L (40-130); Anion Gap 18.9 (5-19); Aspartate Amino Transferase 18 U/L (0-40); Blood Urea Nitrogen 7 mg/dL (6-20); Calcium 9.7 mg/dL (8.5-10.5); Carbon Dioxide 22 mmol/L (22-29); Chloride 103 mmol/L (98-107); Creatinine Clr Calc Pharmacy 151.5403; Globulin 2.8 g/dL (1.3-4.6); Glomerular Filtration Rate 131.5 mL/min (90-130); Glucose 100 mg/dL (65-115); Osmolality Calculated 288 mOsm/kg (285-295); Potassium 3.9 mmol/L (3.5-5.1); Salicylate 0.6 mg/dL (3-10); Sodium 140 mmol/L (136-145); Thyroid Stimulating Hormone 1.66 uIU/mL (0.27-4.20); Total Bilirubin 0.2 mg/dL (0.15-1.2); Total Protein 7.1 g/dL (6.6-8.7)
[2025-03-20 17:51] LABS: Acetaminophen < 5.0 ug/mL (10-30)
[2025-03-20 20:00] VITALS: BP 135/80; PULSE 98; RESP 16; O2SAT 98
[2025-03-20 20:31] VITALS: BP 139/83; PULSE 105; RESP 17; TEMP 36.5; O2SAT 96
[2025-03-20 20:35] VITALS: BP 139/83; PULSE 105; RESP 17; TEMP 36.5; O2SAT 96
[2025-03-20] MEDS: nicotine 4 mg lozenge MUCOUS MEM (20:52)
[2025-03-21 06:00] VITALS: BP 120/55; PULSE 80; RESP 18; TEMP 36.7; O2SAT 98
[2025-03-21] MEDS: nicotine 4 mg lozenge MUCOUS MEM ×6 (08:03→21:19)
[2025-03-21 13:50] VITALS: BP 133/86; PULSE 82; RESP 16; TEMP 36.6; O2SAT 98
[2025-03-21] MEDS: acetaminophen 325 mg Tablet 650 MG PO ×2 (14:12→20:18)
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
[2025-03-21] MEDS: ibuprofen 600 mg Tablet PO (17:26)
[2025-03-21] MEDS: risperiDONE 2 mg Tablet PO (20:18)
[2025-03-21 20:53] VITALS: BP 122/84; PULSE 68; RESP 18; TEMP 36.4; O2SAT 100
[2025-03-22 06:00] VITALS: BP 109/62; PULSE 80; RESP 16; TEMP 36.6; O2SAT 98
[2025-03-22] MEDS: nicotine 4 mg lozenge MUCOUS MEM ×3 (10:55→19:18)
--- NOTE | 2025-03-22 12:37 | P.NPUPN_ITS ---
Subjective NPU 2 Subjective: Patient presented today reporting that he is doing all right. He reports that he is happy he came in but knows he needs to make some changes if things were to get better. We talked about the importance of him having regular outpatient follow-up especially some therapeutic relationships or therapy where he addresses some of his regular challenges that he continues to fall place to because he is not engaged in active insight oriented therapy. Otherwise he denied any new concerns or side effects of medication. Mental Status Exam 2 MSE Comments: This is a well-nourished, well-developed, white male, with hospital scrubs on, disheveled with limited eye contact with slightly dysmorphic facies. No abnormal movements except for significant psychomotor retardation. Cooperative with exam in mild to moderate distress. Speech was slightly decreased rate and volume and dysarthric. Mood described as depressed/messed up; affect congruent. Thought process, mostly organized. Thought content: patient endorsed some suicidal and homicidal ideation, there were no delusions reported or noted, patient denied any auditory or visual hallucinations. Attention, concentration, and memory appear intact but were not formally tested. He is alert and oriented times three. Insight and judgment are impaired. Impulse control impaired, and intellectual ability appears limited versus impaired. Vitals/I&O/Wt Last Vital Signs Temp 97.9 F 03/22/25 06:00 Pulse 80 03/22/25 06:00 Resp 16 03/22/25 06:00 BP 109/62 03/22/25 06:00 Pulse Ox 98 03/22/25 06:00 O2 Del Method Room Air 03/22/25 06:00 Weight last 48 hrs Weight 72.575 kg Data NPU 03/20/25 16:56 03/20/25 16:56 A&P Assessment and plan (1) Intermittent explosive disorder: (2) Methamphetamine use disorder, severe: (3) ADHD: (4) Depression with suicidal ideation: (5) Borderline personality disorder: (6) Nicotine dependence, cigarettes, uncomplicated: Plan This is a 30 year old white male with a history of intermittent explosive disorder, borderline intellectual functioning, polysubstance abuse, and previously diagnosed with bipolar disorder who presents with history of methamphetamine addiction and significant psychosocial stressors including homelessness and legal problems who has always presented with positive drug screens of methamphetamines, cannabis and often alcohol who presented last time without methamphetamine but once again returns with positivity for those 3 agents reporting that things have been difficult recently. 1. Continue current medication. Restart any medications that he had previously been on successfully and stopped. 2. Continue every 15 minute checks for safety. 3. Encourage individual, group and milieu therapies. 4. Recommend sober living treatment at the highest level of care to which the patient is willing to commit. 5. Get collateral information. 6. Evaluate against the backdrop of 96-hour hold. PDMP PDMP Reviewed: Not Reviewed Involuntary Hold Information 2 Hold Status: Legal Status: 96 Hour Hold Date/Time Hold Expires: 03/26/25 @ 16:40 96 Hour Hold: 96 Hour Involuntary Admission: Yes Other Hold: Hold End Date: 11/26/24 Attestations NPU 2 Medical Necessity Statement*: Inpatient hospitalization is medically necessary and the clinically appropriate intervention at this time. We will monitor medications and make changes as indicated. His likely length of stay is 3-5 days. Coding Level of Care Code Acute Code for [facility] Fwd Diagnoses Intermittent explosive disorder F63.81 Methamphetamine use disorder, severe F15.20 ADHD F90.9 Depression with suicidal ideation F32.A; R45.851 Borderline personality disorder F60.3 Nicotine dependence, cigarettes, uncomplicated F17.210
[2025-03-22 14:00] VITALS: BP 114/63; PULSE 107; RESP 17; TEMP 36.6; O2SAT 99
[2025-03-22] MEDS: risperiDONE 2 mg Tablet PO (19:18)
[2025-03-22] MEDS: acetaminophen 325 mg Tablet 650 MG PO (20:14)
[2025-03-22 20:28] VITALS: BP 135/86; PULSE 78; RESP 18; TEMP 36.6; O2SAT 98
--- NOTE | 2025-03-22 21:48 | PC.NURSE ---
PATIENT REQUESTED TYLENOL FOR TEETH-ACHE RATING 7 1/2 OUT OF 10 ON PAIN SCALE. TYLENOL 650MG GIVEN.
--- NOTE | 2025-03-22 22:11 | PC.NURSE ---
PATIENT QUIETLY RESTING IN BED WITH BOTH EYES CLOSED. NO SIGNS OF PAIN NOTED AT THIS TIME
[2025-03-23 06:00] VITALS: BP 109/68; PULSE 76; RESP 16; O2SAT 98
[2025-03-23] MEDS: nicotine 4 mg lozenge MUCOUS MEM ×7 (06:23→21:00)
[2025-03-23 14:00] VITALS: BP 123/76; PULSE 74; RESP 18; TEMP 36.4; O2SAT 99
[2025-03-23] MEDS: acetaminophen 325 mg Tablet 650 MG PO (15:28)
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
[2025-03-23] MEDS: risperiDONE 2 mg Tablet PO (19:59)
[2025-03-23] MEDS: trazodone 50 mg Tablet PO (20:33)
[2025-03-23 21:23] VITALS: BP 129/87; PULSE 87; RESP 18; TEMP 36.7; O2SAT 99
[2025-03-24 06:00] VITALS: BP 110/66; PULSE 72; RESP 18; O2SAT 96
[2025-03-24] MEDS: nicotine 4 mg lozenge MUCOUS MEM ×6 (06:22→20:16)
--- NOTE | 2025-03-24 07:19 | P.NPUPN_ITS ---
Subjective NPU 2 Subjective: Patient denied any new issues. Continues to inquire about Adderall as a possibility but is taking current medication as prescribed. He denies any side effects of the medications and continues to work with the social work team on appropriate aftercare options. Mental Status Exam 2 MSE Comments: This is a well-nourished, well-developed, white male, with hospital scrubs on, disheveled with limited eye contact with slightly dysmorphic facies. No abnormal movements except for significant psychomotor retardation. Cooperative with exam in mild distress. Speech was slightly decreased rate and volume and dysarthric. Mood described as a little better; affect congruent. Thought process, mostly organized. Thought content: patient endorsed some suicidal and homicidal ideation, there were no delusions reported or noted, patient denied any auditory or visual hallucinations. Attention, concentration, and memory appear intact but were not formally tested. He is alert and oriented times three. Insight and judgment are impaired. Impulse control impaired, and intellectual ability appears limited versus impaired. Vitals/I&O/Wt Last Vital Signs Temp 98.0 F 03/23/25 21:23 Pulse 72 03/24/25 06:00 Resp 18 03/24/25 06:00 BP 110/66 03/24/25 06:00 Pulse Ox 96 03/24/25 06:00 O2 Del Method Room Air 03/22/25 06:00 Weight last 48 hrs Weight 80.649 kg Data NPU 03/20/25 16:56 03/20/25 16:56 A&P Assessment and plan (1) Intermittent explosive disorder: (2) Methamphetamine use disorder, severe: (3) ADHD: (4) Depression with suicidal ideation: (5) Borderline personality disorder: (6) Nicotine dependence, cigarettes, uncomplicated: Plan This is a 30 year old white male with a history of intermittent explosive disorder, borderline intellectual functioning, polysubstance abuse, and previously diagnosed with bipolar disorder who presents with history of methamphetamine addiction and significant psychosocial stressors including homelessness and legal problems who has always presented with positive drug screens of methamphetamines, cannabis and often alcohol who presented last time without methamphetamine but once again returns with positivity for those 3 agents reporting that things have been difficult recently. 1. Continue current medication. Restart any medications that he had previously been on successfully and stopped. We will explore chart and reach out to outpatient team about this request for Adderall. Could consider Vyvanse. 2. Continue every 15 minute checks for safety. 3. Encourage individual, group and milieu therapies. 4. Recommend sober living treatment at the highest level of care to which the patient is willing to commit. 5. Get collateral information. 6. Evaluate against the backdrop of 96-hour hold. PDMP PDMP Reviewed: Not Reviewed Involuntary Hold Information 2 Hold Status: Legal Status: 96 Hour Hold Date/Time Hold Expires: 03/26/25 @ 16:40 96 Hour Hold: 96 Hour Involuntary Admission: Yes Other Hold: Hold End Date: 11/26/24 Attestations NPU 2 Medical Necessity Statement*: Inpatient hospitalization is medically necessary and the clinically appropriate intervention at this time. We will monitor medications and make changes as indicated. His likely length of stay is 1-3 days. Coding Level of Care Code Acute Code for g Fwd Diagnoses Intermittent explosive disorder F63.81 Methamphetamine use disorder, severe F15.20 ADHD F90.9 Depression with suicidal ideation F32.A; R45.851 Borderline personality disorder F60.3 Nicotine dependence, cigarettes, uncomplicated F17.210
[2025-03-24] MEDS: acetaminophen 325 mg Tablet 650 MG PO ×2 (11:22→15:56)
[2025-03-24 14:00] VITALS: BP 140/91; PULSE 78; RESP 18; TEMP 36.3; O2SAT 100
[2025-03-24] MEDS: nicotine 2 mg Gum BUCCAL (16:08)
[2025-03-24] MEDS: risperiDONE 2 mg Tablet PO (20:14)
[2025-03-24 20:40] VITALS: BP 136/76; PULSE 85; RESP 18; TEMP 36.7; O2SAT 98
[2025-03-24] MEDS: trazodone 50 mg Tablet PO (20:56)
[2025-03-25 06:00] VITALS: BP 104/65; PULSE 72; RESP 16; O2SAT 97
[2025-03-25] MEDS: nicotine 4 mg lozenge MUCOUS MEM ×7 (07:50→22:31)
[2025-03-25] MEDS: acetaminophen 325 mg Tablet 650 MG PO (09:58)
[2025-03-25 14:00] VITALS: BP 126/74; PULSE 73; RESP 16; TEMP 36.4; O2SAT 100
--- NOTE | 2025-03-25 15:02 | P.NPUPN_ITS ---
Subjective NPU 2 Subjective: Patient presented today reporting he is doing okay. We discussed him working with his outpatient team to determine whether the stimulant treatment made sense and that I would put my recommendation that it be Vyvanse and the discharge summary and he understood and agreed to proceed as is documented in this note. We talked about likely discharge tomorrow and he reports having a plan to return to his ex's house and not be homeless again. He denied any side effects of his medication. Mental Status Exam 2 MSE Comments: This is a well-nourished, well-developed, white male, with hospital scrubs on, disheveled with limited eye contact with slightly dysmorphic facies. No abnormal movements except for significant psychomotor retardation. Cooperative with exam in mild distress. Speech was slightly decreased rate and volume and dysarthric. Mood described as a little better; affect congruent. Thought process, mostly organized. Thought content: patient endorsed some suicidal and homicidal ideation, there were no delusions reported or noted, patient denied any auditory or visual hallucinations. Attention, concentration, and memory appear intact but were not formally tested. He is alert and oriented times three. Insight and judgment are impaired. Impulse control impaired, and intellectual ability appears limited versus impaired. Vitals/I&O/Wt Last Vital Signs Temp 98.1 F 03/24/25 20:40 Pulse 72 03/25/25 06:00 Resp 16 03/25/25 06:00 BP 104/65 03/25/25 06:00 Pulse Ox 97 03/25/25 06:00 O2 Del Method Room Air 03/25/25 06:00 Data NPU 03/20/25 16:56 03/20/25 16:56 A&P Assessment and plan (1) Intermittent explosive disorder: (2) Methamphetamine use disorder, severe: (3) ADHD: (4) Depression with suicidal ideation: (5) Borderline personality disorder: (6) Nicotine dependence, cigarettes, uncomplicated: Plan This is a 30 year old white male with a history of intermittent explosive disorder, borderline intellectual functioning, polysubstance abuse, and previously diagnosed with bipolar disorder who presents with history of methamphetamine addiction and significant psychosocial stressors including homelessness and legal problems who has always presented with positive drug screens of methamphetamines, cannabis and often alcohol who presented last time without methamphetamine but once again returns with positivity for those 3 agents reporting that things have been difficult recently. 1. Continue current medication. Restart any medications that he had previously been on successfully and stopped. We will explore chart and reach out to outpatient team about this request for Adderall. Could consider Vyvanse. 2. Continue every 15 minute checks for safety. 3. Encourage individual, group and milieu therapies. 4. Recommend sober living treatment at the highest level of care to which the patient is willing to commit. 5. Get collateral information. 6. Evaluate against the backdrop of 96-hour hold. PDMP PDMP Reviewed: Not Reviewed Involuntary Hold Information 2 Hold Status: Legal Status: 96 Hour Hold Date/Time Hold Expires: 03/26/25 @ 16:40 96 Hour Hold: 96 Hour Involuntary Admission: Yes Other Hold: Hold End Date: 11/26/24 Attestations NPU 2 Medical Necessity Statement*: Inpatient hospitalization is medically necessary and the clinically appropriate intervention at this time. We will monitor medications and make changes as indicated. His likely length of stay is 1-2 days. Coding Level of Care Code Acute Code for [facility] Fwd Diagnoses Intermittent explosive disorder F63.81 Methamphetamine use disorder, severe F15.20 ADHD F90.9 Depression with suicidal ideation F32.A; R45.851 Borderline personality disorder F60.3 Nicotine dependence, cigarettes, uncomplicated F17.210
[2025-03-25] MEDS: ibuprofen 600 mg Tablet PO (17:45)
[2025-03-25 19:33] VITALS: BP 124/83; PULSE 71; RESP 18; TEMP 36.6; O2SAT 94
[2025-03-25] MEDS: nicotine 2 mg Gum BUCCAL (20:13)
[2025-03-25] MEDS: risperiDONE 2 mg Tablet PO (20:58)
[2025-03-26 06:00] VITALS: BP 104/62; PULSE 64; RESP 16; O2SAT 98
[2025-03-26] MEDS: nicotine 2 mg Gum BUCCAL (06:31)
[2025-03-26] MEDS: nicotine 4 mg lozenge MUCOUS MEM ×4 (08:05→14:39)
[2025-03-26] MEDS: acetaminophen 325 mg Tablet 650 MG PO (12:06)
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
[2025-03-26 14:00] VITALS: BP 132/83; PULSE 91; RESP 16; TEMP 36.8; O2SAT 98
[2025-03-26 14:16] VITALS: BP 104/62; PULSE 64; RESP 16; TEMP 36.4; O2SAT 98
--- NOTE | 2025-03-26 15:38 | DCPLANNER ---
Imm was given to Pt and rights explained and copy placed in file.
== END 2025-03-26 15:23 | disposition home or self-care (01) | DRG 883 ==
LOC: ER 18:10 → NP 18:57
PROVIDERS: Admitting Provider Psychiatry & Neurology Psychiatry; Emergency Provider Emergency Medicine; Visit Provider Psychiatry & Neurology Psychiatry
DX: F63.81 Intermittent explosive disorder (principal); F15.20 Other stimulant dependence, uncomplicated; F31.63 Bipolar disorder, current episode mixed, severe, without psychotic features; R45.851 Suicidal ideations; Z59.00 Homelessness unspecified; F90.9 Attention-deficit hyperactivity disorder, unspecified type; F60.3 Borderline personality disorder; F17.210 Nicotine dependence, cigarettes, uncomplicated; Z81.1 Family history of alcohol abuse and dependence; Z81.3 Family history of other psychoactive substance abuse and dependence
CPT/HCPCS: 36415; 80053; 80306; 80307; 81001; 84443; 85025; 93005; 97150; 97165; 99285; J9999